=== PATIENT | female | born 1960 | race Caucasian/White ===

== ENCOUNTER → 2020-02-11 11:28 | Outpatient (BNVA) | payer OTHER, SELFPAY | PROVIDERS: PCP Nurse Practitioner Family; Visit Provider Surgery | DX: C50.912 Malignant neoplasm of unspecified site of left female breast (principal); Z98.890 Other specified postprocedural states | CPT/HCPCS: 99214 ==

== ENCOUNTER 2020-02-17 07:01 | Day surgery (SDC) | payer OTHER, SELFPAY ==
[2020-02-12 13:30] VITALS: BMI 27.6
--- NOTE | 2020-02-16 10:46 | HO.ANESPROP2 ---
Documented by User: Graciela Carballo 02/16/20 10:53 HPI - Anesthesia Eval Consult details Narrative: 59 yo F for L breast lumpectomy S/P breast bx and needle loc 12/2019 COUNTS INCLUDE 234 BEDS AT THE [facility] Past Medical History Medical History (Updated 02/16/20 @ 10:47 by Graciela Carballo) Chronic back pain Diverticulitis Fibromyalgia GERD (gastroesophageal reflux disease) Family History Family History Mother History of diabetes mellitus History of hypertension History of pancreatic cancer Father History of diabetes mellitus History of hypertension Sister History of hypertension Maternal Grandmother History of lung cancer Surgical History Surgical History History of section History of colonoscopy History of cystoscopy History of endoscopy (~01/2018) History of esophagogastroduodenoscopy (EGD) (~02/2013) History of gastric surgery History of left breast biopsy (~01/08/20) History of local excision of skin lesion (~03/2018) History of right breast biopsy (~2012) Social History Social History Are you a primary healthcare insurance sales agent to a significant other at home: No Do you presently have 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 or other home services: No Alcohol intake: never Smoking Status: Never smoker Second Hand Smoke Exposure: No Use of substances other than those prescribed or required for medical reasons: No Have you been hit, kicked, punched, or otherwise hurt by someone within the past year? If so, by whom?: No Advance Directives: No Advance Directives Information Provided: Yes Advance Directives on File: No Meds Allergies Allergy/AdvReac Type Severity Reaction Status Date / Time Penicillins [PENICILLINS] Allergy Severe SWELLING/VO Verified 02/11/20 11:45 MITING paroxetine Allergy Unknown diarrhea Verified 02/11/20 11:45 metronidazole [Flagyl] AdvReac Unknown palpatation Verified 02/11/20 11:45 s IVP dye - facial swelling Allergy Unknown Eye Uncoded 02/10/20 09:45 Swelling Home Medications Medication Instructions Recorded Confirmed Type aspirin 81 mg tablet,delayed 81 mg PO DAILY 02/10/20 02/11/20 History release docusate sodium 100 mg capsule 100 mg PO DAILY 02/10/20 02/11/20 History ergocalciferol (vitamin D2) 50 mcg 50 mcg PO DAILY 02/10/20 02/11/20 History (2,000 unit) capsule fluticasone propionate 50 1 spray INTRANASAL DAILY 02/10/20 02/11/20 History mcg/actuation nasal spray,suspension lidocaine HCl 4 % topical cream 1 applic TOPICAL TID 02/10/20 02/11/20 History multivitamin with minerals-folic tab PO 02/10/20 02/11/20 History acid 0.4 mg tablet omeprazole 40 mg capsule,delayed 40 mg PO DAILY 02/10/20 02/11/20 History release oxycodone-acetaminophen 5 mg-325 1 tab PO Q6H PRN 02/10/20 02/11/20 History mg tablet pantoprazole 40 mg tablet,delayed 40 mg PO DAILY 02/10/20 02/11/20 History release zolpidem 10 mg tablet 10 mg PO BEDTIME 02/10/20 02/11/20 History Exam Exam Date and Time: February 16, 2020 1046 Height,Weight and Vital Signs: Height 5 ft 2 in Weight 68.492 kg Assessment and Plan Assessment Anesthesia Assessment: Chart Reviewed Documented by User: Dominic Olivier 02/17/20 09:36 COUNTS INCLUDE 234 BEDS AT THE [facility] Past Medical History Medical History (Updated 02/16/20 @ 10:47 by Graciela Carballo) Chronic back pain Diverticulitis Fibromyalgia GERD (gastroesophageal reflux disease) Family History Family History Mother History of diabetes mellitus History of hypertension History of pancreatic cancer Father History of diabetes mellitus History of hypertension Sister History of hypertension Maternal Grandmother History of lung cancer Surgical History Surgical History History of section History of colonoscopy History of cystoscopy History of endoscopy (~01/2018) History of esophagogastroduodenoscopy (EGD) (~02/2013) History of gastric surgery History of left breast biopsy (~01/08/20) History of local excision of skin lesion (~03/2018) History of right breast biopsy (~2012) Social History Social History Are you a primary healthcare insurance sales agent to a significant other at home: No Do you presently have 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 or other home services: No Alcohol intake: never Smoking Status: Never smoker Second Hand Smoke Exposure: No Use of substances other than those prescribed or required for medical reasons: No Have you been hit, kicked, punched, or otherwise hurt by someone within the past year? If so, by whom?: No Advance Directives: No Advance Directives Information Provided: Yes Advance Directives on File: No Meds Allergies Allergy/AdvReac Type Severity Reaction Status Date / Time Penicillins [PENICILLINS] Allergy Severe SWELLING/VO Verified 02/11/20 11:45 MITING paroxetine Allergy Unknown diarrhea Verified 02/11/20 11:45 metronidazole [Flagyl] AdvReac Unknown palpatation Verified 02/11/20 11:45 s IVP dye - facial swelling Allergy Unknown Eye Uncoded 02/10/20 09:45 Swelling Home Medications Medication Instructions Recorded Confirmed Type aspirin 81 mg tablet,delayed 81 mg PO DAILY 02/10/20 02/11/20 History release docusate sodium 100 mg capsule 100 mg PO DAILY 02/10/20 02/11/20 History ergocalciferol (vitamin D2) 50 mcg 50 mcg PO DAILY 02/10/20 02/11/20 History (2,000 unit) capsule fluticasone propionate 50 1 spray INTRANASAL DAILY 02/10/20 02/11/20 History mcg/actuation nasal spray,suspension lidocaine HCl 4 % topical cream 1 applic TOPICAL TID 02/10/20 02/11/20 History multivitamin with minerals-folic tab PO 02/10/20 02/11/20 History acid 0.4 mg tablet omeprazole 40 mg capsule,delayed 40 mg PO DAILY 02/10/20 02/11/20 History release oxycodone-acetaminophen 5 mg-325 1 tab PO Q6H PRN 02/10/20 02/11/20 History mg tablet pantoprazole 40 mg tablet,delayed 40 mg PO DAILY 02/10/20 02/11/20 History release zolpidem 10 mg tablet 10 mg PO BEDTIME 02/10/20 02/11/20 History Exam Airway Mallampati Class: II TM Dist: >3cm Neck ROM: Full Loose/Missing/Broken Teeth: Yes and Upper Heart: RRR Other: chipped front tooth Assessment and Plan Assessment Anesthesia Assessment: Anesthesia Plan Discussed Final Anesthetic Review NPO: Yes ASA Class: II Anesthetic Plan Anesthetic Plan: GA
[2020-02-17] VITALS (7 sets, daily range): BP systolic 142–163; BP diastolic 64–83; PULSE 64–76; RESP 16–20; TEMP 36.3–37; O2SAT 97–100
--- NOTE | 2020-02-17 09:24 | MHC.SHP ---
Pre-Procedural Eval Section A The patient is an INPATIENT: No Changes since office visit: No Cold of Flu in the past 2 weeks, No New Medical Problems, No Changes in Medication and No Patient answered all questions The History & Physical has been completed within 30 days and I have reviewed it.: Yes Section B Chief Complaint: Cancer of Left Breast Allergies: Allergies Allergy/AdvReac Type Severity Reaction Status Date / Time Penicillins [PENICILLINS] Allergy Severe SWELLING/VO Verified 02/11/20 11:45 MITING paroxetine Allergy Unknown diarrhea Verified 02/11/20 11:45 metronidazole [Flagyl] AdvReac Unknown palpatation Verified 02/11/20 11:45 s IVP dye - facial swelling Allergy Unknown Eye Uncoded 02/10/20 09:45 Swelling Plan Diagnosis/Plan: Unchanged Patient has been examined and remains a candidate for the planned procedure
--- NOTE | 2020-02-17 09:35 | NM_ITS ---
EXAMINATION: NM LYMPH SCINTIGRAPHY CLINICAL INFORMATION: Left breast cancer COMPARISON: None TECHNIQUE: Procedure and risks and benefits including bleeding and infection were discussed with the patient and informed consent was obtained. The subcutaneous skin nipple interface of the left breast at the 12, 3, 6 and 9:00 axis was ejected with 0.125 mCi technetium 99m labeled lymphoseek for total dose of 0.5 mCi. Imaging of the chest in the anterior, ICELANDIC and left lateral positions at 20 and 30 minutes was performed. FINDINGS: There is adequate radiotracer uptake seen at the skin nipple interface. There is a sentinel node activity in the left axilla. A single sentinel node is identified. IMPRESSION: Positive sentinel node activity in the left axilla.
[2020-02-17] MEDS: vancomycin HCL 1,000 MG in 0.9 % Sodium Chloride 250 ML 270 MG IV (09:40)
[2020-02-17] MEDS: Lactated Ringers 1,000 ML 100 ML IVCONT (09:42)
--- NOTE | 2020-02-17 11:34 | P.OP_ITS ---
Operative Note Operative Note Narrative: Preoperative Diagnosis: Left breast carcinoma with involved superior resection margin Postoperative Diagnosis: Same Procedure: RE-excision of left breast lumpectomy margins and left axillary sentinel node biopsy Anesthesia: [employer] Truck Manager: Liz Chahal PA-C EBL: <10 cc Specimens: Left axillary sentinel nodes 1(count 5,029) and 2 (count 1,259), additional axillary tissue, Breast tissue - re-excision left breast lumpectomy margins Immediate complcations: None Indications: She is status post left breast biopsy with needle localization for further evaluation of a finding of in intraductal papillary process 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 The left breast, surrounding chest wall, shoulder, axilla and upper arm were prepped with ChloraPrep and were draped sterilely. Time-out procedure was performed. Infusion of vancomycin had been initiated in the preop area and continued initially in the operating room. She was noted to have some erythema and mild induration just proximal to the IV site and the infusion was discontinued after administration of approximately 500 mg. The surgical sites were infiltrated with local anesthetic prior to making incision. Left axillary sentinel node biopsy was carried out 1st. The probe was employed to identify the area of highest count, which was located at the base of the axi lla. Skin and subcutaneous tissues were infiltrated with local anesthetic and an approximately 2.5 cm transverse incision was made and was carried into the subcutaneous tissues. Using a technique of alternating scanning and dissection, an area of elevated count was identified. The tissues were grasped with an Allis clamp. Further dissection revealed 2 adjacent lymph nodes. These were dissected free using a combination of Metzenbaum and electrosurgical pencil dissection. after removal, scanning of left axillary sentinel node revealed a count of 5029. [place] node 2. Had a count of 1259. there is a small amount of additional axillary tissue that had been removed with the sentinel nodes and this was sent as a separate specimen. Rescanning of the axilla did not identify any additional areas of significantly elevated count. The wound was irrigated with saline solution and was inspected for bleeding. None was seen. Additional infiltration of local anesthetic was carried out. The axillary fascia was then closed with interrupted sutures of 2 0 Polysorb. Superficial subcutaneous tissues were closed with interrupted sutures of 3 0 Polysorb and skin was closed with a running subcuticular suture of 4 0 Polysorb. Tegaderm was placed over the incision. Following this, skin, subcutaneous and deeper tissues at the left breast biopsy site were infiltrated with local anesthetic. Incision was made through the old scar and was carried into the subcutaneous tissues. Skin flaps were then raised circumferentially using the electrosurgical pencil. The prior biopsy site was dissected free circumferentially using Metzenbaum scissors. Tissues were marked for margin orientation. the wound was irrigated with saline solution and was inspected for bleeding. Minimal bleeding was noted and was controlled using the electrosurgical pencil. The lumpectomy site was then infiltrated with local anesthetic. It further mobilization of the skin flaps was carried out primarily it superiorly to permit to more cosmetic closure of the lumpectomy site. The lumpectomy site was then reapproximated with interrupted sutures of 3 0 Polysorb. Subcutaneous tissues were reapproximated with interrupted sutures of 3 0 Polysorb and skin was closed with a running subcuticular suture of 4 0 Polysorb. The Tegaderm was removed from the axillary incision and Steri-Strips were placed on both incisions followed by dry sterile dressings. She tolerated the procedure well. Sponge instrument counts were correct. There were no immediate complications. She was transferred to the postanesthesia care unit in stable condition. Breast [place] Node Biopsy Substrate(s) used for sentinel node biopsy in the non-neoadjuvant setting: Radiotracer Substrate(s) used for sentinel node biopsy in the neoadjuvant setting: Radiotracer All colored nodes or non-colored nodes present at the end of a dye filled lymphatic channel were removed, if dye was used as the substrate for localization: N/A All significantly radioactive nodes were removed, if radionuclide was used as the substrate for localization: Yes All palpably suspicious nodes were removed, if present: N/A If clips were placed in pathology-involved nodes, those nodes were identified and removed: N/A General Surg. - Synoptic Notes Breast [place] Node Biopsy Substrate(s) used for sentinel node biopsy in the non-neoadjuvant setting: Radiotracer Substrate(s) used for sentinel node biopsy in the neoadjuvant setting: Radiotracer All colored nodes or non-colored nodes present at the end of a dye filled lymphatic channel were removed, if dye was used as the substrate for localization: N/A All significantly radioactive nodes were removed, if radionuclide was used as the substrate for localization: Yes All palpably suspicious nodes were removed, if present: N/A If clips were placed in pathology-involved nodes, those nodes were identified and removed: N/A
[2020-02-17] MEDS: oxyCODONE HCl Immed Release 5 MG TABLET PO (11:55)
--- NOTE | 2020-02-17 12:46 | HO.POSTANES ---
Post Anesthesia Evaluation Post Anesthesia Evaluation Vital Signs: Vital Signs Temp Pulse Resp BP Pulse Ox 02/17/20 12:12 98.6 F 65 16 157/83 H 98 02/17/20 12:02 64 20 160/80 H 97 02/17/20 11:47 66 20 145/74 H 100 02/17/20 11:43 75 20 142/69 H 100 02/17/20 11:38 74 18 144/64 H 100 02/17/20 11:33 97.3 F 76 16 163/83 H 100 02/17/20 07:19 97.8 F 74 16 153/80 H 97 Anesthesia: General Endotracheal-GETA Mental Status: Awake Pain Control: Satisfactory Nausea/Vomiting: None Hydration: Adequate Anesthesia-Related Issues: No Anes. Related Issues
== END 2020-02-17 12:59 | disposition home or self-care (01) ==
PROVIDERS: PCP Nurse Practitioner Family; Visit Provider Surgery
DX: C50.912 Malignant neoplasm of unspecified site of left female breast (principal); Z17.0 Estrogen receptor positive status [ER+]; Z88.0 Allergy status to penicillin; Z88.1 Allergy status to other antibiotic agents; Z91.041 Radiographic dye allergy status
CPT/HCPCS: 19301; 38525; 78195; 88307; 88341; 88342; A9520; J0131; J1100; J2250; J2405; J3010; J3370

== ENCOUNTER → 2020-02-25 11:38 | Outpatient (BNVA) | payer OTHER, SELFPAY | PROVIDERS: PCP Nurse Practitioner Family; Visit Provider Surgery | DX: Z48.3 Aftercare following surgery for neoplasm (principal); C50.912 Malignant neoplasm of unspecified site of left female breast | CPT/HCPCS: 99212 ==

== ENCOUNTER → 2020-03-17 10:17 | Outpatient (BNVA) | payer OTHER, SELFPAY | PROVIDERS: PCP Nurse Practitioner Family; Visit Provider Surgery | DX: Z48.3 Aftercare following surgery for neoplasm (principal); C50.912 Malignant neoplasm of unspecified site of left female breast | CPT/HCPCS: 99212 ==

== ENCOUNTER 2020-03-24 08:23 | Outpatient (REF) | payer OTHER, SELFPAY ==
--- NOTE | 2020-03-24 08:30 | MM_ITS ---
EXAMINATION: BONE DENSITOMETRY CLINICAL INDICATION: Osteopenia. COMPARISON: Previous BD dated 12/18/2011 and baseline BD dated 08/11/2009. TECHNIQUE: Using a [employer] DXA System (software version: 13.1) manufactured by [employer], dual-energy x-ray absorptiometry was performed of the lumbar spine and left hip. The images are of good technical quality. Summary results are attached. FINDINGS: AP SPINE L1-L4: Current: BMD 1.148 g/cm2, Z-score 0.9, T-score -0.3, normal, 11.2% decrease from previous, 13.8% decrease from baseline (<5% change is not significant). Prior: BMD 1.293 g/cm2. Baseline: BMD 1.332 g/cm2. LEFT FEMUR, NECK: Current: BMD 0.855 g/cm2, Z-score -0.1, T-score -1.3, osteopenia. Prior: BMD 0.991 g/cm2. Baseline: BMD 0.994 g/cm2. LEFT FEMUR, TOTAL: Current: BMD 0.945 g/cm2, Z-score 0.4, T-score -0.5, normal, 12.3% decrease from previous, 15.3% decrease from baseline (<5% change is not significant). Prior: BMD 1.077 g/cm2. Baseline: BMD 1.116 g/cm2. IDENTIFIED RISK FACTORS: Menopause, hysterectomy. HISTORY OF FRACTURE: None listed. MEDICATIONS: Multivitamin. MM/XR DEXA appendicular skeleton IMPRESSION: 1. DIAGNOSIS: Osteopenia based on the lowest T-score value of -1.3 in the femoral neck applying World Health Organization criteria. 2. 10-YEAR FRACTURE RISK PREDICTION, FRAX: Major osteoporotic fracture (clinical spine, forearm, hip or shoulder) 4.2%. Hip fracture 0.3%. 3. Treatment Recommendations: NOF guidelines recommend consideration for treatment in postmenopausal women and men age 50 and older presenting with the following: -A hip or vertebral (clinical or morphometric) fracture. -T-score less than or equal to -2.5 at the femoral neck or spine after appropriate evaluation to exclude secondary causes. -Low bone mass at the hip or spine and a 10-year fracture probability by FRAX of greater than or equal to 3% for hip fracture or greater than or equal to 20% for major osteoporotic fracture based on the [place] adapted WHO algorithm. 4. Other Recommendations: All treatment decisions require clinical judgment and consideration of individual patient factors, including patient preferences, comorbidities, previous drug use, risk factors not captured in the FRAX model (e.g. frailty, falls, vitamin D deficiency, increased bone turnover, interval significant decline in bone density) and possible under or overestimation of fracture risk by FRAX. Additional medical evaluation for secondary cause of low bone mineral density may be appropriate. FUTURE SCAN RECOMMENDATION: People with diagnosed cases of osteoporosis or at high risk for fracture should have regular bone mineral density tests. For patients eligible for Medicare, routine testing is allowed once every 2 years. The testing frequency can be increased to one year for patients who have rapidly progressing disease, those who are receiving or discontinuing medical therapy to restore bone mass, or have additional risk factors.
== END 2020-03-24 08:24 | disposition home or self-care (01) ==
LOC: HO.MAMMO 08:23
PROVIDERS: Visit Provider Internal Medicine Medical Oncology
DX: M85.89 Other specified disorders of bone density and structure, multiple sites (principal)
CPT/HCPCS: 77081

== ENCOUNTER → 2020-03-24 10:00 | Outpatient (BNV) | payer OTHER, SELFPAY | PROVIDERS: PCP Nurse Practitioner Family; Referring Provider Surgery; Visit Provider Internal Medicine Medical Oncology | DX: D05.12 Intraductal carcinoma in situ of left breast (principal) | CPT/HCPCS: 99202; 99204; 99212; 99213; 99214 ==

== ENCOUNTER → 2020-05-17 10:29 | Outpatient (BNVA) | payer OTHER, SELFPAY | PROVIDERS: PCP Nurse Practitioner Family; Visit Provider Surgery | DX: C50.912 Malignant neoplasm of unspecified site of left female breast (principal) | CPT/HCPCS: 99212 ==

== ENCOUNTER 2020-06-10 12:15 | Emergency (ER) | payer OTHER, SELFPAY ==
[2020-06-10 14:53] VITALS: BP 174/100; PULSE 81; RESP 18; TEMP 37.8; O2SAT 94; BMI 28.5
--- NOTE | 2020-06-10 15:40 | ECG_ITS ---
Test Reason : SHORTNESSOF BREATH Blood Pressure : / mmHG Vent. Rate : 071 BPM Atrial Rate : 071 BPM P-R Int : 158 ms QRS Dur : 076 ms QT Int : 388 ms P-R-T Axes : 035 010 024 degrees QTc Int : 421 ms Normal sinus rhythm with sinus arrhythmia Normal ECG When compared with ECG of 22-JUN-2019 23:45, No significant change was found Referred By: Tessa Madera Electronically Signed By:Sunny Soto
--- NOTE | 2020-06-10 15:41 | XR_ITS ---
EXAMINATION: XR CHEST CLINICAL INFORMATION: Dyspnea. COMPARISON: 01/14/2020 chest radiographs. TECHNIQUE: Frontal view of the chest was obtained. FINDINGS: No significant abnormality is noted involving the heart, lungs, mediastinum, bony thorax or soft tissues. XR/XR chest 1V IMPRESSION: No acute cardiopulmonary process.
[2020-06-10 15:44] VITALS: BP 178/96; PULSE 80; RESP 18; TEMP 36.5; O2SAT 98
--- NOTE | 2020-06-10 16:10 | NM_ITS ---
EXAMINATION: NM LUNG IMAGE PERFUSION CLINICAL INFORMATION: Breast cancer. On chemotherapy. Pleuritic right-sided chest pain COMPARISON: Lung scan 01/14/2020. Chest x-ray 06/10/2020 TECHNIQUE: Perfusion lung scan imaging performed. 2.5 mCi technetium 99m MAA given intravenously. Images obtained in multiple projections of the lungs. FINDINGS: There is homogeneous perfusion of the right and left lung. No perfusion defects. NM/NM pul perfusion IMPRESSION: Normal perfusion lung scan. No evidence of pulmonary embolism.
[2020-06-10] MEDS: oxyCODONE HCl Immed Release 5 MG TABLET PO (16:27)
[2020-06-10] MEDS: Acetaminophen 325 MG TABLET 650 MG PO (16:27)
[2020-06-10 16:29] LABS: MANUAL DIFF FLAG NO
[2020-06-10 16:34] LABS: Basophils Absolute Auto 0.1 X10*3/uL (0.0-0.2); Basophils Percent Auto 0.9 % (0-2); Eosinophils Absolute Auto 0.1 X10*3/uL (0.0-0.4); Eosinophils Percent Auto 2.1 % (0-4); Hematocrit 39.2 % (37-47); Hemoglobin 13.8 g/dl (12.0-16.0); Lymphocytes Absolute Auto 1.2 X10*3/uL (1.2-4.9); Lymphocytes Percent Auto 22.9 % (20-40); Mean Corpuscular HGB Conc 35.2 g/dl (31.0-35.0); Mean Corpuscular Hemoglobin 31.6 pg (27.0-33.0); Mean Corpuscular Volume 89.7 fL (80-98); Mean Platelet Volume 9.3 fL (9.4-12.3); Monocytes Absolute Auto 0.3 X10*3/uL (0.1-1.2); Monocytes Percent Auto 6.4 % (2-11); Neutrophils Absolute Auto 3.6 X10*3/uL (2.0-8.3); Neutrophils Percent Auto 67.7 % (45-73); Platelet Count 354 X10*3/uL (160-400); Red Blood Count 4.37 X10*6/uL (4.20-5.50); Red Cell Distribution Width 13.1 % (11.0-16.0); White Blood Count 5.3 X10*3/uL (4.8-10.8)
[2020-06-10 16:41] LABS: INTERNATIONAL NORM RATIO 1.1 (0.9-1.1); Prothrombin Time 12.5 SEC (10.8-13.0)
[2020-06-10 16:43] LABS: Partial Thromboplastin Time 40.7 SEC (24.1-38.0)
[2020-06-10 16:54] LABS: Glucose Urine UA NEG (NEG); Leukocyte Esterase Urine NEG (NEG); Nitrite Urine NEG (NEG); Urine Blood NEG (NEG); Urine Ketones NEG (NEG); Urine Protein NEG (NEG-TRACE)
[2020-06-10 16:55] LABS: D Dimer < 200 NG/ML
[2020-06-10 16:56] LABS: Lactic Acid 1.1 mmol/L (0.5-2.0)
[2020-06-10 16:56] LABS: Appearance Urine CLEAR; Color Urine YELLOW
[2020-06-10 17:00] LABS: Alanine Aminotransferase 18 U/L (0-31); Albumin Level 4.5 g/dL (3.5-5.0); Alkaline Phosphatase 126 U/L (39-117); Aspartate Amino Transferase 25 U/L (5-31); Bilirubin Direct 0.2 mg/dL (0.0-0.5); Bilirubin Total 0.7 mg/dL (0.0-1.0); Lactate Dehydrogenase 182 U/L (122-220); Magnesium 1.9 mg/dL (1.6-2.6); Total Protein 7.4 g/dL (6.5-8.0)
[2020-06-10 17:05] LABS: B Type Natriuretic Peptide 20 pg/mL (<100); Troponin-I High Sensitivity < 3.5 ng/L (<3.5-17.0)
[2020-06-10 17:08] LABS: Influenza A PCR NEGATIVE (Negative); Influenza B PCR NEGATIVE (Negative); Resp Syncy Virus RNA Qual PCR NEGATIVE (Negative); SARS COV2 PCR INHOUSE NEGATIVE (Negative)
[2020-06-10 17:20] LABS: Ferritin 66 ng/mL (10-250)
[2020-06-10 18:58] LABS: Anion Gap 11 (12-20); Blood Urea Nitrogen 16 mg/dL (9-16); Calcium 9.6 mg/dL (8.4-10.2); Carbon Dioxide 30 mmol/L (22-29); Chloride 105 mmol/L (96-108); Creatinine Clr Calc Pharmacy 77.7; Estimated Glomerular Filt Rate > 60; Glucose Random 127 mg/dL (60-115); Potassium 4.3 mmol/L (3.3-5.1); Sodium 142 mmol/L (135-145)
--- NOTE | 2020-06-10 19:02 | ED.GENADULT ---
HPI - General Adult General Chief complaint: General Medical Stated complaint: sob Time Seen by Provider: 06/10/20 15:02 Source: patient Mode of arrival: ambulatory Limitations: language barrier (Setswana-speaking) History of Present Illness HPI narrative: 59yoF c PMHx of Left Breast Cancer currently on Chemotherapy finished radiation, chronic back pain, fibromyalgia, GERD and diverticulitis presenting to the ED c c/o right anterior lateral chest wall pain worse with palpation, coughing and deep inspiration for the past week worse today. Reports associated shortness of breath. Denies any fevers, chills, headaches, dizziness, dyspnea on exertion, orthopnea, palpitations, focal weakness, extremity edema, any symptoms or any other symptoms complaints or concerns at this time. Related Data Home Medications Medication Instructions Recorded Confirmed aspirin 81 mg tablet,delayed 81 mg PO DAILY 02/10/20 03/18/20 release docusate sodium 100 mg capsule 100 mg PO DAILY 02/10/20 03/18/20 fluticasone propionate 50 1 spray INTRANASAL DAILY 02/10/20 04/01/20 mcg/actuation nasal spray,suspension multivitamin with minerals-folic 1 tab PO DAILY 02/10/20 03/18/20 acid 0.4 mg tablet omeprazole 40 mg capsule,delayed 40 mg PO DAILY 02/10/20 03/18/20 release oxycodone-acetaminophen 5 mg-325 1 tab PO Q6H PRN 02/10/20 03/18/20 mg tablet pantoprazole 40 mg tablet,delayed 40 mg PO DAILY 02/10/20 04/01/20 release zolpidem 10 mg tablet 10 mg PO BEDTIME 02/10/20 04/01/20 clonazepam 0.5 mg disintegrating 0.5 mg PO DAILY PRN 05/17/20 tablet diclofenac potassium 50 mg tablet 50 mg PO TID PRN 05/17/20 Previous Rx's Medication Instructions Recorded letrozole 2.5 mg PO DAILY #90 tab 04/01/20 clonazepam [Klonopin] 0.5 mg PO BEDTIME #30 tab 05/02/20 acetaminophen [Tylenol Extra 1,000 mg PO QID PRN #14 tab 06/10/20 Strength] cyclobenzaprine 10 mg PO TID PRN #10 tab 06/10/20 ibuprofen 600 mg PO Q8H PRN #14 tab 06/10/20 oxycodone 5 mg PO BID PRN #10 tab 06/10/20 Allergies Allergy/AdvReac Type Severity Reaction Status Date / Time Penicillins [PENICILLINS] Allergy Severe SWELLING/VO Verified 05/17/20 11:08 MITING paroxetine Allergy Unknown diarrhea Verified 05/17/20 11:08 metronidazole [Flagyl] AdvReac Unknown palpatation Verified 05/17/20 11:08 s IVP dye - facial swelling Allergy Unknown Eye Uncoded 02/10/20 09:45 Swelling Review of Systems Review of Systems: Constitutional : No Weight loss, No Fever, No Chills, No Night Sweats, No Fatigue, No Malaise ENT/Mouth : No Hearing loss, No Ear Pain, No Nasal Congestion, No Sinus Pain, No Hoarseness, No sore throat, No Rhinorrhea, No Swallowing Difficulty Eyes: No Eye Pain, No Swelling, No Redness, No Foreign Body, No Discharge, No Vision Changes Cardiovascular : + Chest wall pain, No SOB, no Dyspnea on Exertion, No Orthopnea, NoEdema, No extremity swelling, No Palpitations Respiratory : No Cough, No Sputum, No Wheezing, No Dyspnea Gastrointestinal : No Nausea, No Vomiting, No Diarrhea, No abdominal Pain, NoHematochezia, No Melena Genitourinary : No irregular bleeding, No Dysuria, No Urinary Frequency, No Hematuria,No Urinary Incontinence, No Urgency, No Flank Pain, No Urinary Flow Changes, NoHesitancy Musculoskeletal : No joint pain, No Myalgias, No Joint Swelling Skin : No Skin Lesions, No rash Neuro : No Weakness, No Numbness, No Paresthesias, No Loss of Consciousness, No Dizziness, No Headache Psych : No Anxiety/Panic, No Depression, No SI/HI/AH/VH Heme/Lymph: No Bruising, No Bleeding,No Lymphadenopathy Endocrine : No Polyuria, No Polydipsia, No Temperature Intolerance Yes all other systems are reviewed and are negative [facility] Past Medical History Attestation statement: The following information was validated with the patient. Medical History Chronic back pain Diverticulitis Fibromyalgia GERD (gastroesophageal reflux disease) Invasive carcinoma of breast Surgical History History of section History of colonoscopy History of cystoscopy History of endoscopy (~01/2018) History of esophagogastroduodenoscopy (EGD) (~02/2013) History of gastric surgery History of left breast biopsy (~01/08/20) History of local excision of skin lesion (~03/2018) History of right breast biopsy (~2012) Family History Family History Mother History of diabetes mellitus History of hypertension History of pancreatic cancer Father History of diabetes mellitus History of hypertension Sister History of hypertension Maternal Grandmother History of lung cancer Social History Social History Alcohol intake: never Smoking Status: Never smoker Second Hand Smoke Exposure: No Use of substances other than those prescribed or required for medical reasons: No Advance Directives: No Advance Directives Information Provided: No Physical Exam Vital Signs: Vital Signs: Last Vital Signs Temp 97.7 F 06/10/20 15:44 Pulse 80 06/10/20 15:44 Resp 18 06/10/20 15:44 BP 178/96 H 06/10/20 15:44 Pulse Ox 98 06/10/20 15:44 Body Mass Index 28.5 vital signs have been reviewed as normal and appeared to be correct. Blood pressure . Heart rate normal. Respiration rate normal. Temperature normal. Oxygen saturation normal. Appearance: Alert. Oriented X3. No acute distress. Head: Normal external exam. Normocephalic. Atraumatic. Eyes: PERRLA. EOMI. Conjunctiva and sclera normal. Eyelids normal. ENT: Pharynx normal. Uvula midline. Moist mucous membranes. Neck: Normal inspection. Neck supple. FROM. No adenopathy. Thyroid Normal. Trachea midline. No meningeal signs. No neck mass noted. CVS: Normal heart rate and rhythm. Heart sound normal. No murmurs noted. Pulses normal throughout. Respiratory: No respiratory distress. Painless inspiration. Breath sounds normal. No wheezes/rales/rhonchi noted. Chest tender to palpation to right lower lateral chest wall/rib cage. No flail chest noted. No crepitus noted. No rashes/lesion/induration/fluctuance or signs of infection noted. No accessory muscle usage noted or decreased air movement noted. Back: Full range of motion noted. Skin: Skin warm and dry. Normal skin color. Normal skin turgor. No rashes/lesions/lacerations noted. Extremities: No lower extremity edema. No calf tenderness noted. Extremities exhibit normal range of motion. Extremities nontender. Neuro: Oriented X 3. No motor deficit. No sensory deficit. Reflexes normal. Course Course Course Narrative: 59yoF c PMHx of Left Breast Cancer currently on Chemotherapy finished radiation, chronic back pain, fibromyalgia, GERD and diverticulitis presenting to the ED c c/o right anterior lateral chest wall pain worse with palpation, coughing and deep inspiration for the past week worse today. - labs obtained including D-dimer and negative. - alkaline phosphate 126 although this is chronic when compared to priors. - otherwise all other labs are within normal limits. - UA within normal limits no evidence of UTI. - COVID/flu/RSV negative. - EKG sinus rhythm with sinus arrhythmia no acute ischemic changes noted. - CXR within normal limits no acute processes noted. - normal V/Q scan no evidence of PE. - patient most likely muscle strain will DC home with symptomatic treatment along with instructions to return if any new or worsening symptoms to follow up with PCP/oncologist and to continue her previously prescribed medications as previously prescribed. Patient understands agrees the plan. Medical Decision Making Medical Records Medical records reviewed: Yes I reviewed the patient's medical records. Lab Data Lab results reviewed: Yes I reviewed the patient's lab results. Result diagrams: 06/10/20 16:21 06/10/20 18:24 Labs: Lab Results 06/10/20 06/10/20 06/10/20 Range/Units 16:21 16:21 16:21 WBC 5.3 (4.8-10.8) X10*3/uL RBC 4.37 (4.20-5.50) X10*6/uL Hgb 13.8 (12.0-16.0) g/dl Hct 39.2 (37-47) % MCV 89.7 (80-98) fL MCH 31.6 (27.0-33.0) pg MCHC 35.2 H (31.0-35.0) g/dl RDW 13.1 (11.0-16.0) % Plt Count 354 (160-400) X10*3/uL MPV 9.3 L (9.4-12.3) fL Immature Gran % (Auto) 0.0 (0.0-0.4) % Neut % (Auto) 67.7 (45-73) % Lymph % (Auto) 22.9 (20-40) % [place] % (Auto) 6.4 (2-11) % Eos % (Auto) 2.1 (0-4) % Baso % (Auto) 0.9 (0-2) % Lymph # (Auto) 1.2 (1.2-4.9) X10*3/uL [place] # (Auto) 0.3 (0.1-1.2) X10*3/uL Eos # (Auto) 0.1 (0.0-0.4) X10*3/uL Baso # (Auto) 0.1 (0.0-0.2) X10*3/uL Abs Immat Gran (auto) 0.00 (0.00-0.03) X10*3/uL Absolute Neuts (auto) 3.6 (2.0-8.3) X10*3/uL Absolute Nucleated RBC 0.000 (0.0-0.012) X10*3/uL Nucleated RBC % (auto) 0.0 (0.0-0.2) /100WBC PT 12.5 (10.8-13.0) SEC INR 1.1 (0.9-1.1) APTT 40.7 H (24.1-38.0) SEC D-Dimer < 200 NG/ML Sodium (135-145) mmol/L Potassium (3.3-5.1) mmol/L Chloride (96-108) mmol/L Carbon Dioxide (22-29) mmol/L Anion Gap (12-20) BUN (9-16) mg/dL Creatinine (0.5-1.4) mg/dL Estim Creat Clear Calc Estimated GFR Random Glucose (60-115) mg/dL Lactic Acid (0.5-2.0) mmol/L Calcium (8.4-10.2) mg/dL Magnesium (1.6-2.6) mg/dL Ferritin (10-250) ng/mL Total Bilirubin (0.0-1.0) mg/dL Direct Bilirubin (0.0-0.5) mg/dL AST (5-31) U/L ALT (0-31) U/L Alkaline Phosphatase (39-117) U/L Lactate Dehydrogenase (122-220) U/L Troponin I High Sens (<3.5-17.0) ng/L B-Natriuretic Peptide 20 (<100) pg/mL Total Protein (6.5-8.0) g/dL Albumin (3.5-5.0) g/dL Urine Color Urine Appearance Urine pH (5.0-8.0) Ur Specific [place] (1.005-1.025) Urine Protein (NEG-TRACE) MG/DL Urine Glucose (UA) (NEG) MG/DL Urine Ketones (NEG) MG/DL Urine Blood (NEG) Urine Nitrite (NEG) Ur Leukocyte Esterase (NEG) Coronavirus (PCR) (Negative) Influenza Type A (PCR) (Negative) Influenza Type B (PCR) (Negative) RSV RNA Qual (PCR) (Negative) 06/10/20 06/10/20 06/10/20 Range/Units 16:21 16:21 16:21 WBC (4.8-10.8) X10*3/uL RBC (4.20-5.50) X10*6/uL Hgb (12.0-16.0) g/dl Hct (37-47) % MCV (80-98) fL MCH (27.0-33.0) pg MCHC (31.0-35.0) g/dl RDW (11.0-16.0) % Plt Count (160-400) X10*3/uL MPV (9.4-12.3) fL Immature Gran % (Auto) (0.0-0.4) % Neut % (Auto) (45-73) % Lymph % (Auto) (20-40) % [place] % (Auto) (2-11) % Eos % (Auto) (0-4) % Baso % (Auto) (0-2) % Lymph # (Auto) (1.2-4.9) X10*3/uL [place] # (Auto) (0.1-1.2) X10*3/uL Eos # (Auto) (0.0-0.4) X10*3/uL Baso # (Auto) (0.0-0.2) X10*3/uL Abs Immat Gran (auto) (0.00-0.03) X10*3/uL Absolute Neuts (auto) (2.0-8.3) X10*3/uL Absolute Nucleated RBC (0.0-0.012) X10*3/uL Nucleated RBC % (auto) (0.0-0.2) /100WBC PT (10.8-13.0) SEC INR (0.9-1.1) APTT (24.1-38.0) SEC D-Dimer NG/ML Sodium (135-145) mmol/L Potassium (3.3-5.1) mmol/L Chloride (96-108) mmol/L Carbon Dioxide (22-29) mmol/L Anion Gap (12-20) BUN (9-16) mg/dL Creatinine (0.5-1.4) mg/dL Estim Creat Clear Calc Estimated GFR Random Glucose (60-115) mg/dL Lactic Acid 1.1 (0.5-2.0) mmol/L Calcium (8.4-10.2) mg/dL Magnesium 1.9 (1.6-2.6) mg/dL Ferritin 66 (10-250) ng/mL Total Bilirubin 0.7 (0.0-1.0) mg/dL Direct Bilirubin 0.2 (0.0-0.5) mg/dL AST 25 (5-31) U/L ALT 18 (0-31) U/L Alkaline Phosphatase 126 H (39-117) U/L Lactate Dehydrogenase 182 (122-220) U/L Troponin I High Sens < 3.5 (<3.5-17.0) ng/L B-Natriuretic Peptide (<100) pg/mL Total Protein 7.4 (6.5-8.0) g/dL Albumin 4.5 (3.5-5.0) g/dL Urine Color Urine Appearance Urine pH (5.0-8.0) Ur Specific [place] (1.005-1.025) Urine Protein (NEG-TRACE) MG/DL Urine Glucose (UA) (NEG) MG/DL Urine Ketones (NEG) MG/DL Urine Blood (NEG) Urine Nitrite (NEG) Ur Leukocyte Esterase (NEG) Coronavirus (PCR) (Negative) Influenza Type A (PCR) (Negative) Influenza Type B (PCR) (Negative) RSV RNA Qual (PCR) (Negative) 06/10/20 06/10/20 06/10/20 Range/Units 16:22 16:37 18:24 WBC (4.8-10.8) X10*3/uL RBC (4.20-5.50) X10*6/uL Hgb (12.0-16.0) g/dl Hct (37-47) % MCV (80-98) fL MCH (27.0-33.0) pg MCHC (31.0-35.0) g/dl RDW (11.0-16.0) % Plt Count (160-400) X10*3/uL MPV (9.4-12.3) fL Immature Gran % (Auto) (0.0-0.4) % Neut % (Auto) (45-73) % Lymph % (Auto) (20-40) % [place] % (Auto) (2-11) % Eos % (Auto) (0-4) % Baso % (Auto) (0-2) % Lymph # (Auto) (1.2-4.9) X10*3/uL [place] # (Auto) (0.1-1.2) X10*3/uL Eos # (Auto) (0.0-0.4) X10*3/uL Baso # (Auto) (0.0-0.2) X10*3/uL Abs Immat Gran (auto) (0.00-0.03) X10*3/uL Absolute Neuts (auto) (2.0-8.3) X10*3/uL Absolute Nucleated RBC (0.0-0.012) X10*3/uL Nucleated RBC % (auto) (0.0-0.2) /100WBC PT (10.8-13.0) SEC INR (0.9-1.1) APTT (24.1-38.0) SEC D-Dimer NG/ML Sodium 142 (135-145) mmol/L Potassium 4.3 (3.3-5.1) mmol/L Chloride 105 (96-108) mmol/L Carbon Dioxide 30 H (22-29) mmol/L Anion Gap 11 L (12-20) BUN 16 (9-16) mg/dL Creatinine 0.70 (0.5-1.4) mg/dL Estim Creat Clear Calc 77.7 Estimated GFR > 60 Random Glucose 127 H (60-115) mg/dL Lactic Acid (0.5-2.0) mmol/L Calcium 9.6 (8.4-10.2) mg/dL Magnesium (1.6-2.6) mg/dL Ferritin (10-250) ng/mL Total Bilirubin (0.0-1.0) mg/dL Direct Bilirubin (0.0-0.5) mg/dL AST (5-31) U/L ALT (0-31) U/L Alkaline Phosphatase (39-117) U/L Lactate Dehydrogenase (122-220) U/L Troponin I High Sens (<3.5-17.0) ng/L B-Natriuretic Peptide (<100) pg/mL Total Protein (6.5-8.0) g/dL Albumin (3.5-5.0) g/dL Urine Color YELLOW Urine Appearance CLEAR Urine pH 6.0 (5.0-8.0) Ur Specific [place] 1.020 (1.005-1.025) Urine Protein NEG (NEG-TRACE) MG/DL Urine Glucose (UA) NEG (NEG) MG/DL Urine Ketones NEG (NEG) MG/DL Urine Blood NEG (NEG) Urine Nitrite NEG (NEG) Ur Leukocyte Esterase NEG (NEG) Coronavirus (PCR) NEGATIVE (Negative) Influenza Type A (PCR) NEGATIVE (Negative) Influenza Type B (PCR) NEGATIVE (Negative) RSV RNA Qual (PCR) NEGATIVE (Negative) Imaging Data Chest x-ray: Attestation: I personally reviewed and interpreted this imaging study as follows: Radiologist's impression: FINDINGS: No significant abnormality is noted involving the heart, lungs, mediastinum, bony thorax or soft tissues. XR/XR chest 1V IMPRESSION: No acute cardiopulmonary process. V/Q scan: Attestation: I personally reviewed and interpreted this imaging study as follows: Radiologist's impression: FINDINGS: There is homogeneous perfusion of the right and left lung. No perfusion defects. NM/NM pul perfusion IMPRESSION: Normal perfusion lung scan. No evidence of pulmonary embolism. ECG Data Attestation: I personally reviewed and interpreted this ECG as follows: Interpretation: Normal sinus rhythm with sinus arrhythmia with ventricular rate of 71 with a normal [place] interval normal QRS duration normal QT/QTC interval. No acute ischemic changes noted. Similar compared to prior EKG 06/22/2019 Discharge Plan Discharge Clinical Impression: Anterior chest wall pain Patient Disposition: Home, Self-Care Instructions: Chest Wall Pain (ED) Prescriptions: New cyclobenzaprine 10 mg tablet 10 mg PO TID PRN (Reason: muscle spasm) Qty: 10 RF: 0 ibuprofen 800 mg tablet 600 mg PO Q8H PRN (Reason: pain) Qty: 14 RF: 0 acetaminophen [Tylenol Extra Strength] 500 mg tablet 1,000 mg PO QID PRN (Reason: fever or pain) Qty: 14 RF: 0 oxycodone 5 mg tablet 5 mg PO BID PRN (Reason: pain) Qty: 10 RF: 0 No Action letrozole 2.5 mg Tablet 2.5 mg PO DAILY Qty: 90 RF: 4 clonazepam [Klonopin] 0.5 mg Tablet 0.5 mg PO BEDTIME Qty: 30 RF: 0 omeprazole 40 mg capsule,delayed release(DR/EC) 40 mg PO DAILY RF: 0 pantoprazole 40 mg tablet,delayed release (DR/EC) 40 mg PO DAILY RF: 0 fluticasone propionate [Children's Flonase Allergy Rlf] 50 mcg/actuation spray,suspension 1 spray intranasal DAILY RF: 0 docusate sodium 100 mg capsule 100 mg PO DAILY RF: 0 oxycodone-acetaminophen [Percocet] 5-325 mg tablet 1 tab PO Q6H PRN (Reason: Pain) RF: 0 Adult One Daily Multivitamin 0.4 mg tablet 1 tab PO DAILY RF: 0 aspirin [Adult Low Dose Aspirin] 81 mg tablet,delayed release (DR/EC) 81 mg PO DAILY RF: 0 zolpidem 10 mg tablet 10 mg PO BEDTIME RF: 0 Referrals: Zhanna Delarosa NP [Primary Care Provider] - 2 days Print Language: Setswana
[2020-06-10 19:36] VITALS: BP 150/99; PULSE 69; RESP 20; O2SAT 100
--- NOTE | 2020-06-10 19:37 | PC.NURSE ---
This RN advised to provider that pt is requesting discharge at this time. Pt feeling unwell due to chemo and flexeril. Pt found sitting upright in bed, dressed in personal clothes, asking for discharge paperwork. IV removed prior by TOMER. VSS. DC paperwork provided to pt. Pt assisted to ambulance entrance, awaiting ride home.
== END 2020-06-10 19:38 | disposition home or self-care (01) ==
PROVIDERS: Physician Assistant Medical; Emergency Provider Emergency Medicine; PCP Nurse Practitioner Family
DX: R06.02 Shortness of breath (principal); Z79.899 Other long term (current) drug therapy; Z79.82 Long term (current) use of aspirin; Z20.822 Contact with and (suspected) exposure to COVID-19
CPT/HCPCS: 0241U; 36415; 71045; 78580; 80048; 80076; 81003; 82728; 83605; 83615; 83735; 83880; 84484; 85025; 85379; 85610; 85730; 87040; 93005; 99284; A9540

== ENCOUNTER 2020-07-15 16:29 | Outpatient (REF) | payer OTHER, SELFPAY ==
--- NOTE | ~2020-07-15 | XR_ITS ---
EXAMINATION: XR RIBS, RIGHT CLINICAL INFORMATION: Pleurodynia. COMPARISON: 06/10/2020 and 01/14/2020 chest radiographs. TECHNIQUE: 3 views of the right ribs were obtained. FINDINGS: Lungs are clear. No consolidation, pneumothorax, or pleural effusion. The cardiomediastinal silhouette and pulmonary vasculature are normal. Osseous structures are unremarkable. Ribs are intact. No fractures are identified. XR/XR ribs RT 2V IMPRESSION: Unremarkable examination.
== END 2020-07-15 16:30 | disposition home or self-care (01) ==
LOC: HO.XRAY 16:29
PROVIDERS: PCP Internal Medicine; Visit Provider Internal Medicine
DX: R07.81 Pleurodynia (principal)
CPT/HCPCS: 71100

== ENCOUNTER → 2020-08-16 12:48 | Outpatient (BNVA) | payer OTHER, SELFPAY | PROVIDERS: PCP Internal Medicine; Visit Provider Surgery | DX: C50.912 Malignant neoplasm of unspecified site of left female breast (principal); N63.10 Unspecified lump in the right breast, unspecified quadrant | CPT/HCPCS: 99212 ==

== ENCOUNTER 2020-08-19 11:43 | Outpatient (REF) | payer OTHER, SELFPAY ==
--- NOTE | ~2020-08-19 | MM_ITS ---
EXAMINATION: MM DIAGNOSTIC DIGITAL BREAST TOMOSYNTHESIS, RIGHT US DIAGNOSTIC ULTRASOUND BREAST, RIGHT CLINICAL INFORMATION: Palpable nodule at 3:00 right areola on clinical exam. Prior history contralateral left invasive ductal breast cancer status post lumpectomy 01/08/2020. COMPARISON: Mammography: 01/08/2020 and multiple prior exams dating back to 02/27/2010 TECHNIQUE: Digital breast tomosynthesis is performed in both the craniocaudal and mediolateral oblique views along with computer-aided detection (CAD). Synthesized 2D images are generated from the tomosynthesis. Ultrasound right breast is targeted to the medial retroareolar and periareolar region. Grayscale imaging and color Doppler are performed without and with harmonics FINDINGS: The breasts are heterogeneously dense, which may obscure small masses (ACR BI-RADS breast composition Category c). Parenchymal pattern is similar to prior studies. There is no developing density or interval mass or architectural abnormality. There is a subcentimeter oval subdermal nodular asymmetry at the medial right areolar margin, present on multiple prior exams dating back to 2009 without change. This could be responsible for the area of palpable concern. The symptom marker overlies this site. Again, there are some punctate and vascular calcifications right breast. Biopsy clip marker again seen posterior upper breast. Ultrasound demonstrates no cystic or solid mass or architectural abnormality. Intradermal lesion is not demonstrated. No focal duct ectasia. Results are discussed with the patient at time of visit. MM/MM tomosynthesis diagnostic RT IMPRESSION: 1. No significant mammographic changes from prior studies. 2. There is a small stable oval nodular asymmetry right medial areolar margin which could be responsible for the palpable area. This is stable for many years and without ultrasound correlate. 3. Unremarkable targeted right breast ultrasound. ASSESSMENT: BI-RADS 2: Benign RECOMMENDATION: 1. Patient should be managed based on the clinical impression. 2. Otherwise, routine annual screening mammography. This patient's information was entered into a reminder system with a target due date for their next mammogram.
== END 2020-08-19 11:44 | disposition home or self-care (01) ==
LOC: HO.MAMMO 11:43
PROVIDERS: Visit Provider Surgery
DX: C50.912 Malignant neoplasm of unspecified site of left female breast (principal); N63.10 Unspecified lump in the right breast, unspecified quadrant
CPT/HCPCS: 76642; 77061; 77065

== ENCOUNTER 2020-10-05 10:36 | Emergency (ER) | payer OTHER, SELFPAY ==
--- NOTE | ~2020-10-05 | CT_ITS ---
EXAMINATION: CT ANGIOGRAM OF THE CHEST WITH AND WITHOUT CONTRAST (CT PULMONARY ANGIOGRAM FOR PE) CLINICAL INFORMATION: Reason for Exam breast cancer with shortness of breath COMPARISON: Previous chest x-ray from earlier the same day, and VQ scan May 2020 TECHNIQUE: Prior to contrast administration, noncontrast localization images were obtained. Subsequently, multidetector volumetric imaging was performed from the thoracic inlet to below the diaphragms following the administration of 65 mL Omnipaque 350 intravenous contrast. No contrast reaction reported Sagittal, coronal, and MIP oblique sagittal reformatted images were obtained on the CT workstation, uploaded to PACS, and reviewed. This CT examination was performed using dose optimization techniques as appropriate, variously including the following: *Automated exposure control *Adjustment of mA and/or kV according to patient size (this includes techniques or standardized protocols for targeted exams where dose is matched to indication/reason for exam; i.e. extremities or head) *Use of iterative reconstruction technique Total exam dose-length product 305 mGy-cm FINDINGS: QUALITY OF STUDY/CONTRAST BOLUS: Satisfactory. PULMONARY ARTERIES: No central or segmental pulmonary emboli. THORACIC AORTA: No aneurysm or dissection. LUNG: There is mild apical pleural parenchymal scarring. There is a 7 mm calcified superior segment left lower lobe pulmonary nodule. The lungs are otherwise clear. PLEURA: No pleural effusion or pneumothorax. MEDIASTINUM: Normal heart size. No pericardial effusion. No hilar or mediastinal lymphadenopathy. No evidence of septal bowing or right heart strain. CHEST WALL/AXILLA: There is skin thickening and increased density in the left breast likely related to patient's history of breast cancer. No right breast mass is seen. There are no enlarged axillary lymph nodes. OSSEOUS STRUCTURES: No acute or suspicious osseous abnormality. There are mild degenerative changes of the spine. UPPER ABDOMEN: Unremarkable. No reflux of contrast into the hepatic veins to suggest elevated right heart pressures. CT/CT angio chest PE protocol IMPRESSION: No evidence of pulmonary embolism. Several millimeter calcified left lower lobe pulmonary nodule probably representing a calcified granuloma. Skin thickening and asymmetric density in the left breast. Correlation with patient's clinical history of cancer recommended. VTE: negative
--- NOTE | ~2020-10-05 | XR_ITS ---
EXAMINATION: XR CHEST CLINICAL INFORMATION: Chest pain COMPARISON: 10/05/2020 TECHNIQUE: Frontal view of the chest was obtained. FINDINGS: Lungs are hypoinflated. Some ill-defined patchy densities are present bilaterally, left greater than right and underlying groundglass infiltrates cannot be entirely excluded. Tiny pleural effusions could be present. Calcific tendinosis noted in the left shoulder. XR/XR chest 1V IMPRESSION: Hypoinflated lungs with ill-defined patchy densities and groundglass infiltrates cannot be excluded.
[2020-10-05 10:39] VITALS: BP 180/92; PULSE 63; RESP 18; TEMP 36.3; O2SAT 99; BMI 28.0
[2020-10-05 11:54] LABS: MANUAL DIFF FLAG NO
[2020-10-05 11:56] LABS: Basophils Percent Auto 0.6 % (0-2); Eosinophils Absolute Auto 0.1 X10*3/uL (0.0-0.4); Eosinophils Percent Auto 1.8 % (0-4); Hematocrit 37.8 % (37-47); Hemoglobin 12.5 g/dl (12.0-16.0); Imm Gran Abs Auto 0.02 X10*3/uL (0.00-0.03); Imm Gran Pct Auto 0.3 % (0.0-0.4); Lymphocytes Absolute Auto 1.2 X10*3/uL (1.2-4.9); Lymphocytes Percent Auto 19.4 % (20-40); Mean Corpuscular HGB Conc 33.1 g/dl (31.0-35.0); Mean Corpuscular Hemoglobin 29.4 pg (27.0-33.0); Mean Corpuscular Volume 88.9 fL (80-98); Monocytes Absolute Auto 0.5 X10*3/uL (0.1-1.2); Monocytes Percent Auto 7.3 % (2-11); Neutrophils Absolute Auto 4.4 X10*3/uL (2.0-8.3); Neutrophils Percent Auto 70.6 % (45-73); Platelet Count 317 X10*3/uL (160-400); Red Blood Count 4.25 X10*6/uL (4.20-5.50); Red Cell Distribution Width 13.2 % (11.0-16.0); White Blood Count 6.2 X10*3/uL (4.8-10.8)
[2020-10-05 12:05] LABS: Glucose Urine UA NEG (NEG); Leukocyte Esterase Urine NEG (NEG); Nitrite Urine NEG (NEG); Urine Blood NEG (NEG); Urine Ketones NEG (NEG); Urine Protein NEG (NEG-TRACE)
[2020-10-05 12:06] LABS: Appearance Urine HAZY; Color Urine YELLOW
--- NOTE | 2020-10-05 12:11 | ED_ITS ---
HPI - Chest Pain General Chief Complaint: Chest Pain Stated Complaint: chest pain Time Seen by Provider: 10/05/20 12:11 Source: patient Mode of arrival: ambulatory Limitations: no limitations History of Present Illness HPI narrative: patient sent in by her oncologist for PE work up. Patient with one month history of chest pain and shortness of breath getting worse MD complaint: chest pain Onset (ago): month(s) Timing of current episode: episodic Prior episodes: Yes Pain location: left chest Severity: mild Quality: sharp Relieving factors: nothing Exacerbating factors: movement Related Data Home Medications Medication Instructions Recorded Confirmed aspirin 81 mg tablet,delayed 81 mg PO DAILY 02/10/20 08/16/20 release fluticasone propionate 50 1 spray INTRANASAL DAILY 02/10/20 08/16/20 mcg/actuation nasal spray,suspension multivitamin with minerals-folic 1 tab PO DAILY 02/10/20 08/16/20 acid 0.4 mg tablet omeprazole 40 mg capsule,delayed 40 mg PO DAILY 02/10/20 08/16/20 release diclofenac potassium 50 mg tablet 50 mg PO TID PRN 05/17/20 08/16/20 Previous Rx's Medication Instructions Recorded acetaminophen [Tylenol Extra 1,000 mg PO QID PRN #14 tab 06/10/20 Strength] zolpidem 10 mg tablet 10 mg PO BEDTIME PRN 30 Days #30 07/15/20 tab butenafine [Lotrimin Ultra] 1 appl TOPICAL BID #30 g 08/02/20 lorazepam 0.5 mg PO BID PRN #40 tab 08/02/20 Allergies Allergy/AdvReac Type Severity Reaction Status Date / Time Penicillins [PENICILLINS] Allergy Severe SWELLING/VO Verified 07/16/20 18:49 MITING paroxetine Allergy Unknown diarrhea Verified 07/16/20 18:49 metronidazole [Flagyl] AdvReac Unknown palpatation Verified 07/16/20 18:49 s IVP dye - facial swelling Allergy Unknown Eye Uncoded 07/16/20 18:49 Swelling Review of Systems Constitutional: Constitutional: Reports no additional constitutional complaints Eyes: Eyes: Reports no additional eye complaints ENT: Denies dizziness Cardiovascular: Cardiovascular: Reports no additional cardiovascular complaints Respiratory: Respiratory: Reports as per HPI Gastrointestinal: Gastrointestinal: Reports no additional gastrointestinal complaints Genitourinary: Genitourinary: Reports no additional female genitourinary complaints Musculoskeletal: Musculoskeletal: Reports no additional musculoskeletal complaints Integumentary/Breasts: Skin/Breast: Denies rash Neurologic: Reports system reviewed and no additional complaints, except as documented, Denies dizziness and Denies Sensory deficit (Neuro) Psychiatric: Psychiatric: Denies anxiety [facility] Past Medical History Medical History Chronic back pain Diverticulitis Fibromyalgia GERD (gastroesophageal reflux disease) GERD without esophagitis Infiltrating ductal carcinoma of left breast Insomnia Invasive carcinoma of breast Overweight (BMI 25.0-29.9) Rib pain on right side Surgical History History of section History of colonoscopy History of cystoscopy History of endoscopy (~01/2018) History of esophagogastroduodenoscopy (EGD) (~02/2013) History of gastric surgery History of left breast biopsy (~01/08/20) History of local excision of skin lesion (~03/2018) History of right breast biopsy (~2012) Family History Family History Mother History of diabetes mellitus History of hypertension History of pancreatic cancer Father History of diabetes mellitus History of hypertension Sister History of hypertension Maternal Grandmother History of lung cancer Social History Social History Are you a primary home health care provider to a significant other at home: No Do you presently have 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 or other home services: No Alcohol intake: never Second Hand Smoke Exposure: No Advance Directives: No Advance Directives Information Provided: No Physical Exam Vital Signs: Vital Signs: Last Vital Signs Temp 97.4 F 10/05/20 10:39 Pulse 80 10/05/20 15:11 Resp 20 10/05/20 15:11 BP 154/84 H 10/05/20 15:11 Pulse Ox 97 10/05/20 15:11 Body Mass Index 28.0 Const: General: healthy appearing Nutritional Appearance: average body habitus Orientation/consciousness: oriented to person and patient oriented x3 Limitations: no limitations HENMT: Head: Yes normal to inspection Ears: external ears normal General nose exam: Normal external nose present Mouth: Normal oral and palatal mucosa present and oropharynx normal Throat: Yes posterior oropharynx normal Eyes: General: appearance normal, both eyes and all related structures Neck: Other: supple Neck: Yes normal visual inspection Chest: Chest palpation & inspection: normal inspection of the chest Resp: Auscultation: clear to auscultation bilaterally Cardio: Jugular venous distension: no JVD Rate: regular rate Rhythm: regular rhythm Heart sounds: S1 normal heart sound present and S2 normal heart sound present GI: Inspection: Yes normal to inspection Palpation (GI): Soft to palpation, nontender and No hepatosplenomegaly present Auscultation: normal bowel sounds : General: Yes no CVA tenderness Back/Spine/Pelvis: Back: no CVA tenderness Skin: General skin exam: no rashes or lesions noted Neuro: General: oriented to person and patient oriented x3 Cranial nerves: Yes CN's II-XII intact bilaterally Motor exam (neuro): 5/5 motor strength present throughout Sensory Exam: No Sensory deficit (Neuro) Extrem: General: Yes normal to inspection Psych: Appearance: grossly normal Course Course Course Narrative: EKG normal sinus rate [address] or twave changes Reevaluation(s) Reevaluation #1: patient has IVP dye allergy will premedicate with solumedrol and benadryl Reevaluation #2: no evidence of PE. Patient stable will dc home Time: 15:23 MDM - Chest Pain Lab Data Result diagrams: 10/05/20 11:50 10/05/20 11:50 Labs: Lab Results 10/05/20 10/05/20 10/05/20 Range/Units 11:50 11:50 11:50 WBC 6.2 (4.8-10.8) X10*3/uL RBC 4.25 (4.20-5.50) X10*6/uL Hgb 12.5 (12.0-16.0) g/dl Hct 37.8 (37-47) % MCV 88.9 (80-98) fL MCH 29.4 (27.0-33.0) pg MCHC 33.1 (31.0-35.0) g/dl RDW 13.2 (11.0-16.0) % Plt Count 317 (160-400) X10*3/uL MPV 9.0 L (9.4-12.3) fL Immature Gran % (Auto) 0.3 (0.0-0.4) % Neut % (Auto) 70.6 (45-73) % Lymph % (Auto) 19.4 L (20-40) % [place] % (Auto) 7.3 (2-11) % Eos % (Auto) 1.8 (0-4) % Baso % (Auto) 0.6 (0-2) % Lymph # (Auto) 1.2 (1.2-4.9) X10*3/uL [place] # (Auto) 0.5 (0.1-1.2) X10*3/uL Eos # (Auto) 0.1 (0.0-0.4) X10*3/uL Baso # (Auto) 0.0 (0.0-0.2) X10*3/uL Abs Immat Gran (auto) 0.02 (0.00-0.03) X10*3/uL Absolute Neuts (auto) 4.4 (2.0-8.3) X10*3/uL Absolute Nucleated RBC 0.000 (0.0-0.012) X10*3/uL Nucleated RBC % (auto) 0.0 (0.0-0.2) /100WBC Hold Blue Top SEE NOTE Sodium 140 (135-145) mmol/L Potassium 4.1 (3.3-5.1) mmol/L Chloride 104 (96-108) mmol/L Carbon Dioxide 29 (22-29) mmol/L Anion Gap 11 L (12-20) BUN 19 H (9-16) mg/dL Creatinine 0.66 (0.5-1.4) mg/dL Estim Creat Clear Calc 81.7 Estimated GFR > 60 Random Glucose 106 (60-115) mg/dL Calcium 9.2 (8.4-10.2) mg/dL Troponin I High Sens (<3.5-17.0) ng/L Urine Color Urine Appearance Urine pH (5.0-8.0) Ur Specific [place] (1.005-1.025) Urine Protein (NEG-TRACE) MG/DL Urine Glucose (UA) (NEG) MG/DL Urine Ketones (NEG) MG/DL Urine Blood (NEG) Urine Nitrite (NEG) Ur Leukocyte Esterase (NEG) 10/05/20 10/05/20 Range/Units 11:50 11:58 WBC (4.8-10.8) X10*3/uL RBC (4.20-5.50) X10*6/uL Hgb (12.0-16.0) g/dl Hct (37-47) % MCV (80-98) fL MCH (27.0-33.0) pg MCHC (31.0-35.0) g/dl RDW (11.0-16.0) % Plt Count (160-400) X10*3/uL MPV (9.4-12.3) fL Immature Gran % (Auto) (0.0-0.4) % Neut % (Auto) (45-73) % Lymph % (Auto) (20-40) % [place] % (Auto) (2-11) % Eos % (Auto) (0-4) % Baso % (Auto) (0-2) % Lymph # (Auto) (1.2-4.9) X10*3/uL [place] # (Auto) (0.1-1.2) X10*3/uL Eos # (Auto) (0.0-0.4) X10*3/uL Baso # (Auto) (0.0-0.2) X10*3/uL Abs Immat Gran (auto) (0.00-0.03) X10*3/uL Absolute Neuts (auto) (2.0-8.3) X10*3/uL Absolute Nucleated RBC (0.0-0.012) X10*3/uL Nucleated RBC % (auto) (0.0-0.2) /100WBC Hold Blue Top Sodium (135-145) mmol/L Potassium (3.3-5.1) mmol/L Chloride (96-108) mmol/L Carbon Dioxide (22-29) mmol/L Anion Gap (12-20) BUN (9-16) mg/dL Creatinine (0.5-1.4) mg/dL Estim Creat Clear Calc Estimated GFR Random Glucose (60-115) mg/dL Calcium (8.4-10.2) mg/dL Troponin I High Sens < 3.5 (<3.5-17.0) ng/L Urine Color YELLOW Urine Appearance HAZY Urine pH 7.0 (5.0-8.0) Ur Specific [place] 1.010 (1.005-1.025) Urine Protein NEG (NEG-TRACE) MG/DL Urine Glucose (UA) NEG (NEG) MG/DL Urine Ketones NEG (NEG) MG/DL Urine Blood NEG (NEG) Urine Nitrite NEG (NEG) Ur Leukocyte Esterase NEG (NEG) Imaging Data CT scan - chest: Radiologist's impression: IMPRESSION: No evidence of pulmonary embolism. Several millimeter calcified left lower lobe pulmonary nodule probably representing a calcified granuloma. Skin thickening and asymmetric density in the left breast. Correlation with patient's clinical history of cancer recommended. Discharge Plan Discharge Clinical Impression: Chest pain Qualifiers: Chest pain type: other chest pain Qualified Code(s): R07.89 - Other chest pain Patient Disposition: Home, Self-Care Instructions: Chest Pain (ED) Prescriptions: No Action acetaminophen [Tylenol Extra Strength] 500 mg tablet 1,000 mg PO QID PRN (Reason: fever or pain) Qty: 14 RF: 0 lorazepam 0.5 mg Tablet 0.5 mg PO BID PRN (Reason: Anxiety) Qty: 40 RF: 2 butenafine [Lotrimin Ultra] 1 % Cream 1 appl TOPICAL BID Qty: 30 RF: 3 zolpidem 10 mg tablet 10 mg PO BEDTIME PRN (Reason: insomnia) 30 Days Qty: 30 RF: 2 diclofenac potassium 50 mg tablet 50 mg PO TID PRN (Reason: pain) RF: 0 omeprazole 40 mg capsule,delayed release(DR/EC) 40 mg PO DAILY RF: 0 fluticasone propionate [Children's Flonase Allergy Rlf] 50 mcg/actuation spray ,suspension 1 spray intranasal DAILY RF: 0 Adult One Daily Multivitamin 0.4 mg tablet 1 tab PO DAILY RF: 0 aspirin [Adult Low Dose Aspirin] 81 mg tablet,delayed release (DR/EC) 81 mg PO DAILY RF: 0 Referrals: Zhanna Delarosa NP [Primary Care Provider] - 1 week
[2020-10-05 12:22] LABS: Anion Gap 11 (12-20); Blood Urea Nitrogen 19 mg/dL (9-16); Calcium 9.2 mg/dL (8.4-10.2); Carbon Dioxide 29 mmol/L (22-29); Chloride 104 mmol/L (96-108); Creatinine Clr Calc Pharmacy 81.7; Estimated Glomerular Filt Rate > 60; Glucose Random 106 mg/dL (60-115); Potassium 4.1 mmol/L (3.3-5.1); Sodium 140 mmol/L (135-145)
[2020-10-05 12:31] LABS: Troponin-I High Sensitivity < 3.5 ng/L (<3.5-17.0)
[2020-10-05 12:46] VITALS: BP 186/82; PULSE 70; RESP 16; O2SAT 98
[2020-10-05] MEDS: diphenhydrAMINE HCL 50 MG/ML VIAL IVPUSH (12:49)
[2020-10-05] MEDS: methylPREDNISolone Sod Succ 125 MG/2 ML VIAL IVPUSH (12:49)
[2020-10-05] MEDS: iohexoL 350 MG/ML 100 ML INFUS..BTL IV (14:33)
[2020-10-05 15:11] VITALS: BP 154/84; PULSE 80; RESP 20; O2SAT 97
--- NOTE | 2020-10-11 15:23 | MHC.HEMONC ---
pt stillhas chest pain on right ribs side. She was seen in our office last week and had same c/o. Dr Arreola sent to ER to r/o PE. This was r/o. I spoke with Dr Sears (covering). She was advised to call PCP for f/u.
== END 2020-10-05 15:39 | disposition home or self-care (01) ==
PROVIDERS: Emergency Provider Emergency Medicine; PCP Nurse Practitioner Family
DX: R07.89 Other chest pain (principal); R06.02 Shortness of breath; Z79.899 Other long term (current) drug therapy
CPT/HCPCS: 36415; 71045; 71275; 80048; 81003; 84484; 85025; 96365; 96375; 99283; 99284; J1200; J2930; Q9967

== ENCOUNTER → 2020-11-15 12:40 | Outpatient (BNVA) | payer OTHER, SELFPAY | PROVIDERS: Visit Provider Surgery | DX: C50.912 Malignant neoplasm of unspecified site of left female breast (principal) | CPT/HCPCS: 99212 ==

== ENCOUNTER 2020-11-24 08:18 | Outpatient (REF) | payer OTHER, SELFPAY ==
--- NOTE | ~2020-11-24 | US_ITS ---
EXAMINATION: US ABDOMEN COMPLETE CLINICAL INFORMATION: Right upper quadrant pain. COMPARISON: CT abdomen and pelvis 11/27/2017. TECHNIQUE: Real-time imaging of the abdominal viscera. FINDINGS: PANCREAS: The pancreas is partially obscured. The visualized body of the pancreas is homogeneous in echotexture. ABDOMINAL AORTA: The proximal, mid, and distal segments are normal in caliber. INFERIOR VENA CAVA: Visualized portions are normal. LIVER: The liver is normal in size. The liver contour is normal. The liver is mildly echogenic. No focal hepatic lesion. There is no intrahepatic biliary duct dilatation seen. GALLBLADDER: Normal. The gallbladder is physiologically distended without evidence of stones, sludge, polyps, wall thickening or pericholecystic fluid. COMMON BILE DUCT: Normal in caliber measuring 0.4 cm in diameter. RIGHT KIDNEY: Normal. No hydronephrosis. No renal calculi or focal parenchymal lesions. The kidney measures 9.2 cm in maximum dimension. LEFT KIDNEY: Normal. No hydronephrosis. No renal calculi or focal parenchymal lesions. The kidney measures 10.4 cm in maximum dimension. SPLEEN: Normal. The spleen measures 8.3 cm in maximum dimension. FREE FLUID: None. US/US abdomen complete IMPRESSION: Hepatic steatosis. No focal lesion seen. Rest of the abdominal ultrasound is unremarkable.
== END 2020-11-24 08:19 | disposition home or self-care (01) ==
LOC: HO.US 08:18
PROVIDERS: Visit Provider Nurse Practitioner Primary Care
DX: R10.11 Right upper quadrant pain (principal)
CPT/HCPCS: 76700

== ENCOUNTER → 2021-01-17 14:02 | Outpatient (BNVA) | payer OTHER, SELFPAY | PROVIDERS: Referring Provider Nurse Practitioner Primary Care; Visit Provider Internal Medicine Gastroenterology | DX: R10.13 Epigastric pain (principal); Z91.89 Other specified personal risk factors, not elsewhere classified | CPT/HCPCS: 99202 ==

== ENCOUNTER → 2021-02-16 12:41 | Outpatient (BNVA) | payer OTHER, SELFPAY | PROVIDERS: PCP Nurse Practitioner Family; Visit Provider Surgery | DX: C50.912 Malignant neoplasm of unspecified site of left female breast (principal) | CPT/HCPCS: 99212 ==

== ENCOUNTER 2021-02-22 08:17 | Day surgery (SDC) | payer OTHER, SELFPAY ==
[2021-02-16 09:44] VITALS: BMI 27.8
--- NOTE | 2021-02-21 10:19 | HO.ANESPROP2 ---
Documented by User: Graciela Carballo NP 02/21/21 10:20 HPI - Anesthesia Eval Consult details Narrative: 60yo F for Upper Endoscopy and Colonoscopy PMFSH Active Problems Active Problems: All Active Problems (Updated 02/15/21 @ 15:40 by Hannah Blake RN) Invasive ductal carcinoma of left breast (Acute) Invasive carcinoma of breast (Acute) Breast mass, right (Acute) Epigastric abdominal pain (Acute) Colon cancer high risk (Acute) Infiltrating ductal carcinoma of left breast (Acute) Overweight (BMI 25.0-29.9) (Acute) GERD without esophagitis (Acute) Rib pain on right side (Acute) Insomnia (Acute) History of right breast biopsy (Acute ~2012) History of local excision of skin lesion (Acute ~03/2018) History of left breast biopsy (Acute ~01/08/20) History of gastric surgery (Acute) History of esophagogastroduodenoscopy (EGD) (Acute ~02/2013) History of endoscopy (Acute ~01/2018) History of cystoscopy (Acute) History of colonoscopy (Acute) History of section (Acute) GERD (gastroesophageal reflux disease) (Acute) Fibromyalgia (Acute) Past Medical History Medical History Chronic back pain Diverticulitis Fibromyalgia GERD (gastroesophageal reflux disease) GERD without esophagitis Infiltrating ductal carcinoma of left breast Insomnia Overweight (BMI 25.0-29.9) Rib pain on right side Family History Family History Mother History of diabetes mellitus History of hypertension History of pancreatic cancer Father History of diabetes mellitus History of hypertension Sister History of hypertension Maternal Grandmother History of lung cancer Surgical History Surgical History History of section History of colonoscopy History of cystoscopy History of esophagogastroduodenoscopy (EGD) (~02/2013) History of gastric surgery History of left breast biopsy (~01/08/20) History of local excision of skin lesion (~03/2018) History of lumpectomy of left breast History of right breast biopsy (~2012) Social History Social History Are you a primary progressive care manager to a significant other at home: No Do you presently have 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 or other home services: No Alcohol intake: never Patient Tobacco Use Status: Never used Tobacco Second Hand Smoke Exposure: No Advance Directives: No (unknown-VM message left) Advance Directives Information Provided: Yes Advance Directives on File: No Meds Allergies Allergy/AdvReac Type Severity Reaction Status Date / Time Penicillins [PENICILLINS] Allergy Severe SWELLING/VO Verified 02/16/21 13:06 MITING Iodinated Contrast Media Allergy Intermediate eye/facial Verified 02/16/21 13:06 [IV Contrast Dye] swelling metronidazole [Flagyl] Allergy Intermediate Palpitation Verified 02/16/21 13:06 s paroxetine AdvReac Intermediate diarrhea Verified 02/16/21 13:06 Home Medications Medication Instructions Recorded Confirmed Last Taken Type aspirin 81 mg tablet,delayed 81 mg PO DAILY 02/10/20 02/15/21 Unknown History release (Adult Low Dose Aspirin) fluticasone propionate 50 1 spray INTRANASAL DAILY 02/10/20 02/15/21 Unknown History mcg/actuation nasal spray,suspension (Children's Flonase Allergy Relief) diclofenac potassium 50 mg tablet 50 mg PO TID PRN 05/17/20 02/15/21 Unknown History cholecalciferol (vitamin D3) 50 1 cap PO DAILY 02/15/21 02/15/21 Unknown History mcg (2,000 unit) capsule citalopram 10 mg tablet 1 tab PO DAILY 02/15/21 02/15/21 Unknown History sucralfate 100 mg/mL oral 10 ml PO BID 02/15/21 02/15/21 Unknown History suspension letrozole 2.5 mg tablet 2.5 mg PO DAILY 02/16/21 Unknown History Exam Exam Date and Time: February 21, 2021 1019 Height,Weight and Vital Signs: Height 5 ft 2 in Weight 68.946 kg Pertinent Lab Results Pertinent Lab Results: Laboratory Tests 02/02/21 02/02/21 11:35 11:35 WBC 5.1 Hgb 12.6 Hct 38.3 Plt Count 359 Sodium 141 Potassium 4.8 Chloride 107 Carbon Dioxide 29 BUN 21 H Creatinine 0.69 Assessment and Plan Assessment Anesthesia Assessment: Chart Reviewed Documented by User: Mary Francis MD 02/22/21 08:36 [facility] Past Medical History Medical History Chronic back pain Diverticulitis Fibromyalgia GERD (gastroesophageal reflux disease) GERD without esophagitis Infiltrating ductal carcinoma of left breast Insomnia Overweight (BMI 25.0-29.9) Rib pain on right side Family History Family History Mother History of diabetes mellitus History of hypertension History of pancreatic cancer Father History of diabetes mellitus History of hypertension Sister History of hypertension Maternal Grandmother History of lung cancer Family history of problems with anesthesia: No Surgical History Surgical History History of section History of colonoscopy History of cystoscopy History of esophagogastroduodenoscopy (EGD) (~02/2013) History of gastric surgery History of left breast biopsy (~01/08/20) History of local excision of skin lesion (~03/2018) History of lumpectomy of left breast History of right breast biopsy (~2012) History of Problems with Anesthesia: No Social History Social History Are you a primary progressive care manager to a significant other at home: No Do you presently have 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 or other home services: No Alcohol intake: never Patient Tobacco Use Status: Never used Tobacco Second Hand Smoke Exposure: No Advance Directives: No (unknown-VM message left) Advance Directives Information Provided: Yes Advance Directives on File: No Meds Allergies Allergy/AdvReac Type Severity Reaction Status Date / Time Penicillins [PENICILLINS] Allergy Severe SWELLING/VO Verified 02/16/21 13:06 MITING Iodinated Contrast Media Allergy Intermediate eye/facial Verified 02/16/21 13:06 [IV Contrast Dye] swelling metronidazole [Flagyl] Allergy Intermediate Palpitation Verified 02/16/21 13:06 s paroxetine AdvReac Intermediate diarrhea Verified 02/16/21 13:06 Home Medications Medication Instructions Recorded Confirmed Last Taken Type aspirin 81 mg tablet,delayed 81 mg PO DAILY 02/10/20 02/15/21 Unknown History release (Adult Low Dose Aspirin) fluticasone propionate 50 1 spray INTRANASAL DAILY 02/10/20 02/15/21 Unknown History mcg/actuation nasal spray,suspension (Children's Flonase Allergy Relief) diclofenac potassium 50 mg tablet 50 mg PO TID PRN 05/17/20 02/15/21 Unknown History cholecalciferol (vitamin D3) 50 1 cap PO DAILY 02/15/21 02/15/21 Unknown History mcg (2,000 unit) capsule citalopram 10 mg tablet 1 tab PO DAILY 02/15/21 02/15/21 Unknown History sucralfate 100 mg/mL oral 10 ml PO BID 02/15/21 02/15/21 Unknown History suspension letrozole 2.5 mg tablet 2.5 mg PO DAILY 02/16/21 Unknown History Exam Airway Mallampati Class: II TM Dist: >3cm Neck ROM: Full Heart: rrr Lungs: cta Assessment and Plan Assessment Anesthesia Assessment: Anesthesia Plan Discussed Final Anesthetic Review Family History of Problems with Anesthesia: No History of Problems with Anesthesia: No NPO: Yes ASA Class: II Final Preanesthetic Review: No Changes in Pt Med Stat, Meds/Allgs Chart Reviewed and Consent Obtained/Reviewed Patient Risk: Intermediate Procedure Risk: Intermediate Anesthetic Plan Anesthetic Plan: MAC: Disposition: Standard PACU
[2021-02-22 08:36] VITALS: BP 156/100; PULSE 94; RESP 18; TEMP 36.9; O2SAT 98
[2021-02-22] MEDS: Lactated Ringers 1,000 ML 100 ML IVCONT (08:42)
[2021-02-22] MEDS: Midazolam HCl/PF 2 MG/2 ML VIAL IVPUSH (09:07)
[2021-02-22 09:08] VITALS: BP 129/104; PULSE 88; RESP 16; O2SAT 100
[2021-02-22 09:19] VITALS: BP 140/73; PULSE 74; RESP 18; TEMP 36.1; O2SAT 97
--- NOTE | 2021-02-22 09:20 | MHC.SHP ---
Pre-Procedural Eval Section A Date of Service: 02/22/21 Section B Chief Complaint: Epigastric Pain, High Risk [place] Screening Relevant Family History (Specify if Yes): No Relevant Social History: None Present Medications: see Short Stay Collaborative assessment Medical History: Significant History (Chronic back pain Diverticulitis Fibromyalgia GERD (gastroesophageal reflux disease) GERD without esophagitis Infiltrating ductal carcinoma of left breast Insomnia Overweight (BMI 25.0-29.9) Rib pain on right side) History of Previous Operations: Relevant previous surgery/procedure and date(s) (History of section History of colonoscopy History of cystoscopy History of esophagogastroduodenoscopy (EGD) (~02/2013) History of gastric surgery History of left breast biopsy (~01/08/20) History of local excision of skin lesion (~03/2018) History of lumpectomy of left breast History of rig) Allergies: Allergies Allergy/AdvReac Type Severity Reaction Status Date / Time Penicillins [PENICILLINS] Allergy Severe SWELLING/VO Verified 02/16/21 13:06 MITING Iodinated Contrast Media Allergy Intermediate eye/facial Verified 02/16/21 13:06 [IV Contrast Dye] swelling metronidazole [Flagyl] Allergy Intermediate Palpitation Verified 02/16/21 13:06 s paroxetine AdvReac Intermediate diarrhea Verified 02/16/21 13:06 Review of Systems Sugical H&P ROS: Negative: Constitution, Cardiovascular, Respiratory, Neurological, Psychiatric, Hem-Onc, Allergic/Immunologic, Gastrointestinal, Genitourinary, Musculoskeletal, Integumentary, Endocrine and Eyes/Ears/Nose/Throat Exam Surgical H&P Exam: Normal: HEENT, Normal: Heart, Normal: Lungs, Normal: Extremities, Normal: Abdomen, Normal: Skin and Normal: Neurological Plan Diagnosis/Plan: Unchanged I have reviewed the history and physical and performed a pertinent physical examination on my patient. No changes have occurred unless specified.
--- NOTE | 2021-02-22 09:21 | P.BOP_ITS ---
Brief Operative Note Date of Service: 02/22/21 Pre-op diagnosis: epigastric pain, FH of CRC in father Post-op diagnosis: same Procedure: see op note Surgeon: Joanie Pelaez MD Anesthesia: MAC Was an Battery Installer used for this Procedure?: No Estimated blood loss (mL): 5 Condition: stable Disposition: PACU
--- NOTE | 2021-02-22 09:24 | W.PM.OPN ---
Operative Note Operative Note Date of Service: 02/22/21 Narrative: Operative Information Procedure Description: EGD, Colonoscopy FLEXIBLE TRANSORAL UPPER GASTROINTESTINAL ENDOSCOPY AND COLONOSCOPY PROCEDURE NOTE UPPER ENDOSCOPY Consent: Indications for the procedure and potential complications of bleeding, perforation, reaction to medications and missed diagnosis were discussed with the patient and informed consent was obtained. Instrument: Olympus GIF H 190 J mid size upper endoscope Monitoring: Vital signs and clinical assessment, continuous EKG monitoring, Pulse oximetry, Carbon Dioxide monitoring and blood pressure monitoring were done throughout the procedure. Procedure: The patient was placed in the left lateral decubitis position and pre-procedure medications were administered and a bite block was placed. The endoscope was inserted into the mouth and advanced under direct vision to the third part of duodenum. A careful inspection was made as the upper endoscope was withdrawn including a retroflexed examination of the proximal stomach; Findings and interventions are described below. Findings: Larynx:normal Esophagus: GE junction at 34 cm, diaphragm hiatus at 36 cm, salmon colored tongues of tissue at GEJ, bx taken to r/o short segment sotelo esophagus. 2 cm slidign hiatal hernia noted. Stomach: atrophic patches and erythema maida at antrum. Biopsies were obtained. Grade 2 flap valve on retroflexed examination of the cardia. Duodenum: Normal bulb and descending duodenum, bx taken Intervention: Biopsies as noted above COLONOSCOPY Instrument: Olympus variable stiffness pediatric scope 190L Colonoscopy Monitoring: Vital signs and clinical assessment, continuous EKG monitoring, Pulse oximetry, Carbon Dioxide monitoring and blood pressure monitoring were done throughout the procedure. Colon withdrawal time was 14 minutes. Procedure: The patient was placed in the left lateral decubitis position and pre-procedure medications were administered. After a digital rectal examination of the ano-rectum, the video colonoscope was inserted into the rectum and advanced through the colon to the cecum/TI. The colonoscope was slowly withdrawn in a retrograde panoramic fashion and the colon mucosa was carefully examined including a retroflexed view of the rectum. Findings and interventions are described below. Procedure Difficulty: Findings: Terminal Ileum-normal Cecum:normal Ascending Colon: normal Transverse Colon -normal Descending Colon: semi pedunculated polyp 12-14 mm, removed with cold snare, bleeding and hematoma noted afterwards, 3 clips applied for hemostasis with good effect. Sigmoid Colon: mild diverticulosis Rectum: Retroflexion with moderate sized internal hemorrhoids, grade I Anorectum - normal Colon preparation: [place] Bowel Preparation Scale Right colon; 2 Transverse colon: 3 Left colon; 3 (0 = Unprepared colon segment with mucosa not seen due to solid stool that cannot be cleared. 1 = Portion of mucosa of the colon segment seen, but other areas of the colon segment not well seen due to staining, residual stool and/or opaque liquid. 2 = Minor amount of residual staining, small fragments of stool and/or opaque liquid, but mucosa of colon segment seen well. 3 = Entire mucosa of colon segment seen well with no residual staining, small fragments of stool or opaque liquid) Impression and Post Procedure Diagnosis: Endoscopy Findings: atrophic gastritis hiatal hernia Colonoscopy Findings: polyp internal hemorrhoids diverticular disease Plan: Await Pathology results Repeat Colonoscopy in 5 years or earlier if clinically indicated High fiber diet leaflet avoid straining at stool, epsom salts and sitz bath, anusol supps or cream reflux precautions Above findings were reviewed with the patient and relevant handouts were provided if indicated.
[2021-02-22 10:09] VITALS: BP 110/56; PULSE 86; RESP 16; TEMP 36.9; O2SAT 97
[2021-02-22 10:25] VITALS: BP 129/80; PULSE 71; RESP 18; TEMP 36.7; O2SAT 98
== END 2021-02-22 11:10 | disposition home or self-care (01) ==
PROVIDERS: PCP Nurse Practitioner Family; Visit Provider Internal Medicine Gastroenterology
PROC: (CPT 45385; principal; 2021-02-22 11:50)
DX: Z12.11 Encounter for screening for malignant neoplasm of colon (principal); D12.4 Benign neoplasm of descending colon; K57.30 Diverticulosis of large intestine without perforation or abscess without bleeding; K64.0 First degree hemorrhoids; Z80.0 Family history of malignant neoplasm of digestive organs; R10.13 Epigastric pain; K29.70 Gastritis, unspecified, without bleeding; K21.00 Gastro-esophageal reflux disease with esophagitis, without bleeding; K44.9 Diaphragmatic hernia without obstruction or gangrene; Z79.899 Other long term (current) drug therapy; Z88.0 Allergy status to penicillin
CPT/HCPCS: 45385; 43239; 88305; 88342; J2250

== ENCOUNTER 2021-03-07 14:52 | Outpatient (REF) | payer OTHER, SELFPAY ==
--- NOTE | ~2021-03-07 | MM_ITS ---
EXAMINATION: MM DIAGNOSTIC DIGITAL BREAST TOMOSYNTHESIS, BILATERAL CLINICAL INFORMATION: Due for yearly. Left invasive ductal cancer status post lumpectomy 01/08/2020. COMPARISON: Mammography: 08/19/2020 (right with targeted ultrasound), needle localization 01/08/2020, mammography 12/17/2019, 12/14/2019, 12/09/2019, 11/19/2018, 11/01/2017. TECHNIQUE: Digital breast tomosynthesis is performed in both the craniocaudal and mediolateral oblique views along with computer-aided detection (CAD). Synthesized 2D images are generated from the tomosynthesis. Additional left magnification CC and left magnification ML views are obtained. Left CC and left MLO views are obtained with scar marker. FINDINGS: The breasts are heterogeneously dense, which may obscure small masses (ACR BI-RADS breast composition Category c). There are post therapy changes left breast with minor scarring and mild smooth skin thickening. There is a an oil cyst in the lumpectomy site measuring under 1 cm. Neither breast shows significant mass or abnormal calcifications. Scattered punctate calcifications are again noted in each breast. There is a biopsy clip marker overlying stable nodule posterior 12:00 right breast and stable subdermal nodule medial periareolar right breast. Results are provided to the patient at time of visit by the technologist. MM/MM tomosynthesis diagnostic BI IMPRESSION: No mammographic evidence of malignancy. Post therapy changes right breast. ASSESSMENT: BI-RADS 2: Benign RECOMMENDATION: Annual bilateral mammography. This patient's information was entered into a reminder system with a target due date for their next mammogram.
== END 2021-03-07 14:53 | disposition home or self-care (01) ==
LOC: HO.MAMMO 14:52
PROVIDERS: Visit Provider Surgery
DX: C50.912 Malignant neoplasm of unspecified site of left female breast (principal)
CPT/HCPCS: 77062; 77066

== ENCOUNTER → 2021-04-03 14:29 | Outpatient (BNVA) | payer OTHER, SELFPAY | PROVIDERS: PCP Nurse Practitioner Family; Visit Provider Internal Medicine Gastroenterology | DX: Z13.89 Encounter for screening for other disorder (principal) | CPT/HCPCS: Q3014 ==

== ENCOUNTER 2021-06-21 11:30 | Outpatient (REF) | payer OTHER, SELFPAY ==
--- NOTE | ~2021-06-21 | XR_ITS ---
EXAMINATION: XR RIBS, RIGHT CLINICAL INFORMATION: Pain COMPARISON: Previous chest x-ray and chest CTA September 2020 TECHNIQUE: 3 views of the right ribs and one view of the chest were obtained. FINDINGS: The cardiac and mediastinal contours are stable. There is a 6 mm left perihilar pulmonary nodule. Compare with previous CT scans this likely corresponds to the calcified pulmonary nodule in the superior segment of the left lower lobe. The lungs are otherwise clear. There is no pleural effusion or pneumothorax. There are degenerative changes of the spine. Ribs are intact. No fractures are identified. XR/XR ribs RT min 3V w CXR1V IMPRESSION: No evidence for acute disease in the chest. No rib fracture seen.
== END 2021-06-21 11:31 | disposition home or self-care (01) ==
LOC: HO.XRAY 11:30
PROVIDERS: PCP Registered Nurse Community Health; Visit Provider Registered Nurse Community Health
DX: R07.81 Pleurodynia (principal)
CPT/HCPCS: 71101

== ENCOUNTER 2021-08-10 09:26 | Outpatient (REF) | payer OTHER, SELFPAY ==
--- NOTE | ~2021-08-10 | US_ITS ---
EXAMINATION: US ABDOMEN LIMITED CLINICAL INFORMATION: Periumbilical pain. COMPARISON: Ultrasound abdomen complete 11/24/2020. CT abdomen and pelvis without contrast 11/27/2017. TECHNIQUE: Real-time imaging of the entire periumbilical area. FINDINGS: The cutaneous, subcutaneous, muscular and fascial planes are unremarkable. No focal hernia defect is seen. No mass or fluid collection is seen. No lymphadenopathy. No foreign body is seen. US/US abdomen limited IMPRESSION: Unremarkable examination.
== END 2021-08-10 09:27 | disposition home or self-care (01) ==
LOC: HO.US 09:26
PROVIDERS: Visit Provider Registered Nurse Community Health
DX: R10.33 Periumbilical pain (principal)
CPT/HCPCS: 76705

== ENCOUNTER → 2021-08-31 10:45 | Outpatient (BNVA) | payer OTHER, SELFPAY | PROVIDERS: PCP Registered Nurse Community Health; Referring Provider Registered Nurse Community Health; Visit Provider Surgery | DX: C50.912 Malignant neoplasm of unspecified site of left female breast (principal) | CPT/HCPCS: 99212 ==

== ENCOUNTER 2021-10-25 15:35 | Emergency (ER) | payer OTHER, SELFPAY ==
--- NOTE | ~2021-10-25 | XR_ITS ---
Examination: XR ankle LT min 3V, XR ankle RT min 3V Indication: s/p fall, pain Comparison: No pertinent prior studies are currently available for comparison. Technique: 3 views of each ankle obtained Findings: Left: Significant soft tissue swelling about the left ankle. There is a subtle nondisplaced obliquely oriented distal fibular fracture seen ending at the level of the ankle mortise. Ankle mortise does not appear to be abnormally widened or irregular. No other acute bony abnormality. Right ankle: Mild soft tissue swelling. About the ankle. Bones the ankle appear grossly intact. There is however a subtle oblique nondisplaced fracture through the fifth metatarsal partially visualized. On one view there is a tiny ossification along the lateral aspect of cuboid bone possibly representing a subtle avulsion injury as well. XR/XR ankle RT min 3V Impression: Soft tissue swelling with obliquely oriented nondisplaced left lateral fibular fracture. Nondisplaced right fifth metatarsal fracture with a suggestion of a possible avulsion injury with tiny ossification seen on one obliquity in the region of the cuboid bone. This could be clinically correlated for point tenderness.
--- NOTE | ~2021-10-25 | XR_ITS ---
Examination: XR ankle LT min 3V, XR ankle RT min 3V Indication: s/p fall, pain Comparison: No pertinent prior studies are currently available for comparison. Technique: 3 views of each ankle obtained Findings: Left: Significant soft tissue swelling about the left ankle. There is a subtle nondisplaced obliquely oriented distal fibular fracture seen ending at the level of the ankle mortise. Ankle mortise does not appear to be abnormally widened or irregular. No other acute bony abnormality. Right ankle: Mild soft tissue swelling. About the ankle. Bones the ankle appear grossly intact. There is however a subtle oblique nondisplaced fracture through the fifth metatarsal partially visualized. On one view there is a tiny ossification along the lateral aspect of cuboid bone possibly representing a subtle avulsion injury as well. XR/XR ankle LT min 3V Impression: Soft tissue swelling with obliquely oriented nondisplaced left lateral fibular fracture. Nondisplaced right fifth metatarsal fracture with a suggestion of a possible avulsion injury with tiny ossification seen on one obliquity in the region of the cuboid bone. This could be clinically correlated for point tenderness.
--- NOTE | 2021-10-25 15:47 | ECG_ITS ---
Test Reason : FALL Blood Pressure : / mmHG Vent. Rate : 085 BPM Atrial Rate : 085 BPM P-R Int : 154 ms QRS Dur : 076 ms QT Int : 368 ms P-R-T Axes : 046 006 024 degrees QTc Int : 437 ms Normal sinus rhythm Normal ECG When compared with ECG of 05-OCT-2020 10:25, Inverted T waves have replaced nonspecific T wave abnormality in Anterior leads Referred By: Generic ED Physician Electronically Signed By:Sunny Soto
[2021-10-25 15:48] VITALS: BP 167/89; PULSE 89; RESP 18; TEMP 36.6; O2SAT 98; BMI 30.8
[2021-10-25 16:32] LABS: MANUAL DIFF FLAG NO
[2021-10-25 16:39] LABS: Basophils Absolute Auto 0.1 X10*3/uL (0.0-0.2); Basophils Percent Auto 0.6 % (0-2); Eosinophils Percent Auto 0.5 % (0-4); Hematocrit 36.9 % (37.0-47.0); Hemoglobin 12.2 g/dl (12.0-16.0); Imm Gran Abs Auto 0.02 X10*3/uL (0.00-0.03); Imm Gran Pct Auto 0.2 % (0.0-0.4); Lymphocytes Absolute Auto 1.4 X10*3/uL (1.2-4.9); Lymphocytes Percent Auto 17.1 % (20-40); Mean Corpuscular HGB Conc 33.1 g/dl (31.0-35.0); Mean Corpuscular Hemoglobin 29.7 pg (27.0-33.0); Mean Corpuscular Volume 89.8 fL (80.0-98.0); Mean Platelet Volume 9.6 fL (9.4-12.3); Monocytes Absolute Auto 0.5 X10*3/uL (0.1-1.2); Monocytes Percent Auto 6.5 % (2-11); Neutrophils Absolute Auto 6.2 x10*3/uL (2.0-8.3); Neutrophils Percent Auto 75.1 % (45-73); Platelet Count 368 X10*3/uL (160-400); Red Blood Count 4.11 X10*6/uL (4.20-5.50); Red Cell Distribution Width 13.3 % (11.0-16.0); White Blood Count 8.3 X10*3/uL (4.8-10.8)
[2021-10-25 16:52] LABS: Alanine Aminotransferase 17 U/L (0-31); Albumin Level 4.1 g/dL (3.5-5.0); Alkaline Phosphatase 116 U/L (39-117); Anion Gap 13 (12-20); Aspartate Amino Transferase 20 U/L (5-31); Bilirubin Direct 0.2 mg/dL (0.0-0.5); Bilirubin Total 0.5 mg/dL (0.0-1.0); Blood Urea Nitrogen 25 mg/dL (9-16); Calcium 9.6 mg/dL (8.4-10.2); Carbon Dioxide 26 mmol/L (22-29); Chloride 106 mmol/L (96-108); Creatinine Clr Calc Pharmacy 68.7; Estimated Glomerular Filt Rate > 60; Glucose Random 167 mg/dL (60-115); Potassium 4.7 mmol/L (3.3-5.1); Sodium 140 mmol/L (135-145)
[2021-10-25 16:56] LABS: B Type Natriuretic Peptide 17 pg/mL (<100); Troponin-I High Sensitivity < 3.5 ng/L (<3.5-17.0)
[2021-10-25 20:16] LABS: Appearance Urine CLEAR; Color Urine YELLOW; Glucose Urine UA NEG (NEG); Leukocyte Esterase Urine NEG (NEG); Nitrite Urine NEG (NEG); PH 5.5 (5.0-8.0); Specific Gravity - Urine >= 1.030 (1.005-1.025); Urine Blood NEG (NEG); Urine Ketones NEG (NEG); Urine Protein NEG (NEG-TRACE)
[2021-10-25 20:23] VITALS: PULSE 85; RESP 16; TEMP 36.6; O2SAT 98
--- NOTE | 2021-10-25 20:31 | ED_ITS ---
HPI - Fall General Chief Complaint: Fall Stated Complaint: fell both ankles swollen Time Seen by Provider: 10/25/21 20:23 Source: patient Mode of arrival: ambulatory Limitations: no limitations History of Present Illness HPI Narrative: Apparently patient was getting off doctors table missed the step fell complainin g of pain in the left ankle and right foot no other injuries Related Data Home Medications Medication Instructions Recorded Confirmed aspirin 81 mg tablet,delayed 81 mg PO DAILY 02/10/20 08/03/21 release (Adult Low Dose Aspirin) fluticasone propionate 50 1 spray intranasal DAILY 02/10/20 08/03/21 mcg/actuation nasal spray,suspension (Children's Flonase Allergy Relief) diclofenac potassium 50 mg tablet 50 mg PO TID PRN pain 05/17/20 08/03/21 cholecalciferol (vitamin D3) 50 1 cap PO DAILY 02/15/21 08/03/21 mcg (2,000 unit) capsule Previous Rx's Medication Instructions Recorded acetaminophen 500 mg tablet 1,000 mg PO QID PRN fever or pain 06/10/20 (Tylenol Extra Strength) #14 tabs zolpidem 10 mg tablet 10 mg PO BEDTIME PRN insomnia 30 11/16/20 days #30 tabs bisacodyl 5 mg tablet,delayed 20 mg PO ONCE 1 day #4 tabs 01/17/21 release (Dulcolax (bisacodyl)) polyethylene glycol 3350 17 238 g PO ONCE #238 grams 01/17/21 gram/dose oral powder (Miralax) xiehmozi-wxhl-jhp-folic acid 18 1 tab PO DAILY #90 tabs 02/02/21 mg-0.4 mg tablet sucralfate 100 mg/mL oral 10 ml PO BID #1,000 mL 04/24/21 suspension clotrimazole-betamethasone 1 1 appl topical BID #35 grams 05/16/21 %-0.05 % topical cream letrozole 2.5 mg tablet 2.5 mg PO DAILY #90 tabs 05/16/21 lorazepam 0.5 mg tablet 0.5 mg PO BID PRN Anxiety #40 tabs 08/03/21 pantoprazole 40 mg tablet,delayed 40 mg PO DAILY #90 tabs 10/10/21 release Allergies Allergy/AdvReac Type Severity Reaction Status Date / Time Penicillins [PENICILLINS] Allergy Severe SWELLING/VO Verified 08/31/21 11:25 MITING Iodinated Contrast Media Allergy Intermediate eye/facial Verified 08/31/21 11:25 [IV Contrast Dye] swelling metronidazole [Flagyl] Allergy Intermediate Palpitation Verified 08/31/21 11:25 s paroxetine AdvReac Intermediate diarrhea Verified 08/31/21 11:25 Review of Systems Review of Systems: Yes all other systems are reviewed and are negative [facility] Past Medical History Medical History Chronic back pain Diverticulitis Surgical History History of lumpectomy of left breast Family History Family History Mother History of hypertension History of pancreatic cancer History of diabetes mellitus Father History of hypertension History of diabetes mellitus Colon cancer Sister History of hypertension Maternal Grandmother History of lung cancer Social History Social History Household Members: None Housing: House Are you a primary acute care surgeon to a significant other at home: No Do you presently have 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 or other home services: Yes (manager 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) Alcohol intake: never Patient Tobacco Use Status: Never used Tobacco Second Hand Smoke Exposure: No Advance Directives: No Advance Directives Information Provided: No service: No Current occupational status: disabled Physical Exam Vital Signs: Vital Signs: Last Vital Signs Temp 98.1 F 10/25/21 22:30 Pulse 87 10/25/21 22:30 Resp 18 10/25/21 22:30 BP 191/89 H 10/25/21 22:30 Pulse Ox 95 10/25/21 22:30 O2 Del Method 10/25/21 22:30 BMI result Body Mass Index 30.8 Const: General: comfortable and no acute distress Orientation/consciousness: oriented to person, oriented to place, oriented to time and patient oriented x3 HEENT: Head: Yes normal to inspection and Yes normocephalic Ears: hearing grossly normal bilaterally General nose exam: Normal external nose present Mouth: Normal oral and palatal mucosa present Eyes: General: appearance normal, both eyes and all related structures Chest: Chest palpation & inspection: normal inspection of the chest and normal palpation of entire chest wall Resp: Effort & Inspection: normal respiratory effort and able to speak in complete sentences Cardio: Palpation: normal PMI Rate: regular rate Rhythm: regular rhythm Heart sounds: S1 normal heart sound present and S2 normal heart sound present GI: Inspection: Yes normal to inspection Palpation (GI): Soft to palpation and nontender Neuro: General: oriented to person, oriented to place, oriented to time and patient oriented x3 Extrem: Ankle/foot/toe images: 1. Tenderness at the base of right 5th metatarsal with slight swelling of the dorsum of the foot neurovascular intact 2. Tenderness in lateral malleolus with slight swelling neurovascular intact Procedures Orthopedic Splinting/Casting Injury #1: Side: left Lower Extremity Injury Location: ankle Lower Extremity Immobilizer: boot orthosis Other Orthopedic Equipment: crutches MDM - Fall Lab Data Attestation: I reviewed the patient's lab results. Result diagrams: 10/25/21 16:20 10/25/21 16:20 Labs: Lab Results 10/25/21 10/25/21 10/25/21 Range/Units 16:20 16:20 16:20 WBC 8.3 (4.8-10.8) X10*3/uL RBC 4.11 L (4.20-5.50) X10*6/uL Hgb 12.2 (12.0-16.0) g/dl Hct 36.9 L (37.0-47.0) % MCV 89.8 (80.0-98.0) fL MCH 29.7 (27.0-33.0) pg MCHC 33.1 (31.0-35.0) g/dl RDW 13.3 (11.0-16.0) % Plt Count 368 (160-400) X10*3/uL MPV 9.6 (9.4-12.3) fL Immature Gran % (Auto) 0.2 (0.0-0.4) % Neut % (Auto) 75.1 H (45-73) % Lymph % (Auto) 17.1 L (20-40) % Crane % (Auto) 6.5 (2-11) % Eos % (Auto) 0.5 (0-4) % Baso % (Auto) 0.6 (0-2) % Lymph # (Auto) 1.4 (1.2-4.9) X10*3/uL Crane # (Auto) 0.5 (0.1-1.2) X10*3/uL Eos # (Auto) 0.0 (0.0-0.4) X10*3/uL Baso # (Auto) 0.1 (0.0-0.2) X10*3/uL Abs Immat Gran (auto) 0.02 (0.00-0.03) X10*3/uL Absolute Neuts (auto) 6.2 (2.0-8.3) x10*3/uL Absolute Nucleated RBC 0.000 (0.0-0.012) X10*3/uL Nucleated RBC % (auto) 0.0 (0.0-0.2) /100WBC Sodium 140 (135-145) mmol/L Potassium 4.7 (3.3-5.1) mmol/L Chloride 106 (96-108) mmol/L Carbon Dioxide 26 (22-29) mmol/L Anion Gap 13 (12-20) BUN 25 H (9-16) mg/dL Creatinine 0.75 (0.5-1.4) mg/dL Estim Creat Clear Calc 68.7 Estimated GFR > 60 Random Glucose 167 H (60-115) mg/dL Calcium 9.6 (8.4-10.2) mg/dL Total Bilirubin 0.5 (0.0-1.0) mg/dL Direct Bilirubin 0.2 (0.0-0.5) mg/dL AST 20 (5-31) U/L ALT 17 (0-31) U/L Alkaline Phosphatase 116 (39-117) U/L Troponin I High Sens < 3.5 (<3.5-17.0) ng/L B-Natriuretic Peptide 17 (<100) pg/mL Total Protein 7.0 (6.5-8.0) g/dL Albumin 4.1 (3.5-5.0) g/dL Urine Color Urine Appearance Urine pH (5.0-8.0) Ur Specific [place] (1.005-1.025) Urine Protein (NEG-TRACE) MG/DL Urine Glucose (UA) (NEG) MG/DL Urine Ketones (NEG) MG/DL Urine Blood (NEG) Urine Nitrite (NEG) Ur Leukocyte Esterase (NEG) 10/25/21 Range/Units 20:08 WBC (4.8-10.8) X10*3/uL RBC (4.20-5.50) X10*6/uL Hgb (12.0-16.0) g/dl Hct (37.0-47.0) % MCV (80.0-98.0) fL MCH (27.0-33.0) pg MCHC (31.0-35.0) g/dl RDW (11.0-16.0) % Plt Count (160-400) X10*3/uL MPV (9.4-12.3) fL Immature Gran % (Auto) (0.0-0.4) % Neut % (Auto) (45-73) % Lymph % (Auto) (20-40) % Crane % (Auto) (2-11) % Eos % (Auto) (0-4) % Baso % (Auto) (0-2) % Lymph # (Auto) (1.2-4.9) X10*3/uL Crane # (Auto) (0.1-1.2) X10*3/uL Eos # (Auto) (0.0-0.4) X10*3/uL Baso # (Auto) (0.0-0.2) X10*3/uL Abs Immat Gran (auto) (0.00-0.03) X10*3/uL Absolute Neuts (auto) (2.0-8.3) x10*3/uL Absolute Nucleated RBC (0.0-0.012) X10*3/uL Nucleated RBC % (auto) (0.0-0.2) /100WBC Sodium (135-145) mmol/L Potassium (3.3-5.1) mmol/L Chloride (96-108) mmol/L Carbon Dioxide (22-29) mmol/L Anion Gap (12-20) BUN (9-16) mg/dL Creatinine (0.5-1.4) mg/dL Estim Creat Clear Calc Estimated GFR Random Glucose (60-115) mg/dL Calcium (8.4-10.2) mg/dL Total Bilirubin (0.0-1.0) mg/dL Direct Bilirubin (0.0-0.5) mg/dL AST (5-31) U/L ALT (0-31) U/L Alkaline Phosphatase (39-117) U/L Troponin I High Sens (<3.5-17.0) ng/L B-Natriuretic Peptide (<100) pg/mL Total Protein (6.5-8.0) g/dL Albumin (3.5-5.0) g/dL Urine Color YELLOW Urine Appearance CLEAR Urine pH 5.5 (5.0-8.0) Ur Specific [place] >= 1.030 H (1.005-1.025) Urine Protein NEG (NEG-TRACE) MG/DL Urine Glucose (UA) NEG (NEG) MG/DL Urine Ketones NEG (NEG) MG/DL Urine Blood NEG (NEG) Urine Nitrite NEG (NEG) Ur Leukocyte Esterase NEG (NEG) Discharge Plan Discharge Clinical Impression: Left fibular fracture, Closed nondisplaced fracture of fifth right metatarsal bone Patient Disposition: Home, Self-Care Instructions: Leg Fracture (ED), Foot Fracture in Adults (ED) Additional Instructions: Wear the ortho boot and postop shoe as advised for support Use crutches for ambulation Follow with Orthopedics Continue to take your pain medication Prescriptions: No Action zolpidem 10 mg tablet 10 mg PO BEDTIME PRN (Reason: insomnia) 30 Days Qty: 30 1RF sucralfate 100 mg/mL suspension 10 ml PO BID Qty: 1000 0RF pantoprazole 40 mg tablet,delayed release (DR/EC) 40 mg PO DAILY Qty: 90 0RF acetaminophen [Tylenol Extra Strength] 500 mg tablet 1,000 mg PO QID PRN (Reason: fever or pain) Qty: 14 0RF jymmiqik-ppfj-nks-folic acid 18-0.4 mg Tablet 1 tab PO DAILY Qty: 90 4RF letrozole 2.5 mg tablet 2.5 mg PO DAILY Qty: 90 4RF clotrimazole-betamethasone 1-0.05 % Cream 1 appl TOPICAL BID Qty: 35 3RF lorazepam 0.5 mg Tablet 0.5 mg PO BID PRN (Reason: Anxiety) Qty: 40 2RF Rx Instructions: Take as needed it every 12 hours for anxiety. cholecalciferol (vitamin D3) 50 mcg (2,000 unit) capsule 1 cap PO DAILY diclofenac potassium 50 mg tablet 50 mg PO TID PRN (Reason: pain) fluticasone propionate [Children's Flonase Allergy Rlf] 50 mcg/actuation spray,suspension 1 spray intranasal DAILY Rx Instructions: administer into each nostril aspirin [Adult Low Dose Aspirin] 81 mg tablet,delayed release (DR/EC) 81 mg PO DAILY polyethylene glycol 3350 [Miralax] 17 gram/dose powder 238 g PO ONCE Qty: 238 0RF Rx Instructions: mix the full container with 64 ounces of gatorade for colonoscopy prep the evening before the test and drink bisacodyl [Dulcolax (bisacodyl)] 5 mg tablet,delayed release (DR/EC) 20 mg PO ONCE 1 Days Qty: 4 0RF Rx Instructions: take at 6 pm day before colonoscopy Referrals: Tha Wren MD [Physician] - 1 week Interventions: ED Discharge Assessment Last Done: 10/25/21 23:32 Discharge Date/Time: 10/25/21 23:33
[2021-10-25] MEDS: traMADoL HCL 50 MG TABLET PO (20:44)
[2021-10-25 22:30] VITALS: BP 191/89; PULSE 87; RESP 18; TEMP 36.7; O2SAT 95
--- NOTE | 2021-10-25 22:30 | PC.NURSE ---
MD at bedside to update pt on POC. pt provided with wheelchair, pt at bedside to help pt to bathroom
--- NOTE | 2021-10-25 22:56 | PC.NURSE ---
EDT at pt bedside to place post op boot.
== END 2021-10-25 23:33 | disposition home or self-care (01) ==
PROVIDERS: Emergency Provider Internal Medicine
DX: S82.832A Other fracture of upper and lower end of left fibula, initial encounter for closed fracture (principal); S92.354A Nondisplaced fracture of fifth metatarsal bone, right foot, initial encounter for closed fracture; W08.XXXA Fall from other furniture, initial encounter; Y93.9 Activity, unspecified; Y92.531 Health care provider office as the place of occurrence of the external cause; Y99.9 Unspecified external cause status
CPT/HCPCS: 36415; 73610; 80053; 81003; 82248; 83880; 84484; 85025; 93005; 99283; 99285

== ENCOUNTER 2021-11-03 12:57 | Outpatient (REF) | payer OTHER, SELFPAY | END 2021-11-03 12:58 | disposition home or self-care (01) | LOC: HO.HOSX 12:57 | PROVIDERS: Visit Provider Physician Assistant | DX: S92.354A Nondisplaced fracture of fifth metatarsal bone, right foot, initial encounter for closed fracture (principal); S82.832A Other fracture of upper and lower end of left fibula, initial encounter for closed fracture | CPT/HCPCS: 99202 ==

== ENCOUNTER 2021-11-29 11:59 | Outpatient (REF) | payer OTHER, SELFPAY ==
--- NOTE | ~2021-11-29 | XR_ITS ---
EXAMINATION: XR ANKLE, LEFT CLINICAL INFORMATION: Pain. COMPARISON: Radiographs dated 10/25/2021. TECHNIQUE: AP, lateral, and mortise views of the left ankle. FINDINGS: Bony alignment and mineralization are normal. There is stable alignment of a minimally displaced oblique, complex fracture of the distal left fibula. There is mild adjacent soft tissue swelling. There is no dislocation. No left ankle joint effusion is seen. Boehler's angle is normal. There is a small posterior calcaneal spur. No soft tissue gas or foreign body is seen. XR/XR ankle LT min 3V IMPRESSION: There is stable, well-maintained alignment of a complex, minimally displaced, oblique fracture of the distal left fibula. There is adjacent mild soft tissue swelling. No new callus formation is seen.
== END 2021-11-29 12:00 | disposition home or self-care (01) ==
LOC: HO.HOSX 11:59
PROVIDERS: Visit Provider Physician Assistant
DX: M25.572 Pain in left ankle and joints of left foot (principal)
CPT/HCPCS: 73610

== ENCOUNTER 2022-01-05 07:49 | Outpatient (REF) | payer OTHER, SELFPAY ==
--- NOTE | ~2022-01-05 | XR_ITS ---
EXAMINATION: XR ANKLE, LEFT CLINICAL INFORMATION: Pain in left ankle. COMPARISON: Multiple prior radiographs most recent November 2021 and dating back to October 2021. TECHNIQUE: AP, lateral, and mortise views of the left ankle. FINDINGS: The previously noted nondisplaced distal fibular fracture remains visible, essentially unchanged. Surrounding soft tissues are normal. No additional bone abnormality. XR/XR ankle LT min 3V IMPRESSION: Stable probable healing distal fibular fracture.
== END 2022-01-05 07:50 | disposition home or self-care (01) ==
LOC: HO.HOSX 07:49
PROVIDERS: Visit Provider Physician Assistant
DX: M25.572 Pain in left ankle and joints of left foot (principal)
CPT/HCPCS: 73610

== ENCOUNTER 2022-02-01 12:12 | Outpatient (REF) | payer OTHER, SELFPAY ==
--- NOTE | ~2022-02-01 | XR_ITS ---
EXAMINATION: XR CHEST CLINICAL INFORMATION: Cough COMPARISON: Previous chest x-ray June 2021 TECHNIQUE: 2 views of the chest were obtained. FINDINGS: The cardiac and mediastinal contours are stable. The lungs are clear. There is no pleural effusion or pneumothorax. There are degenerative changes of the spine. XR/XR chest 2V IMPRESSION: No evidence for acute disease in the chest.
[2022-02-01 12:52] LABS: MANUAL DIFF FLAG NO
[2022-02-01 13:14] LABS: Basophils Absolute Auto 0.1 X10*3/uL (0.0-0.2); Basophils Percent Auto 1.1 % (0-2); Eosinophils Absolute Auto 0.1 X10*3/uL (0.0-0.4); Eosinophils Percent Auto 1.8 % (0-4); Hematocrit 39.5 % (37.0-47.0); Hemoglobin 13.1 g/dl (12.0-16.0); Imm Gran Abs Auto 0.01 X10*3/uL (0.00-0.03); Imm Gran Pct Auto 0.2 % (0.0-0.4); Lymphocytes Absolute Auto 1.5 X10*3/uL (1.2-4.9); Lymphocytes Percent Auto 27.7 % (20-40); Mean Corpuscular HGB Conc 33.2 g/dl (31.0-35.0); Mean Corpuscular Hemoglobin 29.6 pg (27.0-33.0); Mean Corpuscular Volume 89.4 fL (80.0-98.0); Mean Platelet Volume 9.5 fL (9.4-12.3); Monocytes Absolute Auto 0.4 X10*3/uL (0.1-1.2); Neutrophils Absolute Auto 3.4 x10*3/uL (2.0-8.3); Neutrophils Percent Auto 62.2 % (45-73); Platelet Count 366 X10*3/uL (160-400); Red Blood Count 4.42 X10*6/uL (4.20-5.50); Red Cell Distribution Width 13.2 % (11.0-16.0); White Blood Count 5.4 X10*3/uL (4.8-10.8)
[2022-02-01 13:25] LABS: Estimated Average Glucose 120 mg/dL; Hemoglobin A1c % 5.8 %
[2022-02-01 13:51] LABS: Alanine Aminotransferase 15 U/L (0-31); Albumin Level 4.4 g/dL (3.5-5.0); Alkaline Phosphatase 116 U/L (39-117); Anion Gap 15 (12-20); Aspartate Amino Transferase 19 U/L (5-31); Bilirubin Direct 0.3 mg/dL (0.0-0.5); Bilirubin Total 0.7 mg/dL (0.0-1.0); Blood Urea Nitrogen 21 mg/dL (9-16); Calcium 10.1 mg/dL (8.4-10.2); Carbon Dioxide 28 mmol/L (22-29); Chloride 103 mmol/L (96-108); Cholesterol 239 mg/dL; Estimated Glomerular Filt Rate > 60; Glucose Random 105 mg/dL (60-115); HDL Cholesterol 72 mg/dL; Iron 142 mcg/dL (30-160); LDL Cholesterol Calculated 153 mg/dl; Percent Iron Saturation 41 % (15-50); Potassium 4.7 mmol/L (3.3-5.1); Sodium 141 mmol/L (135-145); Total Iron Binding Capacity 346 mcg/dL (228-428); Total Protein 7.3 g/dL (6.5-8.0); Triglycerides 72 mg/dL; Unsaturated Iron Binding 204 ug/dL
[2022-02-01 14:14] LABS: Ferritin 70 ng/mL (10-250); TSH reflex Free T4 0.98 uIU/mL (0.32-4.0); Vitamin D 25-OH Total 28.5 ng/mL (>30)
[2022-02-01 14:38] LABS: Folate > 20.0 ng/mL (> or = 4.0); Vitamin B12 343 pg/mL (200-900)
== END 2022-02-01 12:13 | disposition home or self-care (01) ==
LOC: HO.LAB 12:12
PROVIDERS: PCP Internal Medicine Medical Oncology; Visit Provider Internal Medicine
DX: R05.8 Other specified cough (principal); R53.83 Other fatigue; N89.8 Other specified noninflammatory disorders of vagina
CPT/HCPCS: 36415; 71046; 80048; 80061; 80076; 82306; 82607; 82728; 82746; 83036; 83540; 84443; 85025

== ENCOUNTER 2022-02-15 11:00 | Outpatient (RCR) | payer OTHER, SELFPAY ==
--- NOTE | 2022-01-19 12:45 | MHC.PT.EP ---
[place] Office [place] Office [place] Office [address] Jewel Avelar [address] [phone] F: [phone] F: [phone] F: [phone] F: [phone] Physical Therapy Plan of Care Date of Evaluation: Date of Surgery: NA Diagnosis: NONDISPLACED FX OF 5TH METATARSAL R, CLOSED FX OF L DISTAL FIBULA Assessment: Pt IS 61 YO F REFERRED TO PT FROM [facility]TH[facility] ([facility]) S/P FALL ON 10/26/21 WITH RESULTANT FIFTH METATARSAL FX ON R AND DISTAL FIBULA FX ON L. OF NOTE, LAST XRAY DONE IN ORTHO OFFICE (~10 WKS POST FX) DOES NOT SHOW MUCH HEALING. THIS COULD BE RELATED TO THE FACT THAT Pt IS CURRENTLY UNDERGOING CHEMOTHERAPY (PILL EVERY DAY) FOR BREAST CA. PRESENTS TO PT WITH ANTALGIC GT (LIMITED HEEL STRIKE/DECREASED WB ON L) WITH ST CANE AND LACE UP ANKLE SUPPORT, DECREASED L ANKLE ROM AND DECREASED L ANKLE STRENGTH. Pt WITH SOME SWELLING NOTED L ANKLE/FOOT WITH TTP IN SAME. SEEMS RELUCTANT IN ANKLE MOVEMENT INITIALLY, BUT THEN WHEN RE-ASSURED OF PAINFREE RANGE AND GENTLE STRENGTHENING, SEEMED TO DO BETTER. GOOD PT CANDIDATE TO ADDRESS THESE ISSUES Frequency and Duration: The patient will be seen 2X/WK X 8 WKS Short Term Goals: 1. IMPROVED GT (HEEL STRIKE, TOE PUSH, NEG LIMP) WITHOUT ST CANE 2. I HEP WITH DC EX PLAN 3. INCREASED AWARENESS ANKLE CARE (ICE , ELEV, KT IF INDICATED) Shelter Goals: 1. I HEP WITH DC EX PLAN 2. INCREASED L ANKLE ROM 5-10 DEGREES T/O 3. Pt TO REPORT LESS ANKLE SWELLING 4. DECREASED L ANKLE PAIN AT LEAST 50% WITH ADLS Treatment Plan: Modalities to reduce pain, spasms and effusion. Manual therapy to restore motion and function. Therapeutic exercise to improve strength and flexibility. Neuromuscular re-education for posture and balance. Therapeutic activities to return to functional activities of daily living. Electronically signed by: RODNEY RUDD PT Please sign and return to therapist. Thank you for your referral.
--- NOTE | 2022-06-01 16:31 | MHC.PT.DC ---
[facility] [place] Office [place] Office [place] Office [address] Jewel Avelar [address] [phone] F: [phone] F: [phone] F: [phone] F: [phone] Physical Therapy Discharge Report Diagnosis: NONDISPLACED FX OF 5TH METATARSAL R, CLOSED FX OF L DISTAL FIBULA Date of Surgery: NA Date of Evaluation: 01/19/22 Date of Discharge: 06/01/22 Treatments to Date: 9 Cancellations to Date: No Shows to Date: Discharge Status: Independent with HEP Patient Elected to Stop Recommend MD Follow-up Discharge Summary: Pt LAST SEEN ON 02/15/22. 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 Gentle ROM only today and TET. . NO FURTHER APPTS SCHEDULED Electronically signed by: RODNEY RUDD PT Please sign and return to therapist. Thank you for your referral.
== END 2022-06-01 16:31 | disposition home or self-care (01) ==
LOC: HO.PT 11:00
PROVIDERS: Visit Provider Physician Assistant
DX: S92.354A Nondisplaced fracture of fifth metatarsal bone, right foot, initial encounter for closed fracture (principal); S82.832A Other fracture of upper and lower end of left fibula, initial encounter for closed fracture
CPT/HCPCS: 97110; 97116; 97140; 97162; 97530; 97535

== ENCOUNTER 2022-02-26 10:57 | Outpatient (REF) | payer OTHER, SELFPAY ==
--- NOTE | ~2022-02-26 | XR_ITS ---
EXAMINATION: XR ANKLE, LEFT CLINICAL INFORMATION: Fracture COMPARISON: Previous x-rays most recent December 2021 TECHNIQUE: AP, lateral, and mortise views of the left ankle. FINDINGS: There is a healing oblique fracture at the distal fibular shaft. Fracture line is still seen. No other fracture. Normal ankle mortise. Osteopenia. Normal soft tissues. XR/XR ankle LT min 3V IMPRESSION: Healing distal fibular shaft fracture.
== END 2022-02-26 10:58 | disposition home or self-care (01) ==
LOC: HO.HOSX 10:57
PROVIDERS: Visit Provider Physician Assistant
DX: M25.572 Pain in left ankle and joints of left foot (principal)
CPT/HCPCS: 73610

== ENCOUNTER 2022-03-02 12:50 | Outpatient (REF) | payer OTHER, SELFPAY ==
--- NOTE | ~2022-03-02 | MM_ITS ---
EXAMINATION: MM DIAGNOSTIC DIGITAL BREAST TOMOSYNTHESIS, BILATERAL CLINICAL INFORMATION: Left IDC status post lumpectomy 01/08/2024. Due for yearly. COMPARISON: Mammography: 03/07/2021, 08/19/2020, 12/17/2019, 12/09/2019, 11/19/2018 TECHNIQUE: Digital breast tomosynthesis is performed in both the craniocaudal and mediolateral oblique views along with computer-aided detection (CAD). Synthesized 2D images are generated from the tomosynthesis. Additional magnification left CC and magnification left ML views are obtained. FINDINGS: The breasts are heterogeneously dense, which may obscure small masses (ACR BI-RADS breast composition Category c). Parenchymal pattern is similar to prior exam. There are post therapy changes on the left with mild reduced breast size and minor scarring with benign oil cyst at the lumpectomy site. Right breast has biopsy clip marker posterior upper breast adjacent to nodular opacity slightly decreased in size since 2019. Neither breast shows interval mass or architectural abnormality or abnormal calcifications. No significant changes. Results are provided to the patient at time of visit by the technologist. MM/MM tomosynthesis diagnostic BI IMPRESSION: -No mammographic evidence of malignancy. -Post therapy changes left breast. ASSESSMENT: BI-RADS 2: Benign RECOMMENDATION: Annual bilateral mammography. This patient's information was entered into a reminder system with a target due date for their next mammogram.
== END 2022-03-02 12:51 | disposition home or self-care (01) ==
LOC: HO.MAMMO 12:50
PROVIDERS: PCP Nurse Practitioner Family; Visit Provider Surgery
DX: C50.912 Malignant neoplasm of unspecified site of left female breast (principal); N64.4 Mastodynia; Z17.0 Estrogen receptor positive status [ER+]; Z79.899 Other long term (current) drug therapy
CPT/HCPCS: 77062; 77066; 99212

== ENCOUNTER → 2022-08-31 10:45 | Outpatient (BNVA) | payer OTHER, SELFPAY | PROVIDERS: PCP Internal Medicine Geriatric Medicine; Visit Provider Surgery | DX: C50.912 Malignant neoplasm of unspecified site of left female breast (principal) | CPT/HCPCS: 99212 ==

== ENCOUNTER 2022-10-13 09:00 | Emergency (ER) | payer OTHER, SELFPAY ==
--- NOTE | ~2022-10-13 | CT_ITS ---
EXAMINATION: CT ABDOMEN AND PELVIS WITHOUT CONTRAST CLINICAL INFORMATION: Lower abdominal tenderness. COMPARISON: 11/27/2017. TECHNIQUE: Multidetector volumetric imaging was performed from the superior aspect of the liver through the pubic symphysis. Sagittal and coronal reformatted images were obtained on the technologist's workstation. This CT examination was performed using dose optimization techniques as appropriate, variously including the following: *Automated exposure control *Adjustment of mA and/or kV according to patient size (this includes techniques or standardized protocols for targeted exams where dose is matched to indication/reason for exam; i.e. extremities or head) *Use of iterative reconstruction technique DLP: 577 mGy-cm FINDINGS: LUNG BASES: Normal. No pulmonary consolidation or pleural effusion. LIVER: The liver has normal size, shape, and attenuation. No evidence of liver mass. GALLBLADDER AND BILIARY TREE: Gallbladder is without radiopaque stones, wall thickening or pericholecystic fluid. No dilated bile ducts. PANCREAS: Chronic, moderate atrophy of pancreatic parenchyma. No edema, pancreatic ductal dilatation or mass. SPLEEN: Normal. ADRENAL GLANDS: Normal. KIDNEYS AND URETERS: The kidneys have normal size and cortical thickness. No perinephric edema or fluid collection. No urolithiasis or hydroureteronephrosis. BLADDER: Normal. No calculi or wall thickening. BOWEL AND PERITONEUM: There appears to be a very small sliding-type hiatal hernia. No dilated bowel loops. The appendix is normal. Multiple diverticula of the descending and sigmoid colon. There is chronic mild wall hypertrophy/diverticular disease of the sigmoid colon. There is acute fat stranding around an inflamed diverticulum of the sigmoid colon. No bowel perforation. No abscess. ABDOMINAL WALL: Unremarkable. VASCULATURE: Atherosclerotic calcification of the abdominal aorta without aneurysm. LYMPH NODES: No pathologic sized lymph nodes in the abdomen or pelvis. No inguinal lymphadenopathy. PELVIC VISCERA: Small calcified leiomyoma of the uterine body. No adnexal mass. Trace free fluid is present in the pelvis. MUSCULOSKELETAL: Chondrocalcinosis of pubic symphysis and degenerated spine. Multilevel degenerative disc disease. No acute or suspicious osseous abnormality. CT/CT abdomen pelvis wo IV con IMPRESSION: There is acute diverticulitis of the sigmoid colon. No evidence of bowel perforation or abscess formation.
[2022-10-13 09:08] VITALS: BP 158/84; PULSE 108; RESP 18; TEMP 37.2; O2SAT 96; BMI 28.5
[2022-10-13 09:32] VITALS: BP 141/62; PULSE 98; RESP 20; TEMP 37.1; O2SAT 95
--- NOTE | 2022-10-13 09:40 | ED.GENADULT ---
HPI - General Adult General Chief complaint: Abdominal Pain Stated complaint: x2 days abd pain Time Seen by Provider: 10/13/22 09:18 Source: patient Mode of arrival: ambulatory Limitations: no limitations History of Present Illness HPI narrative: Patient is a 61-year-old female with history of diverticulitis, colitis, invasive carcinoma of breast, GERD, and fibromyalgia presenting with lower abdominal pain for three days. Reports pain began as mild but early this morning became severe. She describes it at a squeezing/cramping sensation, describes as periumbilical. Feels as though she needs to have a bowel movement but when she gets to the bathroom she in unable to go. She does report an episode of diarrhea and vomiting after taking her oral chemo this morning. She also reports she was able to have a very small bowel movement which she describes as soft. She denies any hematemesis, hematochezia, or melena. Reports fever to 102 overnight, has not taken on Tylenol of ibuprofen this morning related to her nausea. MD complaint: lower abdominal pain Onset (ago): day(s) Location: abdomen Radiation: non-radiation Severity: severe Severity scale (1-10): 10 Quality: other (cramping) Relieving factors: none Exacerbating factors: eating Associated symptoms: fever/chills and nausea/vomiting Treatments prior to arrival: none Related Data Home Medications Medication Instructions Recorded Confirmed aspirin 81 mg tablet,delayed 81 mg PO DAILY 02/10/20 08/31/22 release (Adult Low Dose Aspirin) fluticasone propionate 50 1 spray intranasal DAILY 02/10/20 08/31/22 mcg/actuation nasal spray,suspension (Children's Flonase Allergy Relief) diclofenac potassium 50 mg tablet 50 mg PO TID PRN pain 05/17/20 08/31/22 cholecalciferol (vitamin D3) 50 1 cap PO DAILY 02/15/21 08/31/22 mcg (2,000 unit) capsule Previous Rx's Medication Instructions Recorded acetaminophen 500 mg tablet 1,000 mg PO QID PRN fever or pain 06/10/20 (Tylenol Extra Strength) #14 tabs bisacodyl 5 mg tablet,delayed 20 mg PO ONCE 1 day #4 tabs 01/17/21 release (Dulcolax (bisacodyl)) polyethylene glycol 3350 17 238 g PO ONCE #238 grams 01/17/21 gram/dose oral powder (Miralax) pabqeqwq-iqqf-ypq-folic acid 18 1 tab PO DAILY #90 tabs 02/02/21 mg-0.4 mg tablet walker #1 ea 11/03/21 multivit with min-folic 1 tab PO DAILY #90 tabs 02/12/22 acid-lutein 0.4 mg-250 mcg tablet (Essential Woman 50 Plus) lorazepam 0.5 mg tablet 0.5 mg PO BID PRN Anxiety #40 tabs 05/15/22 pantoprazole 40 mg tablet,delayed 40 mg PO DAILY #90 tabs 05/30/22 release exemestane 25 mg tablet (Aromasin) 25 mg PO DAILY #30 tabs 08/02/22 amoxicillin 875 mg-potassium 1 tab PO TID #20 tabs 10/13/22 clavulanate 125 mg tablet Allergies Allergy/AdvReac Type Severity Reaction Status Date / Time Penicillins [PENICILLINS] Allergy Severe SWELLING/VO Verified 10/13/22 09:08 MITING Iodinated Contrast Media Allergy Intermediate eye/facial Verified 10/13/22 09:08 [IV Contrast Dye] swelling metronidazole [Flagyl] Allergy Intermediate Palpitation Verified 10/13/22 09:08 s paroxetine AdvReac Intermediate diarrhea Verified 08/31/22 10:54 Review of Systems Review of Systems: As per HPI. Yes all other systems are reviewed and are negative Constitutional: Constitutional: Reports fever(s) and Reports poor appetite Eyes: Eyes: Reports no additional eye complaints ENT: Reports system reviewed and no additional complaints, except as documented Cardiovascular: Cardiovascular: Reports no additional cardiovascular complaints Gastrointestinal: Gastrointestinal: Reports abdominal pain, Denies melena, Reports bloating, Denies hematochezia, Reports change in bowel habits, Reports tenesmus, Denies coffee ground emesis, Reports GI cramping, Denies fecal incontinence, Reports diarrhea, Reports nausea, Reports vomiting and Denies hematemesis Genitourinary: Genitourinary: Reports no additional female genitourinary complaints Musculoskeletal: Musculoskeletal: Reports no additional musculoskeletal complaints Integumentary/Breasts: Skin/Breast: Reports system reviewed and no additional complaints, except as docu Neurologic: Reports system reviewed and no additional complaints, except as documented [facility] Past Medical History Medical History Chronic back pain Closed left ankle fracture Diverticulitis Fibromyalgia Foot fracture, right GERD (gastroesophageal reflux disease) GERD without esophagitis Infiltrating ductal carcinoma of left breast Insomnia Overweight (BMI 25.0-29.9) Rib pain on right side Surgical History History of section History of colonoscopy History of cystoscopy History of esophagogastroduodenoscopy (EGD) (~02/2013) History of gastric surgery History of left breast biopsy (~01/08/20) History of local excision of skin lesion (~03/2018) History of lumpectomy of left breast History of right breast biopsy (~2012) Family History Family History Mother History of hypertension History of pancreatic cancer History of diabetes mellitus Father History of hypertension History of diabetes mellitus Colon cancer Sister History of hypertension Maternal Grandmother History of lung cancer Social History Social History Household Members: None Housing: House Are you a primary home care companion to a significant other at home: No Do you presently have 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 or other home services: Yes (instructional facilitator) Alcohol intake: never Patient Tobacco Use Status: Never used Tobacco Second Hand Smoke Exposure: No Advance Directives: No service: No Current occupational status: disabled 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 Blood pressure mildly elevated. Heart rate normal. Respiratory rate normal. Temperature normal. Oxygen saturation normal. Const General: cooperative, healthy appearing and no acute distress Orientation/consciousness: oriented to person, oriented to place, oriented to time and patient oriented x3 Limitations: no limitations HENMT Head: Yes normocephalic and Yes atraumatic Ears: external ears normal General nose exam: Normal external nose present Face and sinus: Yes face symmetric Mouth: oropharynx normal and moist mucous membranes Throat: Yes uvula midline Eyes Pupils: Equal, round and reactive pupils present Neck Neck: Yes normal visual inspection and Yes supple Resp Effort & Inspection: normal respiratory effort and able to speak in complete sentences Auscultation: clear to auscultation bilaterally Cardio Rate: regular rate Rhythm: regular rhythm Heart sounds: S1 normal heart sound present and S2 normal heart sound present GI Inspection: Yes normal to inspection Palpation (GI): Soft to palpation and Tenderness to palpation present (GI) in the LLQ, in the RLQ and periumbilically; not at McBurney's point and with no rebound tenderness Auscultation: normoactive bowel sounds General: Yes no CVA tenderness Back/Spine/Pelvis Back: no CVA tenderness Skin General skin exam: elasticity normal and turgor normal Neuro General: oriented to person, oriented to place, oriented to time, patient oriented x3, moves all extremities, no focal motor deficits and CN's II-XI intact bilaterally Cranial nerves: Yes Equal, round and reactive pupils present Cognition (Neuro): normal cognition Extrem General: Yes full ROM, Yes no pedal edema and Yes no calf tenderness Psych Mental Status: mental status grossly normal Affect: normal affect Thought process: Normal thought process present Course Course Course Narrative: 12:15 CT reveals acute diverticulitis of sigmoid colon without evidence of perforation or abscess. Will PO challenge and likely discharge home on PO abx. 13:02 Patient able to tolerate PO, feels comfortable being discharged home on oral abx. All results discussed and all questions answered. Return precautions discussed at bedside and patient instructed to follow up with PCP. Patient has a documented penicillin allergy, reports that she has tolerated amoxicillin in the past, last took in October of 2021 for a dental infection. Will give first dose in ED and observe, d/c home if no reaction. 14:13 Patient denies any reaction after taking Augmentin. No angioedema, no rash, LS CTA throughout. Feel patient is stable to d/c home. Instructed patient to discontinue medication immediately if she develops allergic reaction. Medications Administered Discontinued Medications Generic Name Dose Route Start Last Admin Trade Name Freq PRN Reason Stop Dose Admin Acetaminophen 650 mg 10/13/22 13:00 10/13/22 13:07 Acetaminophen 325 Mg Tablet PO 10/13/22 13:01 650 mg ONCE ONE Administration Amoxicillin/Clavulanate Potassium 875 mg 10/13/22 13:16 10/13/22 13:29 Amoxicillin/Potassium Clav 875 Mg Tablet PO 10/13/22 13:17 875 mg ONCE ONE Administration Medical Decision Making Medical Decision Making [facility] Narrative: Patient is a 61-year-old female with history of diverticulitis, colitis, invasive carcinoma of breast, GERD, and fibromyalgia presenting with lower abdominal pain for three days. On exam she is awake, A+Ox3, nontoxic appearing, VS WNL, currently afebrile, abdomen soft, TTP LLQ and RLQ, no CVA tenderness. Concern for diverticulitis, abscess, bowel obstruction. Less likely appendicitis, constipation, UTI/pyelonephritis, renal colic. Unlikely AAA rupture, mesenteric ischemia, perforated viscous, hernia, ovarian torsion, ovarian cyst. Differential Diagnosis Differential Diagnoses: The differential diagnosis associated with the presentation includes As above. Admission/Observation Consideration of admission/observation: Escalation of care including admission/observation considered Lab Data [facility] Lab Attestation statement: I reviewed the patient's lab results. 10/13/22 09:47 10/13/22 09:47 Labs: Lab Results 10/13/22 10/13/22 10/13/22 Range/Units 09:47 09:47 09:47 WBC 8.5 (4.8-10.8) X10*3/uL RBC 4.36 (4.20-5.50) X10*6/uL Hgb 12.7 (12.0-16.0) g/dl Hct 38.8 (37.0-47.0) % MCV 89.0 (80.0-98.0) fL MCH 29.1 (27.0-33.0) pg MCHC 32.7 (31.0-35.0) g/dl RDW 13.2 (11.0-16.0) % Plt Count 336 (160-400) X10*3/uL MPV 10.0 (9.4-12.3) fL Immature Gran % (Auto) 0.2 (0.0-0.4) % Neut % (Auto) 77.4 H (45-73) % Lymph % (Auto) 13.2 L (20-40) % [facility] % (Auto) 7.7 (2-11) % Eos % (Auto) 0.7 (0-4) % Baso % (Auto) 0.8 (0-2) % Lymph # (Auto) 1.1 L (1.2-4.9) X10*3/uL [facility] # (Auto) 0.7 (0.1-1.2) X10*3/uL Eos # (Auto) 0.1 (0.0-0.4) X10*3/uL Baso # (Auto) 0.1 (0.0-0.2) X10*3/uL Abs Immat Gran (auto) 0.02 (0.00-0.03) X10*3/uL Absolute Neuts (auto) 6.6 (2.0-8.3) x10*3/uL Absolute Nucleated RBC 0.000 (0.0-0.012) X10*3/uL Nucleated RBC % (auto) 0.0 (0.0-0.2) /100WBC Sodium 140 (135-145) mmol/L Potassium 3.8 (3.3-5.1) mmol/L Chloride 104 (96-108) mmol/L Carbon Dioxide 26 (22-29) mmol/L Anion Gap 14 (12-20) BUN 14 (9-16) mg/dL Creatinine 0.78 (0.5-1.4) mg/dL Estim Creat Clear Calc 67.9 Estimated GFR > 60 Random Glucose 149 H (60-115) mg/dL Lactic Acid 1.2 (0.5-2.0) mmol/L Calcium 9.8 (8.4-10.2) mg/dL Urine Color Urine Appearance Urine pH (5.0-9.0) Ur Specific [place] (1.005-1.025) Urine Protein (Neg-Trace) mg/dL Urine Glucose (UA) (Negative) mg/dL Urine Ketones (Negative) mg/dL Urine Blood (Negative) Urine Nitrite (Negative) Ur Leukocyte Esterase (Negative) Urine RBC (0-2) /HPF Urine WBC (0-5) /HPF Ur Squamous Epith Cells (0-2) /HPF Urine Bacteria (None Seen) Hyaline Casts (0-2) /LPF 10/13/22 Range/Units 09:47 WBC (4.8-10.8) X10*3/uL RBC (4.20-5.50) X10*6/uL Hgb (12.0-16.0) g/dl Hct (37.0-47.0) % MCV (80.0-98.0) fL MCH (27.0-33.0) pg MCHC (31.0-35.0) g/dl RDW (11.0-16.0) % Plt Count (160-400) X10*3/uL MPV (9.4-12.3) fL Immature Gran % (Auto) (0.0-0.4) % Neut % (Auto) (45-73) % Lymph % (Auto) (20-40) % [facility] % (Auto) (2-11) % Eos % (Auto) (0-4) % Baso % (Auto) (0-2) % Lymph # (Auto) (1.2-4.9) X10*3/uL [facility] # (Auto) (0.1-1.2) X10*3/uL Eos # (Auto) (0.0-0.4) X10*3/uL Baso # (Auto) (0.0-0.2) X10*3/uL Abs Immat Gran (auto) (0.00-0.03) X10*3/uL Absolute Neuts (auto) (2.0-8.3) x10*3/uL Absolute Nucleated RBC (0.0-0.012) X10*3/uL Nucleated RBC % (auto) (0.0-0.2) /100WBC Sodium (135-145) mmol/L Potassium (3.3-5.1) mmol/L Chloride (96-108) mmol/L Carbon Dioxide (22-29) mmol/L Anion Gap (12-20) BUN (9-16) mg/dL Creatinine (0.5-1.4) mg/dL Estim Creat Clear Calc Estimated GFR Random Glucose (60-115) mg/dL Lactic Acid (0.5-2.0) mmol/L Calcium (8.4-10.2) mg/dL Urine Color Yellow Urine Appearance Clear Urine pH 5.0 (5.0-9.0) Ur Specific [place] 1.020 (1.005-1.025) Urine Protein Negative (Neg-Trace) mg/dL Urine Glucose (UA) Negative (Negative) mg/dL Urine Ketones Negative (Negative) mg/dL Urine Blood Small (1+) H (Negative) Urine Nitrite Negative (Negative) Ur Leukocyte Esterase Small (1+) H (Negative) Urine RBC 3-5 H (0-2) /HPF Urine WBC 0-5 (0-5) /HPF Ur Squamous Epith Cells 0-2 (0-2) /HPF Urine Bacteria None Seen (None Seen) Hyaline Casts 0-2 (0-2) /LPF Independent Interpretation I performed an independent interpretation of an: CT Scan Interpretation: I independently reviewed the CT scan and agree with the radiologist's interpretation. Radiology Impression Discussion of test interpretation with radiology: I have reviewed the radiologist's reading. Radiologist Impression: FINDINGS: LUNG BASES: Normal. No pulmonary consolidation or pleural effusion.? LIVER: The liver has normal size, shape, and attenuation.? No evidence of liver mass. GALLBLADDER AND BILIARY TREE: Gallbladder is without radiopaque stones, wall thickening or pericholecystic fluid.? No dilated bile ducts. PANCREAS: Chronic, moderate atrophy of pancreatic parenchyma. No edema, pancreatic ductal dilatation or mass.? SPLEEN: Normal.? ADRENAL GLANDS: Normal.? KIDNEYS AND URETERS: The kidneys have normal size and cortical thickness. No perinephric edema or fluid collection. No urolithiasis or hydroureteronephrosis. BLADDER:? Normal. No calculi or wall thickening. BOWEL AND PERITONEUM: There appears to be a very small sliding-type hiatal hernia. No dilated bowel loops. The appendix is normal. Multiple diverticula of the descending and sigmoid colon. There is chronic mild wall hypertrophy/diverticular disease of the sigmoid colon. There is acute fat stranding around an inflamed diverticulum of the sigmoid colon. No bowel perforation. No abscess. ABDOMINAL WALL: Unremarkable.? VASCULATURE: Atherosclerotic calcification of the abdominal aorta without aneurysm. LYMPH NODES: No pathologic sized lymph nodes in the abdomen or pelvis. No inguinal lymphadenopathy. PELVIC VISCERA: Small calcified leiomyoma of the uterine body. No adnexal mass. Trace free fluid is present in the pelvis. MUSCULOSKELETAL: Chondrocalcinosis of pubic symphysis and degenerated spine. Multilevel degenerative disc disease. No acute or suspicious osseous abnormality.? CT/CT abdomen pelvis wo IV con IMPRESSION: There is acute diverticulitis of the sigmoid colon. No evidence of bowel perforation or abscess formation. External Record Review External record reviewed: Inpatient record, Office record and Outpatient record Discharge Plan Discharge Clinical Impression: Diverticulitis of sigmoid colon Patient Disposition: Home, Self-Care Instructions: Diverticulitis (ED), Diverticulitis Diet (ED) Additional Instructions: You are being prescribed an antibiotic called Augmentin for your diverticulitis. Please take the full course of medication as prescribed. Follow up with your primary care provider or Dr. Pelaez within two days. Return to the emergency department if you develop increased abdominal pain, persistent vomiting, inability to tolerate fluids/antibiotics, fever 100.4F or greater, or other concerning symptoms. Prescriptions: New amoxicillin-pot clavulanate 875-125 mg tablet 1 tab PO TID Qty: 20 0RF Rx Instructions: First dose given in the ED. Take next dose at bedtime today. No Action Essential Woman 50 Plus 0.4-250 mg-mcg Tablet 1 tab PO DAILY Qty: 90 6RF pantoprazole 40 mg tablet,delayed release (DR/EC) 40 mg PO DAILY Qty: 90 0RF acetaminophen [Tylenol Extra Strength] 500 mg tablet 1,000 mg PO QID PRN (Reason: fever or pain) Qty: 14 0RF thrrxhah-wrig-ror-folic acid 18-0.4 mg Tablet 1 tab PO DAILY Qty: 90 4RF lorazepam 0.5 mg Tablet 0.5 mg PO BID PRN (Reason: Anxiety) Qty: 40 2RF Rx Instructions: Take as needed it every 12 hours for anxiety. exemestane [Aromasin] 25 mg Tablet 25 mg PO DAILY Qty: 30 4RF Rx Instructions: must administer after a meal cholecalciferol (vitamin D3) 50 mcg (2,000 unit) capsule 1 cap PO DAILY diclofenac potassium 50 mg tablet 50 mg PO TID PRN (Reason: pain) fluticasone propionate [Children's Flonase Allergy Rlf] 50 mcg/actuation spray,suspension 1 spray intranasal DAILY Rx Instructions: administer into each nostril aspirin [Adult Low Dose Aspirin] 81 mg tablet,delayed release (DR/EC) 81 mg PO DAILY polyethylene glycol 3350 [Miralax] 17 gram/dose powder 238 g PO ONCE Qty: 238 0RF Rx Instructions: mix the full container with 64 ounces of gatorade for colonoscopy prep the evening before the test and drink bisacodyl [Dulcolax (bisacodyl)] 5 mg tablet,delayed release (DR/EC) 20 mg PO ONCE 1 Days Qty: 4 0RF Rx Instructions: take at 6 pm day before colonoscopy (DME) [facility] See [facility] Instructions .MEDSUPPLY Qty: 1 0RF Rx Instructions: Rollator walker with seat and breaks
[2022-10-13 09:56] LABS: MANUAL DIFF FLAG NO
[2022-10-13 10:10] LABS: Lactic Acid 1.2 mmol/L (0.5-2.0)
[2022-10-13 10:13] LABS: Anion Gap 14 (12-20); Blood Urea Nitrogen 14 mg/dL (9-16); Calcium 9.8 mg/dL (8.4-10.2); Carbon Dioxide 26 mmol/L (22-29); Chloride 104 mmol/L (96-108); Creatinine Clr Calc Pharmacy 67.9; Estimated Glomerular Filt Rate > 60; Glucose Random 149 mg/dL (60-115); Potassium 3.8 mmol/L (3.3-5.1); Sodium 140 mmol/L (135-145)
[2022-10-13 10:14] LABS: Basophils Absolute Auto 0.1 X10*3/uL (0.0-0.2); Basophils Percent Auto 0.8 % (0-2); Eosinophils Absolute Auto 0.1 X10*3/uL (0.0-0.4); Eosinophils Percent Auto 0.7 % (0-4); Hematocrit 38.8 % (37.0-47.0); Hemoglobin 12.7 g/dl (12.0-16.0); Imm Gran Abs Auto 0.02 X10*3/uL (0.00-0.03); Imm Gran Pct Auto 0.2 % (0.0-0.4); Lymphocytes Absolute Auto 1.1 X10*3/uL (1.2-4.9); Lymphocytes Percent Auto 13.2 % (20-40); Mean Corpuscular HGB Conc 32.7 g/dl (31.0-35.0); Mean Corpuscular Hemoglobin 29.1 pg (27.0-33.0); Monocytes Absolute Auto 0.7 X10*3/uL (0.1-1.2); Monocytes Percent Auto 7.7 % (2-11); Neutrophils Absolute Auto 6.6 x10*3/uL (2.0-8.3); Neutrophils Percent Auto 77.4 % (45-73); Platelet Count 336 X10*3/uL (160-400); Red Blood Count 4.36 X10*6/uL (4.20-5.50); Red Cell Distribution Width 13.2 % (11.0-16.0); White Blood Count 8.5 X10*3/uL (4.8-10.8)
[2022-10-13 10:15] LABS: Appearance Urine Clear; Color Urine Yellow; Glucose Urine UA Negative (Negative); Leukocyte Esterase Urine Small (1+) (Negative); Nitrite Urine Negative (Negative); UMIC TRIGGER UACC YES; Urine Blood Small (1+) (Negative); Urine Ketones Negative (Negative); Urine Protein Negative (Neg-Trace)
[2022-10-13 10:27] LABS: Bacteria Urine None Seen (None Seen); Hyaline Casts Urine 0-2 /LPF (0-2); Squamous Epithelial Cell Urine 0-2 /HPF (0-2); UACC Culture Trigger YES; WBC Urine 0-5 /HPF (0-5)
--- NOTE | 2022-10-13 10:53 | PC.NURSE ---
Po challenge per Sonal KEENE
[2022-10-13 12:38] VITALS: BP 177/82; PULSE 78; RESP 14; O2SAT 96
--- NOTE | 2022-10-13 12:43 | PC.NURSE ---
PO challenging per provider
[2022-10-13] MEDS: Acetaminophen 325 MG TABLET 650 MG PO (13:07)
[2022-10-13] MEDS: Amoxicillin/Potassium Clav 875 MG TABLET PO (13:29)
--- NOTE | 2022-10-13 13:31 | PC.NURSE ---
Pt received first dose of antx while still being in ED to rule out any allergic reactions d/t allergies
== END 2022-10-13 14:24 | disposition home or self-care (01) ==
PROVIDERS: Registered Nurse Emergency; Emergency Provider Emergency Medicine; PCP Internal Medicine Geriatric Medicine
DX: K57.32 Diverticulitis of large intestine without perforation or abscess without bleeding (principal); Z79.899 Other long term (current) drug therapy
CPT/HCPCS: 36415; 74176; 80048; 81001; 81003; 83605; 85025; 87040; 87086; 99284

== ENCOUNTER 2022-10-29 11:16 | Outpatient (REF) | payer OTHER, SELFPAY ==
[2022-10-29 12:18] LABS: MANUAL DIFF FLAG NO
[2022-10-29 13:20] LABS: Appearance Urine Clear; Color Urine Dark Yellow; Glucose Urine UA Negative (Negative); Leukocyte Esterase Urine Small (1+) (Negative); Nitrite Urine Negative (Negative); Specific Gravity - Urine 1.025 (1.005-1.025); UMIC TRIGGER UACC YES; Urine Blood Trace (Negative); Urine Ketones Trace mg/dL (Negative); Urine Protein Trace mg/dL (Neg-Trace)
[2022-10-29 13:25] LABS: Basophils Absolute Auto 0.1 X10*3/uL (0.0-0.2); Basophils Percent Auto 1.1 % (0-2); Eosinophils Absolute Auto 0.1 X10*3/uL (0.0-0.4); Eosinophils Percent Auto 2.1 % (0-4); Hematocrit 39.6 % (37.0-47.0); Hemoglobin 12.9 g/dl (12.0-16.0); Imm Gran Abs Auto 0.02 X10*3/uL (0.00-0.03); Imm Gran Pct Auto 0.4 % (0.0-0.4); Lymphocytes Absolute Auto 1.5 X10*3/uL (1.2-4.9); Mean Corpuscular HGB Conc 32.6 g/dl (31.0-35.0); Mean Corpuscular Hemoglobin 29.3 pg (27.0-33.0); Mean Platelet Volume 9.7 fL (9.4-12.3); Monocytes Absolute Auto 0.4 X10*3/uL (0.1-1.2); Monocytes Percent Auto 7.4 % (2-11); Neutrophils Absolute Auto 3.6 x10*3/uL (2.0-8.3); Platelet Count 406 X10*3/uL (160-400); Red Cell Distribution Width 13.2 % (11.0-16.0); White Blood Count 5.7 X10*3/uL (4.8-10.8)
[2022-10-29 13:32] LABS: Bacteria Urine None Seen (None Seen); Squamous Epithelial Cell Urine 0-2 /HPF (0-2); UACC Culture Trigger YES; WBC Urine 0-5 /HPF (0-5)
[2022-10-29 14:24] LABS: Alanine Aminotransferase 9 U/L (0-31); Albumin Level 4.2 g/dL (3.5-5.0); Alkaline Phosphatase 116 U/L (39-117); Anion Gap 15 (12-20); Aspartate Amino Transferase 14 U/L (5-31); Bilirubin Total 0.7 mg/dL (0.0-1.0); Blood Urea Nitrogen 14 mg/dL (9-16); C Reactive Protein 7.73 mg/dL (< or = 0.50); Calcium 10.3 mg/dL (8.4-10.2); Carbon Dioxide 26 mmol/L (22-29); Chloride 104 mmol/L (96-108); Estimated Glomerular Filt Rate > 60; Glucose Random 115 mg/dL (60-115); Potassium 4.1 mmol/L (3.3-5.1); Sodium 141 mmol/L (135-145); Total Protein 7.9 g/dL (6.5-8.0)
== END 2022-10-29 11:17 | disposition home or self-care (01) ==
LOC: HO.LAB 11:16
PROVIDERS: PCP Internal Medicine Geriatric Medicine; Visit Provider Internal Medicine Gastroenterology
DX: K75.81 Nonalcoholic steatohepatitis (NASH) (principal); K57.92 Diverticulitis of intestine, part unspecified, without perforation or abscess without bleeding; R35.0 Frequency of micturition
CPT/HCPCS: 36415; 80053; 81001; 85025; 86140; 87086; 99212

== ENCOUNTER 2022-11-05 12:12 | Outpatient (REF) | payer OTHER, SELFPAY ==
[2022-11-05 13:07] LABS: MANUAL DIFF FLAG NO
[2022-11-05 13:28] LABS: Basophils Absolute Auto 0.1 X10*3/uL (0.0-0.2); Basophils Percent Auto 1.1 % (0-2); Eosinophils Absolute Auto 0.1 X10*3/uL (0.0-0.4); Eosinophils Percent Auto 1.7 % (0-4); Hematocrit 39.2 % (37.0-47.0); Imm Gran Abs Auto 0.03 X10*3/uL (0.00-0.03); Imm Gran Pct Auto 0.5 % (0.0-0.4); Lymphocytes Absolute Auto 1.8 X10*3/uL (1.2-4.9); Lymphocytes Percent Auto 27.6 % (20-40); Mean Corpuscular HGB Conc 33.2 g/dl (31.0-35.0); Mean Corpuscular Hemoglobin 29.5 pg (27.0-33.0); Mean Corpuscular Volume 88.9 fL (80.0-98.0); Mean Platelet Volume 9.5 fL (9.4-12.3); Monocytes Absolute Auto 0.5 X10*3/uL (0.1-1.2); Monocytes Percent Auto 7.4 % (2-11); Neutrophils Absolute Auto 3.9 x10*3/uL (2.0-8.3); Neutrophils Percent Auto 61.7 % (45-73); Platelet Count 415 X10*3/uL (160-400); Red Blood Count 4.41 X10*6/uL (4.20-5.50); Red Cell Distribution Width 13.3 % (11.0-16.0); White Blood Count 6.4 X10*3/uL (4.8-10.8)
[2022-11-05 14:20] LABS: Appearance Urine Clear; Color Urine Dark Yellow; Glucose Urine UA Negative (Negative); Leukocyte Esterase Urine Small (1+) (Negative); Nitrite Urine Negative (Negative); Specific Gravity - Urine 1.025 (1.005-1.025); UMIC TRIGGER UACC YES; Urine Blood Negative (Negative); Urine Ketones Trace mg/dL (Negative); Urine Protein Negative (Neg-Trace)
[2022-11-05 14:38] LABS: Alanine Aminotransferase 9 U/L (0-31); Albumin Level 4.2 g/dL (3.5-5.0); Alkaline Phosphatase 101 U/L (39-117); Anion Gap 13 (12-20); Aspartate Amino Transferase 16 U/L (5-31); Bilirubin Total 0.6 mg/dL (0.0-1.0); Blood Urea Nitrogen 15 mg/dL (9-16); C Reactive Protein 0.68 mg/dL (< or = 0.50); Calcium 9.9 mg/dL (8.4-10.2); Carbon Dioxide 25 mmol/L (22-29); Chloride 106 mmol/L (96-108); Estimated Glomerular Filt Rate > 60; Glucose Random 105 mg/dL (60-115); Potassium 4.6 mmol/L (3.3-5.1); Sodium 139 mmol/L (135-145); Total Protein 7.4 g/dL (6.5-8.0)
[2022-11-05 14:41] LABS: Bacteria Urine None Seen (None Seen); Squamous Epithelial Cell Urine 0-2 /HPF (0-2); UACC Culture Trigger YES; WBC Urine 0-5 /HPF (0-5)
== END 2022-11-05 12:13 | disposition home or self-care (01) ==
LOC: HO.LAB 12:12
PROVIDERS: PCP Internal Medicine Geriatric Medicine; Visit Provider Internal Medicine Gastroenterology
DX: K57.92 Diverticulitis of intestine, part unspecified, without perforation or abscess without bleeding (principal); K75.81 Nonalcoholic steatohepatitis (NASH); R10.30 Lower abdominal pain, unspecified
CPT/HCPCS: 36415; 80053; 81001; 85025; 86140; 87086; 99212

== ENCOUNTER 2023-01-16 11:05 | Emergency (ER) | payer OTHER, SELFPAY ==
--- NOTE | ~2023-01-16 | XR_ITS ---
EXAMINATION: XR CHEST CLINICAL INFORMATION: Chest pain COMPARISON: Chest radiograph from 02/02/2020 TECHNIQUE: 2 views of the chest were obtained. FINDINGS: No focal consolidation. No pneumothorax. Trachea is midline. Cardiomediastinal silhouette is not enlarged. No large pleural effusion. Slight atherosclerotic calcifications of the aortic arch. Osseous structures are intact. Soft tissues are unremarkable. XR/XR chest 2V IMPRESSION: No acute cardiopulmonary process.
--- NOTE | 2023-01-16 11:07 | ECG_ITS ---
Test Reason : chest pain Blood Pressure : / mmHG Vent. Rate : 073 BPM Atrial Rate : 073 BPM P-R Int : 150 ms QRS Dur : 074 ms QT Int : 374 ms P-R-T Axes : 027 001 005 degrees QTc Int : 412 ms Normal sinus rhythm Cannot rule out Anterior infarct , age undetermined Abnormal ECG When compared with ECG of 25-OCT-2021 16:02, No significant change was found Referred By: Generic ED Physician Electronically Signed By:BIBIANA DENNIS
[2023-01-16 11:21] LABS: MANUAL DIFF FLAG NO
[2023-01-16 11:22] LABS: Basophils Absolute Auto 0.1 X10*3/uL (0.0-0.2); Basophils Percent Auto 0.7 % (0-2); Eosinophils Absolute Auto 0.1 X10*3/uL (0.0-0.4); Eosinophils Percent Auto 1.2 % (0-4); Hematocrit 39.7 % (37.0-47.0); Hemoglobin 13.4 g/dl (12.0-16.0); Imm Gran Abs Auto 0.02 X10*3/uL (0.00-0.03); Imm Gran Pct Auto 0.3 % (0.0-0.4); Lymphocytes Absolute Auto 1.5 X10*3/uL (1.2-4.9); Lymphocytes Percent Auto 19.4 % (20-40); Mean Corpuscular HGB Conc 33.8 g/dl (31.0-35.0); Mean Corpuscular Hemoglobin 29.7 pg (27.0-33.0); Mean Platelet Volume 9.6 fL (9.4-12.3); Monocytes Absolute Auto 0.5 X10*3/uL (0.1-1.2); Monocytes Percent Auto 6.2 % (2-11); Neutrophils Absolute Auto 5.5 x10*3/uL (2.0-8.3); Neutrophils Percent Auto 72.2 % (45-73); Platelet Count 350 X10*3/uL (160-400); Red Blood Count 4.51 X10*6/uL (4.20-5.50); Red Cell Distribution Width 13.5 % (11.0-16.0); White Blood Count 7.6 X10*3/uL (4.8-10.8)
[2023-01-16 11:36] LABS: Anion Gap 11 (12-20); Blood Urea Nitrogen 15 mg/dL (9-16); Calcium 9.8 mg/dL (8.4-10.2); Carbon Dioxide 27 mmol/L (22-29); Chloride 107 mmol/L (96-108); Estimated Glomerular Filt Rate > 60; Glucose Random 101 mg/dL (60-115); Magnesium 1.9 mg/dL (1.6-2.6); Potassium 4.1 mmol/L (3.3-5.1); Sodium 141 mmol/L (135-145)
[2023-01-16 11:45] LABS: Troponin-I High Sensitivity < 2.7 ng/L (<3.5-17.0)
--- NOTE | 2023-01-16 12:21 | ED_ITS ---
HPI - Chest Pain General Chief Complaint: Chest Pain Stated Complaint: chest tightness / facial pain into back of neck Time Seen by Provider: 01/16/23 18:20 Source: patient Mode of arrival: ambulatory Limitations: no limitations History of Present Illness HPI narrative: Patient with invasive ductal carcinoma left breast on hormonal treatment Brett, fibromyalgia comes here for chest pain shortness of breath headache for last 3 days no cough no fever no chills patient was triaged at 11:00 cardiac enzymes was negative EKG without ischemic changes patient with increased anxiety and stress grieving as her stepson committed suicide yesterday and mother of pancreatic cancer 2 years ago Related Data Home Medications Medication Instructions Recorded Confirmed aspirin 81 mg tablet,delayed 81 mg PO DAILY 02/10/20 08/31/22 release (Adult Low Dose Aspirin) fluticasone propionate 50 1 spray intranasal DAILY 02/10/20 08/31/22 mcg/actuation nasal spray,suspension (Children's Flonase Allergy Relief) diclofenac potassium 50 mg tablet 50 mg PO TID PRN pain 05/17/20 08/31/22 cholecalciferol (vitamin D3) 50 1 cap PO DAILY 02/15/21 08/31/22 mcg (2,000 unit) capsule amlodipine 2.5 mg tablet 2.5 mg PO DAILY 10/29/22 docusate sodium 100 mg capsule 100 mg PO BID 10/29/22 zolpidem 10 mg tablet 10 mg PO BEDTIME PRN 10/29/22 Previous Rx's Medication Instructions Recorded mfgkkoef-zkmv-uub-folic acid 18 1 tab PO DAILY #90 tabs 02/02/21 mg-0.4 mg tablet walker #1 ea 11/03/21 multivit with min-folic 1 tab PO DAILY #90 tabs 02/12/22 acid-lutein 0.4 mg-250 mcg tablet (Essential Woman 50 Plus) pantoprazole 40 mg tablet,delayed 40 mg PO DAILY #90 tabs 05/30/22 release ciprofloxacin HCl 500 mg tablet 500 mg PO BID #14 tabs 10/29/22 (Cipro) metronidazole 500 mg tablet 500 mg PO Q8H 1 week #21 tabs 10/29/22 diphenhydramine HCl 25 mg tablet 50 mg PO ONCE #2 tabs 12/10/22 (Benadryl Allergy) prednisone 50 mg tablet 50 mg PO .COMPLEX #3 tabs 12/10/22 exemestane 25 mg tablet (Aromasin) 25 mg PO DAILY #30 tabs 12/31/22 lorazepam 0.5 mg tablet (Ativan) 0.5 mg PO BID PRN anxiety #14 tabs 01/16/23 Allergies Allergy/AdvReac Type Severity Reaction Status Date / Time Penicillins [PENICILLINS] Allergy Severe SWELLING/VO Verified 01/16/23 12:22 MITING Iodinated Contrast Media Allergy Intermediate eye/facial Verified 01/16/23 12:22 [IV Contrast Dye] swelling metronidazole [Flagyl] Allergy Intermediate Palpitation Verified 01/16/23 12:22 s paroxetine AdvReac Intermediate diarrhea Verified 01/16/23 12:22 Review of Systems Review of Systems: Yes all other systems are reviewed and are negative [facility] Past Medical History Medical History Chronic back pain Closed left ankle fracture Diverticulitis Fibromyalgia Foot fracture, right GERD (gastroesophageal reflux disease) GERD without esophagitis Infiltrating ductal carcinoma of left breast Insomnia Overweight (BMI 25.0-29.9) Rib pain on right side Surgical History History of section History of colonoscopy History of cystoscopy History of esophagogastroduodenoscopy (EGD) (~02/2013) History of gastric surgery History of left breast biopsy (~01/08/20) History of local excision of skin lesion (~03/2018) History of lumpectomy of left breast History of right breast biopsy (~2012) Family History Family History Mother History of hypertension History of pancreatic cancer History of diabetes mellitus Father History of hypertension History of diabetes mellitus Colon cancer Sister History of hypertension Maternal Grandmother History of lung cancer Social History Social History Household Members: None Housing: House Are you a primary critical care nurse to a significant other at home: No 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 Oriented X3. No acute distress. Anxious Eyes: PERRLA, No Nystagmus ENT: Pharynx normal. Oral Mucosa moist Neck: Normal inspection. Neck supple. CVS: Normal heart rate and rhythm. Pulses normal. Left chest wall tenderness Respiratory: No respiratory distress. Equal air entry bilateral, no wheezing/rales/rhonchi Abdomen: Soft and nontender. Bowel sounds are present, no mass palpable, no CVA tenderness Skin: Skin warm and dry. Normal skin color. Normal skin turgor. Extremities: No lower extremity edema. No calf tenderness Neuro: Oriented X 3. No motor deficit. No sensory deficit.No cerebellar signs , cranial nerves II-XII intact Course Course Course Narrative: This is a rapid medical exam. Deferred additional HPI, ROS, PE to primary provider. 61-year-old female with history of diverticulitis, colitis, invasive carcinoma of breast on oral chemo, GERD, and fibromyalgia?here with complaints of chest tightness, both eyes are red, headache, neck pain since last night. No fevers, chills, URI symptoms. BP elevated in triage-did take her morning medications. Will obtain labs, EKG, CXR, viral testing. Medical Decision Making Medical Decision Making [facility] Narrative: Patient with increased anxiety atypical chest pain normal high sensitive troponin no ischemic changes discharge patient home advised to take Ativan for anxiety and depression Differential Diagnosis Differential Diagnoses: The differential diagnosis associated with the presentation includes ACS/anxiety/chest wall pain Lab Data [facility] Lab Attestation statement: I reviewed the patient's lab results. 01/16/23 11:16 01/16/23 11:16 Labs: Lab Results 01/16/23 01/16/23 01/16/23 Range/Units 11:16 11:16 11:16 WBC 7.6 (4.8-10.8) X10*3/uL RBC 4.51 (4.20-5.50) X10*6/uL Hgb 13.4 (12.0-16.0) g/dl Hct 39.7 (37.0-47.0) % MCV 88.0 (80.0-98.0) fL MCH 29.7 (27.0-33.0) pg MCHC 33.8 (31.0-35.0) g/dl RDW 13.5 (11.0-16.0) % Plt Count 350 (160-400) X10*3/uL MPV 9.6 (9.4-12.3) fL Immature Gran % (Auto) 0.3 (0.0-0.4) % Neut % (Auto) 72.2 (45-73) % Lymph % (Auto) 19.4 L (20-40) % [place] % (Auto) 6.2 (2-11) % Eos % (Auto) 1.2 (0-4) % Baso % (Auto) 0.7 (0-2) % Lymph # (Auto) 1.5 (1.2-4.9) X10*3/uL [place] # (Auto) 0.5 (0.1-1.2) X10*3/uL Eos # (Auto) 0.1 (0.0-0.4) X10*3/uL Baso # (Auto) 0.1 (0.0-0.2) X10*3/uL Abs Immat Gran (auto) 0.02 (0.00-0.03) X10*3/uL Absolute Neuts (auto) 5.5 (2.0-8.3) x10*3/uL Absolute Nucleated RBC 0.000 (0.0-0.012) X10*3/uL Nucleated RBC % (auto) 0.0 (0.0-0.2) /100WBC PT (11.1-13.3) SEC INR (0.9-1.1) Sodium 141 (135-145) mmol/L Potassium 4.1 (3.3-5.1) mmol/L Chloride 107 (96-108) mmol/L Carbon Dioxide 27 (22-29) mmol/L Anion Gap 11 L (12-20) BUN 15 (9-16) mg/dL Creatinine 0.72 (0.5-1.4) mg/dL Estim Creat Clear Calc TNP Estimated GFR > 60 Random Glucose 101 (60-115) mg/dL Calcium 9.8 (8.4-10.2) mg/dL Magnesium 1.9 (1.6-2.6) mg/dL Total Bilirubin 0.7 (0.0-1.0) mg/dL Direct Bilirubin 0.2 (0.0-0.5) mg/dL AST 16 (5-31) U/L ALT 7 (0-31) U/L Alkaline Phosphatase 110 (39-117) U/L Troponin I High Sens < 2.7 (<3.5-17.0) ng/L Total Protein 7.4 (6.5-8.0) g/dL Albumin 4.1 (3.5-5.0) g/dL Influenza Type A (PCR) (Negative) Influenza Type B (PCR) (Negative) RSV RNA Qual (PCR) (Negative) SARS-CoV-2 RNA (RT-PCR) (Negative) 01/16/23 01/16/23 Range/Units 12:29 12:29 WBC (4.8-10.8) X10*3/uL RBC (4.20-5.50) X10*6/uL Hgb (12.0-16.0) g/dl Hct (37.0-47.0) % MCV (80.0-98.0) fL MCH (27.0-33.0) pg MCHC (31.0-35.0) g/dl RDW (11.0-16.0) % Plt Count (160-400) X10*3/uL MPV (9.4-12.3) fL Immature Gran % (Auto) (0.0-0.4) % Neut % (Auto) (45-73) % Lymph % (Auto) (20-40) % [place] % (Auto) (2-11) % Eos % (Auto) (0-4) % Baso % (Auto) (0-2) % Lymph # (Auto) (1.2-4.9) X10*3/uL [place] # (Auto) (0.1-1.2) X10*3/uL Eos # (Auto) (0.0-0.4) X10*3/uL Baso # (Auto) (0.0-0.2) X10*3/uL Abs Immat Gran (auto) (0.00-0.03) X10*3/uL Absolute Neuts (auto) (2.0-8.3) x10*3/uL Absolute Nucleated RBC (0.0-0.012) X10*3/uL Nucleated RBC % (auto) (0.0-0.2) /100WBC PT 12.4 (11.1-13.3) SEC INR 1.0 (0.9-1.1) Sodium (135-145) mmol/L Potassium (3.3-5.1) mmol/L Chloride (96-108) mmol/L Carbon Dioxide (22-29) mmol/L Anion Gap (12-20) BUN (9-16) mg/dL Creatinine (0.5-1.4) mg/dL Estim Creat Clear Calc Estimated GFR Random Glucose (60-115) mg/dL Calcium (8.4-10.2) mg/dL Magnesium (1.6-2.6) mg/dL Total Bilirubin (0.0-1.0) mg/dL Direct Bilirubin (0.0-0.5) mg/dL AST (5-31) U/L ALT (0-31) U/L Alkaline Phosphatase (39-117) U/L Troponin I High Sens (<3.5-17.0) ng/L Total Protein (6.5-8.0) g/dL Albumin (3.5-5.0) g/dL Influenza Type A (PCR) NEGATIVE (Negative) Influenza Type B (PCR) NEGATIVE (Negative) RSV RNA Qual (PCR) NEGATIVE (Negative) SARS-CoV-2 RNA (RT-PCR) NEGATIVE (Negative) Independent Interpretation I performed an independent interpretation of an: EKG Interpretation: Normal sinus rhythm heart rate 73 beats per minute normal interval normal axis no acute ST-T changes Discharge Plan Discharge Clinical Impression: Anxiety and depression, Chest pain Patient Disposition: Home, Self-Care Instructions: Chest Pain (DC), Generalized Anxiety Disorder (ED) Additional Instructions: Take medication to relax and sleep and follow with PCP The chest pain is likely from muscular pain take Tylenol/Motrin for pain Prescriptions: New lorazepam [Ativan] 0.5 mg tablet 0.5 mg PO BID PRN (Reason: anxiety) Qty: 14 0RF No Action Essential Woman 50 Plus 0.4-250 mg-mcg Tablet 1 tab PO DAILY Qty: 90 6RF pantoprazole 40 mg tablet,delayed release (DR/EC) 40 mg PO DAILY Qty: 90 0RF prednisone 50 mg tablet 50 mg PO .COMPLEX Qty: 3 0RF Rx Instructions: 50 mg orally at 13 hours, 7 hours, and 1 hour before contrast medium injection diphenhydramine HCl [Benadryl Allergy] 25 mg tablet 50 mg PO ONCE Qty: 2 0RF Rx Instructions: take 1 hour before contrast dye injection gdibxwgd-tlug-bhb-folic acid 18-0.4 mg Tablet 1 tab PO DAILY Qty: 90 4RF exemestane [Aromasin] 25 mg Tablet 25 mg PO DAILY Qty: 30 4RF Rx Instructions: must administer after a meal cholecalciferol (vitamin D3) 50 mcg (2,000 unit) capsule 1 cap PO DAILY diclofenac potassium 50 mg tablet 50 mg PO TID PRN (Reason: pain) fluticasone propionate [Children's Flonase Allergy Rlf] 50 mcg/actuation spray,suspension 1 spray intranasal DAILY Rx Instructions: administer into each nostril aspirin [Adult Low Dose Aspirin] 81 mg tablet,delayed release (DR/EC) 81 mg PO DAILY (DME) walker [facility] [place] See Rx Instructions .MEDSUPPLY Qty: 1 0RF Rx Instructions: Rollator walker with seat and breaks amlodipine 2.5 mg tablet 2.5 mg PO DAILY docusate sodium 100 mg capsule 100 mg PO BID zolpidem 10 mg tablet 10 mg PO BEDTIME PRN ciprofloxacin HCl [Cipro] 500 mg tablet 500 mg PO BID Qty: 14 0RF metronidazole 500 mg tablet 500 mg PO Q8H 7 Days Qty: 21 0RF
[2023-01-16 12:22] VITALS: BP 187/91; PULSE 82; RESP 18; TEMP 37.1; O2SAT 96; BMI 27.7
[2023-01-16 12:39] LABS: Prothrombin Time 12.4 SEC (11.1-13.3)
[2023-01-16 12:57] LABS: Alanine Aminotransferase 7 U/L (0-31); Albumin Level 4.1 g/dL (3.5-5.0); Alkaline Phosphatase 110 U/L (39-117); Aspartate Amino Transferase 16 U/L (5-31); Bilirubin Direct 0.2 mg/dL (0.0-0.5); Bilirubin Total 0.7 mg/dL (0.0-1.0); Total Protein 7.4 g/dL (6.5-8.0)
[2023-01-16 13:17] LABS: Influenza A PCR NEGATIVE (Negative); Influenza B PCR NEGATIVE (Negative); Resp Syncy Virus RNA Qual PCR NEGATIVE (Negative); SARS COV2 PCR INHOUSE NEGATIVE (Negative)
[2023-01-16] MEDS: LORazepam 0.5 MG TABLET PO (19:07)
== END 2023-01-16 19:08 | disposition home or self-care (01) ==
PROVIDERS: Nurse Practitioner Family; Emergency Provider Internal Medicine; PCP Internal Medicine Geriatric Medicine
DX: F41.8 Other specified anxiety disorders (principal); R07.9 Chest pain, unspecified; R06.02 Shortness of breath; Z79.82 Long term (current) use of aspirin; Z79.899 Other long term (current) drug therapy; Z20.822 Contact with and (suspected) exposure to COVID-19; Z20.828 Contact with and (suspected) exposure to other viral communicable diseases
CPT/HCPCS: 0241U; 36415; 71046; 80048; 80076; 83735; 84484; 85025; 85610; 93005; 99283

== ENCOUNTER 2023-01-31 19:56 | Emergency (ER) | payer OTHER, SELFPAY ==
--- NOTE | 2023-01-31 20:02 | ECG_ITS ---
Test Reason : NAUSEA Blood Pressure : / mmHG Vent. Rate : 075 BPM Atrial Rate : 075 BPM P-R Int : 162 ms QRS Dur : 078 ms QT Int : 386 ms P-R-T Axes : 043 008 023 degrees QTc Int : 431 ms Normal sinus rhythm T wave abnormality, consider anterior ischemia Abnormal ECG When compared with ECG of 16-JAN-2023 11:11, Inverted T waves have replaced nonspecific T wave abnormality in Anterior leads Referred By: Nathalia Hooks Electronically Signed By:BIBIANA DENNIS
[2023-01-31 20:24] VITALS: BP 173/94; PULSE 91; RESP 20; TEMP 36.9; O2SAT 96; BMI 28.0
--- NOTE | 2023-01-31 21:11 | ED.GENADULT ---
HPI - General Adult General Chief complaint: General Medical Stated complaint: + covid passing out,fever Time Seen by Provider: 01/31/23 21:02 Source: patient Limitations: no limitations History of Present Illness HPI narrative: 62-year-old female presents with nausea, vomiting, syncope. Patient was diagnosed with COVID on January 22. She was actually doing well up until approximately 2-3 days ago when she has been having intractable nausea vomiting. She denies any bilious or bloody vomitus. She has had no fevers or chills. She has felt quite tremulous. She has felt very lightheaded and dizzy. The symptoms are quite severe to the point that she has passed out 3 times yesterday and 1 time today. She denies hitting her head or additional trauma. She has have persisting cough but no mucus production. She denies any diarrhea or constipation. She does have some upper abdominal pain that appears to be crampy in mild to moderate nature. The pain does not radiate. Patient reports having had EMS that evaluate her and given her IV fluids but did not get transported to the hospital. Related Data Home Medications Medication Instructions Recorded Confirmed aspirin 81 mg tablet,delayed 81 mg PO DAILY 02/10/20 08/31/22 release (Adult Low Dose Aspirin) fluticasone propionate 50 1 spray intranasal DAILY 02/10/20 08/31/22 mcg/actuation nasal spray,suspension (Children's Flonase Allergy Relief) diclofenac potassium 50 mg tablet 50 mg PO TID PRN pain 05/17/20 08/31/22 cholecalciferol (vitamin D3) 50 1 cap PO DAILY 02/15/21 08/31/22 mcg (2,000 unit) capsule amlodipine 2.5 mg tablet 2.5 mg PO DAILY 10/29/22 docusate sodium 100 mg capsule 100 mg PO BID 10/29/22 zolpidem 10 mg tablet 10 mg PO BEDTIME PRN 10/29/22 Previous Rx's Medication Instructions Recorded eexrkruz-bgqz-rqa-folic acid 18 1 tab PO DAILY #90 tabs 02/02/21 mg-0.4 mg tablet walker #1 ea 11/03/21 multivit with min-folic 1 tab PO DAILY #90 tabs 02/12/22 acid-lutein 0.4 mg-250 mcg tablet (Essential Woman 50 Plus) pantoprazole 40 mg tablet,delayed 40 mg PO DAILY #90 tabs 05/30/22 release ciprofloxacin HCl 500 mg tablet 500 mg PO BID #14 tabs 10/29/22 (Cipro) metronidazole 500 mg tablet 500 mg PO Q8H 1 week #21 tabs 10/29/22 diphenhydramine HCl 25 mg tablet 50 mg (2 x 25 mg) PO ONCE #2 tabs 12/10/22 (Benadryl Allergy) prednisone 50 mg tablet 50 mg PO .COMPLEX #3 tabs 12/10/22 exemestane 25 mg tablet (Aromasin) 25 mg PO DAILY #30 tabs 12/31/22 lorazepam 0.5 mg tablet (Ativan) 0.5 mg PO BID PRN anxiety #14 tabs 01/16/23 ondansetron 4 mg disintegrating 4 mg PO Q8H PRN nausea and 01/31/23 tablet vomiting #10 tabs Allergies Allergy/AdvReac Type Severity Reaction Status Date / Time Penicillins [PENICILLINS] Allergy Severe SWELLING/VO Verified 01/16/23 12:22 MITING Iodinated Contrast Media Allergy Intermediate eye/facial Verified 01/16/23 12:22 [IV Contrast Dye] swelling metronidazole [Flagyl] Allergy Intermediate Palpitation Verified 01/16/23 12:22 s paroxetine AdvReac Intermediate diarrhea Verified 01/16/23 12:22 Review of Systems Review of Systems: CONSTITUTIONAL: Denies weight loss, fever and chills. HEENT: Denies changes in vision and hearing. RESPIRATORY: Denies SOB and cough. CV: Denies palpitations no CP. GI: + abdominal pain, nausea, vomiting - diarrhea. : Denies dysuria and urinary frequency. MSK: Denies myalgia and joint pain. SKIN: Denies rash and pruritus. NEUROLOGICAL: Denies headache and syncope. PSYCHIATRIC: Denies recent changes in mood. Denies anxiety and depression. All other ROS are negative unless in HPI PMFSH Past Medical History Medical History Chronic back pain Closed left ankle fracture Diverticulitis Fibromyalgia Foot fracture, right GERD (gastroesophageal reflux disease) GERD without esophagitis Infiltrating ductal carcinoma of left breast Insomnia Overweight (BMI 25.0-29.9) Rib pain on right side Surgical History History of section History of colonoscopy History of cystoscopy History of esophagogastroduodenoscopy (EGD) (~02/2013) History of gastric surgery History of left breast biopsy (~01/08/20) History of local excision of skin lesion (~03/2018) History of lumpectomy of left breast History of right breast biopsy (~2012) Family History Family History Mother History of hypertension History of pancreatic cancer History of diabetes mellitus Father History of hypertension History of diabetes mellitus Colon cancer Sister History of hypertension Maternal Grandmother History of lung cancer Social History Social History Household Members: None Housing: House Are you a primary healthcare network consultant to a significant other at home: No 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) Alcohol intake: never Patient Tobacco Use Status: Never used Tobacco Second Hand Smoke Exposure: No Advance Directives: No Advance Directives Information Provided: Yes service: No Current occupational status: disabled 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 Physical Exam ED Vital Signs: Vital Signs - 24 hr 01/31/23 20:24 Temperature 98.4 F Pulse Rate 91 Respiratory Rate 20 Blood Pressure 173/94 H Pulse Oximetry 96 Oxygen Delivery Method Room Air BMI result Body Mass Index 28.0 GEN: Well developed, no acute distress, alert, oriented, anxious appearing HEENT: Normocephalic, atraumatic, normal external ears, nose appears normal, no oropharyngeal edema or exudates Eyes: Normal to appearance Neck: Supple, no lymphadenopathy Respiratory: Talks in complete sentences, no respiratory distress, clear to auscultation bilaterally Cardiovascular: Regular rate and rhythm, no murmurs rubs or gallops Abdomen: Soft, nontender, nondistended, no guarding, no rebound Back: No CVA tenderness Extremities: No clubbing cyanosis or edema Neurologic: No focal neurologic deficits, cranial nerves 2-12 intact, strength is 5/5 bilaterally, tremulous Skin: No rash Course Course Course Narrative: The workup is complete. Patient's laboratory analysis was not significantly abnormal. EKG did not show any cardiac dysrhythmia. Patient received 1 L of fluid and antiemetics. Although she does feel somewhat better, at this time, she would like to be discharged prior to completing her 2 L of fluids. She reports feeling very uncomfortable and having to urinate frequently. I believe this is a sign that her hydration status is significantly improved. She was instructed to return for any worsening or concerning symptoms. In the meantime, I will send the patient prescription to her pharmacy for ondansetron. Medications Administered Generic Name Dose Route Start Last Admin Trade Name Freq PRN Reason Stop Dose Admin Sodium Chloride 1,000 mls @ 999 mls/hr 01/31/23 23:15 01/31/23 23:25 Ns IV 02/01/23 00:15 999 mls/hr .Q1H1M AIDAN Administration Discontinued Medications Generic Name Dose Route Start Last Admin Trade Name Freq PRN Reason Stop Dose Admin Famotidine 20 mg 01/31/23 21:08 01/31/23 21:24 Famotidine/Pf 20 Mg/2 Ml Vial IVPUSH 01/31/23 21:09 20 mg ONCE ONE Administration Sodium Chloride 1,000 mls @ 999 mls/hr 01/31/23 21:15 01/31/23 23:25 Ns IV 01/31/23 22:15 Infused .Q1H1M AIDAN Infusion Metoclopramide HCl 10 mg 01/31/23 23:09 01/31/23 23:25 Metoclopramide Hcl 10 Mg/2 Ml Vial IVPUSH 01/31/23 23:10 10 mg ONCE ONE Administration Ondansetron HCl 4 mg 01/31/23 21:08 01/31/23 21:24 Ondansetron Hcl 4 Mg/2 Ml Vial IVPUSH 01/31/23 21:09 4 mg ONCE ONE Administration Medical Decision Making Medical Decision Making MDM Narrative: Patient presents with nausea, vomiting, syncope, near syncope in the process of recovering from COVID and since developing nausea vomiting. Examination reveals an anxious and tremulous female but otherwise no acute distress. Abdomen is benign. She is afebrile in hypertensive. Patient is likely very dehydrated causing her to be near syncopal. Differential diagnosis includes anemia, electrolyte deficiency, intractable nausea vomiting, gastritis. Plan will be to provide patient with IV fluids, check laboratory analysis, provided antiemetics and antacid medication. Patient will be re-evaluated. Certainly given the degree of symptoms, there would be concern for renal dysfunction. Differential Diagnosis Differential Diagnoses: The differential diagnosis associated with the presentation includes (See above) Admission/Observation Consideration of admission/observation: Escalation of care including admission/observation considered Lab Data MDM Lab Attestation statement: I reviewed the patient's lab results. 01/31/23 21:23 01/31/23 21:23 Labs: Lab Results 01/31/23 Range/Units 21:23 WBC 8.9 (4.8-10.8) X10*3/uL RBC 4.54 (4.20-5.50) X10*6/uL Hgb 13.2 (12.0-16.0) g/dl Hct 39.9 (37.0-47.0) % MCV 87.9 (80.0-98.0) fL MCH 29.1 (27.0-33.0) pg MCHC 33.1 (31.0-35.0) g/dl RDW 13.5 (11.0-16.0) % Plt Count 353 (160-400) X10*3/uL MPV 9.6 (9.4-12.3) fL Immature Gran % (Auto) 0.2 (0.0-0.4) % Neut % (Auto) 82.2 H (45-73) % Lymph % (Auto) 11.4 L (20-40) % Nicol[place] % (Auto) 5.5 (2-11) % Eos % (Auto) 0.4 (0-4) % Baso % (Auto) 0.3 (0-2) % Lymph # (Auto) 1.0 L (1.2-4.9) X10*3/uL [place] # (Auto) 0.5 (0.1-1.2) X10*3/uL Eos # (Auto) 0.0 (0.0-0.4) X10*3/uL Baso # (Auto) 0.0 (0.0-0.2) X10*3/uL Abs Immat Gran (auto) 0.02 (0.00-0.03) X10*3/uL Absolute Neuts (auto) 7.3 (2.0-8.3) x10*3/uL Absolute Nucleated RBC 0.000 (0.0-0.012) X10*3/uL Nucleated RBC % (auto) 0.0 (0.0-0.2) /100WBC Sodium 144 (135-145) mmol/L Potassium 4.1 (3.3-5.1) mmol/L Chloride 105 (96-108) mmol/L Carbon Dioxide 29 (22-29) mmol/L Anion Gap 14 (12-20) BUN 10 (9-16) mg/dL Creatinine 0.77 (0.5-1.4) mg/dL Estim Creat Clear Calc 67.3 Estimated GFR > 60 Random Glucose 167 H (60-115) mg/dL Calcium 9.5 (8.4-10.2) mg/dL Total Bilirubin 0.6 (0.0-1.0) mg/dL AST 17 (5-31) U/L ALT 13 (0-31) U/L Alkaline Phosphatase 96 (39-117) U/L Total Protein 8.0 (6.5-8.0) g/dL Albumin 4.2 (3.5-5.0) g/dL Independent Interpretation I performed an independent interpretation of an: EKG (Normal sinus rhythm heart rate 75, normal intervals, no acute ST elevations depressions) Prescription Management I considered prescription management with: Pain Medication and Antibiotic Discharge Plan Discharge Clinical Impression: Nausea & vomiting, Tremulousness, Syncope, Acute dehydration Patient Disposition: Home, Self-Care Instructions: Dehydration (ED), Syncope (ED), Acute Nausea and Vomiting (ED), Tremors (ED) Prescriptions: New ondansetron 4 mg tablet,disintegrating 4 mg PO Q8H PRN (Reason: nausea and vomiting) Qty: 10 0RF No Action Essential Woman 50 Plus 0.4-250 mg-mcg Tablet 1 tab PO DAILY Qty: 90 6RF pantoprazole 40 mg tablet,delayed release (DR/EC) 40 mg PO DAILY Qty: 90 0RF prednisone 50 mg tablet 50 mg PO .COMPLEX Qty: 3 0RF Rx Instructions: 50 mg orally at 13 hours, 7 hours, and 1 hour before contrast medium injection diphenhydramine HCl [Benadryl Allergy] 25 mg tablet 50 mg PO ONCE Qty: 2 0RF Rx Instructions: take 1 hour before contrast dye injection rfjgmyvk-cyte-qwo-folic acid 18-0.4 mg Tablet 1 tab PO DAILY Qty: 90 4RF exemestane [Aromasin] 25 mg Tablet 25 mg PO DAILY Qty: 30 4RF Rx Instructions: must administer after a meal cholecalciferol (vitamin D3) 50 mcg (2,000 unit) capsule 1 cap PO DAILY lorazepam [Ativan] 0.5 mg tablet 0.5 mg PO BID PRN (Reason: anxiety) Qty: 14 0RF diclofenac potassium 50 mg tablet 50 mg PO TID PRN (Reason: pain) fluticasone propionate [Children's Flonase Allergy Rlf] 50 mcg/actuation spray,suspension 1 spray intranasal DAILY Rx Instructions: administer into each nostril aspirin [Adult Low Dose Aspirin] 81 mg tablet,delayed release (DR/EC) 81 mg PO DAILY (DME) walker [facility] [place] See Rx Instructions .MEDSUPPLY Qty: 1 0RF Rx Instructions: Rollator walker with seat and breaks amlodipine 2.5 mg tablet 2.5 mg PO DAILY docusate sodium 100 mg capsule 100 mg PO BID zolpidem 10 mg tablet 10 mg PO BEDTIME PRN ciprofloxacin HCl [Cipro] 500 mg tablet 500 mg PO BID Qty: 14 0RF metronidazole 500 mg tablet 500 mg PO Q8H 7 Days Qty: 21 0RF Referrals: Physician,Unknown J [Primary Care Provider] - 3 days
[2023-01-31] MEDS: Famotidine/PF 20 MG/2 ML VIAL IVPUSH (21:24)
[2023-01-31] MEDS: 0.9 % Sodium Chloride 1,000 ML 999 ML IV ×2 (21:24→23:25)
[2023-01-31] MEDS: ondansetron HCL 4 MG/2 ML VIAL IVPUSH (21:24)
[2023-01-31 21:30] LABS: MANUAL DIFF FLAG NO
[2023-01-31 21:37] LABS: Basophils Percent Auto 0.3 % (0-2); Eosinophils Percent Auto 0.4 % (0-4); Hematocrit 39.9 % (37.0-47.0); Hemoglobin 13.2 g/dl (12.0-16.0); Imm Gran Abs Auto 0.02 X10*3/uL (0.00-0.03); Imm Gran Pct Auto 0.2 % (0.0-0.4); Lymphocytes Percent Auto 11.4 % (20-40); Mean Corpuscular HGB Conc 33.1 g/dl (31.0-35.0); Mean Corpuscular Hemoglobin 29.1 pg (27.0-33.0); Mean Corpuscular Volume 87.9 fL (80.0-98.0); Mean Platelet Volume 9.6 fL (9.4-12.3); Monocytes Absolute Auto 0.5 X10*3/uL (0.1-1.2); Monocytes Percent Auto 5.5 % (2-11); Neutrophils Absolute Auto 7.3 x10*3/uL (2.0-8.3); Neutrophils Percent Auto 82.2 % (45-73); Platelet Count 353 X10*3/uL (160-400); Red Blood Count 4.54 X10*6/uL (4.20-5.50); Red Cell Distribution Width 13.5 % (11.0-16.0); White Blood Count 8.9 X10*3/uL (4.8-10.8)
[2023-01-31 21:47] LABS: Alanine Aminotransferase 13 U/L (0-31); Albumin Level 4.2 g/dL (3.5-5.0); Alkaline Phosphatase 96 U/L (39-117); Anion Gap 14 (12-20); Aspartate Amino Transferase 17 U/L (5-31); Bilirubin Total 0.6 mg/dL (0.0-1.0); Blood Urea Nitrogen 10 mg/dL (9-16); Calcium 9.5 mg/dL (8.4-10.2); Carbon Dioxide 29 mmol/L (22-29); Chloride 105 mmol/L (96-108); Creatinine Clr Calc Pharmacy 67.3; Estimated Glomerular Filt Rate > 60; Glucose Random 167 mg/dL (60-115); Potassium 4.1 mmol/L (3.3-5.1); Sodium 144 mmol/L (135-145)
[2023-01-31] MEDS: Metoclopramide HCl 10 MG/2 ML VIAL IVPUSH (23:25)
--- NOTE | 2023-02-01 00:10 | MHC.EDTECH ---
I went into patients room to complete orthostatic vitals and pt kindly refused, asking to speak with the Dr because she wanted to go home. RN and ED Dr johnson
== END 2023-02-01 00:30 | disposition home or self-care (01) ==
PROVIDERS: Emergency Provider Emergency Medicine
DX: R11.2 Nausea with vomiting, unspecified (principal); R25.1 Tremor, unspecified; R55 Syncope and collapse; E86.0 Dehydration; Z79.82 Long term (current) use of aspirin
CPT/HCPCS: 36415; 80053; 85025; 93005; 96361; 96374; 96375; 99283; 99284; J2405; J2765

== ENCOUNTER 2023-02-22 11:20 | Outpatient (AMB) | payer OTHER, SELFPAY ==
--- NOTE | 2023-02-22 11:28 | MHC.OFFVIS ---
Intake Vital Signs 02/22/23 11:29 Height 5 ft 2 in Weight 143 lb 4.807 oz BMI 26.2 BP 161/84 H Blood Pressure Location Lt brachial Position Sitting Pulse 84 Intake Visit Reasons: 4 mnth follow up Intake Note: Corrie presents in the office as a 4 month follow up. CC: She states that she is not having any concerns today. System Support Administrator Required: No Allergies Penicillins [PENICILLINS] Allergy (Severe, Verified 02/22/23 11:32) SWELLING/VOMITING Iodinated Contrast Media [IV Contrast Dye] Allergy (Intermediate, Verified 02/22/23 11:32) eye/facial swelling metronidazole [Flagyl] Allergy (Intermediate, Verified 02/22/23 11:32) Palpitations paroxetine Adverse Reaction (Intermediate, Verified 02/22/23 11:32) diarrhea HPI 4 mnth follow up HPI Details 58 yr old f here for f/u RECAP she had epigastric pain, she was taking omeprazole every other day 40 mg water was making pain worse she had EGD at [facility] with gastritis and duodenitis, intestinal metaplasia she had been on ambien for sleep she was not taking any other meds she finds prayer more helpful she went to the ED 10/13/22 with severe lower abdominal pain she was dx with acute diverticulitis on imaging she was given augmentin and it seemed to help but then 3 d ago the pain came back she has noted urine frequency I reordered labs and her CRP was 7, CBC and BMP were nml limits UA was pos for leuk esterase, but culture was neg I gave her cipor and flagyl for 1 week Other data: Mother from pancreas ca, father with CRC aged 75 US 11/2020--nml--hepatic steatosis colonoscopy 2012--diverticulosis, no polyps prior hx of h pylori gastritis treated 2014 EGD/colonoscopy 2020--sotelo's hemorrhoids, diverticulosis, tubulovillous polyp removed INTERIM: she is recovering from covid 03 February feels tired all the time feels light like a feather, malaise struggles with breathing no abdominal pain no nausea, or vomiting no blood in stool no fever EXAM: GENERAL: The patient is well developed and nontoxic. VITAL SIGNS:see workflow HEENT: Nonicteric sclerae, PERRLA, EOMI. Oropharynx clear. Moist mucous membranes. Conjunctivae appear well perfused. No thyroid mass. CHEST: Chest wall is nontender. HEART: Regular rate and rhythm without murmurs. LUNGS: Clear to auscultation bilaterally. ABDOMEN: Soft, positive bowel sounds, non tender no organomegaly.no flank tenderness SKIN: No rash, no excessive bruising, petechiae, or purpura. NEUROLOGIC: Cranial nerves II-XII intact without motor/sensory deficit. psych: nml A/P: 1/ diverticulitis, resolved 2/ probable long covid PLAN: 1/refer pulm for further assessment for PFT 2/ trial of mirtazepine 15 mg, only uses ambien v occasionally, advised to minimize PFSH Medical History Foot fracture, right Closed left ankle fracture Infiltrating ductal carcinoma of left breast Overweight (BMI 25.0-29.9) GERD without esophagitis Rib pain on right side Insomnia Fibromyalgia Diverticulitis Chronic back pain GERD (gastroesophageal reflux disease) Surgical History History of lumpectomy of left breast History of left breast biopsy (~01/08/20) History of local excision of skin lesion (~03/2018) History of right breast biopsy (~2012) History of cystoscopy History of gastric surgery History of section History of esophagogastroduodenoscopy (EGD) (~02/2013) History of colonoscopy Family History Mother History of hypertension History of pancreatic cancer History of diabetes mellitus Father History of hypertension History of diabetes mellitus Colon cancer Sister History of hypertension Maternal Grandmother History of lung cancer Social History Household Members: None Housing: House Are you a primary primary care provider to a significant other at home: No Do you presently have 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 or other home services: Yes (public health informatician) Alcohol intake: never Patient Tobacco Use Status: Never used Tobacco Second Hand Smoke Exposure: No service: No Current occupational status: disabled 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 Physical Exam Vital Signs: Last Vital Signs Pulse 84 02/22/23 11:29 BP 161/84 H 02/22/23 11:29 BMI result Body Mass Index 26.2 Assessment & Plan Assessment & Plan (1) COVID-19: Code(s): U07.1 - COVID-19 (2) Diverticulitis: Code(s): K57.92 - Diverticulitis of intestine, part unspecified, without perforation or abscess without bleeding Orders: Referrals Pulmonary Medicine Referral K57.92 - Diverticulitis of intestine, part unspecified, without perforation or abscess without bleeding, U07.1 - COVID-19 Medications: New mirtazapine take half tab for 1 week then full tablet thereafter 15 mg PO BEDTIME 30 tabs 0RF 7 days Coding Level of Care Code Est Pt Level 3 (95801) Diagnoses COVID-19 U07.1 Diverticulitis K57.92
[2023-02-22 11:29] VITALS: BP 161/84; PULSE 84; BMI 26.2
== END 2023-02-22 12:14 | disposition home or self-care (01) ==
PROVIDERS: PCP Internal Medicine Geriatric Medicine; Visit Provider Internal Medicine Gastroenterology
DX: U07.1 COVID-19 (principal); K57.92 Diverticulitis of intestine, part unspecified, without perforation or abscess without bleeding
CPT/HCPCS: 99213

== ENCOUNTER → 2023-02-22 11:20 | Outpatient (BNVA) | payer OTHER, SELFPAY | PROVIDERS: PCP Internal Medicine Geriatric Medicine; Visit Provider Internal Medicine Gastroenterology | DX: K57.92 Diverticulitis of intestine, part unspecified, without perforation or abscess without bleeding (principal); U09.9 Post COVID-19 condition, unspecified | CPT/HCPCS: 99212 ==

== ENCOUNTER 2023-03-26 09:44 | Outpatient (REF) | payer OTHER, SELFPAY ==
--- NOTE | ~2023-03-26 | MM_ITS ---
EXAMINATION: MM DIAGNOSTIC DIGITAL BREAST TOMOSYNTHESIS, LEFT CLINICAL INFORMATION: The patient has a history of left breast cancer treated in December 2023. COMPARISON: Mammography: This study is compared to prior mammograms dating back to 2019. TECHNIQUE: Digital breast tomosynthesis is performed in both the craniocaudal and mediolateral oblique views along with computer-aided detection (CAD). Synthesized 2D images are generated from the tomosynthesis. CC and lateral magnification imaging of the left upper outer quadrant surgical bed. FINDINGS: There are scattered areas of fibroglandular density (ACR BI-RADS breast composition Category b). There are no significant masses, abnormal calcifications, or other abnormalities. There is a biopsy tissue marker in the superior aspect of the right breast. It is associated with a normal benign, benign asymmetry. There is minor architectural change in the superior aspect of the left breast from prior surgery. Magnification imaging of the surgical bed bed in the upper outer quadrant of the left breast reveals no suspicious findings. There are few, scattered, bilateral benign calcifications. MM/MM tomosynthesis diagnostic BI IMPRESSION: No mammographic evidence of malignancy. ASSESSMENT: BI-RADS BI-RADS 2 - Benign Findings RECOMMENDATION: 1 year F/U Results were provided to the patient at time of visit by the technologist. This patient's information was entered into a reminder system with a target due date for their next mammogram.
--- NOTE | ~2023-03-26 | MM_ITS ---
EXAMINATION: BONE DENSITOMETRY CLINICAL INDICATION: Osteopenia. COMPARISON: Previous BD dated 03/24/2020 and baseline BD dated 08/11/2009. TECHNIQUE: Using a [employer] DXA System (software version: 13.1) manufactured by [employer], dual-energy x-ray absorptiometry was performed of the lumbar spine and left hip. The images are of good technical quality. Summary results are attached. FINDINGS: LEFT FEMUR, NECK: Current: BMD 0.828 g/cm2, Z-score -0.4, T-score -1.5, osteopenia. Prior: BMD 0.855 g/cm2. Baseline: BMD 0.994 g/cm2. LEFT FEMUR, TOTAL: Current: BMD 0.905 g/cm2, Z-score 0.0, T-score -0.8, normal, 4.2% decrease from previous, 18.9% decrease from baseline (<5% change is not significant). Prior: BMD 0.945 g/cm2. Baseline: BMD 1.116 g/cm2. AP SPINE L1-L4: Current: BMD 1.117 g/cm2, Z-score 0.5, T-score -0.5, normal, 2.7% decrease from previous, 16.1% decrease from baseline (<5% change is not significant). Prior: BMD 1.148 g/cm2. Baseline: BMD 1.332 g/cm2. IDENTIFIED RISK FACTORS: Menopause. HISTORY OF FRACTURE: None listed. MEDICATIONS: Vitamin D. MM/XR DEXA axial skeleton IMPRESSION: 1. DIAGNOSIS: Osteopenia based on the lowest T-score value of -1.5 in the femoral neck applying World Health Organization criteria. 2. 10-YEAR FRACTURE RISK PREDICTION, FRAX: Major osteoporotic fracture (clinical spine, forearm, hip or shoulder) 4.3%. Hip fracture 0.4%. 3. Treatment Recommendations: NOF guidelines recommend consideration for treatment in postmenopausal women and men age 50 and older presenting with the following: -A hip or vertebral (clinical or morphometric) fracture. -T-score less than or equal to -2.5 at the femoral neck or spine after appropriate evaluation to exclude secondary causes. -Low bone mass at the hip or spine and a 10-year fracture probability by FRAX of greater than or equal to 3% for hip fracture or greater than or equal to 20% for major osteoporotic fracture based on the [place] adapted WHO algorithm. 4. Other Recommendations: All treatment decisions require clinical judgment and consideration of individual patient factors, including patient preferences, comorbidities, previous drug use, risk factors not captured in the FRAX model (e.g. frailty, falls, vitamin D deficiency, increased bone turnover, interval significant decline in bone density) and possible under or overestimation of fracture risk by FRAX. Additional medical evaluation for secondary cause of low bone mineral density may be appropriate. FUTURE SCAN RECOMMENDATION: People with diagnosed cases of osteoporosis or at high risk for fracture should have regular bone mineral density tests. For patients eligible for Medicare, routine testing is allowed once every 2 years. The testing frequency can be increased to one year for patients who have rapidly progressing disease, those who are receiving or discontinuing medical therapy to restore bone mass, or have additional risk factors.
== END 2023-03-26 09:45 | disposition home or self-care (01) ==
LOC: HO.MAMMO 09:44
PROVIDERS: PCP Internal Medicine Geriatric Medicine; Visit Provider Internal Medicine Medical Oncology
DX: Z13.820 Encounter for screening for osteoporosis (principal); M85.80 Other specified disorders of bone density and structure, unspecified site; Z78.0 Asymptomatic menopausal state; Z85.3 Personal history of malignant neoplasm of breast
CPT/HCPCS: 77062; 77066; 77080

== ENCOUNTER → 2023-03-26 10:00 | Outpatient (BNV) | payer OTHER, SELFPAY | PROVIDERS: PCP Internal Medicine Geriatric Medicine; Visit Provider Radiology Diagnostic Radiology | DX: R92.1 Mammographic calcification found on diagnostic imaging of breast (principal); R92.323 Mammographic fibroglandular density, bilateral breasts | CPT/HCPCS: 77062; 77066 ==

== ENCOUNTER 2023-04-09 14:04 | Outpatient (AMB) | payer OTHER, SELFPAY ==
--- NOTE | 2023-04-09 14:13 | A.OFFVIS_ITS ---
Intake Vital Signs 04/09/23 14:25 Height 5 ft 2 in Weight 149 lb 14.629 oz BMI 27.4 BP 130/82 Blood Pressure Location Lt brachial Position Sitting Intake Visit Reasons: 6 month follow up breast exam Intake Note: Patient is seen in office for 6 month follow up visit, breast exam. Pt c/o: continued left breast pain, had a recent mammogram and would like the results, taking meds for chemo that was recently changed mm:03/26/23 Tier In Required: Yes Tier In Language: Senior Stack Engineer Name: Constanza WILKINS Information Interpreted: non-clinical & clinical Regional Retail Sales Manager: Regional Retail Sales Manager Present Accompanied by: Self / Same As Patient Allergies Penicillins [PENICILLINS] Allergy (Severe, Verified 04/09/23 14:24) SWELLING/VOMITING Iodinated Contrast Media [IV Contrast Dye] Allergy (Intermediate, Verified 04/09/23 14:24) eye/facial swelling metronidazole [Flagyl] Allergy (Intermediate, Verified 04/09/23 14:24) Palpitations paroxetine Adverse Reaction (Intermediate, Verified 04/09/23 14:24) diarrhea Medication List - Last Reconciled 04/09/23 by David Hawkins MD amlodipine 2.5 mg PO DAILY aspirin (Adult Low Dose Aspirin) 81 mg PO DAILY cholecalciferol (vitamin D3) 1 cap PO DAILY diclofenac potassium 50 mg PO TID PRN docusate sodium 100 mg PO BID exemestane (Aromasin) 25 mg PO DAILY lorazepam (Ativan) 0.5 mg PO BID PRN mirtazapine 15 mg PO BEDTIME 30 days [id number] acid-lutein 0.4-250 mg-mcg (Essential Woman 50 Plus) 1 tab PO DAILY ondansetron 4 mg PO Q8H PRN pantoprazole 40 mg PO DAILY walker Rollator walker with seat and breaks zolpidem 10 mg PO BEDTIME PRN HPI HPI Comments History of Present Illness Details Corrie Turner is a 58-year-old female patient, former patient of Dr. Galvan With a previous history of invasive ductal carcinoma of the left breast, ER/ IN positive, HER2 Elbert negative with DCIS present. She underwent lumpectomy on 01/08/2020 which revealed DCIS with microns of the margins. She subsequent underwent a wider excision with sentinel node biopsy on 02/17/2020. This time margins were clear by 2 mm. She underwent whole breast radiation therapy and is being followed by Dr. Arreola. She is currently on Aromasin She reports pain in upper outer quadrant and axilla on the left side near the incision but overall feels improved. She denies any new palpable mass, nipple discharge or enlarged lymph nodes. her most recent mammogram obtained 03/26/2023 revealed no mammographic evidence of malignancy ( BI-RADS 2). Follow-up mammogram in 1 year is recommended. [facility] Medical History Foot fracture, right Closed left ankle fracture Infiltrating ductal carcinoma of left breast Overweight (BMI 25.0-29.9) GERD without esophagitis Rib pain on right side Insomnia Fibromyalgia Diverticulitis Chronic back pain GERD (gastroesophageal reflux disease) Surgical History History of lumpectomy of left breast History of left breast biopsy (~01/08/20) History of local excision of skin lesion (~03/2018) History of right breast biopsy (~2012) History of cystoscopy History of gastric surgery History of section History of esophagogastroduodenoscopy (EGD) (~02/2013) History of colonoscopy Family History Mother History of hypertension History of pancreatic cancer History of diabetes mellitus Father History of hypertension History of diabetes mellitus Colon cancer Sister History of hypertension Maternal Grandmother History of lung cancer Social History Household Members: None Housing: House Are you a primary memory care director to a significant other at home: No Do you presently have 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 or other home services: Yes (ancillary services manager therapy) Alcohol intake: never Patient Tobacco Use Status: Never used Tobacco Second Hand Smoke Exposure: No service: No Current occupational status: disabled 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 Review of Systems Const Denies chills, Denies fever(s), Denies headache(s) and Denies poor appetite ENT Denies dizziness and Denies headache(s) Card Denies chest pain, Denies rapid heart rate, Denies palpitations and Denies slow heart rate Resp Denies chest congestion, Denies cough, Denies pain on inspiration and Denies wheezing GI Denies abdominal pain, Denies bloating, Denies change in stool character, Denies constipation, Denies diarrhea, Denies nausea, Denies vomiting and Denies hematemesis Denies nipple discharge Musc Reports back pain, Reports arthralgias, Denies joint swelling and Denies numbness Skin/Breast Denies breast skin changes, Reports breast pain, Denies breast mass, Denies change in breast shape, Denies change in pigmentation, Denies nipple discharge, Denies erythema and Denies rash Neuro Denies dizziness, Denies headache(s) and Denies numbness Psych Denies anxiety and Denies depression Endo Denies palpitations Francisco Javier/Lymph Denies easy bleeding, Denies easy bruising and Denies lymphadenopathy Aller/Immun Denies wheezing Physical Exam Vital Signs: Last Vital Signs BP 130/82 04/09/23 14:25 BMI result Body Mass Index 27.4 Const General: cooperative, comfortable and well developed Nutritional Appearance: well nourished Orientation/consciousness: patient oriented x3 Eyes Sclerae: sclerae normal EOM: EOMs intact bilaterally Neck Neck: Yes normal visual inspection Chest Other: Left breast: Minimal radiation change especially in the lower portion of the breast, tender to palpation, no nipple retraction, no nipple discharge, no palpable mass, no enlarged lymph nodes. Right breast: No skin change, no nipple retraction, no nipple discharge, no enlarged lymph nodes, minimal tenderness in the lower outer quadrant Resp Effort & Inspection: normal respiratory effort, no cough, no respiratory distress and no stridor Skin General skin exam: dry skin Rashes: no rashes Neuro General: patient oriented x3 and no focal motor deficits Extrem General: Yes full ROM and Yes no clubbing, cyanosis or edema Psych Appearance: grossly normal Assessment & Plan Assessment & Plan (1) Invasive ductal carcinoma of left breast: Code(s): C50.912 - Malignant neoplasm of unspecified site of left female breast Plan 58-year-old female patient presenting with a previous history of left breast invasive ductal carcinoma with DCIS, status post lumpectomy with sentinel node biopsy followed by radiation therapy. She continues on Aromasin and is being followed by Dr. Arreola. Her most recent mammogram of 03/26/2023 revealed no mammographic evidence of malignancy (BI-RADS 2) and follow-up mammogram in 1 year is recommended. Examination today revealed mild tenderness specially in the upper outer quadrants bilaterally but no new palpable mass or other suspicious changes. I recommended follow-up examination in 6 months, sooner p.r.n.. Coding Level of Care Code Est Pt Level 3 (99393) Diagnoses Invasive ductal carcinoma of left breast C50.912
[2023-04-09 14:25] VITALS: BP 130/82; BMI 27.4
== END 2023-04-09 14:36 | disposition home or self-care (01) ==
PROVIDERS: PCP Internal Medicine Geriatric Medicine; Visit Provider Surgery
DX: C50.912 Malignant neoplasm of unspecified site of left female breast (principal)
CPT/HCPCS: 99213

== ENCOUNTER → 2023-04-09 14:04 | Outpatient (BNVA) | payer OTHER, SELFPAY | PROVIDERS: PCP Internal Medicine Geriatric Medicine; Visit Provider Surgery | DX: C50.912 Malignant neoplasm of unspecified site of left female breast (principal) | CPT/HCPCS: 99212 ==

== ENCOUNTER 2023-05-24 11:39 | Outpatient (REF) | payer OTHER, SELFPAY ==
[2023-05-24 13:07] LABS: MANUAL DIFF FLAG NO
[2023-05-24 13:22] LABS: Basophils Absolute Auto 0.1 X10*3/uL (0.0-0.2); Basophils Percent Auto 1.1 % (0-2); Eosinophils Absolute Auto 0.1 X10*3/uL (0.0-0.4); Eosinophils Percent Auto 1.7 % (0-4); Hematocrit 40.5 % (37.0-47.0); Hemoglobin 13.4 g/dl (12.0-16.0); Imm Gran Abs Auto 0.03 X10*3/uL (0.00-0.03); Imm Gran Pct Auto 0.5 % (0.0-0.4); Lymphocytes Absolute Auto 1.4 X10*3/uL (1.2-4.9); Lymphocytes Percent Auto 22.2 % (20-40); Mean Corpuscular HGB Conc 33.1 g/dl (31.0-35.0); Mean Corpuscular Hemoglobin 29.5 pg (27.0-33.0); Mean Corpuscular Volume 89.2 fL (80.0-98.0); Mean Platelet Volume 10.2 fL (9.4-12.3); Monocytes Absolute Auto 0.5 X10*3/uL (0.1-1.2); Monocytes Percent Auto 7.9 % (2-11); Neutrophils Absolute Auto 4.2 x10*3/uL (2.0-8.3); Neutrophils Percent Auto 66.6 % (45-73); Platelet Count 361 X10*3/uL (160-400); Red Blood Count 4.54 X10*6/uL (4.20-5.50); Red Cell Distribution Width 13.3 % (11.0-16.0); White Blood Count 6.3 X10*3/uL (4.8-10.8)
[2023-05-24 13:53] LABS: Alanine Aminotransferase 11 U/L (0-31); Albumin Level 4.4 g/dL (3.5-5.0); Alkaline Phosphatase 127 U/L (39-117); Anion Gap 10 (12-20); Aspartate Amino Transferase 17 U/L (5-31); Bilirubin Total 0.5 mg/dL (0.0-1.0); Blood Urea Nitrogen 19 mg/dL (9-16); Calcium 9.9 mg/dL (8.4-10.2); Carbon Dioxide 29 mmol/L (22-29); Chloride 105 mmol/L (96-108); Estimated Glomerular Filt Rate > 60; Glucose Random 100 mg/dL (60-115); Potassium 4.4 mmol/L (3.3-5.1); Sodium 140 mmol/L (135-145); Total Protein 7.8 g/dL (6.5-8.0)
== END 2023-05-24 11:40 | disposition home or self-care (01) ==
LOC: HO.HHCL 11:39
PROVIDERS: Visit Provider Internal Medicine Geriatric Medicine
DX: R00.2 Palpitations (principal); R42 Dizziness and giddiness
CPT/HCPCS: 36415; 80053; 85025

== ENCOUNTER 2023-06-26 08:37 | Outpatient (AMB) | payer OTHER, SELFPAY ==
--- NOTE | 2023-06-26 09:01 | A.OFFVIS_ITS ---
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 The patient is a 62 year woman with a known history of left-sided invasive ductal carcinoma status post surgery in addition to radiation in chemotherapy. Being followed closely by Oncology. The patient has been describing also worsening respiratory symptoms and chest discomfort. She states that back in January she had significant COVID and she was evaluated and treated at that point. Now she has been describing these episodic right-sided discomfort primarily in the right upper quadrant in lower right chest area. It does radiate to the back. Does symptoms tend to come and go. They are not pleuritic in nature. Back in 2020 after having radiation she did have a CT scan of the chest that we personally reviewed and there was not any real evidence of radiation induced pneumonitis or interstitial lung disease. Subsequently after that in October 20[address] the patient had a CT scan of the abdomen demonstrating pretty clear lung bases without any abnormalities some nodular densities. Her respiratory exam is clear. The patient does have significant right upper quadrant tenderness specially on palpation with some voluntary guarding. Will go ahead and request laboratory data right now. Unfortunately she does have a history of Graves's and she does follow closely with GI. Will go ahead and request blood work and she will see GI this week. In the meantime will increase her PPI in order to provide additional relief of potential gastritis and esophagitis that may be the culprit of her discomfort. [facility] Medical History (Updated 06/26/23 @ 18:15 by Bashir Pascal MD) Graves esophagus Allergies Foot fracture, right Closed left ankle fracture Infiltrating ductal carcinoma of left breast Overweight (BMI 25.0-29.9) GERD without esophagitis Rib pain on right side Insomnia Fibromyalgia Diverticulitis Chronic back pain GERD (gastroesophageal reflux disease) Surgical History History of lumpectomy of left breast History of left breast biopsy (~01/08/20) History of local excision of skin lesion (~03/2018) History of right breast biopsy (~2012) History of cystoscopy History of gastric surgery History of section History of esophagogastroduodenoscopy (EGD) (~02/2013) History of colonoscopy Family History Mother History of hypertension History of pancreatic cancer History of diabetes mellitus Father History of hypertension History of diabetes mellitus Colon cancer Sister History of hypertension Maternal Grandmother History of lung cancer Social History Household Members: None Housing: House Are you a primary animal care supervisor to a significant other at home: No Do you presently have 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 or other home services: Yes (stopper maker helper) Alcohol intake: never Patient Tobacco Use Status: Never used Tobacco Second Hand Smoke Exposure: No service: No Current occupational status: disabled 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 Review of Systems Const Denies chills, Denies fever(s), Denies headache(s) and Denies poor appetite ENT Denies dizziness and Denies headache(s) Card Reports chest pain, Denies rapid heart rate, Denies palpitations and Denies slow heart rate Resp Denies chest congestion, Denies cough, Denies pain on inspiration and Denies wheezing GI Reports abdominal pain, Denies bloating, Denies change in stool character, Denies constipation, Reports dyspepsia, Reports heartburn, Denies diarrhea, Denies nausea, Denies vomiting and Denies hematemesis Musc Reports back pain, Reports arthralgias, Denies joint swelling and Denies numbness Skin/Breast Denies change in pigmentation, Reports pruritus and Reports rash Neuro Denies dizziness, Denies headache(s) and Denies numbness Psych Denies anxiety and Denies depression Endo Denies palpitations Francisco Javier/Lymph Denies easy bleeding, Denies easy bruising and Denies lymphadenopathy Aller/Immun Denies wheezing Physical Exam Vital Signs: Last Vital Signs Pulse 69 06/26/23 09:02 BP 124/70 06/26/23 09:02 Pulse Ox 96 06/26/23 09:02 Oxygen Delivery Method Room Air 06/26/23 09:02 BMI result Body Mass Index 26.7 Const General: comfortable and no acute distress Orientation/consciousness: patient oriented x3 HEENT Head: Yes normal to inspection and Yes normocephalic Chest Chest palpation & inspection: normal inspection of the chest and normal palpation of entire chest wall Resp Effort & Inspection: normal respiratory effort and able to speak in complete sentences Cardio Rate: regular rate Rhythm: regular rhythm Heart sounds: S1 normal heart sound present and S2 normal heart sound present GI Palpation (GI): Soft to palpation and Tenderness to palpation present (GI) in the epigastrum, in the RUQ and Mccracken's sign positive Skin General skin exam: other (papular rash on her arms) Neuro General: patient oriented x3 Extrem General: Yes no clubbing, cyanosis or edema Assessment & Plan Assessment & Plan (1) Epigastric abdominal pain: Code(s): R10.13 - Epigastric pain (2) Chest pain: Code(s): R07.9 - Chest pain, unspecified Qualifiers: Chest pain type: other chest pain Qualified Code(s): R07.89 - Other chest pain (3) Allergies: Comment: rash Code(s): T78.40XA - Allergy, unspecified, initial encounter Qualifiers: Encounter type: initial encounter Qualified Code(s): T78.40XA - Allergy, unspecified, initial encounter (4) COVID-19: Code(s): U07.1 - COVID-19 (5) Graves esophagus: Code(s): K22.70 - Graves's esophagus without dysplasia Qualifiers: Graves's esophagus type: with dysplasia of unspecified degree Qualified Code(s): K22.719 - Graves's esophagus with dysplasia, unspecified Plan Bloodwork Increase PPI continue H2B CXR Needs to f/u with GI. Doubt that the discomfort is pulmonary in origen F/U 6-8 weeks Orders: Orders Complete Blood Count Auto Diff Today R07.9 - Chest pain, unspecified, R10.13 - Epigastric pain, T78.40XA - Allergy, unspecified, initial encounter Lipase Today R07.9 - Chest pain, unspecified, R10.13 - Epigastric pain, T78.40XA - Allergy, unspecified, initial encounter Rast Allergen Today R07.9 - Chest pain, unspecified, R10.13 - Epigastric pain, T78.40XA - Allergy, unspecified, initial encounter XR chest 2V Today U07.1 - COVID-19 Basic Metabolic Panel Today R07.9 - Chest pain, unspecified, R10.13 - Epigastric pain, T78.40XA - Allergy, unspecified, initial encounter Liver Panel Today R07.9 - Chest pain, unspecified, R10.13 - Epigastric pain, T78.40XA - Allergy, unspecified, initial encounter Immunoglobulin E Today R07.9 - Chest pain, unspecified, R10.13 - Epigastric pain, T78.40XA - Allergy, unspecified, initial encounter Medications: Changed From pantoprazole 40 mg PO DAILY 90 tabs 0RF To pantoprazole 40 mg PO BID 30 days 60 tabs 0RF Coding Level of Care Code New Pt Level 4 (74546) Diagnoses Epigastric abdominal pain R10.13 Chest pain R07.89 Chest pain type: other chest pain Allergy, initial encounter T78.40XA Encounter type: initial encounter COVID-19 U07.1 Gravse's esophagus with dysplasia K22.719 Graves's esophagus type: with dysplasia of unspecified degree Time Spent (min) 40
[2023-06-26 09:02] VITALS: BP 124/70; PULSE 69; O2SAT 96; BMI 26.7
== END 2023-06-26 09:42 | disposition home or self-care (01) ==
PROVIDERS: PCP Internal Medicine Geriatric Medicine; Visit Provider Hospitalist
DX: R10.13 Epigastric pain (principal); R07.89 Other chest pain; T78.40XA Allergy, unspecified, initial encounter; U07.1 COVID-19; K22.719 Barrett's esophagus with dysplasia, unspecified
CPT/HCPCS: 99204

== ENCOUNTER → 2023-06-26 08:37 | Outpatient (BNVA) | payer OTHER, SELFPAY | PROVIDERS: PCP Internal Medicine Geriatric Medicine; Visit Provider Hospitalist | DX: R10.13 Epigastric pain (principal); R07.89 Other chest pain; K22.719 Barrett's esophagus with dysplasia, unspecified; T78.40XD Allergy, unspecified, subsequent encounter; U09.9 Post COVID-19 condition, unspecified | CPT/HCPCS: 99202 ==

== ENCOUNTER 2023-06-28 11:18 | Outpatient (AMB) | payer OTHER, SELFPAY ==
--- NOTE | 2023-06-28 11:28 | A.OFFVIS_ITS ---
Intake Vital Signs 06/28/23 11:29 Height 5 ft 2 in Weight 146 lb BMI 26.7 BP 158/70 H Blood Pressure Location Lt brachial Position Sitting Pulse 82 Intake Visit Reasons: 4 month follow up Diverticulitis Intake Note: Patient 4 month follow up dago Diverticulitis. Patient cc: abdominal pain with bloating, heartburn with burning sensation, fatigue and poor appetite. Upper And Bottom Lacer Hand Required: No Accompanied by: Family/Other Allergies Penicillins [PENICILLINS] Allergy (Severe, Verified 06/28/23 11:28) SWELLING/VOMITING Iodinated Contrast Media [IV Contrast Dye] Allergy (Intermediate, Verified 06/28/23 11:28) eye/facial swelling metronidazole [Flagyl] Allergy (Intermediate, Verified 06/28/23 11:28) Palpitations paroxetine Adverse Reaction (Intermediate, Verified 06/28/23 11:28) diarrhea HPI 4 month follow up Diverticulitis HPI Details 58 yr old f here for f/u RECAP she had epigastric pain, she was taking omeprazole every other day 40 mg water was making pain worse she had EGD at [facility] with gastritis and duodenitis, intestinal metaplasia she had been on ambien for sleep she was not taking any other meds she finds prayer more helpful she went to the ED 10/13/22 with severe lower abdominal pain she was dx with acute diverticulitis on imaging she was given augmentin and it seemed to help but then 3 d ago the pain came back she has noted urine frequency I reordered labs and her CRP was 7, CBC and BMP were nml limits UA was pos for leuk esterase, but culture was neg I gave her cipor and flagyl for 1 week Other data: Mother from pancreas ca, father with CRC aged 75 US 11/2020--nml--hepatic steatosis colonoscopy 2012--diverticulosis, no polyps prior hx of h pylori gastritis treated 2014 EGD/colonoscopy 2020--sotelo's hemorrhoids, diverticulosis, tubulovillous polyp removed INTERIM: she is concerned about her esophagus she has been having ruq pain and bloating in the same region no nausea, or vomiting no blood in stool no fever she feels sx worse with food she has mild heartburn, she feels pantoprazole does not help her EXAM: GENERAL: The patient is well developed and nontoxic. VITAL SIGNS:see workflow HEENT: Nonicteric sclerae, PERRLA, EOMI. Oropharynx clear. Moist mucous membranes. Conjunctivae appear well perfused. No thyroid mass. CHEST: Chest wall is nontender. HEART: Regular rate and rhythm without murmurs. LUNGS: Clear to auscultation bilaterally. ABDOMEN: Soft, positive bowel sounds, tender RUQ no organomegaly.no flank tenderness SKIN: No rash, no excessive bruising, petechiae, or purpura. NEUROLOGIC: Cranial nerves II-XII intact without motor/sensory deficit. psych: nml A/P: 1/ RUQ r/o gallstones 2/ concern for gerd, not responding to p pi PLAN: 1/ change PPI to lansoprazole 2/ chekc lft, UA 3/ EGD with [facility] Medical History (Updated 06/28/23 @ 12:16 by Joanie Pelaez MD) Sotelo esophagus Allergies Foot fracture, right Closed left ankle fracture Infiltrating ductal carcinoma of left breast Overweight (BMI 25.0-29.9) GERD without esophagitis Rib pain on right side Insomnia Fibromyalgia Diverticulitis Chronic back pain GERD (gastroesophageal reflux disease) Surgical History History of lumpectomy of left breast History of left breast biopsy (~01/08/20) History of local excision of skin lesion (~03/2018) History of right breast biopsy (~2012) History of cystoscopy History of gastric surgery History of section History of esophagogastroduodenoscopy (EGD) (~02/2013) History of colonoscopy Family History Mother History of hypertension History of pancreatic cancer History of diabetes mellitus Father History of hypertension History of diabetes mellitus Colon cancer Sister History of hypertension Maternal Grandmother History of lung cancer Social History Household Members: None Housing: House Are you a primary manager home healthcare to a significant other at home: No Do you presently have 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 or other home services: Yes (spinning frame 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) Alcohol intake: never Patient Tobacco Use Status: Never used Tobacco Second Hand Smoke Exposure: No service: No Current occupational status: disabled 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 Physical Exam Vital Signs: Last Vital Signs Pulse 82 06/28/23 11:29 BP 158/70 H 06/28/23 11:29 BMI result Body Mass Index 26.7 Assessment & Plan Assessment & Plan (1) RUQ abdominal pain: Code(s): R10.11 - Right upper quadrant pain Plan: PLAN: 1/ change PPI to lansoprazole 2/ chekc lft, UA 3/ EGD with [facility] (2) Sotelo esophagus: Code(s): K22.70 - Sotelo's esophagus without dysplasia Qualifiers: Sotelo's esophagus type: with dysplasia of unspecified degree Qualified Code(s): K22.719 - Sotelo's esophagus with dysplasia, unspecified Plan: PLAN: 1/ change PPI to lansoprazole 2/ chekc lft, UA 3/ EGD with [facility] Orders: Orders US abdomen comp w elastography Today K22.70 - Sotelo's esophagus without dysplasia, R10.11 - Right upper quadrant pain Complete Blood Count Auto Diff Today K22.70 - Sotelo's esophagus without dysplasia, R10.11 - Right upper quadrant pain Comprehensive Met. Panel Today K22.70 - Sotelo's esophagus without dysplasia, K75.81 - Nonalcoholic steatohepatitis (MITCHELL), R10.11 - Right upper quadrant pain Lipase Today K22.70 - Sotelo's esophagus without dysplasia, R10.11 - Right upper quadrant pain Erythrocyte Sedimentation Rate Today K22.70 - Sotelo's esophagus without dysplasia, R10.11 - Right upper quadrant pain Ferritin Today K22.70 - Sotelo's esophagus without dysplasia, R10.11 - Right upper quadrant pain UA CC w/rflx Micro + Cult Today K22.70 - Sotelo's esophagus without dysplasia, R10.11 - Right upper quadrant pain, R30.0 - Dysuria Medications: New lansoprazole 30 mg PO BID 90 caps 1RF Discontinued pantoprazole Discontinued Reason: Doctor's Order 40 mg PO BID 30 days 60 tabs 0RF Coding Level of Care Code Est Pt Level 4 (65106) Diagnoses RUQ abdominal pain R10.11 Sotelo's esophagus with dysplasia K22.719 Sotelo's esophagus type: with dysplasia of unspecified degree
[2023-06-28 11:29] VITALS: BP 158/70; PULSE 82; BMI 26.7
== END 2023-06-28 12:16 | disposition home or self-care (01) ==
PROVIDERS: PCP Internal Medicine Geriatric Medicine; Visit Provider Internal Medicine Gastroenterology
DX: R10.11 Right upper quadrant pain (principal); K22.719 Barrett's esophagus with dysplasia, unspecified
CPT/HCPCS: 99214

== ENCOUNTER → 2023-06-28 11:18 | Outpatient (BNVA) | payer OTHER, SELFPAY | PROVIDERS: PCP Internal Medicine Geriatric Medicine; Visit Provider Internal Medicine Gastroenterology | DX: K22.719 Barrett's esophagus with dysplasia, unspecified (principal); R10.11 Right upper quadrant pain | CPT/HCPCS: 99212 ==

== ENCOUNTER 2023-07-02 09:02 | Outpatient (REF) | payer OTHER, SELFPAY ==
--- NOTE | ~2023-07-02 | XR_ITS ---
EXAMINATION: XR CHEST CLINICAL INFORMATION: Cough. COMPARISON: 01/16/2023, 02/01/2022 TECHNIQUE: Two views of the chest were obtained. FINDINGS: There is no gross pneumothorax. Lung volumes are low. Degenerative changes in the thoracic spine. Stable cardiomediastinal silhouette. Atherosclerotic aortic calcifications. No pleural effusion. No new focal consolidation to suggest pneumonia. Cardiac silhouette remains borderline enlarged. XR/XR chest 2V IMPRESSION: No evidence of pneumonia.
[2023-07-02 09:18] LABS: MANUAL DIFF FLAG NO
[2023-07-02 09:33] LABS: Appearance Urine Clear; Basophils Absolute Auto 0.1 X10*3/uL (0.0-0.2); Color Urine Yellow; Eosinophils Absolute Auto 0.2 X10*3/uL (0.0-0.4); Eosinophils Percent Auto 3.9 % (0-4); Glucose Urine UA Negative (Negative); Hematocrit 40.6 % (37.0-47.0); Hemoglobin 13.4 g/dl (12.0-16.0); Imm Gran Abs Auto 0.02 X10*3/uL (0.00-0.03); Imm Gran Pct Auto 0.4 % (0.0-0.4); Leukocyte Esterase Urine Small (1+) (Negative); Lymphocytes Absolute Auto 1.4 X10*3/uL (1.2-4.9); Lymphocytes Percent Auto 27.3 % (20-40); Mean Corpuscular Hemoglobin 29.1 pg (27.0-33.0); Mean Corpuscular Volume 88.3 fL (80.0-98.0); Mean Platelet Volume 9.3 fL (9.4-12.3); Monocytes Absolute Auto 0.4 X10*3/uL (0.1-1.2); Monocytes Percent Auto 7.6 % (2-11); Neutrophils Absolute Auto 3.1 x10*3/uL (2.0-8.3); Neutrophils Percent Auto 59.8 % (45-73); Nitrite Urine Negative (Negative); PH 5.5 (5.0-9.0); Platelet Count 354 X10*3/uL (160-400); UMIC TRIGGER UACC YES; Urine Blood Trace (Negative); Urine Ketones Negative (Negative); Urine Protein Negative (Neg-Trace); White Blood Count 5.1 X10*3/uL (4.8-10.8)
[2023-07-02 09:54] LABS: Bacteria Urine None Seen (None Seen); Hyaline Casts Urine 0-2 /LPF (0-2); RBC Urine 0-2 /HPF (0-2); Squamous Epithelial Cell Urine 0-2 /HPF (0-2); UACC Culture Trigger YES; WBC Urine 0-5 /HPF (0-5)
[2023-07-02 09:58] LABS: Alanine Aminotransferase 19 U/L (0-31); Albumin Level 4.1 g/dL (3.5-5.0); Alkaline Phosphatase 118 U/L (39-117); Anion Gap 11 (12-20); Aspartate Amino Transferase 24 U/L (5-31); Bilirubin Total 0.7 mg/dL (0.0-1.0); Blood Urea Nitrogen 16 mg/dL (9-16); Calcium 9.7 mg/dL (8.4-10.2); Carbon Dioxide 27 mmol/L (22-29); Chloride 107 mmol/L (96-108); Estimated Glomerular Filt Rate > 60; Glucose Random 134 mg/dL (60-115); Lipase 15 U/L (8-78); Potassium 4.1 mmol/L (3.3-5.1); Sodium 141 mmol/L (135-145); Total Protein 7.2 g/dL (6.5-8.0)
[2023-07-02 10:13] LABS: Ferritin 63 ng/mL (10-250)
[2023-07-02 10:46] LABS: Erythrocyte Sedimentation Rate 23 MM/HR (0-20)
== END 2023-07-02 09:03 | disposition home or self-care (01) ==
LOC: HO.XRAY 09:02
PROVIDERS: Absent Provider Hospitalist; PCP Internal Medicine Geriatric Medicine; Visit Provider Internal Medicine Gastroenterology
DX: K75.81 Nonalcoholic steatohepatitis (NASH) (principal); R10.11 Right upper quadrant pain; K22.70 Barrett's esophagus without dysplasia; U07.1 COVID-19; R30.0 Dysuria; K57.92 Diverticulitis of intestine, part unspecified, without perforation or abscess without bleeding; R35.0 Frequency of micturition
CPT/HCPCS: 36415; 71046; 80053; 81001; 82728; 83690; 85025; 85652; 87086

== ENCOUNTER 2023-07-23 09:07 | Outpatient (REF) | payer OTHER, SELFPAY ==
--- NOTE | ~2023-07-23 | US_ITS ---
EXAMINATION: US COMPLETE ABDOMEN WITH LIVER ELASTOGRAPHY CLINICAL INFORMATION: Pain of right upper quadrant. COMPARISON: Abdomen CT from 10/13/2022 TECHNIQUE: Real-time imaging of the abdominal viscera. Noninvasive ultrasound liver fibrosis assessment is performed using Shavon ElastPQ point quantification shear wave elastography (2D-SWE) with a C5-2 MHz transducer. Multiple elastography samples are obtained. FINDINGS: PANCREAS: The chronically atrophied pancreas is hyperechoic. No evidence of focal pancreatic lesion or pancreatic ductal dilatation. ABDOMINAL AORTA: The proximal, middle, and distal aortic segments are normal in caliber. INFERIOR VENA CAVA: Visualized portions are normal. LIVER: Liver has normal size, contour and parenchymal echotexture. No evidence of focal lesion or intrahepatic ductal dilatation. The right lobe measures 13.6 cm in length. The left lobe measures 8.9 cm in length. Portal flow is normal Shear wave liver elastography median stiffness is 1.55 m/s (reference: normal median stiffness is 1.3 m/s or less). IQR/median stiffness to assess sampling precision is 0.28 (reference: good quality data set is IQR/median stiffness of 0.15 or less). GALLBLADDER: Normal. The gallbladder is physiologically distended without evidence of stones, sludge, polyps, wall thickening or pericholecystic fluid. COMMON BILE DUCT: Normal in caliber measuring 0.5 cm in diameter. RIGHT KIDNEY: Normal. No hydronephrosis. No renal calculi or focal parenchymal lesions. The kidney measures 10.3 cm in maximum dimension. LEFT KIDNEY: Normal. No hydronephrosis. No renal calculi or focal parenchymal lesions. The kidney measures 10.4 cm in maximum dimension. Incidentally noted is a column of Javad of the mid third of the kidney. SPLEEN: Normal. The spleen measures 9.2 cm in maximum dimension. FREE FLUID: None. US/US abdomen comp w elastography IMPRESSION: * No specific source of right upper quadrant pain is identified. * No evidence of cholelithiasis, cholecystitis or biliary tract obstruction. * The shear wave liver elastography reveals a median stiffness of 1.55 m/s (reference: normal median stiffness is 1.3 m/s or less). In the absence of other known clinical signs, this rules out compensated advanced chronic liver disease. However, the accuracy of the measurement is questionable due to the elevated IQR/median stiffness value. REFERENCE: Society of Radiologists in Ultrasound Liver Stiffness Thresholds (2020): LIVER STIFFNESS THRESHOLDS: *Liver Stiffness equal or less than 1.3 m/s: High probability of being normal. *Liver Stiffness less than 1.7 m/s: In the absence of other known clinical signs, rules out compensated advanced chronic liver disease. *Liver Stiffness 1.7-2.1 m/s: Suggestive of compensated advanced chronic liver disease but need further test for confirmation. *Liver Stiffness over 2.1 m/s: Rules in compensated advanced chronic liver disease. *Liver Stiffness over 2.4 m/s: Suggestive of clinically significant portal hypertension. QUALITY OF DATA SET: *IQR/Median value equal or less than 0.15 implies a quality data set. *IQR/Median value over 0.15 implies a poor quality data set. OTHER CONSIDERATIONS: The stage of liver fibrosis may be overestimated in the setting of acute hepatitis, liver inflammation, elevated liver function tests, hepatic vascular congestion, obstructive cholestasis, non-fasting state, and infiltrative diseases such as amyloidosis and lymphoma. In some patients with NAFLD, the liver stiffness thresholds for compensated advanced chronic liver disease may be lower. In causes other than viral hepatitis and NAFLD, liver stiffness thresholds are not well established.
== END 2023-07-23 09:08 | disposition home or self-care (01) ==
LOC: HO.US 09:07
PROVIDERS: PCP Internal Medicine Geriatric Medicine; Visit Provider Internal Medicine Gastroenterology
DX: R10.11 Right upper quadrant pain (principal); K22.70 Barrett's esophagus without dysplasia
CPT/HCPCS: 76700; 76981

== ENCOUNTER 2023-08-05 11:05 | Outpatient (AMB) | payer OTHER, SELFPAY ==
--- NOTE | 2023-08-05 11:08 | A.OFFVIS_ITS ---
Intake Vital Signs 08/05/23 11:09 Height 5 ft 2 in Weight 2.469 oz BMI 0.0 BP 140/82 H Blood Pressure Location Rt brachial Position Sitting Pulse 86 Intake Visit Reasons: REGISTERED SAFETY ENGINEER/Dr. Name/Palpitations, dizziness Intake Note: NPV Sports Director Required: Yes Sports Director Language: Pharmacy Grad Intern Name: Silvestre [id number] Accompanied by: Son Allergies Penicillins [PENICILLINS] Allergy (Severe, Verified 06/28/23 11:28) SWELLING/VOMITING Iodinated Contrast Media [IV Contrast Dye] Allergy (Intermediate, Verified 06/28/23 11:28) eye/facial swelling metronidazole [Flagyl] Allergy (Intermediate, Verified 06/28/23 11:28) Palpitations paroxetine Adverse Reaction (Intermediate, Verified 06/28/23 11:28) diarrhea Medication List - Last Reconciled 08/05/[address] MD amlodipine 2.5 mg PO DAILY aspirin (Adult Low Dose Aspirin) 81 mg PO DAILY cholecalciferol (vitamin D3) 1 cap PO DAILY diclofenac potassium 50 mg PO TID PRN docusate sodium 100 mg PO BID exemestane 25 mg PO DAILY famotidine 40 mg PO DAILY lorazepam 0.5 mg PO BEDTIME PRN mirtazapine 15 mg PO BEDTIME 30 days [id number] acid-lutein 0.4-250 mg-mcg (Essential Woman 50 Plus) 1 tab PO DAILY ondansetron 4 mg PO Q8H PRN oxycodone-acetaminophen 5-325 mg tabs PO walker Rollator walker with seat and breaks zolpidem 10 mg PO BEDTIME PRN HPI HPI Comments History of Present Illness Details Corrie he is here for consultation regarding palpitations. She also complains of chest pain/rib pain. She states that she gets a discomfort in the left breast area. Unclear if it is related to prior surgery as there is a history of breast cancer. There is some tenderness as well. She also describes rib pain on the right side. No previous documented coronary disease, myocardial infarction. Otherwise, she also feels palpitations almost daily. Unclear etiology. No known arrhythmias. [facility] Medical History (Updated 08/05/23 @ 11:[address] MD) Graves esophagus Allergies Foot fracture, right Closed left ankle fracture Infiltrating ductal carcinoma of left breast Overweight (BMI 25.0-29.9) GERD without esophagitis Rib pain on right side Insomnia Fibromyalgia Diverticulitis Chronic back pain GERD (gastroesophageal reflux disease) Surgical History History of lumpectomy of left breast History of left breast biopsy (~01/08/20) History of local excision of skin lesion (~03/2018) History of right breast biopsy (~2012) History of cystoscopy History of gastric surgery History of section History of esophagogastroduodenoscopy (EGD) (~02/2013) History of colonoscopy Family History Mother History of hypertension History of pancreatic cancer History of diabetes mellitus Father History of hypertension History of diabetes mellitus Colon cancer Sister History of hypertension Maternal Grandmother History of lung cancer Social History Household Members: None Housing: House Are you a primary manager critical care to a significant other at home: No Do you presently have 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 or 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) Alcohol intake: never Patient Tobacco Use Status: Never used Tobacco Second Hand Smoke Exposure: No service: No Current occupational status: disabled 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 Review of Systems Const Denies chills, Denies daytime sleepiness, Denies fatigue, Denies fever(s), Denies frequent falls, Denies night sweats, Denies snoring, Denies weakness, Denies weight gain and Denies weight loss Eyes Denies loss of vision ENT Denies dizziness and Denies hearing loss Card Denies chest pain with activity, Denies syncope, Denies rapid heart rate, Denies edema, Denies claudication, Denies leg edema, Denies lightheadedness, Denies dyspnea on exertion and Denies orthopnea Resp Denies cough, Denies excessive phlegm production, Denies dyspnea on exertion, Denies snoring and Denies wheezing GI Denies abdominal pain, Denies hematochezia, Denies change in bowel habits, Denies change in stool character, Denies heartburn, Denies nausea and Denies vomiting Denies hematuria, Denies urinary frequency and Denies dysuria Musc Denies arthralgias, Denies muscle weakness, Denies numbness and Denies tingling Skin/Breast Denies nail changes and Denies rash Neuro Denies Abnormal speech present, Denies dizziness, Denies syncope, Denies frequent falls, Denies loss of vision, Denies memory loss, Denies numbness, Denies tingling and Denies weakness Psych Denies depression and Denies memory loss Endo Denies fatigue Aller/Immun Denies wheezing Physical Exam Vital Signs: Last Vital Signs Pulse 86 08/05/23 11:09 BP 140/82 H 08/05/23 11:09 BMI result Body Mass Index 0.0 Const General: comfortable and no acute distress Orientation/consciousness: patient oriented x3 HEENT Other: Unremarkable Head: Yes normal to inspection Neck Neck: Yes normal visual inspection Chest Chest palpation & inspection: normal inspection of the chest Resp Auscultation: clear to auscultation bilaterally Cardio Palpation: normal PMI Heart sounds: S1 normal heart sound present, S2 normal heart sound present, no gallops, no murmurs and no rubs GI Palpation (GI): Soft to palpation Back/Spine/Pelvis Other: unremarkable Skin General skin exam: no rashes or lesions noted Neuro General: patient oriented x3 Speech: No Abnormal speech present Extrem General: Yes normal to inspection Psych Mental Status: mental status grossly normal Assessment & Plan Assessment & Plan (1) Precordial chest pain: Code(s): R07.2 - Precordial pain Plan: Some tenderness to palpation in the breast and could be related to that. H owever, the last EKG that is T inversions in anterior leads from V1 to V3. Overall atypical symptoms but abnormal looking EKG. Gets stress testing for further evaluation. Echocardiogram. (2) Heart palpitations: Code(s): R00.2 - Palpitations Plan: Unclear if it is just anxiety or true arrhythmias. Get Holter. Plan Discussed using per diem interpreter. Discussed with significant other. Orders: Orders ECG 3 day holter monitor Today R00.2 - Palpitations NM cardiolite stress test Today R07.2 - Precordial pain CA stress test Today R07.2 - Precordial pain CA echo transthoracic complete Today R07.2 - Precordial pain Coding Level of Care Code New Pt Level 4 (65721) Diagnoses Precordial chest pain R07.2 Heart palpitations R00.2
[2023-08-05 11:09] VITALS: BP 140/82; PULSE 86
== END 2023-08-05 11:33 | disposition home or self-care (01) ==
PROVIDERS: PCP Internal Medicine Geriatric Medicine; Visit Provider Internal Medicine
DX: R07.2 Precordial pain (principal); R00.2 Palpitations
CPT/HCPCS: 99204

== ENCOUNTER → 2023-08-05 11:05 | Outpatient (BNVA) | payer OTHER, SELFPAY | PROVIDERS: PCP Internal Medicine Geriatric Medicine; Visit Provider Internal Medicine | DX: R07.2 Precordial pain (principal); R00.2 Palpitations | CPT/HCPCS: 99202 ==

== ENCOUNTER 2023-10-10 10:59 | Outpatient (AMB) | payer OTHER, SELFPAY ==
--- NOTE | 2023-10-10 11:13 | A.OFFVIS_ITS ---
Vital Signs 3 10/10/23 11:27 Height 5 ft 2 in Weight 154 lb BMI 28.2 BP 158/76 H Blood Pressure Location Lt brachial Position Sitting Pulse 72 Intake Visit Reasons: 6 month follow up breast exam Intake Note: Patient is seen in office for 6 month follow up visit, breast exam. Pt c/o: continued pain in the left breast, denies any other concerns mm:04/09/24 Waste Management Recycling Technician Required: Yes Waste Management Recycling Technician Language: Soldering Machine Feeder Name: Constanza WILKINS Information Interpreted: non-clinical & clinical Accompanied by: Self / Same As Patient Allergies Penicillins [PENICILLINS] Allergy (Severe, Verified 10/10/23 11:26) SWELLING/VOMITING Iodinated Contrast Media [IV Contrast Dye] Allergy (Intermediate, Verified 10/10/23 11:26) eye/facial swelling metronidazole [Flagyl] Allergy (Intermediate, Verified 10/10/23 11:26) Palpitations paroxetine Adverse Reaction (Intermediate, Verified 10/10/23 11:26) diarrhea HPI Comments Details: 62-year-old female patient, former patient of Dr. Galvan With a previous history of invasive ductal carcinoma of the left breast, ER/ ND positive, HER2 Elbert negative with DCIS present, TNM: pT1a, No (sn), (i-). She underwent lumpectomy on 01/08/2020 which revealed DCIS with microns of the margins. She subsequent underwent a wider excision with sentinel node biopsy on 02/17/2020. This time margins were clear by 2 mm. She underwent whole breast radiation therapy and is being followed by Dr. Arreola. She is currently on Aromasin. She reports pain in upper outer quadrant and axilla on the left side near the incision but overall feels improved. She denies any new palpable mass, nipple discharge or enlarged lymph nodes. Her most recent mammogram obtained 03/26/2023 revealed no mammographic evidence of malignancy ( BI-RADS 2). Follow-up mammogram in 1 year is recommended and is scheduled for 03/31/2024. [facility] Medical History Graves esophagus Allergies Foot fracture, right Closed left ankle fracture Infiltrating ductal carcinoma of left breast Overweight (BMI 25.0-29.9) GERD without esophagitis Rib pain on right side Insomnia Fibromyalgia Diverticulitis Chronic back pain GERD (gastroesophageal reflux disease) Surgical History History of lumpectomy of left breast History of left breast biopsy (~01/08/20) History of local excision of skin lesion (~03/2018) History of right breast biopsy (~2012) History of cystoscopy History of gastric surgery History of section History of esophagogastroduodenoscopy (EGD) (~02/2013) History of colonoscopy Family History Mother History of hypertension History of pancreatic cancer History of diabetes mellitus Father History of hypertension History of diabetes mellitus Colon cancer Sister History of hypertension Maternal Grandmother History of lung cancer Social History Household Members: None Housing: House Are you a primary career advisor to a significant other at home: No Do you presently have 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) Alcohol intake: never Patient Tobacco Use Status: Never used Tobacco Second Hand Smoke Exposure: No service: No Current occupational status: disabled 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 Review of Systems Const Denies chills, Denies fever(s), Denies headache(s) and Denies poor appetite ENT Denies dizziness and Denies headache(s) Card Denies chest pain, Denies rapid heart rate, Denies palpitations and Denies slow heart rate Resp Denies chest congestion, Denies cough, Denies pain on inspiration and Denies wheezing GI Denies abdominal pain, Denies bloating, Denies change in stool character, Denies constipation, Denies diarrhea, Denies nausea, Denies vomiting and Denies hematemesis Denies nipple discharge Musc Reports back pain, Reports arthralgias, Denies joint swelling and Denies numbness Skin/Breast Denies breast skin changes, Reports breast pain, Denies breast mass, Denies change in breast shape, Denies change in pigmentation, Denies nipple discharge, Denies erythema and Denies rash Neuro Denies dizziness, Denies headache(s) and Denies numbness Psych Denies anxiety and Denies depression Endo Denies palpitations Francisco Javier/Lymph Denies easy bleeding, Denies easy bruising and Denies lymphadenopathy Aller/Immun Denies wheezing Physical Exam Vital Signs: Last Vital Signs Pulse 72 10/10/23 11:27 BP 158/76 H 10/10/23 11:27 BMI result Body Mass Index 28.2 Const General: cooperative, comfortable and well developed Nutritional Appearance: well nourished Orientation/consciousness: patient oriented x3 Eyes Sclerae: sclerae normal EOM: EOMs intact bilaterally Neck Neck: Yes normal visual inspection Chest Other: Left breast: No residual radiation change noted, mild tenderness to palpation in the upper outer quadrant, well-healed incision the upper outer quadrant and axilla, no nipple retraction, no nipple discharge, no palpable mass, no enlarged lymph nodes. Right breast: No skin change, no nipple retraction, no nipple discharge, no enlarged lymph nodes, minimal tenderness in the lower outer quadrant Chest/axillae images: 2 1. 2. Resp Effort & Inspection: normal respiratory effort, no cough, no respiratory distress and no stridor Skin General skin exam: dry skin Rashes: no rashes Neuro Other: Mobility Assessment: 1. 3 meter assessment time (seconds) 5 seconds 2. Gait observations: Normal balance and gait General: patient oriented x3 and no focal motor deficits Extrem General: Yes full ROM and Yes no clubbing, cyanosis or edema Psych Appearance: grossly normal Assessment & Plan Assessment & Plan (1) Invasive ductal carcinoma of left breast: Code(s): C50.912 - Malignant neoplasm of unspecified site of left female breast Category: Medical Plan 62-year-old female patient with a previous history of left breast invasive ductal carcinoma with DCIS, status post lumpectomy with sentinel node biopsy on 01/08/2020 followed by radiation therapy. She was started on Aromasin by Dr. Arreola. Most recent mammogram of 03/26/2023 revealed no mammographic evidence of malignancy (BI-RADS 2). She is scheduled for a follow-up mammogram on 03/26/2024. Examination today revealed no suspicious findings in either breast. I recommended follow-up examination in 6 months after her next mammogram. She should call sooner for any new concerns. Coding Level of Care Code Est Pt Level 3 (45792) Diagnoses Invasive ductal carcinoma of left breast C50.912
[2023-10-10 11:27] VITALS: BP 158/76; PULSE 72; BMI 28.2
== END 2023-10-10 11:35 | disposition home or self-care (01) ==
PROVIDERS: PCP Internal Medicine Geriatric Medicine; Visit Provider Surgery
DX: C50.912 Malignant neoplasm of unspecified site of left female breast (principal)
CPT/HCPCS: 99213

== ENCOUNTER → 2023-10-10 10:59 | Outpatient (BNVA) | payer OTHER, SELFPAY | PROVIDERS: PCP Internal Medicine Geriatric Medicine; Visit Provider Surgery | DX: C50.912 Malignant neoplasm of unspecified site of left female breast (principal); Z79.899 Other long term (current) drug therapy | CPT/HCPCS: 99212 ==

== ENCOUNTER → 2023-10-14 09:47 | Outpatient (REF) | payer OTHER, SELFPAY ==
--- NOTE | 2023-10-14 09:53 | HM_ITS ---
Conclusion: 1. Patient was monitored for total period of 3 days 2. Baseline was normal sinus rhythm with average heart of 79 beats per minute 3. No significant pauses noted 4. No significant arrhythmias noted 5. Patient marked 1 counter which correlated with sinus rhythm MTDD
--- NOTE | 2023-10-14 09:53 | CA_ITS ---
Transthoracic Echocardiogram Patient (Last, First, Middle): Corrie Turner M Gender: Female Date of : 1960 Age: 62 Procedure Date: 10/14/2023 Procedure Type: Transthoracic Echocardiogram Location: OP Height: 157.48 cm Weight: 69.85 kg BSA: 1.71 m2 Heart Rate: bpm BP: 130 / 78 mmHg Mirror Painter: LIBIA Referring MD: Russel Way MD [employer] Cook Head: Ramos Gordillo MD Symptoms: R07.2 - Precordial pain Study Quality: Fair ECG Rhythm: Sinus Conclusions: - 1. Normal LV ejection fraction 60 65% with impaired relaxation filling pattern 2. Normal cardiac valvular Dopplers 3. Normal RV systolic pressure 4. No gross pericardial effusion Findings Left Ventricle Normal left ventricular size, thickness, and systolic function. The visually estimated ejection fraction is between 60-65%. Spectral Doppler is indicative of an impaired relaxation filling pattern. E/E prime ratio is between 8 and 15 consistent with indeterminate filling pressures. Peak GLS is -15.4%, mildly reduced. Right Ventricle Normal right ventricular cavity size and systolic function. Atria Both atria are normal in size. There is no evidence of interatrial shunt. Aortic Valve Normal aortic valve structure and function. There is no aortic valve stenosis. There is no aortic valve regurgitation. Mitral Valve There is mild anterior mitral leaflet thickening. There is trace mitral valve regurgitation. There is no mitral valve stenosis. Pulmonic Valve The pulmonic valve is likely normal. Tricuspid Valve Normal tricuspid valve structure. There is trace tricuspid valve regurgitation. The right ventricular systolic pressure is normal. The right ventricular systolic pressure is 19 mmHg. Normal right atrial pressure. There is no evidence of pulmonary hypertension. Great Vessels The pulmonary artery was not well visualized. There is no dilatation of the ascending aorta measuring 3.20 cm. Venous The inferior vena cava is normal in size and collapses greater than 50% with inspiration. Pericardium/Pleural There is no evidence of pericardial effusion. Prior Study Comparison No prior study available for comparison. Measurements 2D Linear Measurements IVSd: 0.88 0.6-0.9/0.6-1.0 cm LVIDd: 4.33 3.9-5.3/4.2-5.9 cm LVIDd Index: 2.53 2.4-3.2/2.2-3.1 cm/m2 LVIDs: 2.58 2.0-3.6 cm LVPWd: 0.77 0.7-1.1 cm LA Diam: 3.20 2.7-3.8/3.0-4.0 cm LAIDs Index: 1.87 1.5-2.3 cm/m2 LV Mass: 138.19 67-162/88-224 g LV Mass Index: 80.82 43-95/49-115 g/m2 LVOT Diam: 2.00 3.0+(-)1.3 cm 2D Systolic Function EF 4C: 63.00 >55% EF 2C: 57.90 >55% EF BiP: 60.10 >55% Mitral Valve MV Pk E: 0.92 MV PK A: 0.85 MV Decel Time: 187.00 E/A: 1.10 E'Lateral: 7.83 E'Medial: 5.33 E/E' Med: 17.20 E/E' Lat: 11.70 PHT: 55.00 MVA PHT: 4.00 Decel [place]: 4.89 Aortic Valve AoV Pk Jewel: 1.51 AoV Mn Jewel: 1.11 AoV VTI: 0.36 AoV Pk Grad: 9.00 Aov Mn Grad: 5.00 MISTI Cont.VTI: 2.03 LVOT LVOT Pk Jewel: 0.89 LVOT Mn Jewel: 0.62 LVOT VTI: 0.23 LVOT Pk Grad: 3.00 LVOT Mn Grad: 2.00 LVOT Diam: 2.00 LVOT Area: 3.14 Diastolic Function MV Pk E: 0.92 MV Pk A: 0.85 E/A: 1.10 E'Medial: 5.33 E/E' Med: 17.20 E' Laterial: 7.83 E/E' Lat: 11.70 Right Ventricle TAPSE (mm): 26.70 TVS' Jewel: 12.10 Tricuspid Valve TR Pk Jewel: 2.00 TR Pk Grad: 16.00 RA Press: 3.00 RVSP: 19.00 Great Vessels Aorta Sinus of Valsalva: 2.92 2.0-3.[address] [place]: 2.20 1.7-3.4 cm Ao Asc: 3.20 2.1-3.4 cm Updated in Other Vendor System with Status of Final Ramos Gordillo MD electronically signed on 10/14/2023 11:32:11 AM with status of Final
== END ==
LOC: HO.CARD 09:47
PROVIDERS: PCP Internal Medicine Geriatric Medicine; Visit Provider Internal Medicine
DX: R00.2 Palpitations (principal); R07.2 Precordial pain
CPT/HCPCS: 93242; 93306; 93356

== ENCOUNTER → 2023-10-14 09:53 | Outpatient (BNV) | payer OTHER, SELFPAY | PROVIDERS: PCP Internal Medicine Geriatric Medicine; Visit Provider Internal Medicine Cardiovascular Disease | DX: I47.10 Supraventricular tachycardia, unspecified (principal) | CPT/HCPCS: 93244; 93306; 93356 ==

== ENCOUNTER → 2023-12-06 08:33 | Outpatient (REF) | payer OTHER, SELFPAY ==
--- NOTE | ~2023-12-06 | NM_ITS ---
Lexiscan Myocardial perfusion study Indication: Chest pain, palpitations Technique: The patient was brought in for a Lexiscan perfusion study on 12/06/2023 and was injected 0.4 mg of Lexiscan intravenously. Within a minute of this injection 25 mCi of sestamibi was given intravenously. Images were obtained using the SPECT gamma camera interlaced with the gating device. Images were obtained in supine position. Resting perfusion study was performed on 12/11/2023. Patient was administered 25 mCi of sestamibi intravenously at rest. Images were then obtained in supine position. Images were processed with the software and compared side to side in short axis, horizontal long axis and vertical long axis views. Total DLP 162mGy-cm. Findings: Raw acquisition reviewed. Arms by the patient's side. The stress perfusion study showed diminished tracer uptake along the inferolateral wall. There is improvement with CT attenuation correction and hence could indicate diaphragmatic attenuation artifact. The gated study shows normal LV systolic function with calculated LVEF of 69%. LV cavity is normal in size. The gated study shows normal wall thickening and contraction of segments. Resting study shows diminished tracer uptake along the distal part of inferolateral wall. There is improvement with CT attenuation correction suggestive of diaphragmatic attenuation artifact. Gating at rest reveals normal wall motion with ejection fraction at 62%. The findings are consistent with fixed appearing inferolateral defect, probably from diaphragmatic attenuation artifact. NM/NM cardiolite stress test Impression: 1. Myocardial perfusion imaging study shows probably normal myocardial perfusion. No definitive evidence of any ischemia or infarction. 2. Gated LVEF is 69% during stress and 62% during rest. 3. Transient ischemic dilatation not present. EKG component of the test reported separately.
--- NOTE | 2023-12-06 08:35 | CA_ITS ---
Acquisition Time: 2023-12-06 09:15:27 Total Exercise Time: 00:00:08 Test Indications: precordial pain Medications: see med sheet Protocol: ANDREA Max HR: 123 BPM 78% of Pred: 156 BPM Max BP: 144/072 mmHG Max Work Load: 1.0 METS Exercise stress test exercise 8 sec but treadmill was too fast. Test changed to pharmacological stress test. Pharmacological stress test with Lexiscan injection while sitting and kicking her legs, without anginal symptoms, without arrhythmias, with normtoenisve response to injection, with nondiagnoisitic EKGs. Aminophylline 75mg IVP given to reverse Lexiscan. Nuclear images pending. Test reviewed with Dr. Way. Referred By: Russel Way Overread By: Sanam Stevenson
== END ==
LOC: HO.CARD 08:33
PROVIDERS: PCP Internal Medicine Geriatric Medicine; Visit Provider Internal Medicine
DX: R07.2 Precordial pain (principal)
CPT/HCPCS: 78452; 93017; A9500; J0280; J2785

== ENCOUNTER → 2023-12-06 08:35 | Outpatient (BNV) | payer OTHER, SELFPAY | PROVIDERS: PCP Internal Medicine Geriatric Medicine; Visit Provider Nurse Practitioner | DX: R07.2 Precordial pain (principal); R00.2 Palpitations | CPT/HCPCS: 78452; 93016; 93018 ==

== ENCOUNTER 2023-12-26 15:19 | Outpatient (REF) | payer OTHER, SELFPAY ==
[2023-12-26 15:38] LABS: MANUAL DIFF FLAG NO
[2023-12-26 16:28] LABS: Basophils Absolute Auto 0.1 X10*3/uL (0.0-0.2); Basophils Percent Auto 1.1 % (0-2); Eosinophils Absolute Auto 0.1 X10*3/uL (0.0-0.4); Eosinophils Percent Auto 1.9 % (0-4); Hematocrit 38.5 % (37.0-47.0); Hemoglobin 13.2 g/dl (12.0-16.0); Imm Gran Abs Auto 0.02 X10*3/uL (0.00-0.03); Imm Gran Pct Auto 0.3 % (0.0-0.4); Lymphocytes Absolute Auto 1.4 X10*3/uL (1.2-4.9); Lymphocytes Percent Auto 22.6 % (20-40); Mean Corpuscular HGB Conc 34.3 g/dl (31.0-35.0); Mean Corpuscular Hemoglobin 29.7 pg (27.0-33.0); Mean Corpuscular Volume 86.5 fL (80.0-98.0); Mean Platelet Volume 9.9 fL (9.4-12.3); Monocytes Absolute Auto 0.4 X10*3/uL (0.1-1.2); Monocytes Percent Auto 6.1 % (2-11); Neutrophils Absolute Auto 4.2 x10*3/uL (2.0-8.3); Platelet Count 388 X10*3/uL (160-400); Red Blood Count 4.45 X10*6/uL (4.20-5.50); Red Cell Distribution Width 13.2 % (11.0-16.0); White Blood Count 6.2 X10*3/uL (4.8-10.8)
[2023-12-26 16:30] LABS: Appearance Urine Clear; Color Urine Yellow; Glucose Urine UA Negative (Negative); Leukocyte Esterase Urine Negative (Negative); Nitrite Urine Negative (Negative); PH 5.5 (5.0-9.0); UMIC TRIGGER UACC YES; Urine Blood Trace (Negative); Urine Ketones Negative (Negative); Urine Protein Negative (Neg-Trace)
[2023-12-26 16:33] LABS: Bacteria Urine None Seen (None Seen); Hyaline Casts Urine 0-2 /LPF (0-2); RBC Urine 0-2 /HPF (0-2); Squamous Epithelial Cell Urine 0-2 /HPF (0-2); WBC Urine 0-5 /HPF (0-5)
[2023-12-26 16:49] LABS: Alanine Aminotransferase 12 U/L (0-31); Albumin Level 4.1 g/dL (3.5-5.0); Alkaline Phosphatase 112 U/L (39-117); Anion Gap 14 (12-20); Aspartate Amino Transferase 16 U/L (5-31); Bilirubin Direct 0.2 mg/dL (0.0-0.5); Bilirubin Total 0.5 mg/dL (0.0-1.0); Blood Urea Nitrogen 17 mg/dL (9-16); C Reactive Protein 0.69 mg/dL (< or = 0.50); Calcium 9.6 mg/dL (8.4-10.2); Carbon Dioxide 24 mmol/L (22-29); Chloride 105 mmol/L (96-108); Estimated Glomerular Filt Rate > 60; Glucose Random 134 mg/dL (60-115); Lipase 12 U/L (8-78); Potassium 3.7 mmol/L (3.3-5.1); Sodium 139 mmol/L (135-145); Total Protein 7.3 g/dL (6.5-8.0)
[2023-12-26 17:41] LABS: Erythrocyte Sedimentation Rate 18 MM/HR (0-20)
[2023-12-28 06:24] LABS: Immunoglobulin E 542 kU/L (<OR=114)
== END 2023-12-26 15:20 | disposition home or self-care (01) ==
LOC: HO.LAB 15:19
PROVIDERS: Hospitalist; PCP Internal Medicine Geriatric Medicine; Visit Provider Internal Medicine Gastroenterology
DX: R10.11 Right upper quadrant pain (principal); K75.81 Nonalcoholic steatohepatitis (NASH); R10.13 Epigastric pain; R07.9 Chest pain, unspecified; T78.40XA Allergy, unspecified, initial encounter
CPT/HCPCS: 36415; 80053; 81001; 82248; 82785; 83690; 85025; 85652; 86003; 86140

== ENCOUNTER 2023-12-27 11:51 | Outpatient (REF) | payer OTHER, SELFPAY ==
[2024-01-04 23:17] LABS: Lactoferrin, Fecal, Quant. <6.25 mcg/mL (<7.25)
== END 2023-12-27 11:52 | disposition home or self-care (01) ==
LOC: HO.LNP 11:51
PROVIDERS: Visit Provider Internal Medicine Gastroenterology
DX: K51.50 Left sided colitis without complications (principal)
CPT/HCPCS: 83631

== ENCOUNTER 2024-01-16 09:25 | Emergency (ER) | payer OTHER, SELFPAY ==
--- NOTE | ~2024-01-16 | CT_ITS ---
EXAMINATION: CT ABDOMEN AND PELVIS WITHOUT CONTRAST CLINICAL INFORMATION: Lower abdominal pain COMPARISON: CT abdomen and pelvis 10/13/2022, ultrasound abdomen 07/23/2023 TECHNIQUE: Multidetector volumetric imaging was performed from the superior aspect of the liver through the pubic symphysis. Sagittal and coronal reformatted images were obtained on the technologist's workstation. This CT examination was performed using dose optimization techniques as appropriate, variously including the following: *Automated exposure control *Adjustment of mA and/or kV according to patient size (this includes techniques or standardized protocols for targeted exams where dose is matched to indication/reason for exam; i.e. extremities or head) *Use of iterative reconstruction technique DLP: 558 mGy-cm FINDINGS: LUNG BASES: The visualized lung bases are unremarkable. LIVER, GALLBLADDER, AND BILIARY TREE: The liver is normal in size, shape, and attenuation. No focal hepatic lesion or biliary ductal dilatation is present. The gallbladder is unremarkable with no evidence of radiopaque gallstones, gallbladder wall thickening, or obvious pericholecystic inflammatory changes. PANCREAS: Unremarkable. SPLEEN: Unremarkable. ADRENAL GLANDS: Unremarkable. KIDNEYS AND URETERS: The kidneys are normal in size, shape, and attenuation. No hydronephrosis, hydroureter, or calculi seen. No perinephric stranding. BLADDER: Empty and poorly evaluated GASTROINTESTINAL TRACT: There is colonic diverticulosis most prominent in the sigmoid. There is an area of mid sigmoid with marked thickening and pericolonic inflammatory change consistent with diverticulitis. Similar findings were present on the 10/13/2022 study. There are no pericolonic fluid collections or extraluminal air is seen. There is a contained area of high density measuring 2.8 x 1.7 x 2.5 cm seen in the sigmoid colon which is unchanged from exams dating back to at least 2016. The small and large bowel are otherwise unremarkable. The appendix is unremarkable. ABDOMINAL WALL: No significant hernia is appreciated. LYMPH NODES: No retroperitoneal lymphadenopathy. VASCULAR: Calcific atherosclerotic changes are present in the aorta. There is no evidence of an abdominal aortic aneurysm. PELVIC VISCERA: There is a calcification in the anteverted uterus which likely represents fibroids. An abnormal adnexal mass or free intraperitoneal fluid is not seen. OSSEOUS STRUCTURES: Degenerative changes are present in the spine most marked at L4-L5. No bony destructive lesions. CT/CT abdomen pelvis wo IV con IMPRESSION: Acute uncomplicated sigmoid diverticulitis. Other incidental findings as described above. Peculiar high density collection in the sigmoid dating back to at least 2015 could represent an encapsulated bezoar. Given the multiple bouts of recurrent diverticulitis, sigmoidoscopy may be useful for further evaluation. Fleischner guidelines were followed. Electronically signed by: Manuel Wade MD 01/16/2024 11:44 AM EDT
[2024-01-16 09:28] VITALS: BP 178/90; PULSE 88; RESP 16; TEMP 36.6; O2SAT 97; BMI 31.2
--- OUTSIDE RECORDS SUMMARY | 2024-01-16 09:49 | XMS_ITS | Continuity of Care Document ---
Author Organization [facility] Address [address] [place] [address]- Care Team Providers Care Raw Scales Operator Name Role Phone [place] KEENE, Zhanna Husain Primary Care Physician [phone] Encounter [facility] [place] Date(s): 02/21/23 - 03/23/[address] [address] Attending Physician: AdmStanford zheng Admitting Physician: AdmtrStanford Referring Physician: Admtr, ArAnia Allergies, Adverse Reactions, Alerts Substance Reaction Severity Status codeine [D]Vomiting Active penicillin O/E - soft tissue swelling-gen Active aspirin [D]Vomiting Active Medications Ambien 10 mg oral tablet 1 tablet = 10 mg, By Mouth, Daily at bedtime, 0 Refills, Maintenance, 02/28/15 15:52:00 Start Date: 02/28/15 Status: Ordered aspirin 81 mg oral tablet 1 tablet = 81 mg, By Mouth, Daily, 0 Refills, Maintenance, 02/28/15 15:52:28 Start Date: 02/28/15 Status: Ordered nortriptyline 10 mg oral capsule 10 mg, 1, capsule, By Mouth, Daily at bedtime, # 90 capsule, Refills 0, Tot. Refills 0, Maintenance, 01/28/18 14:30:00 EDT, Route to Pharmacy Electronically, [id number], [facility] [id number] Start Date: 01/28/18 Stop Date: 04/28/18 Status: Ordered Percocet 7.5/325 1 tablet, By Mouth, Every 6 hours, 0 Refills, Maintenance, 01/28/18 10:26:22 EDT Start Date: 01/28/18 Status: Ordered Protonix 40 mg oral delayed release tablet 1 tablet = 40 mg, By Mouth, Daily, # 90 tablet, 2 Refills, Maintenance, 01/28/18 10:56:29 EDT, EC Tablet Start Date: 01/28/18 Status: Ordered Vitamin D3 By Mouth, 0 Refills, Maintenance, 01/28/18 10:26:11 EDT Start Date: 01/28/18 Status: Ordered Patient Care team information Care Team Personnel Name: [place] KEENE , Zhanna Husain Position: S Outreach Member Role: PCP Address: Address: [address] [place] [address], [place] [address]- Care Team Related Persons Name: NELLIE HERR Address: home [address] [place] [address] [place] [address] Name: PT, STATES NONE Name: MICHEL LUNSFORD Address: home [address] [place] [address]
--- OUTSIDE RECORDS SUMMARY | 2024-01-16 09:49 | XMS_ITS | Continuity of Care Document ---
Author Organization [facility] Address [address] [place] [address]- Care Team Providers Care Gear Hobber Set Up Operator Name Role Phone [place] KEENE, Zhanna Husain Primary Care Physician [phone] Encounter [facility] [place] Date(s): 06/13/23 - 07/13/[address] [address] Attending Physician: Admtr, Jose8 Admitting Physician: Admtr, Ar8 Referring Physician: Admtr, Ar8 Allergies, Adverse Reactions, Alerts Substance Reaction Severity [...] 01/28/18 14:30:00 EDT, Route to Pharmacy Electronically, [id number], [facility] [id number] Start Date: 01/28/18 Stop Date: 04/28/18 Status: [...] S Outreach Member Role: PCP Address: Address: [address] [place] [address], [place] [address]- Care Team Related Persons Name: NELLIE HERR Address: home [address] [place] [address] [place] [address] Name: PT, STATES NONE Name: MICHEL LUNSFORD Address: home [address] [place] [address]"
--- OUTSIDE RECORDS SUMMARY | 2024-01-16 09:49 | XMS_ITS | Continuity of Care Document ---
Author Organization [facility] Address [address] [place] [address]- Care Team Providers Care Gun Sealing Machine Operator Name Role Phone [place] KEENE, Zhanna Husain Primary Care Physician [place] [facility] [place](s[place] 02/12/23 - 03/23/[address] [address] Attending Physician: Zhanna Delarosa NP, V Admitting Physician: Zhanna Delarosa NP, V Referring Physician: Zhanna Delarosa NP, V Allergies, Adverse Reactions, Alerts Substance Reaction Severity [...] 01/28/18 14:30:00 EDT, Route to Pharmacy Electronically, [id number], [facility] [id number] Start Date: 01/28/18 Stop Date: 04/28/18 Status: [...] S Outreach Member Role: PCP Address: Address: [address] [place] [address], [place] [address]- Care Team Related Persons Name: NELLIE HERR Address: home [address] [place] [address] [place] [address] Name: PT, STATES NONE Name: MICHEL LUNSFORD Address: home [address] [place] [address]
--- OUTSIDE RECORDS SUMMARY | 2024-01-16 09:49 | XMS_ITS | Continuity of Care Document ---
Author Organization [facility] Address [address] [place] [address]- Care Team Providers Care Hand Lacer Name Role Phone Zhanna Delarosa NP, V Primary Care Physician [place] [facility] [place]13[place] - 08/13/[address] [address]- Encounter Diagnosis Soft tissue disorder, unspecified(Final) - Discharge Disposition: A-D/C Home Attending Physician: Zhanna Delarosa NP, V Admitting [...] 01/28/18 14:30:00 EDT, Route to Pharmacy Electronically, [id number], [facility] [id number] Start Date: 01/28/18 Stop Date: 04/28/18 Status: [...] Outreach Member Role: PCP Address: Address: [address] [place] [address] [facility] [address] [place] [address], [place] [address]- Care Team Related Persons Name: NELLIE HERR Address: home [address] [place] [address] [place] [address] Name: PT, STATES NONE Name: MICHEL LUNSFORD Address: home [address] [place] [address]
[2024-01-16 09:51] LABS: Basophils Absolute Auto 0.1 X10*3/uL (0.0-0.2); Basophils Percent Auto 1.5 % (0-2); Eosinophils Absolute Auto 0.1 X10*3/uL (0.0-0.4); Eosinophils Percent Auto 2.2 % (0-4); Hemoglobin 13.6 g/dl (12.0-16.0); Imm Gran Abs Auto 0.04 X10*3/uL (0.00-0.03); Imm Gran Pct Auto 0.7 % (0.0-0.4); Lymphocytes Absolute Auto 1.2 X10*3/uL (1.2-4.9); Lymphocytes Percent Auto 20.6 % (20-40); MANUAL DIFF FLAG NO; Mean Corpuscular Hemoglobin 29.8 pg (27.0-33.0); Mean Corpuscular Volume 87.5 fL (80.0-98.0); Mean Platelet Volume 9.6 fL (9.4-12.3); Monocytes Absolute Auto 0.4 X10*3/uL (0.1-1.2); Monocytes Percent Auto 6.6 % (2-11); Neutrophils Percent Auto 68.4 % (45-73); Platelet Count 333 X10*3/uL (160-400); Red Blood Count 4.57 X10*6/uL (4.20-5.50); Red Cell Distribution Width 13.3 % (11.0-16.0); White Blood Count 5.9 X10*3/uL (4.8-10.8)
[2024-01-16 09:52] LABS: Appearance Urine Cloudy; Color Urine Dark Yellow; Glucose Urine UA Negative (Negative); Leukocyte Esterase Urine Moderate (2+) (Negative); Nitrite Urine Negative (Negative); PH 5.5 (5.0-9.0); Specific Gravity - Urine 1.025 (1.005-1.025); UMIC TRIGGER UACC YES; Urine Blood Trace (Negative); Urine Ketones Trace mg/dL (Negative); Urine Protein Trace mg/dL (Neg-Trace)
[2024-01-16 10:02] LABS: Bacteria Urine None Seen (None Seen); Hyaline Casts Urine 0-2 /LPF (0-2); RBC Urine 0-2 /HPF (0-2); WBC Urine 0-5 /HPF (0-5)
--- NOTE | 2024-01-16 10:11 | ED.ABDPAIN ---
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 No vomiting, no diarrhea, saw scant blood in stool. Sent in by her GI doctor. She denies fevers, she has mild nausea. She has not traveled or been on oral antbiotics MD elicited complaint: abdominal pain Pertinent past history: diverticulitis Onset (ago): week(s) (2) Pain Consistency: intermittent Location: RLQ and LLQ Severity: moderate Quality: cramping Radiation: none Migration to: no migration Exacerbating factors: nothing Relieving factors: nothing Context: history of similar episodes Associated symptoms: nausea and chills Related Data Home Medications ?Medication ?Instructions ?Recorded ?Confirmed aspirin 81 mg tablet,delayed 81 mg PO DAILY 02/10/20 08/09/23 release (Adult Low Dose Aspirin) diclofenac potassium 50 mg tablet 50 mg PO TID PRN pain 05/17/20 08/09/23 cholecalciferol (vitamin D3) 50 1 cap PO DAILY 02/15/21 08/09/23 mcg (2,000 unit) capsule amlodipine 2.5 mg tablet 2.5 mg PO DAILY 10/29/22 08/09/23 docusate sodium 100 mg capsule 100 mg PO BID 10/29/22 08/09/23 zolpidem 10 mg tablet 10 mg PO BEDTIME PRN Sleep 10/29/22 08/09/23 oxycodone-acetaminophen 5 mg-325 325 tab PO DAILY 06/26/23 08/09/23 mg tablet Previous Rx's ?Medication ?Instructions ?Recorded walker #1 ea 11/03/21 multivit with min-folic 1 tab PO DAILY #90 tabs 02/12/22 acid-lutein 0.4 mg-250 mcg tablet (Essential Woman 50 Plus) ondansetron 4 mg disintegrating 4 mg PO Q8H PRN nausea and 01/31/23 tablet vomiting #10 tabs mirtazapine 15 mg tablet 15 mg PO BEDTIME 30 days #30 tabs 03/15/23 exemestane 25 mg tablet 25 mg PO DAILY #90 tabs 05/31/23 famotidine 40 mg tablet 40 mg PO DAILY #90 tabs 05/31/23 lorazepam 0.5 mg tablet 0.5 mg PO BEDTIME PRN Breakthrough 12/19/23 Pain, Moderate #14 tabs levofloxacin 750 mg tablet 750 mg PO DAILY #7 tabs 01/16/24 Allergies Allergy/AdvReac Type Severity Reaction Status Date / Time Penicillins [PENICILLINS] Allergy Severe SWELLING/VO Verified 01/16/24 09:32 MITING Iodinated Contrast Media Allergy Intermediate eye/facial Verified 01/16/24 09:32 [IV Contrast Dye] swelling metronidazole [Flagyl] Allergy Intermediate Palpitation Verified 01/16/24 09:32 s paroxetine AdvReac Intermediate diarrhea Verified 01/16/24 09:32 Review of Systems Review of Systems Constitutional : No Weight loss, No Fever, posChills ENT/Mouth : No sore throat, No Rhinorrhea Eyes: No Swelling, No Redness Cardiovascular : No Chest Pain, No SOB, NoEdema Respiratory : No Cough, No Sputum, No Wheezing Gastrointestinal : Positive Nausea, no Vomiting no Diarrhea, positive abdominal Pain, No Hematochezia, No Melena Genitourinary : No Dysuria, No Urinary Frequency, No Hematuria, No Urgency Musculoskeletal : No joint pain, No Myalgias, No Joint Swelling Skin : No Skin Lesions, No rash Neuro : No Weakness, No Numbness, No Dizziness, No Headache Psych : No Anxiety/Panic, No Depression All other systems reviewed and are negative. [facility] Past Medical History Attestation statement: The following information was validated with the patient. Source: old records reviewed Medical History Graves esophagus Allergies Foot fracture, right Closed left ankle fracture Infiltrating ductal carcinoma of left breast Overweight (BMI 25.0-29.9) GERD without esophagitis Rib pain on right side Insomnia Fibromyalgia Diverticulitis Chronic back pain GERD (gastroesophageal reflux disease) Surgical History History of lumpectomy of left breast History of left breast biopsy (~01/08/20) History of local excision of skin lesion (~03/2018) History of right breast biopsy (~2012) History of cystoscopy History of gastric surgery History of section History of esophagogastroduodenoscopy (EGD) (~02/2013) History of colonoscopy Family History Family History Mother History of hypertension History of pancreatic cancer History of diabetes mellitus Father History of hypertension History of diabetes mellitus Colon cancer Sister History of hypertension Maternal Grandmother History of lung cancer Social History Social History Household Members: None Housing: House Are you a primary laboratory animal care veterinarian to a significant other at home: No Do you 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 have 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 Oriented X3. No acute distress. Eyes: Pupils equal, round and reactive to light. ENT: Pharynx normal. Neck: Normal inspection. Neck supple. CVS: Normal heart rate and rhythm. Pulses normal. Respiratory: No respiratory distress. Breath sounds normal. Abdomen: Soft and mild lower abdominal ttp no rebound or guarding Rectal: brown stool Skin: Skin warm and dry. Normal skin color. Normal skin turgor. Extremities: No lower extremity edema. No calf ttp Neuro: Oriented X 3. No motor deficit. No sensory deficit. Medical Decision Making Medical Decision Making [facility] Narrative: 63 yo female with PMH of breast cancer, GERD, colitis, fibromyalgia, diverticulitis here with c/o lower abdominal pain nausea chills at this time will need labs, CT scan refuses contrast - rule out diverticulitis, colitis. She has no signs of acute abdomen. Differential Diagnosis Differential Diagnoses: The differential diagnosis associated with the presentation includes diverticulitis, IBS, colitis Admission/Observation Consideration of admission/observation: Escalation of care including admission/observation considered not toxic can be managed as outpatient Lab Data [facility] Lab Attestation statement: I reviewed the patient's lab results. 01/16/24 09:41 01/16/24 09:41 Labs: Lab Results 01/16/24 01/16/24 Range/Units 09:41 10:20 WBC 5.9 (4.8-10.8) X10*3/uL RBC 4.57 (4.20-5.50) X10*6/uL Hgb 13.6 (12.0-16.0) g/dl Hct 40.0 (37.0-47.0) % MCV 87.5 (80.0-98.0) fL MCH 29.8 (27.0-33.0) pg MCHC 34.0 (31.0-35.0) g/dl RDW 13.3 (11.0-16.0) % Plt Count 333 (160-400) X10*3/uL MPV 9.6 (9.4-12.3) fL Immature Gran % (Auto) 0.7 H (0.0-0.4) % Neut % (Auto) 68.4 (45-73) % Lymph % (Auto) 20.6 (20-40) % [place] % (Auto) 6.6 (2-11) % Eos % (Auto) 2.2 (0-4) % Baso % (Auto) 1.5 (0-2) % Lymph # (Auto) 1.2 (1.2-4.9) X10*3/uL [place] # (Auto) 0.4 (0.1-1.2) X10*3/uL Eos # (Auto) 0.1 (0.0-0.4) X10*3/uL Baso # (Auto) 0.1 (0.0-0.2) X10*3/uL Abs Immat Gran (auto) 0.04 H (0.00-0.03) X10*3/uL Absolute Neuts (auto) 4.0 (2.0-8.3) x10*3/uL Absolute Nucleated RBC 0.000 (0.0-0.012) X10*3/uL Nucleated RBC % (auto) 0.0 (0.0-0.2) /100WBC Sodium 140 (135-145) mmol/L Potassium 5.0 D (3.3-5.1) mmol/L Chloride 108 (96-108) mmol/L Carbon Dioxide 24 (22-29) mmol/L Anion Gap 13 (12-20) BUN 16 (9-16) mg/dL Creatinine 0.75 (0.5-1.4) mg/dL Estim Creat Clear Calc 66.5 Estimated GFR > 60 Random Glucose 152 H (60-115) mg/dL Calcium 9.7 (8.4-10.2) mg/dL Total Bilirubin 0.6 (0.0-1.0) mg/dL AST 20 (5-31) U/L ALT 15 (0-31) U/L Alkaline Phosphatase 132 H (39-117) U/L Total Protein 7.6 (6.5-8.0) g/dL Albumin 4.1 (3.5-5.0) g/dL Lipase 13 (8-78) U/L Urine Color Dark Yellow Urine Appearance Cloudy Urine pH 5.5 (5.0-9.0) Ur Specific [place] 1.025 (1.005-1.025) Urine Protein Trace (Neg-Trace) mg/dL Urine Glucose (UA) Negative (Negative) mg/dL Urine Ketones Trace (Negative) mg/dL Urine Blood Trace H (Negative) Urine Nitrite Negative (Negative) Ur Leukocyte Esterase Moderate (2+) H (Negative) Urine RBC 0-2 (0-2) /HPF Urine WBC 0-5 (0-5) /HPF Ur Squamous Epith Cells 3-5 (0-2) /HPF Urine Bacteria None Seen (None Seen) Hyaline Casts 0-2 (0-2) /LPF Stool Occult Blood NEGATIVE (NEGATIVE) Independent Interpretation I performed an independent interpretation of an: CT Scan Radiology Impression Discussion of test interpretation with radiology: I have reviewed the radiologist's reading. External Record Review External record reviewed: Inpatient record, Office record and Prior outpatient labs Prescription Management I considered prescription management with: Antibiotic Discharge Plan Discharge Clinical Impression: Diverticulitis Patient Disposition: Home, Self-Care Instructions: Diverticulitis (ED) Additional Instructions: return for any worsening pain, bleeding, fevers or any other concerns follow up with GI doctor given CT scan results a scope should be done CT/CT abdomen pelvis wo IV con IMPRESSION: Acute uncomplicated sigmoid diverticulitis. Other incidental findings as described above. Peculiar high density collection in the sigmoid dating back to at least 2015 could represent an encapsulated bezoar. Given the multiple bouts of recurrent diverticulitis, sigmoidoscopy may be useful for further evaluation. Prescriptions: New levofloxacin 750 mg tablet 750 mg PO DAILY Qty: 7 0RF No Action Essential Woman 50 Plus 0.4-250 mg-mcg Tablet 1 tab PO DAILY Qty: 90 6RF mirtazapine 15 mg tablet 15 mg PO BEDTIME 30 Days Qty: 30 0RF Rx Instructions: take half tab for 1 week then full tablet thereafter famotidine 40 mg tablet 40 mg PO DAILY Qty: 90 2RF exemestane 25 mg Tablet 25 mg PO DAILY Qty: 90 3RF Rx Instructions: must administer after a meal lorazepam 0.5 mg Tablet 0.5 mg PO BEDTIME PRN (Reason: Breakthrough Pain, Moderate) Qty: 14 0RF cholecalciferol (vitamin D3) 50 mcg (2,000 unit) capsule 1 cap PO DAILY ondansetron 4 mg tablet,disintegrating 4 mg PO Q8H PRN (Reason: nausea and vomiting) Qty: 10 0RF diclofenac potassium 50 mg tablet 50 mg PO TID PRN (Reason: pain) aspirin [Adult Low Dose Aspirin] 81 mg tablet,delayed release (DR/EC) 81 mg PO DAILY (DME) walker [facility] [place] See Rx Instructions .MEDSUPPLY Qty: 1 0RF Rx Instructions: Rollator walker with seat and breaks amlodipine 2.5 mg tablet 2.5 mg PO DAILY docusate sodium 100 mg capsule 100 mg PO BID zolpidem 10 mg tablet 10 mg PO BEDTIME PRN (Reason: Sleep) oxycodone-acetaminophen 5-325 mg tablet 325 tab PO DAILY Print Language: Turkmen
[2024-01-16 10:14] LABS: Alanine Aminotransferase 15 U/L (0-31); Albumin Level 4.1 g/dL (3.5-5.0); Alkaline Phosphatase 132 U/L (39-117); Anion Gap 13 (12-20); Aspartate Amino Transferase 20 U/L (5-31); Bilirubin Total 0.6 mg/dL (0.0-1.0); Blood Urea Nitrogen 16 mg/dL (9-16); Calcium 9.7 mg/dL (8.4-10.2); Carbon Dioxide 24 mmol/L (22-29); Chloride 108 mmol/L (96-108); Creatinine Clr Calc Pharmacy 66.5; Estimated Glomerular Filt Rate > 60; Glucose Random 152 mg/dL (60-115); Lipase 13 U/L (8-78); Sodium 140 mmol/L (135-145); Total Protein 7.6 g/dL (6.5-8.0)
[2024-01-16 10:29] LABS: OBS Int Ctl Valid YES; OBS1 NEGATIVE (NEGATIVE)
[2024-01-16 12:05] VITALS: BP 137/63; PULSE 58; RESP 14; TEMP 37; O2SAT 98
[2024-01-16 12:19] VITALS: BP 137/63; PULSE 58; RESP 14; TEMP 37; O2SAT 98
== END 2024-01-16 12:19 | disposition home or self-care (01) ==
PROVIDERS: Emergency Provider Emergency Medicine; PCP Internal Medicine Geriatric Medicine
DX: K57.32 Diverticulitis of large intestine without perforation or abscess without bleeding (principal); Z79.82 Long term (current) use of aspirin; Z79.899 Other long term (current) drug therapy
CPT/HCPCS: 36415; 74176; 80053; 81001; 82272; 83690; 85025; 99283; 99284

== ENCOUNTER 2024-01-23 09:41 | Outpatient (AMB) | payer OTHER, SELFPAY ==
[2024-01-23 09:53] VITALS: BP 132/70; PULSE 71; BMI 29.5
--- NOTE | 2024-01-23 09:53 | A.OFFVIS_ITS ---
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 Required: No Allergies Penicillins [PENICILLINS] Allergy (Severe, Verified 01/23/24 09:56) SWELLING/VOMITING Iodinated Contrast Media [IV Contrast Dye] Allergy (Intermediate, Verified 01/23/24 09:56) eye/facial swelling metronidazole [Flagyl] Allergy (Intermediate, Verified 01/23/24 09:56) Palpitations paroxetine Adverse Reaction (Intermediate, Verified 01/23/24 09:56) diarrhea Medication List - Last Reconciled 01/23/24 by TRUDY YingC amlodipine 2.5 mg PO DAILY aspirin (Adult Low Dose Aspirin) 81 mg PO DAILY cholecalciferol (vitamin D3) 1 cap PO DAILY diclofenac potassium 50 mg PO TID PRN docusate sodium 100 mg PO BID famotidine 40 mg PO DAILY levofloxacin 750 mg PO DAILY lorazepam 0.5 mg PO BEDTIME PRN mirtazapine 15 mg PO BEDTIME 30 days [id number] acid-lutein 0.4-250 mg-mcg (Essential Woman 50 Plus) 1 tab PO DAILY nitrofurantoin monohyd/m-cryst 100 mg 1 cap PO BID ondansetron 4 mg PO Q8H PRN oxycodone-acetaminophen 5-325 mg 325 tabs PO DAILY walker Rollator walker with seat and breaks zolpidem 10 mg PO BEDTIME PRN HPI HPI preop-f/u: Details: Corrie is a 63-year-old female with past medical history of left breast CA, GERD who was recently evaluated for chest discomfort and heart palpitations. She underwent a nuclear stress test, echocardiogram and Holter monitor and now presents for follow-up. Today she reports that she does have issues with feeling anxious. She has a history of having the left breast CA and is nervous that it may reoccur. She describes feeling anxious on a daily basis. She says her PCP has given her medication for this but she does not feel it has helped. When she is anxious she noticed her heart palpitations. She has no dizziness, presyncope, syncope, falls. She previously had some discomfort in the left chest region which she tells me has since resolved. She has no chest discomfort at rest or with activity. No shortness of breath, PND, orthopnea or edema. She will be undergoing an endoscopy in the near future and is requesting cardiac clearance. [facility] Medical History Graves esophagus Allergies Foot fracture, right Closed left ankle fracture Infiltrating ductal carcinoma of left breast Overweight (BMI 25.0-29.9) GERD without esophagitis Rib pain on right side Insomnia Fibromyalgia Diverticulitis Chronic back pain GERD (gastroesophageal reflux disease) Surgical History History of lumpectomy of left breast History of left breast biopsy (~01/08/20) History of local excision of skin lesion (~03/2018) History of right breast biopsy (~2012) History of cystoscopy History of gastric surgery History of section History of esophagogastroduodenoscopy (EGD) (~02/2013) History of colonoscopy Family History Mother History of hypertension History of pancreatic cancer History of diabetes mellitus Father History of hypertension History of diabetes mellitus Colon cancer Sister History of hypertension Maternal Grandmother History of lung cancer Social History Household Members: None Housing: House Are you a primary career services manager to a significant other at home: No Do you 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) Alcohol intake: never Patient Tobacco Use Status: Never used Tobacco Second Hand Smoke Exposure: No service: No Current occupational status: disabled 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 Review of Systems Const Details: anxious at times, can feel heart pounding when this occurs All systems reviewed & are unremarkable except as noted in HPI and below ENT Denies dizziness Card Denies chest pain, Denies chest pain at rest, Denies chest pain with activity, Denies rapid heart rate, Denies pedal edema, Denies edema, Denies leg edema, Denies lightheadedness, Denies palpitations, Denies dyspnea, Denies dyspnea on exertion and Denies orthopnea Resp Denies cough, Denies dyspnea and Denies dyspnea on exertion GI Denies hematochezia and Denies change in stool character Musc Denies abnormal gait, Denies limited range of motion, Denies muscle cramps, Denies muscle weakness, Denies numbness, Denies radiating pain into limb, Denies stiffness and Denies tingling Neuro Denies abnormal gait, Denies dizziness, Denies numbness and Denies tingling Endo Denies palpitations Physical Exam Vital Signs: Last Vital Signs Pulse 71 01/23/24 09:53 BP 132/70 01/23/24 09:53 BMI result Body Mass Index 29.5 Const General: cooperative, healthy appearing, comfortable and no acute distress Orientation/consciousness: patient oriented x3 Resp Effort & Inspection: normal respiratory effort Auscultation: clear to auscultation bilaterally, no rales, no rhonchi and no wheezes Cardio Jugular venous distension: no JVD Rate: regular rate Rhythm: regular rhythm Heart sounds: S1 normal heart sound present, S2 normal heart sound present, no murmurs and no rubs Neuro General: patient oriented x3 Extrem General: Yes normal to inspection and No no pedal edema Psych Appearance: grossly normal Mental Status: mental status grossly normal Speech and movement: Normal speech and movement present Office Procedures EKG Details: Today, read by me, normal sinus rhythm, low-voltage QRS, QTC 399 milliseconds, rate 71 [id number], Complete Assessment & Plan Assessment & Plan (1) Heart palpitations: Code(s): R00.2 - Palpitations Category: Medical Plan: Report of heart palpitations when she is feeling anxious. No dizziness, presyncope, syncope. Holter monitor was done on 10/14/2023 for 3 days showing sinus rhythm with average heart rate 79. An echocardiogram was done 10/14/2023 showing EF 60-65%, impaired relaxation, no valve abnormalities. Test results reviewed with her. Her heart palpitation is likely sinus rhythm or sinus tachycardia in the setting of feeling anxious. If she needs further medication for this anxiety she will discuss with her PCP. Offered reassurance that we did not identify any significant abnormalities. Cardiology follow-up as needed (2) Precordial chest pain: Code(s): R07.2 - Precordial pain Category: Medical Plan: On last visit reported some left-sided chest discomfort, tender to palpation. Prior EKGs do show T-wave inversion V1 through V3. For this reason she underwent a nuclear stress test on 12/11/2023 which did show normal myocardial perfusion imaging. Her echo from above did not show any regional wall motion abnormalities. Today she reports that her chest discomfort has resolved. Based on her description it sounds more like musculoskeletal discomfort. Signs and symptoms of angina reviewed with her. (3) Preop cardiovascular exam: Code(s): Z01.810 - Encounter for preprocedural cardiovascular examination Category: Medical Plan: Preop for upper endoscopy with Dr. Pelaez in the near future. She may proceed with low cardiac risk. Aspirin can be held as needed. Call/consult Cardiology if needed Plan Time spent on chart review, documentation, intravenous assessment Coding Level of Care Code Est Pt Level 4 (77393) Diagnoses Heart palpitations R00.2 Precordial chest pain R07.2 Preop cardiovascular exam Z01.810 CPT Codes EKG - CPT: 25708-[id number], Complete ([id number]) Time Spent (min) 28
== END 2024-01-23 10:16 | disposition home or self-care (01) ==
PROVIDERS: PCP Internal Medicine Geriatric Medicine; Visit Provider Nurse Practitioner Family
DX: R00.2 Palpitations (principal); R07.2 Precordial pain; Z01.810 Encounter for preprocedural cardiovascular examination
CPT/HCPCS: 93010; 99214

== ENCOUNTER → 2024-01-23 09:41 | Outpatient (BNVA) | payer OTHER, SELFPAY | PROVIDERS: PCP Internal Medicine Geriatric Medicine; Visit Provider Nurse Practitioner Family | DX: Z01.810 Encounter for preprocedural cardiovascular examination (principal); R00.2 Palpitations; R07.2 Precordial pain | CPT/HCPCS: 93005; 99212 ==

== ENCOUNTER 2024-02-18 11:59 | Outpatient (REF) | payer OTHER, SELFPAY | END 2024-02-18 12:00 | disposition home or self-care (01) | LOC: HO.HOSX 11:59 | PROVIDERS: Visit Provider Physician Assistant | DX: M17.11 Unilateral primary osteoarthritis, right knee (principal); M25.562 Pain in left knee | CPT/HCPCS: 73560; 73562; 99212 ==

== ENCOUNTER 2024-02-18 12:52 | Outpatient (AMB) | payer OTHER, SELFPAY ==
--- NOTE | 2024-02-18 13:14 | MHC.OFFVIS ---
Intake Visit Reasons: New problem rt knee pain Intake Note: Corrie a 63 year old female who presents today for an evaluation of right knee pain. Patient reports having bilateral ankle fractures that may contributed to her right knee pain. States the past 4 months she has difficulty with walking. She has constant pain located around her knee cap as well as numbness and tingling that travels to her mejias area. Her pain is worse with undergoing her chemo treatment. Finds no relief with Tylenol or [place] topical cream. No recent injury. Interested in a knee brace. Allergies Penicillins [PENICILLINS] Allergy (Severe, Verified 02/18/24 13:28) SWELLING/VOMITING Iodinated Contrast Media [IV Contrast Dye] Allergy (Intermediate, Verified 02/18/24 13:28) eye/facial swelling metronidazole [Flagyl] Allergy (Intermediate, Verified 02/18/24 13:28) Palpitations paroxetine Adverse Reaction (Intermediate, Verified 02/18/24 13:28) diarrhea Medication List - Last Reconciled 02/18/24 by Latricia Fitzpatrick PA-C amlodipine 2.5 mg PO DAILY aspirin (Adult Low Dose Aspirin) 81 mg PO DAILY cholecalciferol (vitamin D3) 1 cap PO DAILY diclofenac potassium 50 mg PO TID PRN docusate sodium 100 mg PO BID exemestane (Aromasin) 25 mg PO DAILY famotidine 40 mg PO DAILY levofloxacin 750 mg PO DAILY lorazepam 0.5 mg PO BEDTIME PRN mirtazapine 15 mg PO BEDTIME 30 days [id number] acid-lutein 0.4-250 mg-mcg (Essential Woman 50 Plus) 1 tab PO DAILY nitrofurantoin monohyd/m-cryst 100 mg 1 cap PO BID ondansetron 4 mg PO Q8H PRN oxycodone-acetaminophen 5-325 mg 325 tabs PO DAILY sodium,potassium,mag sulfates 17.5-3.13-1.6 gram (Suprep Bowel Prep Kit) DILUTE; drink 1/2 at 6-8 pm and half at 11 PM- 1AM walker Rollator walker with seat and breaks zolpidem 10 mg PO BEDTIME PRN HPI HPI New problem rt knee pain: Details: 63-year-old female presents to the office today for right knee pain. She states that she has been having some pain for approximately 4 months. She pain with prolonged walking and going up and down stairs. She feels pain is along the medial aspect of the knee. She is currently receiving chemo treatments for breast cancer. [facility] Medical History Graves esophagus Allergies Foot fracture, right Closed left ankle fracture Infiltrating ductal carcinoma of left breast Overweight (BMI 25.0-29.9) GERD without esophagitis Rib pain on right side Insomnia Fibromyalgia Diverticulitis Chronic back pain GERD (gastroesophageal reflux disease) Surgical History History of lumpectomy of left breast History of left breast biopsy (~01/08/20) History of local excision of skin lesion (~03/2018) History of right breast biopsy (~2012) History of cystoscopy History of gastric surgery History of section History of esophagogastroduodenoscopy (EGD) (~02/2013) History of colonoscopy Family History Mother History of hypertension History of pancreatic cancer History of diabetes mellitus Father History of hypertension History of diabetes mellitus Colon cancer Sister History of hypertension Maternal Grandmother History of lung cancer Social History Household Members: None Housing: House Are you a primary child caregiver private home to a significant other at home: No 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 Tenderness along the medial joint line. ROM full with crepitus. Negative steinmans. No ligamentous laxity. NVI. Results Reviewed Results Reviewed: X-rays of the right knee obtained in the office today are significant for mild medial compartmental osteoarthritis. Assessment & Plan Assessment & Plan (1) Arthritis of knee, right: Code(s): M17.11 - Unilateral primary osteoarthritis, right knee Category: Medical Plan: We discussed options which include physical therapy which she declined. I did offer a cortisone injection which she would like to hold off on at this time therefore I did send her a prescription for Celebrex and also gave her a knee brace in the office today if symptoms persist or worsen she will contact me for an injection otherwise follow-up as needed. Orders: Orders XR knee RT 3V Today M17.11 - Unilateral primary osteoarthritis, right knee XR knee LT 1V Today M25.562 - Pain in left knee Coding Level of Care Code New Pt Level 3 (94646) Complex EM visit Add On G2211 Diagnoses Arthritis of knee, right M17.11
== END 2024-02-18 14:37 | disposition home or self-care (01) ==
PROVIDERS: PCP Internal Medicine Geriatric Medicine; Visit Provider Physician Assistant
DX: M17.11 Unilateral primary osteoarthritis, right knee (principal)
CPT/HCPCS: 99213; G2211

== ENCOUNTER 2024-02-23 10:29 | Emergency (ER) | payer OTHER, SELFPAY ==
--- NOTE | ~2024-02-23 | CT_ITS ---
EXAMINATION: CT ABDOMEN AND PELVIS WITHOUT CONTRAST CLINICAL INFORMATION: Left lower quadrant pain. Diarrhea. Vomiting. COMPARISON: CT scan of the abdomen and pelvis dated 01/16/2024. TECHNIQUE: Multidetector volumetric imaging was performed from the superior aspect of the liver through the pubic symphysis. Sagittal and coronal reformatted images were obtained on the technologist workstation. This CT examination was performed using dose optimization techniques as appropriate, variously including the following: *Automated exposure control *Adjustment of mA and/or kV according to patient size (this includes techniques or standardized protocols for targeted exams where dose is matched to indication/reason for exam; i.e. extremities or head) *Use of iterative reconstruction technique DLP: 772 mGy-cm. FINDINGS: LUNG BASES: Small retrocardiac hiatal hernia noted. The visualized lung bases are otherwise unremarkable. LIVER, GALLBLADDER, AND BILIARY TREE: The liver is normal in size, shape, and attenuation. No focal hepatic lesion on noncontrast imaging. No biliary ductal dilatation is present. The gallbladder is unremarkable with no evidence of radiopaque gallstones, gallbladder wall thickening, or obvious pericholecystic inflammatory changes. PANCREAS: Diffusely atrophic and otherwise unremarkable on noncontrast imaging. SPLEEN: Unremarkable. 0.6 cm accessory splenule seen along the anterior-inferior margin of the spleen. ADRENAL GLANDS: Unremarkable on noncontrast imaging. KIDNEYS AND URETERS: The kidneys are normal in size, shape, and attenuation. No hydronephrosis, hydroureter, or calculi seen. No perinephric stranding. BLADDER: Completely decompressed and not adequately assessed. No definite bladder calculi seen.. PELVIC VISCERA: Coarse dystrophic calcification seen within the uterus, possibly due to small calcified uterine fibroid. There are also bilateral tubal ligation clips seen in place.. No adnexal mass. GASTROINTESTINAL TRACT: Again seen is a approximately 10 cm long segment of abnormal mid sigmoid colon, which demonstrates diffuse diverticulosis and prominent diffuse wall thickening with surrounding fat stranding and edema, consistent with ongoing/recurrent acute diverticulitis. Several of the small diverticula demonstrate hyperdensities, similar to the previous exam, likely representing chronic inspissated contrast or other ingested debris. Largest of these appears to be a calcified density along the left lateral margin of the sigmoid colon near the junctions of the proximal and mid sigmoid colon (series 3, image 69), measuring approximately 3.1 x 2.3 cm as compared to 2.8 x 1.8 cm (01/16/2024). This may represent a calcified bezoar as previously suggested or dense chronic inspissation of barium/ingested debris. No evidence of bowel obstruction or perforation. No focal abscess collection. Other scattered descending colonic diverticula noted with no evidence of acute diverticulitis. Colon otherwise unremarkable. Terminal ileum and appendix normal. Small bowel loops decompressed and unremarkable. ABDOMINAL WALL: There is a tiny fat-containing umbilical hernia. LYMPH NODES, VASCULAR: Dense atherosclerotic calcifications of the normal sized abdominal aorta is seen. No periaortic collections. No significant abdominal or pelvic adenopathy.. OSSEOUS STRUCTURES: Multilevel mild degenerative disc disease and vertebral spondylosis throughout the visualized thoracolumbar spine. No suspicious bone findings. CT/CT abdomen pelvis wo IV con IMPRESSION: 1. Findings are consistent with ongoing/recurrent acute diverticulitis involving the mid sigmoid colon. No evidence of bowel obstruction, perforation or abscess formation. 2. Other incidental findings include small retrocardiac hiatal hernia, atrophic pancreas, calcified uterine fibroid, tiny fat-containing umbilical hernia, and dense atherosclerotic vascular calcifications. Electronically signed by: Medina Eng MD 02/23/2024 12:21 PM EDT
[2024-02-23 10:31] VITALS: BP 186/101; PULSE 115; RESP 18; TEMP 37.1; O2SAT 97; BMI 27.5
--- NOTE | 2024-02-23 10:49 | ED_ITS ---
HPI - Abdominal Pain General Chief Complaint: Abdominal Pain Stated Complaint: abd pain-vomiting Time Seen by Provider: 02/23/24 10:37 Source: patient Mode of arrival: ambulatory Limitations: no limitations History of Present Illness HPI narrative: Patient is a 63-year-old female who presents emergency department for evaluation. She reports last night she was diagnosed with diverticulitis for which she completed her entire course of antibiotics. She was feeling well for approximately 1 week, and then she developed at sensation of rectal pressure that has been intermittently bothersome with intermittent abdominal pain nausea and diarrhea. Now early this morning she developed severe lower abdominal pain and pressure, has multiple episodes of vomiting since then. Denies any hematochezia melena, no bloody emesis. No fevers or chills. Related Data Home Medications ?Medication ?Instructions ?Recorded ?Confirmed aspirin 81 mg tablet,delayed 81 mg PO DAILY 02/10/20 02/18/24 release (Adult Low Dose Aspirin) diclofenac potassium 50 mg tablet 50 mg PO TID PRN pain 05/17/20 02/18/24 cholecalciferol (vitamin D3) 50 1 cap PO DAILY 02/15/21 02/18/24 mcg (2,000 unit) capsule amlodipine 2.5 mg tablet 2.5 mg PO DAILY 10/29/22 02/18/24 docusate sodium 100 mg capsule 100 mg PO BID 10/29/22 02/18/24 zolpidem 10 mg tablet 10 mg PO BEDTIME PRN Sleep 10/29/22 02/18/24 oxycodone-acetaminophen 5 mg-325 325 tab PO DAILY 06/26/23 02/18/24 mg tablet nitrofurantoin 1 cap PO BID 01/23/24 02/18/24 monohydrate/macrocrystals 100 mg capsule Previous Rx's ?Medication ?Instructions ?Recorded walker #1 ea 11/03/21 multivit with min-folic 1 tab PO DAILY #90 tabs 02/12/22 acid-lutein 0.4 mg-250 mcg tablet (Essential Woman 50 Plus) ondansetron 4 mg disintegrating 4 mg PO Q8H PRN nausea and 01/31/23 tablet vomiting #10 tabs mirtazapine 15 mg tablet 15 mg PO BEDTIME 30 days #30 tabs 03/15/23 famotidine 40 mg tablet 40 mg PO DAILY #90 tabs 05/31/23 levofloxacin 750 mg tablet 750 mg PO DAILY #7 tabs 01/16/24 sodium,potassium,mag sulfates 17.5 See Rx Instructions PO .COMPLEX 01/23/24 gram-3.13 gram-1.6 gram oral soln #354 mL (Suprep Bowel Prep Kit) exemestane 25 mg tablet (Aromasin) 25 mg PO DAILY #90 tabs 02/07/24 lorazepam 0.5 mg tablet 0.5 mg PO BEDTIME PRN Breakthrough 02/07/24 Pain, Moderate #14 tabs celecoxib 200 mg capsule (Celebrex) 200 mg PO BID 30 days #60 caps 02/18/24 levofloxacin 750 mg tablet 750 mg PO DAILY #7 tabs 02/23/24 ondansetron 4 mg disintegrating 4 mg PO Q8H PRN nausea and 02/23/24 tablet vomiting #7 tabs Allergies Allergy/AdvReac Type Severity Reaction Status Date / Time Penicillins [PENICILLINS] Allergy Severe SWELLING/VO Verified 02/23/24 10:33 MITING Iodinated Contrast Media Allergy Intermediate eye/facial Verified 02/23/24 10:33 [IV Contrast Dye] swelling metronidazole [Flagyl] Allergy Intermediate Palpitation Verified 02/23/24 10:33 s paroxetine AdvReac Intermediate diarrhea Verified 02/23/24 10:33 Review of Systems Review of Systems Yes all other systems are reviewed and are negative [facility] Past Medical History Attestation statement: The following information was validated with the patient. Source: old records reviewed Medical History Graves esophagus Allergies Foot fracture, right Closed left ankle fracture Infiltrating ductal carcinoma of left breast Overweight (BMI 25.0-29.9) GERD without esophagitis Rib pain on right side Insomnia Fibromyalgia Diverticulitis Chronic back pain GERD (gastroesophageal reflux disease) Surgical History History of lumpectomy of left breast History of left breast biopsy (~01/08/20) History of local excision of skin lesion (~03/2018) History of right breast biopsy (~2012) History of cystoscopy History of gastric surgery History of section History of esophagogastroduodenoscopy (EGD) (~02/2013) History of colonoscopy Family History Family History Mother History of hypertension History of pancreatic cancer History of diabetes mellitus Father History of hypertension History of diabetes mellitus Colon cancer Sister History of hypertension Maternal Grandmother History of lung cancer Social History Social History (System 02/20/24 @ 13:58 by Stacia Bond) Household Members: None Housing: House Are you a primary home health caregiver to a significant other at home: No 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[employer]) Alcohol intake: never Patient Tobacco Use Status: Never used Tobacco Second Hand Smoke Exposure: No Advance Directives: Yes Advance Directives Information Provided: Yes Advance Directives on File: No service: No Current occupational status: disabled 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 No acute distress.?Normal affect. Eyes: Pupils equal, round and reactive to light.? ENT: Pharynx normal.?? Neck: Normal inspection.? Neck supple.?? CVS: Heart sounds normal. Normal heart rate and rhythm.? Pulses normal.?? Respiratory: No respiratory distress.? Lung sounds clear to auscultation bilaterally?? Abdomen: Soft with diffuse abdominal tenderness upon palpation most notably to the left lower quadrant. No rigidity. Actively guarding. Normoactive bowel sounds. No CVAT. Skin: Skin warm and dry.? Normal skin color.? Extremities: No lower extremity edema.? Neuro: Moves all extremities spontaneously. Sensation intact bilaterally.Ambulates with normal steady gait. Course Reevaluation(s) Reevaluation #1: CT revealing ongoing/recurrent acute diverticulitis of the mid sigmoid colon no evidence of obstruction perforation or abscess. Patient received a dose of Levaquin IV in the emergency department.. Has leukocytosis of 14,200 with left shift, no anemia or thrombocytopenia. No electrolyte derangement no DEBI. No lactic acidosis. Given had only resolution of symptoms for a short while concern that this may be an ongoing diverticulitis versus recurrent. Will attempt p.o. trial to see how she tolerates. She reports that she still continues to feel unwell nauseous with intermittent pain though this was alleviated with morphine Time: 13:33 Reevaluation #2: PO Trial unsuccessful, she began vomiting, having worsening pain, reports that she does not feel well enough to go home. I will speak with hospitalist for admission Time: 15:38 Reevaluation #3: Hospice met with patient, she is now requesting to be discharged home. Encouraged inpatient admission but she continues to decline. She is alert and oriented, able to make her own decisions. Her spouse is at bedside. Will send an additional prescription for Levaquin given her allergies in addition to ondansetron and recommend close outpatient follow-up with strict return precautions. Time: 16:24 Medical Decision Making Medical Decision Making [facility] Narrative: Patient is a 63-year-old female with past medical history of invasive ductal carcinoma of the left breast on Aromasin (follows [facility]), GERD, colitis, fibromyalgia, diverticulitis presenting to emergency department for evaluation of abdominal pain with vomiting as per HPI. Of note she was seen in the emergency department 01/16/2024 and diagnosed with acute uncomplicated diverticulitis for which she was given a prescription for levofloxacin 750 mg for 7 days. Has diffuse abdominal tenderness but notably most tender in the left lower quadrant concerning for again acute diverticulitis, CT imaging to exclude complication or additional etiology does obstruction. She is mildly tachycardic but this maybe due to pain, she is afebrile. Will obtain lactic acid and blood cultures as well pending CBC and CMP. Patient received morphine IV for pain, Zofran IV for nausea. Denies associated symptoms however will obtain urinalysis to exclude infection. Differential Diagnosis Differential Diagnoses: The differential diagnosis associated with the presentation includes (See narrative above) Admission/Observation Consideration of admission/observation: Escalation of care including admission/observation considered Lab Data [facility] Lab Attestation statement: I reviewed the patient's lab results. 02/23/24 11:52 02/23/24 11:52 Labs: Lab Results 02/23/24 02/23/24 Range/Units 11:52 14:35 WBC 14.2 H (4.8-10.8) X10*3/uL RBC 4.80 (4.20-5.50) X10*6/uL Hgb 13.9 (12.0-16.0) g/dl Hct 41.8 (37.0-47.0) % MCV 87.1 (80.0-98.0) fL MCH 29.0 (27.0-33.0) pg MCHC 33.3 (31.0-35.0) g/dl RDW 13.2 (11.0-16.0) % Plt Count 375 (160-400) X10*3/uL MPV 9.7 (9.4-12.3) fL Immature Gran % (Auto) 0.5 H (0.0-0.4) % Neut % (Auto) 87.1 H (45-73) % Lymph % (Auto) 6.6 L (20-40) % [place] % (Auto) 4.8 (2-11) % Eos % (Auto) 0.5 (0-4) % Baso % (Auto) 0.5 (0-2) % Lymph # (Auto) 0.9 L (1.2-4.9) X10*3/uL [place] # (Auto) 0.7 (0.1-1.2) X10*3/uL Eos # (Auto) 0.1 (0.0-0.4) X10*3/uL Baso # (Auto) 0.1 (0.0-0.2) X10*3/uL Abs Immat Gran (auto) 0.07 H (0.00-0.03) X10*3/uL Absolute Neuts (auto) 12.4 H (2.0-8.3) x10*3/uL Absolute Nucleated RBC 0.000 (0.0-0.012) X10*3/uL Nucleated RBC % (auto) 0.0 (0.0-0.2) /100WBC Sodium 141 (135-145) mmol/L Potassium 4.0 (3.3-5.1) mmol/L Chloride 104 (96-108) mmol/L Carbon Dioxide 25 (22-29) mmol/L Anion Gap 16 (12-20) BUN 17 H (9-16) mg/dL Creatinine 0.70 (0.5-1.4) mg/dL Estim Creat Clear Calc 72.5 Estimated GFR > 60 Random Glucose 141 H (60-115) mg/dL Lactic Acid 0.8 (0.5-2.0) mmol/L Calcium 9.9 (8.4-10.2) mg/dL Magnesium 1.7 (1.6-2.6) mg/dL Total Bilirubin 0.7 (0.0-1.0) mg/dL AST 20 (5-31) U/L ALT 13 (0-31) U/L Alkaline Phosphatase 128 H (39-117) U/L Total Protein 8.0 (6.5-8.0) g/dL Albumin 4.4 (3.5-5.0) g/dL Lipase 9 (8-78) U/L Urine Color Yellow Urine Appearance Clear Urine pH 6.5 (5.0-9.0) Ur Specific [place] <= 1.005 (1.005-1.025) Urine Protein Negative (Neg-Trace) mg/dL Urine Glucose (UA) Negative (Negative) mg/dL Urine Ketones Negative (Negative) mg/dL Urine Blood Negative (Negative) Urine Nitrite Negative (Negative) Ur Leukocyte Esterase Negative (Negative) Radiology Impression Discussion of test interpretation with radiology: I have reviewed the radiologist's reading. Radiologist Impression: CT/CT abdomen pelvis wo IV con IMPRESSION: 1. Findings are consistent with ongoing/recurrent acute diverticulitis involving the mid sigmoid colon. No evidence of bowel obstruction, perforation or abscess formation. 2. Other incidental findings include small retrocardiac hiatal hernia, atrophic pancreas, calcified uterine fibroid, tiny fat-containing umbilical hernia, and dense atherosclerotic vascular calcifications. External Record Review External record reviewed: Outpatient record Prescription Management I considered prescription management with: Pain Medication and Antibiotic Medications Administered Discontinued Medications Generic Name Dose Route Start Last Admin Trade Name Freq PRN Reason Stop Dose Admin Levofloxacin 750 mg in 150 mls @ 100 mls/hr 02/23/24 12:31 02/23/24 14:41 Levaquin IV 02/23/24 14:00 Infused ONCE ONE Infusion Morphine Sulfate 4 mg 02/23/24 11:18 02/23/24 11:57 Morphine Sulfate 4 Mg/Ml Cartridge IVPUSH 02/23/24 11:19 4 mg ONCE ONE Administration Protocol Ondansetron HCl 4 mg 02/23/24 11:18 02/23/24 11:57 Ondansetron Hcl 4 Mg/2 Ml Vial IVPUSH 02/23/24 11:19 4 mg ONCE ONE Administration Discharge Plan Discharge Clinical Impression: Diverticulitis Patient Disposition: Home, Self-Care Instructions: Diverticulitis (ED), Diverticulitis Diet (ED) Additional Instructions: Given your continued diverticulitis, associated pain nausea and vomiting you were offered to have hospital admission for treatment, however you has declined and elected to be discharged home. I have sent a prescription for antibiotics to your pharmacy in addition to antinausea medication. Please be sure that you are staying well hydrated and drink plenty of fluids. Follow a clear liquid diet over the next couple of days, followed by a bland diet. You may return to emergency department any new or worsening symptoms or concerns. Prescriptions: New levofloxacin 750 mg tablet 750 mg PO DAILY Qty: 7 0RF ondansetron 4 mg tablet,disintegrating 4 mg PO Q8H PRN (Reason: nausea and vomiting) Qty: 7 0RF No Action Essential Woman 50 Plus 0.4-250 mg-mcg Tablet 1 tab PO DAILY Qty: 90 6RF mirtazapine 15 mg tablet 15 mg PO BEDTIME 30 Days Qty: 30 0RF Rx Instructions: take half tab for 1 week then full tablet thereafter famotidine 40 mg tablet 40 mg PO DAILY Qty: 90 2RF sodium,potassium,mag sulfates [Suprep Bowel Prep Kit] 17.5-3.13-1.6 gram recon soln See Rx Instructions PO .COMPLEX Qty: 354 0RF Rx Instructions: DILUTE; drink 1/2 at 6-8 pm and half at 11 PM- 1AM lorazepam 0.5 mg Tablet 0.5 mg PO BEDTIME PRN (Reason: Breakthrough Pain, Moderate) Qty: 14 0RF exemestane [Aromasin] 25 mg Tablet 25 mg PO DAILY Qty: 90 3RF Rx Instructions: must administer after a meal cholecalciferol (vitamin D3) 50 mcg (2,000 unit) capsule 1 cap PO DAILY ondansetron 4 mg tablet,disintegrating 4 mg PO Q8H PRN (Reason: nausea and vomiting) Qty: 10 0RF levofloxacin 750 mg tablet 750 mg PO DAILY Qty: 7 0RF diclofenac potassium 50 mg tablet 50 mg PO TID PRN (Reason: pain) aspirin [Adult Low Dose Aspirin] 81 mg tablet,delayed release (DR/EC) 81 mg PO DAILY (DME) walker [facility] See Rx Instructions .MEDSUPPLY Qty: 1 0RF Rx Instructions: Rollator walker with seat and breaks nitrofurantoin monohyd/m-cryst 100 mg capsule 1 cap PO BID amlodipine 2.5 mg tablet 2.5 mg PO DAILY docusate sodium 100 mg capsule 100 mg PO BID zolpidem 10 mg tablet 10 mg PO BEDTIME PRN (Reason: Sleep) oxycodone-acetaminophen 5-325 mg tablet 325 tab PO DAILY celecoxib [Celebrex] 200 mg capsule 200 mg PO BID 30 Days Qty: 60 3RF Referrals: Name,MD Bradly [Primary Care Provider] - Print Language: Thai
[2024-02-23] MEDS: Morphine Sulfate 4 MG/ML CARTRIDGE IVPUSH (11:57)
[2024-02-23] MEDS: ondansetron HCL 4 MG/2 ML VIAL IVPUSH (11:57)
[2024-02-23 11:58] LABS: MANUAL DIFF FLAG NO
[2024-02-23 12:07] LABS: Lactic Acid 0.8 mmol/L (0.5-2.0)
[2024-02-23 12:08] LABS: Basophils Absolute Auto 0.1 X10*3/uL (0.0-0.2); Basophils Percent Auto 0.5 % (0-2); Eosinophils Absolute Auto 0.1 X10*3/uL (0.0-0.4); Eosinophils Percent Auto 0.5 % (0-4); Hematocrit 41.8 % (37.0-47.0); Hemoglobin 13.9 g/dl (12.0-16.0); Imm Gran Abs Auto 0.07 X10*3/uL (0.00-0.03); Imm Gran Pct Auto 0.5 % (0.0-0.4); Lymphocytes Absolute Auto 0.9 X10*3/uL (1.2-4.9); Lymphocytes Percent Auto 6.6 % (20-40); Mean Corpuscular HGB Conc 33.3 g/dl (31.0-35.0); Mean Corpuscular Volume 87.1 fL (80.0-98.0); Mean Platelet Volume 9.7 fL (9.4-12.3); Monocytes Absolute Auto 0.7 X10*3/uL (0.1-1.2); Monocytes Percent Auto 4.8 % (2-11); Neutrophils Absolute Auto 12.4 x10*3/uL (2.0-8.3); Neutrophils Percent Auto 87.1 % (45-73); Platelet Count 375 X10*3/uL (160-400); Red Cell Distribution Width 13.2 % (11.0-16.0); White Blood Count 14.2 X10*3/uL (4.8-10.8)
[2024-02-23 12:17] LABS: Alanine Aminotransferase 13 U/L (0-31); Albumin Level 4.4 g/dL (3.5-5.0); Alkaline Phosphatase 128 U/L (39-117); Anion Gap 16 (12-20); Aspartate Amino Transferase 20 U/L (5-31); Bilirubin Total 0.7 mg/dL (0.0-1.0); Blood Urea Nitrogen 17 mg/dL (9-16); Calcium 9.9 mg/dL (8.4-10.2); Carbon Dioxide 25 mmol/L (22-29); Chloride 104 mmol/L (96-108); Creatinine Clr Calc Pharmacy 72.5; Estimated Glomerular Filt Rate > 60; Glucose Random 141 mg/dL (60-115); Lipase 9 U/L (8-78); Magnesium 1.7 mg/dL (1.6-2.6); Sodium 141 mmol/L (135-145)
[2024-02-23] MEDS: levoFLOXacin/D5W 750 MG/150 ML PIGGYBACK 100 MG IV (13:24)
[2024-02-23 14:33] VITALS: BP 149/88; PULSE 129; RESP 17; TEMP 37.3; O2SAT 98
--- NOTE | 2024-02-23 14:41 | PC.NURSE ---
patient requested IV abx t be stopped, stated that it made her feel worse, ed povider aware
[2024-02-23 14:48] LABS: Appearance Urine Clear; Color Urine Yellow; Glucose Urine UA Negative (Negative); Leukocyte Esterase Urine Negative (Negative); Nitrite Urine Negative (Negative); PH 6.5 (5.0-9.0); Specific Gravity - Urine <= 1.005 (1.005-1.025); Urine Blood Negative (Negative); Urine Ketones Negative (Negative); Urine Protein Negative (Neg-Trace)
[2024-02-23 16:59] VITALS: BP 143/84; PULSE 106; RESP 16; TEMP 37; O2SAT 96
== END 2024-02-23 17:00 | disposition home or self-care (01) ==
PROVIDERS: Nurse Practitioner Family; Emergency Provider Emergency Medicine; PCP Internal Medicine Geriatric Medicine
DX: K57.32 Diverticulitis of large intestine without perforation or abscess without bleeding (principal); R10.2 Pelvic and perineal pain; R10.30 Lower abdominal pain, unspecified; R11.2 Nausea with vomiting, unspecified; Z79.899 Other long term (current) drug therapy
CPT/HCPCS: 36415; 74176; 80053; 81003; 83605; 83690; 83735; 85025; 87040; 87077; 87186; 87205; 96365; 96375; 99284; J1956; J2270; J2405

== ENCOUNTER 2024-02-25 11:24 | Inpatient (IN) | payer OTHER, SELFPAY ==
--- NOTE | ~2024-02-25 | CT_ITS ---
EXAMINATION: CT ABDOMEN AND PELVIS WITHOUT CONTRAST CLINICAL INFORMATION: Abdominal pain, history of diverticulitis. COMPARISON: CT abdomen/pelvis 02/23/2024. TECHNIQUE: Multidetector volumetric imaging was performed from the superior aspect of the liver through the pubic symphysis. Sagittal and coronal reformatted images were obtained on the technologist's workstation. This CT examination was performed using dose optimization techniques as appropriate, variously including the following: *Automated exposure control *Adjustment of mA and/or kV according to patient size (this includes techniques or standardized protocols for targeted exams where dose is matched to indication/reason for exam; i.e. extremities or head) *Use of iterative reconstruction technique DLP: 618 mGy-cm FINDINGS: The lack of intravenous contrast limits evaluation of the solid visceral organs including the liver, spleen, pancreas, and kidneys. LUNG BASES: No focal consolidation or pleural effusion. LIVER, GALLBLADDER, AND BILIARY TREE: The liver is normal in size, shape, and attenuation. No focal hepatic lesion or biliary ductal dilatation is present. The gallbladder is unremarkable with no evidence of radiopaque gallstones, gallbladder wall thickening, or obvious pericholecystic inflammatory changes. PANCREAS: Unchanged diffuse parenchymal atrophy. SPLEEN: Unremarkable. ADRENAL GLANDS: Unremarkable. KIDNEYS AND URETERS: The kidneys are normal in size, shape, and attenuation. No hydronephrosis, hydroureter, or calculi seen. No perinephric stranding. BLADDER: Decompressed limiting evaluation. GASTROINTESTINAL TRACT: Decreased but persistent wall thickening and inflammatory changes centered around multiple diverticuli of the sigmoid colon. Redemonstration of densities filling several of the diverticuli, largest measuring up to 3.2 cm (3:66) that are suggestive of inspissated contrast or other ingested debris. The stomach and the small bowel are nondilated. Normal appendix. ABDOMINAL WALL: No significant hernia is appreciated. LYMPH NODES: No lymphadenopathy. VASCULAR: Severe atherosclerotic disease. PELVIC VISCERA: Unchanged calcific density in the lower uterus, suggestive of calcified uterine fibroid. Tubal ligation clips and several pelvic phleboliths are redemonstrated. OSSEOUS STRUCTURES: No acute or aggressive appearing osseous findings. CT/CT abdomen pelvis wo IV con IMPRESSION: Findings consistent with decreased but persistent acute diverticulitis involving the sigmoid colon. Out of precaution, if the patient is due, correlation with outpatient colonoscopy is recommended when clinically appropriate. Electronically signed by: Mallory Ibrahim MD 02/25/2024 07:19 PM EDT RP
--- NOTE | 2024-02-25 11:27 | ED.RECABL ---
HPI - Recheck/Abnormal Lab/Rx General Chief Complaint: Recheck/Abnormal Lab/Rx Stated Complaint: Abnormal labs, sent by Time Seen by Provider: 02/25/24 17:20 Source: patient Mode of arrival: ambulatory Limitations: no limitations History of Present Illness ED Provider: Mile CARDENAS HPI narrative: This is a 63-year-old female history of diverticulitis recently treated with p.o. Levaquin on 02/23/2024, Graves's esophagus, heart palpitations, based of ductal carcinoma of the left breast, GERD, fibromyalgia presenting to the emergency department with continued nausea, vomiting and lower abdominal pain worse to the left lower quadrant. Patient reports yesterday he received a call that her blood cultures were positive initially was she was not going to come in however decided to come in due to worsening pain. Patient is having decreased p.o. intake secondary to pain. Denies fevers, chills, diarrhea, headache, vision changes, dizziness and weakness. Related Data Home Medications ?Medication ?Instructions ?Recorded ?Confirmed aspirin 81 mg tablet,delayed 81 mg PO DAILY 02/10/20 02/18/24 release (Adult Low Dose Aspirin) diclofenac potassium 50 mg tablet 50 mg PO TID PRN pain 05/17/20 02/18/24 cholecalciferol (vitamin D3) 50 1 cap PO DAILY 02/15/21 02/18/24 mcg (2,000 unit) capsule amlodipine 2.5 mg tablet 2.5 mg PO DAILY 10/29/22 02/18/24 docusate sodium 100 mg capsule 100 mg PO BID 10/29/22 02/18/24 zolpidem 10 mg tablet 10 mg PO BEDTIME PRN Sleep 10/29/22 02/18/24 oxycodone-acetaminophen 5 mg-325 325 tab PO DAILY 06/26/23 02/18/24 mg tablet nitrofurantoin 1 cap PO BID 01/23/24 02/18/24 monohydrate/macrocrystals 100 mg capsule Previous Rx's ?Medication ?Instructions ?Recorded walker #1 ea 11/03/21 multivit with min-folic 1 tab PO DAILY #90 tabs 02/12/22 acid-lutein 0.4 mg-250 mcg tablet (Essential Woman 50 Plus) ondansetron 4 mg disintegrating 4 mg PO Q8H PRN nausea and 01/31/23 tablet vomiting #10 tabs mirtazapine 15 mg tablet 15 mg PO BEDTIME 30 days #30 tabs 03/15/23 famotidine 40 mg tablet 40 mg PO DAILY #90 tabs 05/31/23 levofloxacin 750 mg tablet 750 mg PO DAILY #7 tabs 01/16/24 sodium,potassium,mag sulfates 17.5 See Rx Instructions PO .COMPLEX 01/23/24 gram-3.13 gram-1.6 gram oral soln #354 mL (Suprep Bowel Prep Kit) exemestane 25 mg tablet (Aromasin) 25 mg PO DAILY #90 tabs 02/07/24 lorazepam 0.5 mg tablet 0.5 mg PO BEDTIME PRN Breakthrough 02/07/24 Pain, Moderate #14 tabs celecoxib 200 mg capsule (Celebrex) 200 mg PO BID 30 days #60 caps 02/18/24 levofloxacin 750 mg tablet 750 mg PO DAILY #7 tabs 02/23/24 ondansetron 4 mg disintegrating 4 mg PO Q8H PRN nausea and 02/23/24 tablet vomiting #7 tabs Allergies Allergy/AdvReac Type Severity Reaction Status Date / Time Penicillins [PENICILLINS] Allergy Severe SWELLING/VO Verified 02/25/24 11:33 MITING Iodinated Contrast Media Allergy Intermediate eye/facial Verified 02/25/24 11:33 [IV Contrast Dye] swelling metronidazole [Flagyl] Allergy Intermediate Palpitation Verified 02/25/24 11:33 s paroxetine AdvReac Intermediate diarrhea Verified 02/25/24 11:33 Review of Systems Review of Systems: Yes all other systems are reviewed and are negative PMFSH Past Medical History Attestation statement: The following information was validated with the patient. Source: old records reviewed and nursing notes reviewed Medical History Graves esophagus Allergies Foot fracture, right Closed left ankle fracture Infiltrating ductal carcinoma of left breast Overweight (BMI 25.0-29.9) GERD without esophagitis Rib pain on right side Insomnia Fibromyalgia Diverticulitis Chronic back pain GERD (gastroesophageal reflux disease) Surgical History History of lumpectomy of left breast History of left breast biopsy (~01/08/20) History of local excision of skin lesion (~03/2018) History of right breast biopsy (~2012) History of cystoscopy History of gastric surgery History of section History of esophagogastroduodenoscopy (EGD) (~02/2013) History of colonoscopy Family History Family History Mother History of hypertension History of pancreatic cancer History of diabetes mellitus Father History of hypertension History of diabetes mellitus Colon cancer Sister History of hypertension Maternal Grandmother History of lung cancer Social History Social History Household Members: None Housing: House Are you a primary critical care nurse to a significant other at home: No Do you presently have 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 or other home services: Yes (psychiatric social worker supervisor) Alcohol intake: never Patient Tobacco Use Status: Never used Tobacco Second Hand Smoke Exposure: No Advance Directives: No service: No Current occupational status: disabled 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 Oriented X3.? No acute distress.? Head: Normocephalic, atraumatic, no step-offs or deformities Eyes: Pupils equal, round and reactive to light.? Neck: Normal inspection.? Neck supple.? CVS: Normal heart rate and rhythm.? Pulses normal.? Respiratory: No respiratory distress.? Breath sounds normal.? Abdomen: Soft and + LLQ ttp on exam. Normoactive BS .? Skin: Skin warm and dry.? Normal skin color.? Normal skin turgor.? Extremities: No lower extremity edema.? No calf ttp. 5/5 strength to bilateral upper and lower extremities Back: No midline tenderness, no C-spine tenderness, full range of motion, no CVA tenderness bilaterally Neuro: Oriented X 3.? No motor deficit.? No sensory deficit. CN 2-12 intact Course Course Course Narrative: This is an RME: Additional HPI, ROS, PE not included below will be deferred to primary provider. RME assessment and note performed by: Cally Cervantes PA-C This is a 63-year-old female, with a recent ER visit for diverticulitis, who presents emergency department after being called for positive blood cultures. Per notes, patient was called yesterday morning due to two positive gram negative blood cultures. She still continues to have abdominal pain. Endorsing nausea and vomiting as well as subjective fevers Plan: Repeat labs Reevaluation(s) Reevaluation #1: CBC no acute pending is needing intervention. Chemistry with a potassium of 3.1 likely low sign here to nausea and vomiting, will replete with oral potassium of able to tolerate. Remainder of chemistry unremarkable. Lactic acid normal. Blood cultures pending. At this time will give patient levofloxacin. Time: 17:29 Reevaluation #2: Patient agreeable to plan. Plan- admission. Time: 17:36 Medical Decision Making Medical Decision Making [facility] Narrative: 63-year-old female presents with lower abdominal discomfort to the left lower quadrant that has been worsening despite p.o. antibiotics with Levaquin associated with nausea and vomiting. Physical exam left lower quadrant tenderness on exam History and physical exam concerning for acute diverticulitis possibly worsening will rule out abscess formation. Less likely acute abdomen. Will rule out metabolic derangements possible due to nausea vomiting. No signs of systemic toxicity. Upon chart review it does appear as though patient had 2 sets of positive blood cultures with Gram-negative rods on 02/23/2024. Plan labs, imaging as patient's symptoms have been worsening, urine. Differential Diagnosis Differential Diagnoses: The differential diagnosis associated with the presentation includes Upon chart review it does appear as though patient had 2 sets of positive blood cultures with Gram-negative rods on 02/23/2024. Admission/Observation Consideration of admission/observation: Escalation of care including admission/observation considered Possible Lab Data [facility] Lab Attestation statement: I reviewed the patient's lab results. 02/25/24 12:55 02/25/24 12:55 Labs: Lab Results 02/25/24 Range/Units 12:55 WBC 6.5 (4.8-10.8) X10*3/uL RBC 4.69 (4.20-5.50) X10*6/uL Hgb 13.8 (12.0-16.0) g/dl Hct 39.8 (37.0-47.0) % MCV 84.9 (80.0-98.0) fL MCH 29.4 (27.0-33.0) pg MCHC 34.7 (31.0-35.0) g/dl RDW 13.2 (11.0-16.0) % Plt Count 261 D (160-400) X10*3/uL MPV 9.3 L (9.4-12.3) fL Immature Gran % (Auto) 0.6 H (0.0-0.4) % Neut % (Auto) 82.4 H (45-73) % Lymph % (Auto) 10.2 L (20-40) % [place] % (Auto) 6.3 (2-11) % Eos % (Auto) 0.0 (0-4) % Baso % (Auto) 0.5 (0-2) % Lymph # (Auto) 0.7 L (1.2-4.9) X10*3/uL [place] # (Auto) 0.4 (0.1-1.2) X10*3/uL Eos # (Auto) 0.0 (0.0-0.4) X10*3/uL Baso # (Auto) 0.0 (0.0-0.2) X10*3/uL Abs Immat Gran (auto) 0.04 H (0.00-0.03) X10*3/uL Absolute Neuts (auto) 5.4 (2.0-8.3) x10*3/uL Absolute Nucleated RBC 0.000 (0.0-0.012) X10*3/uL Nucleated RBC % (auto) 0.0 (0.0-0.2) /100WBC Sodium 138 (135-145) mmol/L Potassium 3.1 L D (3.3-5.1) mmol/L Chloride 104 (96-108) mmol/L Carbon Dioxide 25 (22-29) mmol/L Anion Gap 12 (12-20) BUN 16 (9-16) mg/dL Creatinine 0.87 (0.5-1.4) mg/dL Estim Creat Clear Calc 58.0 Estimated GFR > 60 Random Glucose 142 H (60-115) mg/dL Lactic Acid 1.0 (0.5-2.0) mmol/L Calcium 10.0 (8.4-10.2) mg/dL Total Bilirubin 0.6 (0.0-1.0) mg/dL Direct Bilirubin 0.3 (0.0-0.5) mg/dL AST 37 H (5-31) U/L ALT 29 (0-31) U/L Alkaline Phosphatase 99 (39-117) U/L Total Protein 7.5 (6.5-8.0) g/dL Albumin 4.1 (3.5-5.0) g/dL Lipase 15 (8-78) U/L Urine Color Dark Yellow Urine Appearance Clear Urine pH 5.5 (5.0-9.0) Ur Specific [place] >= 1.030 H (1.005-1.025) Urine Protein 30 (1+) H (Neg-Trace) mg/dL Urine Glucose (UA) Negative (Negative) mg/dL Urine Ketones 15 (Negative) mg/dL Urine Blood Moderate (2+) H (Negative) Urine Nitrite Negative (Negative) Ur Leukocyte Esterase Trace H (Negative) Urine RBC 11-20 H (0-2) /HPF Urine WBC 0-5 (0-5) /HPF Ur Squamous Epith Cells 3-5 (0-2) /HPF Urine Bacteria None Seen (None Seen) Hyaline Casts 0-2 (0-2) /LPF Independent Interpretation I performed an independent interpretation of an: CT Scan Radiology Impression Discussion of test interpretation with radiology: I have reviewed the radiologist's reading. External Record Review External record reviewed: Inpatient record, Office record, Outpatient record, Prior outpatient labs, Prior outpatient radiology, Primary care record and Outside ED record Chronic Conditions Patient?s care impacted by: Other (see hpi ) Critical Care Time Critical Care Time Critical Care Time: Yes Total Critical Care Time: 35 Attestation: I attest to this time spent taking care of the patient, obtaining history, physical, reviewing labs, imaging, treatment of patients condition +/- specialist/hospitalist consult Discharge Plan Discharge Clinical Impression: Diverticulitis, Nausea & vomiting, Blood bacterial culture positive Patient Disposition: Admitted As Inpatient Prescriptions: No Action Essential Woman 50 Plus 0.4-250 mg-mcg Tablet 1 tab PO DAILY Qty: 90 6RF mirtazapine 15 mg tablet 15 mg PO BEDTIME 30 Days Qty: 30 0RF Rx Instructions: take half tab for 1 week then full tablet thereafter famotidine 40 mg tablet 40 mg PO DAILY Qty: 90 2RF sodium,potassium,mag sulfates [Suprep Bowel Prep Kit] 17.5-3.13-1.6 gram recon soln See Rx Instructions PO .COMPLEX Qty: 354 0RF Rx Instructions: DILUTE; drink 1/2 at 6-8 pm and half at 11 PM- 1AM lorazepam 0.5 mg Tablet 0.5 mg PO BEDTIME PRN (Reason: Breakthrough Pain, Moderate) Qty: 14 0RF exemestane [Aromasin] 25 mg Tablet 25 mg PO DAILY Qty: 90 3RF Rx Instructions: must administer after a meal cholecalciferol (vitamin D3) 50 mcg (2,000 unit) capsule 1 cap PO DAILY ondansetron 4 mg tablet,disintegrating 4 mg PO Q8H PRN (Reason: nausea and vomiting) Qty: 10 0RF levofloxacin 750 mg tablet 750 mg PO DAILY Qty: 7 0RF levofloxacin 750 mg tablet 750 mg PO DAILY Qty: 7 0RF ondansetron 4 mg tablet,disintegrating 4 mg PO Q8H PRN (Reason: nausea and vomiting) Qty: 7 0RF diclofenac potassium 50 mg tablet 50 mg PO TID PRN (Reason: pain) aspirin [Adult Low Dose Aspirin] 81 mg tablet,delayed release (DR/EC) 81 mg PO DAILY (DME) [place] [facility] [place] See Rx Instructions .MEDSUPPLY Qty: 1 0RF Rx Instructions: Rollator walker with seat and breaks nitrofurantoin monohyd/m-cryst 100 mg capsule 1 cap PO BID amlodipine 2.5 mg tablet 2.5 mg PO DAILY docusate sodium 100 mg capsule 100 mg PO BID zolpidem 10 mg tablet 10 mg PO BEDTIME PRN (Reason: Sleep) oxycodone-acetaminophen 5-325 mg tablet 325 tab PO DAILY celecoxib [Celebrex] 200 mg capsule 200 mg PO BID 30 Days Qty: 60 3RF Print Language: Congolese
[2024-02-25 11:30] VITALS: BP 131/74; PULSE 104; RESP 16; TEMP 37; O2SAT 96; BMI 27.1
[2024-02-25 13:01] LABS: MANUAL DIFF FLAG NO
[2024-02-25 13:03] LABS: Basophils Percent Auto 0.5 % (0-2); Hematocrit 39.8 % (37.0-47.0); Hemoglobin 13.8 g/dl (12.0-16.0); Imm Gran Abs Auto 0.04 X10*3/uL (0.00-0.03); Imm Gran Pct Auto 0.6 % (0.0-0.4); Lymphocytes Absolute Auto 0.7 X10*3/uL (1.2-4.9); Lymphocytes Percent Auto 10.2 % (20-40); Mean Corpuscular HGB Conc 34.7 g/dl (31.0-35.0); Mean Corpuscular Hemoglobin 29.4 pg (27.0-33.0); Mean Corpuscular Volume 84.9 fL (80.0-98.0); Mean Platelet Volume 9.3 fL (9.4-12.3); Monocytes Absolute Auto 0.4 X10*3/uL (0.1-1.2); Monocytes Percent Auto 6.3 % (2-11); Neutrophils Absolute Auto 5.4 x10*3/uL (2.0-8.3); Neutrophils Percent Auto 82.4 % (45-73); Platelet Count 261 X10*3/uL (160-400); Red Blood Count 4.69 X10*6/uL (4.20-5.50); Red Cell Distribution Width 13.2 % (11.0-16.0); White Blood Count 6.5 X10*3/uL (4.8-10.8)
[2024-02-25 13:07] LABS: Appearance Urine Clear; Color Urine Dark Yellow; Glucose Urine UA Negative (Negative); Leukocyte Esterase Urine Trace (Negative); Nitrite Urine Negative (Negative); PH 5.5 (5.0-9.0); Specific Gravity - Urine >= 1.030 (1.005-1.025); UMIC TRIGGER UACC YES; Urine Blood Moderate (2+) (Negative); Urine Ketones 15 mg/dL (Negative); Urine Protein 30 (1+) mg/dL (Neg-Trace)
[2024-02-25 13:19] LABS: Bacteria Urine None Seen (None Seen); Hyaline Casts Urine 0-2 /LPF (0-2); WBC Urine 0-5 /HPF (0-5)
[2024-02-25 13:22] LABS: Alanine Aminotransferase 29 U/L (0-31); Albumin Level 4.1 g/dL (3.5-5.0); Alkaline Phosphatase 99 U/L (39-117); Anion Gap 12 (12-20); Aspartate Amino Transferase 37 U/L (5-31); Bilirubin Direct 0.3 mg/dL (0.0-0.5); Bilirubin Total 0.6 mg/dL (0.0-1.0); Blood Urea Nitrogen 16 mg/dL (9-16); Carbon Dioxide 25 mmol/L (22-29); Chloride 104 mmol/L (96-108); Estimated Glomerular Filt Rate > 60; Glucose Random 142 mg/dL (60-115); Lipase 15 U/L (8-78); Potassium 3.1 mmol/L (3.3-5.1); Sodium 138 mmol/L (135-145); Total Protein 7.5 g/dL (6.5-8.0)
[2024-02-25 16:18] VITALS: BP 147/85; PULSE 98; RESP 18; TEMP 36.7; O2SAT 98
--- NOTE | 2024-02-25 16:19 | PC.NURSE ---
back in to triage. reports feeling worse. VSS.
[2024-02-25] MEDS: levoFLOXacin/D5W 500 MG/100 ML PIGGYBACK 100 MG IV (18:01)
--- NOTE | 2024-02-25 18:18 | P.HPHOSP_ITS ---
History of Present Illness Date of Service: 02/25/24 Attending physician on admission: Ralph Bravo Chief Complaint: abd pain 63-year-old female history of diverticulitis recently started with p.o. Levaquin on 02/23/2024, Graves's esophagus, heart palpitations, based of ductal carcinoma of the left breast(s/p lumpectomy and radiation, she is on chemo), GERD, fibromyalgia came to ED for nausea, vomiting and lower abdominal pain worse to the left lower quadrant, also her her blood cultures were positive initially was she was not going to come in however decided to come in due to decreased p.o. intake secondary to pain, nausea /vomiting and abd pain similar. Denies fevers, chills, diarrhea, headache, vision changes, dizziness and weakness. Lab imaging reviewed: CBC seems fine BMP: Mild hypokalemia, mild elevated AST CT abdomen 02/22:ongoing/recurrent acute diverticulitis involving the mid sigmoid colon ct abd from today -pending Review of Systems 2 Review of Systems: Yes all other systems are reviewed and are negative [facility] Medical History Graves esophagus Allergies Foot fracture, right Closed left ankle fracture Infiltrating ductal carcinoma of left breast Overweight (BMI 25.0-29.9) GERD without esophagitis Rib pain on right side Insomnia Fibromyalgia Diverticulitis Chronic back pain GERD (gastroesophageal reflux disease) Family History Mother History of hypertension History of pancreatic cancer History of diabetes mellitus Father History of hypertension History of diabetes mellitus Colon cancer Sister History of hypertension Maternal Grandmother History of lung cancer Surgical History History of lumpectomy of left breast History of left breast biopsy (~01/08/20) History of local excision of skin lesion (~03/2018) History of right breast biopsy (~2012) History of cystoscopy History of gastric surgery History of section History of esophagogastroduodenoscopy (EGD) (~02/2013) History of colonoscopy Social History Household Members: None Housing: House Are you a primary customer care associate to a significant other at home: No Do you presently have 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 or other home services: Yes (circuit walker) Alcohol intake: never Patient Tobacco Use Status: Never used Tobacco Second Hand Smoke Exposure: No Advance Directives: No service: No Current occupational status: disabled 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 Meds Allergies Allergy/AdvReac Type Severity Reaction Status Date / Time Penicillins [PENICILLINS] Allergy Severe SWELLING/VO Verified 02/25/24 11:33 MITING Iodinated Contrast Media Allergy Intermediate eye/facial Verified 02/25/24 11:33 [IV Contrast Dye] swelling metronidazole [Flagyl] Allergy Intermediate Palpitation Verified 02/25/24 11:33 s paroxetine AdvReac Intermediate diarrhea Verified 02/25/24 11:33 Active Medications: Current Medications Acetaminophen (Acetaminophen 325 Mg Tablet) 650 mg PO Q6H PRN PRN Reason: Pain, Mild (Pain Scale 1-3), fever or headache Calcium Carbonate (Calcium Carbonate 750 Mg Tab.Chew) 750 mg PO Q4H PRN PRN Reason: Heartburn Levofloxacin (Levaquin) 500 mg in 100 mls @ 100 mls/hr IV ONCE ONE Stop: 02/25/24 18:27 Last Admin: 02/25/24 18:01 Dose: 100 mls/hr Lactated Ringer's (Lr) 1,000 mls @ 100 mls/hr IVCONT .Q10H AIDAN Levofloxacin (Levaquin) 750 mg in 150 mls @ 100 mls/hr IV Q24H AIDAN Magnesium Hydroxide (Milk Of Magnesia 30 Ml Oral.Susp) 30 ml PO DAILY PRN PRN Reason: Constipation Melatonin (Melatonin 3 Mg Tablet) 6 mg PO BEDTIME PRN PRN Reason: Insomnia Sodium Chloride (0.9 % Sodium Chloride Flush 3 Ml Syringe) 3 ml IVFLUSH QSHIFT AIDAN Home Medications ?Medication ?Instructions ?Recorded ?Confirmed ?Last Taken ?Type aspirin 81 mg tablet,delayed 81 mg PO DAILY 02/10/20 02/18/24 Unknown History release (Adult Low Dose Aspirin) diclofenac potassium 50 mg tablet 50 mg PO TID PRN pain 05/17/20 02/18/24 Unknown History cholecalciferol (vitamin D3) 50 1 cap PO DAILY 02/15/21 02/18/24 Unknown History mcg (2,000 unit) capsule amlodipine 2.5 mg tablet 2.5 mg PO DAILY 10/29/22 02/18/24 Unknown History docusate sodium 100 mg capsule 100 mg PO BID 10/29/22 02/18/24 Unknown History zolpidem 10 mg tablet 10 mg PO BEDTIME PRN Sleep 10/29/22 02/18/24 Unknown History oxycodone-acetaminophen 5 mg-325 325 tab PO DAILY 06/26/23 02/18/24 Unknown History mg tablet nitrofurantoin 1 cap PO BID 01/23/24 02/18/24 Unknown History monohydrate/macrocrystals 100 mg capsule Physical Exam 2 Vital Signs and Narrative: Vital Signs: Last Vital Signs Temp 98.1 F 02/25/24 16:18 Pulse 98 02/25/24 16:18 Resp 18 02/25/24 16:18 BP 147/85 H 02/25/24 16:18 Pulse Ox 98 02/25/24 16:18 O2 Del Method Room Air 02/25/24 16:18 BMI result Body Mass Index 27.1 Appearance: Alert.? Oriented X3.? cvs: rrr, [id number] , no murmur res: clear to auscultation ,no rhonchii or wheezing abd: no rebound or guarding ,abd tender llq , bs present. ext pulses present , no cyanosis . neuro: axo3 , nonfocal. Results Labs 02/25/24 12:55 02/25/24 12:55 Labs: Laboratory Results - last 24 hr 02/25/24 12:55 MCV 84.9 MCH 29.4 MCHC 34.7 RDW 13.2 Plt Count 261 D MPV 9.3 L Immature Gran % (Auto) 0.6 H Neut % (Auto) 82.4 H Lymph % (Auto) 10.2 L [place] % (Auto) 6.3 Eos % (Auto) 0.0 Baso % (Auto) 0.5 Lymph # (Auto) 0.7 L [place] # (Auto) 0.4 Eos # (Auto) 0.0 Baso # (Auto) 0.0 Abs Immat Gran (auto) 0.04 H Absolute Neuts (auto) 5.4 Absolute Nucleated RBC 0.000 Nucleated RBC % (auto) 0.0 Anion Gap 12 Estim Creat Clear Calc 58.0 Estimated GFR > 60 Random Glucose 142 H Lactic Acid 1.0 Calcium 10.0 Total Bilirubin 0.6 Direct Bilirubin 0.3 AST 37 H ALT 29 Alkaline Phosphatase 99 Total Protein 7.5 Albumin 4.1 Lipase 15 Urine Color Dark Yellow Urine Appearance Clear Urine pH 5.5 Ur Specific [place] >= 1.030 H Urine Protein 30 (1+) H Urine Glucose (UA) Negative Urine Ketones 15 Urine Blood Moderate (2+) H Urine Nitrite Negative Ur Leukocyte Esterase Trace H Urine RBC 11-20 H Urine WBC 0-5 Ur Squamous Epith Cells 3-5 Urine Bacteria None Seen Hyaline Casts 0-2 Assessment and Plan (1) Blood bacterial culture positive: Status: Acute (2) Nausea & vomiting: Status: Acute Plan 63-year-old female history of diverticulitis recently started with p.o. Levaquin on 02/23/2024, Graves's esophagus, heart palpitations, based of ductal carcinoma of the left breast(s/p lumpectomy and radiation, she is on chemo), GERD, fibromyalgia -came to the hospital because of recurrent diverticulitis episode, bacteremia. Recurrent acute diverticulitis episode, bacteremia. has gram neg bacteremia, repeat blood culture pending repeat ct abd pending Normal WBC count, mild tachycardia, lactic acid normal, no sepsis at present. Continue IV antibiotics(due to persistent nausea vomiting unable to take p.o., Zofran, IV pain medication. Hypokalemia: Repleted Monitor electrolytes closely ductal carcinoma of the left breast(s/p lumpectomy and radiation, she is on chemo) home med reconcillation pending dvt prophylax:s/c lovenox. Patient will benefit from 2 midnight stays since patient has Gram-negative bacteremia and recurrent diverticulitis-need IV antibiotics, blood cultures and recurrent diverticulitis might need GI expert evaluation. Above management discussed with the patient detail length she understand and in agreement with the above plan, time spent 70 minute. Patient full code. Quality Stroke Does the patient have a stroke diagnosis?: No VTE Prior VTE?: No VTE Risk Level:: Medical - moderate - high VTE Device Contraindication: N/A - Device Ordered VTE Drug Contraindication: N/A - Med Ordered
--- NOTE | 2024-02-25 18:49 | PHA.MEDREC ---
Addendum entered by Cathy Gong RPh 02/25/24 19:18: Reviewed by [facility] Original Note: Pharmacy Consult ? Medication Reconciliation Pharmacy has completed the medication reconciliation. Confirmed medications with patient. She confirmed she is taking Amlodipine 2.5mg tabs and states her Dr tried upping the dose to 5mg recently but states she did not do good on the 5mg and went back down to 2.5mg tabs. She confirmed she has Celecoxib 200mg tabs at home but states she hasn't started them yet. She confirmed she is taking Exemestane 25mg tabs daily and she states she took it this morning. She confirmed she is done with her antibiotic regimens (Levofloxacin, Nitrofurantoin). She also confirmed she is taking an Omeprazole 40mg tab once daily in the morning and states she is filling it at [facility] on [address] in [place]. I called to confirm that and they state they do not have a script on file for that from the last year and a half. She also confirmed she is taking a Magnesium Oxide 300mg tab once daily and she gets it OTC along with a Women Multivitamin gummy she takes once daily. She states she took her medications around 3-4 pm today.
[2024-02-25] MEDS: Lactated Ringers 1,000 ML 100 ML IVCONT (19:05)
[2024-02-25 20:07] VITALS: BP 160/87; PULSE 93; RESP 18; TEMP 36.9; O2SAT 98
[2024-02-25 20:25] VITALS: BMI 27.1
[2024-02-25] MEDS: 0.9 % Sodium Chloride Flush 3 ML SYRINGE IVFLUSH (20:42)
[2024-02-25] MEDS: Morphine Sulfate 2 MG/ML CARTRIDGE 1 MG IVPUSH (23:40)
[2024-02-26 03:56] VITALS: BP 142/67; PULSE 70; RESP 18; TEMP 37.2; O2SAT 96
[2024-02-26] MEDS: Lactated Ringers 1,000 ML 100 ML IVCONT ×2 (04:41→13:40)
[2024-02-26 07:26] VITALS: BP 141/73; PULSE 79; RESP 16; TEMP 36.9; O2SAT 98
[2024-02-26] MEDS: oxyCODONE HCl Immed Release 5 MG TABLET PO (09:23)
[2024-02-26] MEDS: LORazepam 0.5 MG TABLET PO (09:23)
[2024-02-26] MEDS: Aspirin Enteric Coated 81 MG TABLET.DR PO (09:23)
[2024-02-26] MEDS: Omeprazole 40 MG CAPSULE.DR PO (09:23)
[2024-02-26] MEDS: Multivitamin TABLET 1 TAB PO (09:23)
[2024-02-26] MEDS: Magnesium Oxide 400 MG TABLET PO (09:23)
[2024-02-26] MEDS: Cholecalciferol (Vitamin D3) 25 MCG TABLET 50 MCG PO (09:24)
[2024-02-26] MEDS: amLODIPine Besylate 2.5 MG TABLET PO (09:24)
--- NOTE | 2024-02-26 14:23 | MHC.CM.PN ---
IMM DELIVERED. PATIENT LIVES IN APARTMENT ALONE. 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 AMBULATES W/ WALKER, SOMETIMES USES CANE OR SCOOTER. PCP SARAH BACH MD COMPLETED HCP NAMING [facility]: 1) DAUGHTER TRISHA AND 2) NELLIE. DP: GOAL IS HOME, RESUME [employer] SERVICES, DAUGHTER TO TRANSPORT. PER MD WILL NOT NEED IV ABX ON DC.
--- NOTE | 2024-02-26 15:14 | P.PNIM_ITS ---
Subjective Subjective Date of Service: 02/26/24 Interval History: LLq pain Review of Systems pain somewhat improving no fevers wants to try liquid diet Physical Exam 2 Vital Signs: Vital Signs: Last Vital Signs Temp 98.4 F 02/26/24 07:26 Pulse 79 02/26/24 07:26 Resp 16 02/26/24 07:26 BP 141/73 H 02/26/24 07:26 Pulse Ox 98 02/26/24 07:26 O2 Del Method Room Air 02/26/24 07:26 BMI result Body Mass Index 27.1 Appearance: Alert.? Oriented X3.? cvs: rrr, [id number] , no murmur res: clear to auscultation ,no rhonchii or wheezing abd: no rebound or guarding ,abd tender llq , bs present. ext pulses present , no cyanosis . neuro: axo3 , nonfocal. Objective Data Active Medications Acetaminophen (Acetaminophen 325 Mg Tablet) 650 mg PO Q6H PRN PRN Reason: Pain, Mild (Pain Scale 1-3), fever or headache Amlodipine Besylate (Amlodipine Besylate 2.5 Mg Tablet) 2.5 mg PO DAILY [facility]; Protocol Last Admin: 02/26/24 09:24 Dose: 2.5 mg Documented By: LEXIE Aspirin (Aspirin Enteric Coated 81 Mg Tablet.) 81 mg PO DAILY [facility] Last Admin: 02/26/24 09:23 Dose: 81 mg Documented By: LEXIE Calcium Carbonate (Calcium Carbonate 750 Mg Tab.Chew) 750 mg PO Q4H PRN PRN Reason: Heartburn Enoxaparin Sodium (Enoxaparin Sodium 40 Mg/0.4 Ml Syringe) 40 mg SUBCUT DAILY [facility] Last Admin: 02/26/24 09:25 Dose: Not Given Documented By: LEXIE Non-Admin Reason: Patient Refused Lactated Ringer's (Lr) 1,000 mls @ 100 mls/hr IVCONT .Q10H [facility] Last Admin: 02/26/24 13:40 Dose: 100 mls/hr Documented By: LEXIE Levofloxacin (Levaquin) 750 mg in 150 mls @ 100 mls/hr IV Q24H [facility] Lorazepam (Lorazepam 0.5 Mg Tablet) 0.5 mg PO BEDTIME PRN PRN Reason: Breakthrough Pain, Moderate Last Admin: 02/26/24 09:23 Dose: 0.5 mg Documented By: LEXIE Magnesium Hydroxide (Milk Of Magnesia 30 Ml Oral.Susp) 30 ml PO DAILY PRN PRN Reason: Constipation Magnesium Oxide (Magnesium Oxide 400 Mg Tablet) 400 mg PO DAILY [facility] Last Admin: 02/26/24 09:23 Dose: 400 mg Documented By: LEXIE Melatonin (Melatonin 3 Mg Tablet) 6 mg PO BEDTIME PRN PRN Reason: Insomnia Morphine Sulfate (Morphine Sulfate 2 Mg/Ml Cartridge) 1 mg IVPUSH Q4H PRN; Protocol PRN Reason: Pain, Moderate(Pain Scale 4-6) Last Admin: 02/25/24 23:40 Dose: 1 mg Documented By: KODY Multivitamins/Vitamin C (Multivitamin Tablet) 1 tab PO DAILY [facility] Last Admin: 02/26/24 09:23 Dose: 1 tab Documented By: LEXIE Non-Formulary Medication (Exemestane [Aromasin]) 25 mg PO DAILY [facility] Omeprazole (Omeprazole 40 Mg Capsule.Dr) 40 mg PO DAILY [facility] Last Admin: 02/26/24 09:23 Dose: 40 mg Documented By: LEXIE Ondansetron HCl (Ondansetron Hcl 4 Mg/2 Ml Vial) 4 mg IVPUSH Q6H PRN PRN Reason: Nausea and Vomiting Oxycodone HCl (Oxycodone Hcl Immed Release 5 Mg Tablet) 5 mg PO DAILY PRN PRN Reason: Pain, Moderate Last Admin: 02/26/24 09:23 Dose: 5 mg Documented By: LEXIE Sodium Chloride (0.9 % Sodium Chloride Flush 3 Ml Syringe) 3 ml IVFLUSH QSHIFT [facility] Last Admin: 02/26/24 09:24 Dose: Not Given Documented By: LEXIE Non-Admin Reason: IV Running Vitamin D (Cholecalciferol (Vitamin D3) 25 Mcg Tablet) 50 mcg PO DAILY [facility] Last Admin: 02/26/24 09:24 Dose: 50 mcg Documented By: LEXIE Zolpidem Tartrate (Zolpidem Tartrate 5 Mg Tablet) 10 mg PO BEDTIME PRN PRN Reason: Sleep Labs 02/25/24 12:55 02/25/24 12:55 Microbiology Microbiology Results: Microbiology 02/25/24 12:55 Blood Culture - Preliminary Blood - Venous No growth after 24 hours. 02/25/24 12:55 Blood Culture - Preliminary Blood - Venous No growth after 24 hours. Assessment and Plan (1) Blood bacterial culture positive: Status: Acute (2) Nausea & vomiting: Status: Acute Assessment and Plan: 63-year-old female history of diverticulitis recently started with p.o. Levaquin on 02/23/2024, Graves's esophagus, heart palpitations, based of ductal carcinoma of the left breast(s/p lumpectomy and radiation, she is on chemo), GERD, fibromyalgia -came to the hospital because of recurrent diverticulitis episode, bacteremia. Recurrent acute diverticulitis episode, bacteremia. has gram neg bacteremia, repeat blood culture pending repeat ct abd -persistent acute diverticulitis involving the sigmoid colon Normal WBC count, tachycardia resolved, lactic acid normal, no sepsis at present. blood culture ecoli-senstive to cefzolin/ceftriaxone /genta /bactrim -not senstive to levaquin Continue IV antibiotics(switch from levaquin to ), Zofran, IV pain medication. Hypokalemia: Repleted, will check potassium levels Monitor electrolytes closely ductal carcinoma of the left breast(s/p lumpectomy and radiation, she is on chemo) htn -bp flactuating continue amlodipine. dvt prophylax:s/c lovenox. ongoing hospitlisation need:Gram-negative bacteremia and recurrent diverticulitis-need IV antibiotics, blood cultures pending ,id eval Quality Stroke Does the patient have a stroke diagnosis?: No VTE Prior VTE?: No VTE Risk Level:: Medical - moderate - high VTE Device Contraindication: N/A - Device Ordered VTE Drug Contraindication: N/A - Med Ordered
[2024-02-26 15:15] VITALS: BP 157/76; PULSE 69; RESP 16; TEMP 36.3; O2SAT 95
[2024-02-26 16:30] LABS: Potassium 3.8 mmol/L (3.3-5.1)
[2024-02-26] MEDS: diphenhydrAMINE HCL 25 MG CAPSULE PO (16:44)
[2024-02-26] MEDS: 0.9 % Sodium Chloride Flush 3 ML SYRINGE IVFLUSH ×2 (16:45→20:14)
[2024-02-26] MEDS: cefTRIAXone sodium 1 GM VIAL IVPUSH (16:45)
[2024-02-26 19:23] VITALS: BP 113/68; PULSE 66; RESP 18; TEMP 36.7; O2SAT 97
[2024-02-27 04:00] VITALS: BP 139/73; PULSE 82; RESP 14; TEMP 36.4; O2SAT 95
[2024-02-27 08:00] VITALS: BP 176/79; PULSE 70; RESP 16; TEMP 36.2; O2SAT 99
[2024-02-27] MEDS: Magnesium Oxide 400 MG TABLET PO (09:02)
[2024-02-27] MEDS: Aspirin Enteric Coated 81 MG TABLET.DR PO (09:02)
[2024-02-27] MEDS: Multivitamin TABLET 1 TAB PO (09:02)
[2024-02-27] MEDS: amLODIPine Besylate 2.5 MG TABLET PO (09:02)
[2024-02-27] MEDS: Omeprazole 40 MG CAPSULE.DR PO (09:02)
[2024-02-27] MEDS: Cholecalciferol (Vitamin D3) 25 MCG TABLET 50 MCG PO (09:02)
[2024-02-27] MEDS: 0.9 % Sodium Chloride Flush 3 ML SYRINGE IVFLUSH ×3 (09:03→20:01)
[2024-02-27] MEDS: LORazepam 0.5 MG TABLET PO (09:47)
[2024-02-27] MEDS: cefuroxime axetiL 500 MG TABLET PO (09:47)
[2024-02-27] MEDS: ondansetron HCL 4 MG/2 ML VIAL IVPUSH (10:39)
--- NOTE | 2024-02-27 10:52 | MHC.CM.PN ---
Addendum entered by Nathalia Lux RN 02/27/24 10:58: Patient vomiting w/ PO. Per MD dc on hold. Will reassess later today. Original Note: Per MD rounds patient medically cleared for dc home. Will resume APARTMENT COORDINATOR services. is at bedside to transport home. RN aware.
--- NOTE | 2024-02-27 13:57 | HO.PM.IMPN ---
Subjective Subjective Date of Service: 02/27/24 Interval History: abd pain improivng tried po antibiotics could not tolerate ,vomited . Review of Systems as above. Review of Systems: Yes all other systems are reviewed and are negative Physical Exam Vital Signs: Vital Signs: Last Vital Signs Temp 97.1 F 02/27/24 08:00 Pulse 70 02/27/24 08:00 Resp 16 02/27/24 08:00 BP 176/79 H 02/27/24 08:00 Pulse Ox 99 02/27/24 08:00 O2 Del Method Room Air 02/27/24 08:00 BMI result Body Mass Index 27.1 Appearance: Alert.? Oriented X3.? cvs: rrr, [id number]. res: clear to auscultation ,no rhonchii or wheezing abd: no rebound or guarding ,abd tender llq , bs present. ext pulses present , no cyanosis . neuro: axo3 , nonfocal. Objective Data Active Medications Acetaminophen (Acetaminophen 325 Mg Tablet) 650 mg PO Q6H PRN PRN Reason: Pain, Mild (Pain Scale 1-3), fever or headache Amlodipine Besylate (Amlodipine Besylate 2.5 Mg Tablet) 2.5 mg PO DAILY [facility]; Protocol Last Admin: 02/27/24 09:02 Dose: 2.5 mg Documented By: JACLYN Aspirin (Aspirin Enteric Coated 81 Mg Tablet.Dr) 81 mg PO DAILY [facility] Last Admin: 02/27/24 09:02 Dose: 81 mg Documented By: JACLYN Calcium Carbonate (Calcium Carbonate 750 Mg Tab.Chew) 750 mg PO Q4H PRN PRN Reason: Heartburn Ceftriaxone Sodium (Ceftriaxone Sodium 1 Gm Vial) 1 gm IVPUSH Q24H [facility] Diphenhydramine HCl (Diphenhydramine Hcl 25 Mg Capsule) 25 mg PO DAILY PRN PRN Reason: Allergic Symptoms Enoxaparin Sodium (Enoxaparin Sodium 40 Mg/0.4 Ml Syringe) 40 mg SUBCUT DAILY [facility] Last Admin: 02/27/24 09:03 Dose: Not Given Documented By: JACLYN Non-Admin Reason: Patient Refused Lorazepam (Lorazepam 0.5 Mg Tablet) 0.5 mg PO BEDTIME PRN PRN Reason: Breakthrough Pain, Moderate Last Admin: 02/26/24 09:23 Dose: 0.5 mg Documented By: LEXIE Magnesium Hydroxide (Milk Of Magnesia 30 Ml Oral.Susp) 30 ml PO DAILY PRN PRN Reason: Constipation Magnesium Oxide (Magnesium Oxide 400 Mg Tablet) 400 mg PO DAILY [facility] Last Admin: 02/27/24 09:02 Dose: 400 mg Documented By: JACLYN Melatonin (Melatonin 3 Mg Tablet) 6 mg PO BEDTIME PRN PRN Reason: Insomnia Morphine Sulfate (Morphine Sulfate 2 Mg/Ml Cartridge) 1 mg IVPUSH Q4H PRN; Protocol PRN Reason: Pain, Moderate(Pain Scale 4-6) Last Admin: 02/25/24 23:40 Dose: 1 mg Documented By: KODY Multivitamins/Vitamin C (Multivitamin Tablet) 1 tab PO DAILY [facility] Last Admin: 02/27/24 09:02 Dose: 1 tab Documented By: JACLYN Non-Formulary Medication (Exemestane [Aromasin]) 25 mg PO DAILY [facility] Omeprazole (Omeprazole 40 Mg Capsule.Dr) 40 mg PO DAILY [facility] Last Admin: 02/27/24 09:02 Dose: 40 mg Documented By: JACLYN Ondansetron HCl (Ondansetron Hcl 4 Mg/2 Ml Vial) 4 mg IVPUSH Q6H PRN PRN Reason: Nausea and Vomiting Last Admin: 02/27/24 10:39 Dose: 4 mg Documented By: JACLYN Oxycodone HCl (Oxycodone Hcl Immed Release 5 Mg Tablet) 5 mg PO DAILY PRN PRN Reason: Pain, Moderate Last Admin: 02/26/24 09:23 Dose: 5 mg Documented By: LEXIE Sodium Chloride (0.9 % Sodium Chloride Flush 3 Ml Syringe) 3 ml IVFLUSH QSHIFT [facility] Last Admin: 02/27/24 09:03 Dose: 3 ml Documented By: JACLYN Vitamin D (Cholecalciferol (Vitamin D3) 25 Mcg Tablet) 50 mcg PO DAILY [facility] Last Admin: 02/27/24 09:02 Dose: 50 mcg Documented By: JACLYN Zolpidem Tartrate (Zolpidem Tartrate 5 Mg Tablet) 10 mg PO BEDTIME PRN PRN Reason: Sleep Labs 02/25/24 12:55 02/26/24 15:38 Labs: Laboratory Results - last 24 hr 02/26/24 15:38 Hold Purple Top SEE NOTE Microbiology Microbiology Results: Microbiology 02/25/24 12:55 Blood Culture - Preliminary Blood - Venous No growth after 24 hours. 02/25/24 12:55 Blood Culture - Preliminary Blood - Venous No growth after 24 hours. Assessment and Plan (1) Blood bacterial culture positive: Status: Acute (2) Nausea & vomiting: Status: Acute Assessment and Plan: 63-year-old female history of diverticulitis recently started with p.o. Levaquin on 02/23/2024, Graves's esophagus, heart palpitations, based of ductal carcinoma of the left breast(s/p lumpectomy and radiation, she is on chemo), GERD, fibromyalgia -came to the hospital because of recurrent diverticulitis episode, bacteremia. Recurrent acute diverticulitis episode, bacteremia. has gram neg bacteremia, repeat blood culture pending repeat ct abd -persistent acute diverticulitis involving the sigmoid colon Normal WBC count, tachycardia resolved, lactic acid normal, no sepsis at present. blood culture ecoli-senstive to cefzolin/ceftriaxone /genta /bactrim -not senstive to levaquin Continue IV antibiotics(switch from levaquin to ceftriaxone ), Zofran, IV pain medication. try to give po antibiotics -patient vomited ,unable to tolerate, hesitant to try again Hypokalemia: Repleted, will check potassium levels Monitor electrolytes closely ductal carcinoma of the left breast(s/p lumpectomy and radiation, she is on chemo) htn -bp flactuating continue amlodipine. dvt prophylax:s/c lovenox. ongoing hospitlisation need:Gram-negative bacteremia and recurrent diverticulitis-need IV antibiotics, unable to tolerate po antibiotics yest. Quality Stroke Does the patient have a stroke diagnosis?: No VTE Prior VTE?: No VTE Risk Level:: Medical - moderate - high VTE Device Contraindication: N/A - Device Ordered VTE Drug Contraindication: N/A - Med Ordered
[2024-02-27 15:10] VITALS: BP 140/72; PULSE 81; RESP 17; TEMP 36; O2SAT 97
[2024-02-27] MEDS: cefTRIAXone sodium 1 GM VIAL IVPUSH (17:25)
[2024-02-27 19:22] VITALS: BP 131/73; PULSE 82; RESP 17; TEMP 36.3; O2SAT 96
[2024-02-27] MEDS: Zolpidem Tartrate 5 MG TABLET 10 MG PO (20:01)
[2024-02-28] MEDS: Acetaminophen 325 MG TABLET 650 MG PO (05:03)
[2024-02-28 05:11] VITALS: BP 152/70; PULSE 75
[2024-02-28 07:46] VITALS: BP 152/73; PULSE 69; RESP 17; TEMP 36.6; O2SAT 98
[2024-02-28] MEDS: Aspirin Enteric Coated 81 MG TABLET.DR PO (09:10)
[2024-02-28] MEDS: Cholecalciferol (Vitamin D3) 25 MCG TABLET 50 MCG PO (09:11)
[2024-02-28] MEDS: Omeprazole 40 MG CAPSULE.DR PO (09:12)
[2024-02-28] MEDS: Magnesium Oxide 400 MG TABLET PO (09:12)
[2024-02-28] MEDS: Multivitamin TABLET 1 TAB PO (09:13)
[2024-02-28] MEDS: amLODIPine Besylate 2.5 MG TABLET PO (09:14)
[2024-02-28] MEDS: 0.9 % Sodium Chloride Flush 3 ML SYRINGE IVFLUSH (09:19)
[2024-02-28] MEDS: LORazepam 0.5 MG TABLET PO (10:01)
--- NOTE | 2024-02-28 11:32 | PM.DS ---
DS: Providers Provider Date of Service: 02/28/24 Date of admission: 02/25/24 18:12 Date of discharge: 02/28/24 Primary care physician: Bradly Sanders MD Consults: 02/26/24 15:17 Consult to Infectious Diseases Routine Consulting Provider: [facility] Reason for consultation: ecoli bactermia/acute diverticulitis Has provider been notified: No Attending physician on discharge: Ralph Bravo Discharging clinician: Ralph Bravo DS: Diagnosis Discharge Diagnosis (1) Blood bacterial culture positive: Status: Acute (2) Nausea & vomiting: Status: Acute DS: Summary Hospital Course Hospital Course: 63-year-old female history of diverticulitis recently started with p.o. Levaquin on 02/23/2024, Graves's esophagus, heart palpitations, based of ductal carcinoma of the left breast(s/p lumpectomy and radiation, she is on chemo), GERD, fibromyalgia came to ED for nausea, vomiting and lower abdominal pain worse to the left lower quadrant, also her her blood cultures were positive initially was she was not going to come in however decided to come in due to decreased p.o. intake secondary to pain, nausea /vomiting and abd pain similar. Denies fevers, chills, diarrhea, headache, vision changes, dizziness and weakness. Lab imaging reviewed: CBC seems fine BMP: Mild hypokalemia, mild elevated AST CT abdomen 02/22:ongoing/recurrent acute diverticulitis involving the mid sigmoid colon ct abd from today -pending Hospital course: 63-year-old female history of diverticulitis recently started with p.o. Levaquin on 02/23/2024, Graves's esophagus, heart palpitations, based of ductal carcinoma of the left breast(s/p lumpectomy and radiation, she is on chemo), GERD, fibromyalgia -came to the hospital because of recurrent diverticulitis episode, bacteremia, ct abd-Findings consistent with decreased but persistent acute diverticulitis involving the sigmoid colon: started on iv levaquin-patient syptoms seems improved , blood culture ecoli-senstive to ceftriaxone, repeat blood culture neg@48hrs . discussed with ID -advised to change antibiotics to ceftin 500 mg bid for 2 weeks and flagyl 500 mg bid x1 week. follow up with Gi Dr smith -outpatient . plan: complete ceftin 500 mg bid for 2 weeks and flagyl 500 mg bid x1 week ,also advisded to use benadryl/zofran before taking antibiotics. follow up with Gi Dr smith -outpatient colonscopy . Above management discussed with the patient in detail length she understand and in agreement with the above plan, time spent 40 minutes and 50% time spent on counseling. Time Attestation Total time managing care of this patient today: 40 mintues. Discharge Coordination Time (in mins): 40min. Quality: Safe Use of Opioids Does Pt have an Active Cancer Diagnosis on the Problem List?: No Quality: Stroke Does the patient have a stroke diagnosis?: No Physical Exam Vital Signs: Vital Signs: Last Vital Signs Temp 97.8 F 02/28/24 07:46 Pulse 69 02/28/24 07:46 Resp 17 02/28/24 07:46 BP 152/73 H 02/28/24 07:46 Pulse Ox 98 02/28/24 07:46 O2 Del Method Room Air 02/28/24 07:46 BMI result Body Mass Index 27.1 Appearance: Alert.? Oriented X3.? cvs: rrr, [id number]. res: clear to auscultation ,no rhonchii or wheezing abd: no rebound or guarding ,nt , bs present. ext pulses present , no cyanosis . neuro: axo3 , nonfocal. DS: Data Data Completed and Pending Labs on day of discharge: Preliminary micro results at discharge 02/25/24 12:55 Blood Culture - Preliminary Blood - Venous No growth after 48 hours. 02/25/24 12:55 Blood Culture - Preliminary Blood - Venous No growth after 48 hours. Imaging Chest x-ray: Radiologist's impression: ITS Impressions Abdomen/Pelvis CT 02/25/24 17:38 IMPRESSION: Findings consistent with decreased but persistent acute diverticulitis involving the sigmoid colon. Out of precaution, if the patient is due, correlation with outpatient colonoscopy is recommended when clinically appropriate. Electronically signed by: Mallory Ibrahim MD 02/25/2024 07:19 PM EDT Discharge Plan Discharge Anticipated Discharge Date/Time: 02/28/24 10:46 Patient Disposition: Home, Self-Care Discharge Diagnosis: Recurrent acute diverticulitis episode, bacteremia. Referrals: Name,MD Bradly [Primary Care Provider] - 1 Week Discharge Medications: New cefuroxime axetil 500 mg tablet 500 mg PO BID Qty: 27 0RF metronidazole 500 mg tablet 500 mg PO BID 7 Days Qty: 13 0RF diphenhydramine HCl [Benadryl] 25 mg capsule 25 mg PO BID PRN (Reason: nausea and vomiting) Qty: 30 0RF Rx Instructions: take before antibiotics Continued lorazepam 0.5 mg Tablet 0.5 mg PO BEDTIME PRN (Reason: Breakthrough Pain, Moderate) Qty: 14 0RF exemestane [Aromasin] 25 mg Tablet 25 mg PO DAILY Qty: 90 3RF Rx Instructions: must administer after a meal cholecalciferol (vitamin D3) 50 mcg (2,000 unit) capsule 1 cap PO DAILY omeprazole 40 mg Capsule,Delayed Release(Dr/Ec) 40 mg PO DAILY@0630 multivit with min-folic acid [Women's Multivitamin Gummies] 200 mcg Tablet,Chewable 1 tab PO DAILY magnesium oxide 300 mg magnesium Tablet 300 mg PO DAILY aspirin [Adult Low Dose Aspirin] 81 mg tablet,delayed release (DR/EC) 81 mg PO DAILY (DME) walker [facility] [place] See Rx Instructions .MEDSUPPLY Qty: 1 0RF Rx Instructions: Rollator walker with seat and breaks amlodipine 2.5 mg tablet 2.5 mg PO DAILY docusate sodium 100 mg capsule 100 mg PO BID zolpidem 10 mg tablet 10 mg PO BEDTIME PRN (Reason: Sleep) oxycodone-acetaminophen 5-325 mg tablet 325 tab PO DAILY PRN (Reason: Pain, Moderate) Discharge Orders: Discharge Order (Routine); Ordered 02/28/24 Ordered By: Ralph Bravo Diet: Advance to usual diet Activity on Discharge: As tolerated Stand Alone Forms: Patient Portal Discharge page Print Language: Sinhala Care Plan Goals: 63-year-old female history of diverticulitis recently started with p.o. Levaquin on 02/23/2024, Graves's esophagus, heart palpitations, based of ductal carcinoma of the left breast(s/p lumpectomy and radiation, she is on chemo), GERD, fibromyalgia -came to the hospital because of recurrent diverticulitis episode, bacteremia: started on iv levaquin-patient syptoms seems improved , blood culture ecoli-senstive to ceftriaxone, repeat blood culture neg@48hrs . discussed with ID -advised to change antibiotics to ceftin 500 mg bid for 2 weeks and flagyl 500 mg bid x1 week. follow up with Gi Dr smith -outpatient . Health Concerns: complete ceftin 500 mg bid for 2 weeks and flagyl 500 mg bid x1 week ,also advisded to use benadryl/zofran before taking antibiotics. follow up with Gi Dr smith -outpatient . Plan of Treatment: as above . Assessment: as above. Patient Instructions: Diverticulitis (DC), Bacteremia (DC)
--- NOTE | 2024-02-28 11:37 | MHC.CM.PN ---
DP: PT HAS BEEN MEDICALLY CLEARED FOR DC HOME, NO SERVICES. DAUGHTER WILL TRANSPORT
[2024-02-28] MEDS: ondansetron HCL 4 MG/2 ML VIAL IVPUSH (13:26)
[2024-02-28] MEDS: cefuroxime axetiL 500 MG TABLET PO (13:30)
[2024-02-28] MEDS: metroNIDAZOLE 500 MG TABLET PO (13:30)
== END 2024-02-28 15:51 | disposition home or self-care (01) | DRG 392 ==
LOC: HO.ED 17:36 → HO.EDOVER 18:33 → HO.S3 19:13
PROVIDERS: Emergency Medicine; Physician Assistant Medical; Admitting Provider Internal Medicine; Emergency Provider Emergency Medicine; PCP Internal Medicine Geriatric Medicine; Visit Provider Internal Medicine
DX: K57.32 Diverticulitis of large intestine without perforation or abscess without bleeding (principal); R78.81 Bacteremia; Z16.23 Resistance to quinolones and fluoroquinolones; C50.912 Malignant neoplasm of unspecified site of left female breast; Z88.0 Allergy status to penicillin; B96.20 Unspecified Escherichia coli [E. coli] as the cause of diseases classified elsewhere; Z91.041 Radiographic dye allergy status; M79.7 Fibromyalgia; E87.6 Hypokalemia; Z79.82 Long term (current) use of aspirin; Z79.899 Other long term (current) drug therapy
CPT/HCPCS: 36415; 74176; 80048; 80076; 81001; 83605; 83690; 84132; 85025; 87040; 99285; J0696; J1956; J2270; J2405; J7120

== ENCOUNTER → 2024-02-25 18:12 | Outpatient (BNV) | payer OTHER, SELFPAY | PROVIDERS: Admitting Provider Internal Medicine; Emergency Provider Emergency Medicine; PCP Internal Medicine Geriatric Medicine; Visit Provider Internal Medicine | DX: R78.81 Bacteremia (principal); R11.2 Nausea with vomiting, unspecified | CPT/HCPCS: 99222; 99231; 99232; 99239 ==

== ENCOUNTER 2024-03-31 11:03 | Outpatient (REF) | payer OTHER, SELFPAY ==
--- NOTE | ~2024-03-31 | MM_ITS ---
EXAMINATION: MM SCREENING DIGITAL BREAST TOMOSYNTHESIS, BILATERAL CLINICAL INFORMATION: Screening. Asymptomatic. History of left breast cancer in 2020 status post lumpectomy. COMPARISON: Mammography: Comparison is made with available priors TECHNIQUE: Digital breast mammography with tomosynthesis is performed in both the craniocaudal and mediolateral oblique views along with computer-aided detection (CAD). FINDINGS: There are scattered areas of fibroglandular density (ACR BI-RADS breast composition Category b). Post lumpectomy changes to the left breast are stable. Marker clip in the upper central right breast from previous needle core biopsy. There are no significant masses, abnormal calcifications, or other abnormalities. MM/MM tomosynthesis screening BI IMPRESSION: No mammographic evidence of malignancy. ASSESSMENT: BI-RADS BI-RADS 2 - Benign Findings RECOMMENDATION: Routine annual mammography screening. 1 year F/U This examination should not preclude the clinical evaluation of a suspicious palpable abnormality. This patient's information was entered into a reminder system with a target due date for their next mammogram. Electronically signed by: Tiffany Livingston DO 03/31/2024 12:50 PM [facility]
== END 2024-03-31 11:04 | disposition home or self-care (01) ==
LOC: HO.MAMMO 11:03
PROVIDERS: PCP Internal Medicine Geriatric Medicine; Visit Provider Internal Medicine Geriatric Medicine
DX: Z12.31 Encounter for screening mammogram for malignant neoplasm of breast (principal)
CPT/HCPCS: 77063; 77067

== ENCOUNTER → 2024-03-31 11:15 | Outpatient (BNV) | payer OTHER, SELFPAY | PROVIDERS: PCP Internal Medicine Geriatric Medicine; Visit Provider Internal Medicine | DX: Z12.31 Encounter for screening mammogram for malignant neoplasm of breast (principal) | CPT/HCPCS: 77063; 77067 ==

== ENCOUNTER 2024-04-13 11:05 | Outpatient (AMB) | payer OTHER, SELFPAY ==
--- NOTE | 2024-04-13 11:11 | MHC.OFFVIS ---
Vital Signs 04/13/24 11:13 Height 5 ft 2 in Weight 145 lb 8.081 oz BMI 26.6 BP not taken reason Patient Refused Intake Visit Reasons: ED f/U Intake Note: Corrie presents in the office as a ED follow up CC: She states that she is not feeling too good. She was diagnosed with colitis and states she is losing weight. She is having pressure in her bowels. 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 Required: No Allergies Penicillins [PENICILLINS] Allergy (Severe, Verified 04/13/24 11:15) SWELLING/VOMITING Iodinated Contrast Media [IV Contrast Dye] Allergy (Intermediate, Verified 04/13/24 11:15) eye/facial swelling metronidazole [Flagyl] Allergy (Intermediate, Verified 04/13/24 11:15) Palpitations paroxetine Adverse Reaction (Intermediate, Verified 04/13/24 11:15) diarrhea HPI HPI ED f/U: Details: 63 yr old f here for f/u RECAP she had epigastric pain, she was taking omeprazole every other day 40 mg water was making pain worse she had EGD at [facility] with gastritis and duodenitis, intestinal metaplasia she had been on ambien for sleep she was not taking any other meds she finds prayer more helpful she went to the ED 10/13/22 with severe lower abdominal pain she was dx with acute diverticulitis on imaging she was given augmentin and it seemed to help but then 3 d ago the pain came back she has noted urine frequency I reordered labs and her CRP was 7, CBC and BMP were nml limits UA was pos for leuk esterase, but culture was neg I gave her cipor and flagyl for 1 week Other data: Mother from pancreas ca, father with CRC aged 75 US 11/2020--nml--hepatic steatosis colonoscopy 2012--diverticulosis, no polyps prior hx of h pylori gastritis treated 2014 EGD/colonoscopy 2020--sotelo's hemorrhoids, diverticulosis, tubulovillous polyp removed INTERIM: She had recurrent diverticulitis and had GNR bacteremia as well she feels she has poor appetite since then no abdominal pain mild nausea she has reflux and feels current PPI not working EXAM: GENERAL: The patient is well developed and nontoxic. VITAL SIGNS:see workflow HEENT: Nonicteric sclerae, PERRLA, EOMI. Oropharynx clear. Moist mucous membranes. Conjunctivae appear well perfused. No thyroid mass. CHEST: Chest wall is nontender. HEART: Regular rate and rhythm without murmurs. LUNGS: Clear to auscultation bilaterally. ABDOMEN: Soft, positive bowel sounds, tender RUQ no organomegaly.no flank tenderness SKIN: No rash, no excessive bruising, petechiae, or purpura. NEUROLOGIC: Cranial nerves II-XII intact without motor/sensory deficit. psych: nml A/P: 1/ Recurrent diverticulitis now with GNR as well 2/ Barretts esophagus with GERD PLAN: 1/ EGD and [place]-- earliest is with Dr Ibanez, r/o any underlying neoplasia,and recheck barretts with bx and wats 3D 2/ refer surgery to discuss partial colectomy --already sees Dr Shipman for her breast ca 3/ recheck labs 4/ change PPI to nexium [facility] Medical History Sotelo esophagus Allergies Foot fracture, right Closed left ankle fracture Infiltrating ductal carcinoma of left breast Overweight (BMI 25.0-29.9) GERD without esophagitis Rib pain on right side Insomnia Fibromyalgia Diverticulitis Chronic back pain GERD (gastroesophageal reflux disease) Surgical History History of lumpectomy of left breast History of left breast biopsy (~01/08/20) History of local excision of skin lesion (~03/2018) History of right breast biopsy (~2012) History of cystoscopy History of gastric surgery History of section History of esophagogastroduodenoscopy (EGD) (~02/2013) History of colonoscopy Family History Mother History of hypertension History of pancreatic cancer History of diabetes mellitus Father History of hypertension History of diabetes mellitus Colon cancer Sister History of hypertension Maternal Grandmother History of lung cancer Social History Household Members: None Housing: Apartment Are you a primary rn intensive care unit to a significant other at home: No Do you presently have 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 or other home services: Yes (DAUGHTER IS HER STUDENT RECORDS COORDINATOR FOR HOUSEWORK, COOKING. 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 Physical Exam Vital Signs: BMI result Body Mass Index 26.6 Assessment & Plan Assessment & Plan (1) Sotelo esophagus: Code(s): K22.70 - Sotelo's esophagus without dysplasia Category: Medical Qualifiers: Sotelo's esophagus type: with dysplasia of unspecified degree Qualified Code(s): K22.719 - Sotelo's esophagus with dysplasia, unspecified Plan: see above (2) Diverticulitis: Code(s): K57.92 - Diverticulitis of intestine, part unspecified, without perforation or abscess without bleeding Category: Medical Plan: see above Orders: Referrals General Surgery Referral K57.92 - Diverticulitis of intestine, part unspecified, without perforation or abscess without bleeding Medications: New esomeprazole magnesium 40 mg PO DAILY 90 caps 2RF sodium,potassium,mag sulfates 17.5-3.13-1.6 gram (Suprep Bowel Prep Kit) DILUTE; drink 1/2 at 6-8 pm and half at 11 PM- 1AM 354 mL 0RF Discontinued cefuroxime axetil Discontinued Reason: Doctor's Order 500 mg PO BID 27 tabs 0RF metronidazole Discontinued Reason: Patient Completed Course 500 mg PO BID 7 days 13 tabs 0RF Coding Level of Care Code Est Pt Level 4 (22202) Diagnoses Sotelo's esophagus with dysplasia K22.719 Sotelo's esophagus type: with dysplasia of unspecified degree Diverticulitis K57.92
[2024-04-13 11:13] VITALS: BMI 26.6
== END 2024-04-13 11:48 | disposition home or self-care (01) ==
LOC: HO.HGI 11:05
PROVIDERS: PCP Internal Medicine Geriatric Medicine; Visit Provider Internal Medicine Gastroenterology
DX: K22.719 Barrett's esophagus with dysplasia, unspecified (principal); K57.92 Diverticulitis of intestine, part unspecified, without perforation or abscess without bleeding
CPT/HCPCS: 99214

== ENCOUNTER 2024-04-13 11:05 | Outpatient (REF) | payer OTHER, SELFPAY ==
[2024-04-13 12:30] LABS: MANUAL DIFF FLAG NO
[2024-04-13 14:00] LABS: Basophils Absolute Auto 0.1 X10*3/uL (0.0-0.2); Basophils Percent Auto 0.8 % (0-2); Eosinophils Absolute Auto 0.1 X10*3/uL (0.0-0.4); Eosinophils Percent Auto 1.6 % (0-4); Hematocrit 39.7 % (37.0-47.0); Hemoglobin 13.5 g/dl (12.0-16.0); Imm Gran Abs Auto 0.02 X10*3/uL (0.00-0.03); Imm Gran Pct Auto 0.3 % (0.0-0.4); Lymphocytes Absolute Auto 1.6 X10*3/uL (1.2-4.9); Lymphocytes Percent Auto 21.3 % (20-40); Mean Corpuscular Hemoglobin 29.4 pg (27.0-33.0); Mean Corpuscular Volume 86.5 fL (80.0-98.0); Mean Platelet Volume 9.5 fL (9.4-12.3); Monocytes Absolute Auto 0.5 X10*3/uL (0.1-1.2); Monocytes Percent Auto 6.3 % (2-11); Neutrophils Absolute Auto 5.3 x10*3/uL (2.0-8.3); Neutrophils Percent Auto 69.7 % (45-73); Platelet Count 383 X10*3/uL (160-400); Red Blood Count 4.59 X10*6/uL (4.20-5.50); Red Cell Distribution Width 13.9 % (11.0-16.0); White Blood Count 7.7 X10*3/uL (4.8-10.8)
[2024-04-13 14:42] LABS: Alanine Aminotransferase 17 U/L (0-31); Albumin Level 4.2 g/dL (3.5-5.0); Alkaline Phosphatase 112 U/L (39-117); Anion Gap 10 (12-20); Aspartate Amino Transferase 23 U/L (5-31); Bilirubin Total 0.6 mg/dL (0.0-1.0); Blood Urea Nitrogen 18 mg/dL (9-16); C Reactive Protein 1.06 mg/dL (< or = 0.50); Carbon Dioxide 30 mmol/L (22-29); Chloride 104 mmol/L (96-108); Estimated Glomerular Filt Rate > 60; Glucose Random 95 mg/dL (60-115); Potassium 4.6 mmol/L (3.3-5.1); Sodium 139 mmol/L (135-145); Total Protein 7.6 g/dL (6.5-8.0)
[2024-04-13 15:02] LABS: Ferritin 47 ng/mL (10-250)
== END 2024-04-13 11:06 | disposition home or self-care (01) ==
LOC: HO.LAB 11:05
PROVIDERS: PCP Internal Medicine Geriatric Medicine; Visit Provider Internal Medicine Gastroenterology
DX: K22.719 Barrett's esophagus with dysplasia, unspecified (principal); K57.92 Diverticulitis of intestine, part unspecified, without perforation or abscess without bleeding; K75.81 Nonalcoholic steatohepatitis (NASH)
CPT/HCPCS: 36415; 80053; 82728; 85025; 86140; 99212

== ENCOUNTER 2024-04-14 10:55 | Outpatient (AMB) | payer OTHER, SELFPAY ==
--- NOTE | 2024-04-14 11:11 | A.OFFVIS_ITS ---
Vital Signs 04/14/24 11:31 Height 5 ft 2 in Weight 148 lb 2.41 oz BMI 27.1 BP 124/80 Blood Pressure Location Lt brachial Position Sitting Intake Visit Reasons: 6 month follow up breast exam Intake Note: Patient is seen in office for 6 month follow up visit, breast exam. Pt c/o: pt states she feel dizzy, weakness, shortness of breath, burning sensation in the chest anxious , starting last week was on ED due to colitis, had antbx, then had to come back one week later due to infection in the blood and was inpatient for 5 days, with nausea and vomit, abdominal bloating, no issues regarding the breast no issues Compliance Reviewer Required: No Accompanied by: Self / Same As Patient Allergies Penicillins [PENICILLINS] Allergy (Severe, Verified 04/14/24 11:19) SWELLING/VOMITING Iodinated Contrast Media [IV Contrast Dye] Allergy (Intermediate, Verified 04/14/24 11:19) eye/facial swelling metronidazole [Flagyl] Allergy (Intermediate, Verified 04/14/24 11:19) Palpitations paroxetine Adverse Reaction (Intermediate, Verified 04/14/24 11:19) diarrhea HPI Comments Details: 62-year-old female patient, former patient of Dr. Galvan With a previous history of invasive ductal carcinoma of the left breast, ER/ MS positive, HER2 Elbert negative with DCIS present, TNM: pT1a, No (sn), (i-). She underwent lumpectomy on 01/08/2020 which revealed DCIS with microns of the margins. She subsequent underwent a wider excision with sentinel node biopsy on 02/17/2020. This time margins were clear by 2 mm. She underwent whole breast radiation t herapy and is being followed by Dr. Arreola. She is currently on Aromasin. She reports pain in upper outer quadrant and axilla on the left side near the incision but overall feels improved. She denies any new palpable mass, nipple discharge or enlarged lymph nodes. Her most recent mammogram obtained 03/31/2024 revealed no mammographic evidence of malignancy ( BI-RADS 2). Follow-up mammogram in 1 year is recommended. She reports abdominal pain in the left lower quadrant which has persisted for the past several months. She reports a prior history of diverticulitis treated at [facility] as well. The current episode seems to be worsening and she is scheduled for a colonoscopy with Dr. Pelaez on 04/22/2024. [facility] Medical History Graves esophagus Allergies Foot fracture, right Closed left ankle fracture Infiltrating ductal carcinoma of left breast Overweight (BMI 25.0-29.9) GERD without esophagitis Rib pain on right side Insomnia Fibromyalgia Diverticulitis Chronic back pain GERD (gastroesophageal reflux disease) Surgical History History of lumpectomy of left breast History of left breast biopsy (~01/08/20) History of local excision of skin lesion (~03/2018) History of right breast biopsy (~2012) History of cystoscopy History of gastric surgery History of section History of esophagogastroduodenoscopy (EGD) (~02/2013) History of colonoscopy Family History Mother History of hypertension History of pancreatic cancer History of diabetes mellitus Father History of hypertension History of diabetes mellitus Colon cancer Sister History of hypertension Maternal Grandmother History of lung cancer Social History Household Members: None Housing: Apartment Are you a primary assistant child care teacher to a significant other at home: No Do you presently have 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 or other home services: Yes (DAUGHTER IS HER SENIOR CORE JAVA DEVELOPER FOR HOUSEWORK, COOKING. 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 Review of Systems Const All systems reviewed & are unremarkable except as noted in HPI and below GI Reports abdominal pain and Reports constipation Physical Exam Const General: cooperative, comfortable and well developed Nutritional Appearance: well nourished Orientation/consciousness: patient oriented x3 Eyes Sclerae: sclerae normal EOM: EOMs intact bilaterally Neck Neck: Yes normal visual inspection Chest Other: Left breast: No residual radiation change noted, mild tenderness to palpation in the upper outer quadrant, well-healed incision the upper outer quadrant and axilla, no nipple retraction, no nipple discharge, no palpable mass, no enlarged lymph nodes. Right breast: No skin change, no nipple retraction, no nipple discharge, no enlarged lymph nodes, minimal tenderness in the lower outer quadrant Resp Effort & Inspection: normal respiratory effort, no cough, no respiratory distress and no stridor GI Palpation (GI): Soft to palpation, Tenderness to palpation present (GI) in the LLQ, no guarding and not rigid Percussion: Yes normal to percussion Auscultation: normal bowel sounds Rectal Exam - Female: deferred Skin General skin exam: dry skin Rashes: no rashes Neuro Other: Mobility Assessment: 1. 3 meter assessment time (seconds) 5 seconds 2. Gait observations: Normal balance and gait General: patient oriented x3 and no focal motor deficits Extrem General: Yes full ROM and Yes no clubbing, cyanosis or edema Psych Appearance: grossly normal Assessment & Plan Assessment & Plan (1) Invasive ductal carcinoma of left breast: Code(s): C50.912 - Malignant neoplasm of unspecified site of left female breast Category: Medical (2) Diverticulitis: Code(s): K57.92 - Diverticulitis of intestine, part unspecified, without perforation or abscess without bleeding Category: Medical Plan 63-year-old female patient with a previous history of left breast invasive ductal carcinoma with DCIS, status post lumpectomy with sentinel node biopsy on 01/08/2020 followed by radiation therapy. She was started on Aromasin by Dr. Arreola. Most recent mammogram of 03/26/2024 revealed no mammographic evidence of malignancy (BI-RADS 2). Follow-up mammogram in 1 year is recommended. Examination today revealed no suspicious findings in either breast. I recommended follow-up examination in 6 months after her next mammogram. She should call sooner for any new concerns. She is scheduled for colonoscopy with Dr. Pelaez on 04/22/2024. We reviewed the indications for sigmoid colectomy including intractable pain, recurring episodes of infection, perforation or obstruction. I discussed the procedure for hand assisted laparoscopic sigmoid colectomy including the risks and benefits. She wishes to proceed with the surgery and after discussion of the risks and benefits she consents to a hand assisted laparoscopic sigmoid colectomy. We will await the findings of colonoscopy prior to scheduling surgery. She expressed understanding and agrees with the plan. Coding Level of Care Code Est Pt Level 4 (52379) Diagnoses Invasive ductal carcinoma of left breast C50.912 Diverticulitis K57.92
[2024-04-14 11:31] VITALS: BP 124/80; BMI 27.1
== END 2024-04-14 11:35 | disposition home or self-care (01) ==
PROVIDERS: PCP Internal Medicine Geriatric Medicine; Visit Provider Surgery
DX: C50.912 Malignant neoplasm of unspecified site of left female breast (principal); K57.92 Diverticulitis of intestine, part unspecified, without perforation or abscess without bleeding
CPT/HCPCS: 99214

== ENCOUNTER → 2024-04-14 10:55 | Outpatient (BNVA) | payer OTHER, SELFPAY | PROVIDERS: PCP Internal Medicine Geriatric Medicine; Visit Provider Surgery | DX: C50.912 Malignant neoplasm of unspecified site of left female breast (principal); K57.92 Diverticulitis of intestine, part unspecified, without perforation or abscess without bleeding | CPT/HCPCS: 99212 ==

== ENCOUNTER 2024-04-16 12:42 | Outpatient (REF) | payer OTHER, SELFPAY ==
[2024-04-16 14:56] LABS: CDiff Gene PCR NEGATIVE (Negative)
[2024-04-16 15:01] LABS: Adenovirus F 40/41 Not Detected (Not Detect.); Astrovirus Not Detected (Not Detect.); Campylobacter Not Detected (Not Detect.); Cryptosporidium Not Detected (Not Detect.); Cyclospora cayetanensis Not Detected (Not Detect.); E. coli EAEC Not Detected (Not Detect.); E. coli EPEC Not Detected (Not Detect.); E. coli ETEC Not Detected (Not Detect.); E. coli STEC Not Detected (Not Detect.); Entamoeba histolytica Not Detected (Not Detect.); Giardia lamblia Not Detected (Not Detect.); Norovirus GI/GII Not Detected (Not Detect.); Plesiomonas shigelloides Not Detected (Not Detect.); Rotavirus A Not Detected (Not Detect.); Salmonella Not Detected (Not Detect.); Sapovirus Not Detected (Not Detect.); Shigella sp./EIEC Not Detected (Not Detect.); Vibrio Not Detected (Not Detect.); Vibrio Cholerae Not Detected (Not Detect.); Yersinia enterocolitica Not Detected (Not Detect.)
== END 2024-04-16 12:43 | disposition home or self-care (01) ==
LOC: HO.LNP 12:42
PROVIDERS: Visit Provider Internal Medicine Gastroenterology
DX: R19.7 Diarrhea, unspecified (principal); K57.92 Diverticulitis of intestine, part unspecified, without perforation or abscess without bleeding
CPT/HCPCS: 87493; 87507

== ENCOUNTER 2024-04-22 07:58 | Day surgery (SDC) | payer OTHER, SELFPAY ==
[2024-04-20 09:50] VITALS: BMI 26.5
--- NOTE | 2024-04-20 14:45 | HO.ANESPROP2 ---
Documented by User: Graciela Carballo NP 04/20/24 14:48 HPI - Anesthesia Eval Consult details Narrative: 63yo F for Upper Endoscopy and Colonoscopy Cardiac optimized (w/u for CP negative) PMFSH Active Problems Active Problems: All Active Problems Blood bacterial culture positive (Acute) Nausea & vomiting (Acute) Arthritis of knee, right (Acute) Preop cardiovascular exam (Acute) Heart palpitations (Acute) Precordial chest pain (Acute) RUQ abdominal pain (Acute) Graves esophagus (Acute) Allergies (Acute) COVID-19 (Acute) Urine frequency (Acute) Diverticulitis (Acute) History of endoscopy (Acute ~01/2018) Invasive ductal carcinoma of left breast (Acute) Invasive carcinoma of breast (Acute) Breast mass, right (Acute) Epigastric abdominal pain (Acute) Colon cancer high risk (Acute) Closed fracture of left distal fibula (Acute) Nondisplaced fracture of fifth right metatarsal bone (Acute) Infiltrating ductal carcinoma of left breast (Acute) Overweight (BMI 25.0-29.9) (Acute) GERD without esophagitis (Acute) Rib pain on right side (Acute) Insomnia (Acute) History of right breast biopsy (Acute ~2012) History of local excision of skin lesion (Acute ~03/2018) History of left breast biopsy (Acute ~01/08/20) History of gastric surgery (Acute) History of esophagogastroduodenoscopy (EGD) (Acute ~02/2013) History of cystoscopy (Acute) History of colonoscopy (Acute) History of section (Acute) GERD (gastroesophageal reflux disease) (Acute) Fibromyalgia (Acute) Past Medical History Medical History Graves esophagus Allergies Foot fracture, right Closed left ankle fracture Infiltrating ductal carcinoma of left breast Overweight (BMI 25.0-29.9) GERD without esophagitis Rib pain on right side Insomnia Fibromyalgia Diverticulitis Chronic back pain GERD (gastroesophageal reflux disease) Family History Family History Mother History of hypertension History of pancreatic cancer History of diabetes mellitus Father History of hypertension History of diabetes mellitus Colon cancer Sister History of hypertension Maternal Grandmother History of lung cancer Family history of problems with anesthesia: No Surgical History Surgical History History of lumpectomy of left breast History of left breast biopsy (~01/08/20) History of local excision of skin lesion (~03/2018) History of right breast biopsy (~2012) History of cystoscopy History of gastric surgery History of section History of esophagogastroduodenoscopy (EGD) (~02/2013) History of colonoscopy History of Problems with Anesthesia: No Social History Social History Household Members: None Housing: Apartment Are you a primary post anesthesia care unit nurse to a significant other at home: No Do you presently have 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 or other home services: No Alcohol intake: never Patient Tobacco Use Status: Never used Tobacco e-Cigarette/Vaping Use: Never Used Second Hand Smoke Exposure: No Use of substances other than those prescribed or required for medical reasons: No Have you been hit, kicked, punched, or otherwise hurt by someone within the past year? 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 Meds Allergies Allergy/AdvReac Type Severity Reaction Status Date / Time Penicillins [PENICILLINS] Allergy Severe SWELLING/VO Verified 04/22/24 08:46 MITING Iodinated Contrast Media Allergy Intermediate eye/facial Verified 04/22/24 08:46 [IV Contrast Dye] swelling metronidazole [Flagyl] Allergy Intermediate Palpitation Verified 04/22/24 08:46 s paroxetine AdvReac Intermediate diarrhea Verified 04/22/24 08:46 Home Medications ?Medication ?Instructions ?Recorded ?Confirmed ?Last Taken ?Type aspirin 81 mg tablet,delayed 81 mg PO DAILY 02/10/20 02/25/24 02/25/24 History release (Adult Low Dose Aspirin) cholecalciferol (vitamin D3) 50 1 cap PO DAILY 02/15/21 02/25/24 02/25/24 History mcg (2,000 unit) capsule amlodipine 2.5 mg tablet 2.5 mg PO DAILY 10/29/22 02/25/24 02/25/24 History docusate sodium 100 mg capsule 100 mg PO BID 10/29/22 02/25/24 02/25/24 History zolpidem 10 mg tablet 10 mg PO BEDTIME PRN Sleep 10/29/22 02/25/24 Unknown History oxycodone-acetaminophen 5 mg-325 325 tab PO DAILY PRN Pain, Moderate 06/26/23 02/25/24 Unknown History mg tablet magnesium oxide 300 mg PO DAILY 02/25/24 02/25/24 02/24/24 History multivitamin with minerals-folic 1 tab PO DAILY 02/25/24 02/25/24 02/24/24 History acid 200 mcg chewable tablet (Women's Multivitamin Gummies) Exam Height,Weight and Vital Signs: Height 5 ft 2 in Weight 65.771 kg Narrative Narrative: EKG 01/2024 EKG Details: Today, read by me, normal sinus rhythm, low-voltage QRS, QTC 399 milliseconds, rate 71 NM cardiolite stress test 11/2023 Impression: 1. Myocardial perfusion imaging study shows probably normal myocardial perfusion. No definitive evidence of any ischemia or infarction. 2. Gated LVEF is 69% during stress and 62% during rest. 3. Transient ischemic dilatation not present. EKG component of the test reported separately. Holter monitor was done on 10/14/2023 for 3 days showing sinus rhythm with average heart rate 79. An echocardiogram was done 10/14/2023 showing EF 60-65%, impaired relaxation, no valve abnormalities. Assessment and Plan Assessment Anesthesia Assessment: Chart Reviewed Final Anesthetic Review Family History of Problems with Anesthesia: No History of Problems with Anesthesia: No Documented by User: Cayden Andrews MD 04/22/24 09:42 [facility] Past Medical History Medical History Graves esophagus Allergies Foot fracture, right Closed left ankle fracture Infiltrating ductal carcinoma of left breast Overweight (BMI 25.0-29.9) GERD without esophagitis Rib pain on right side Insomnia Fibromyalgia Diverticulitis Chronic back pain GERD (gastroesophageal reflux disease) Family History Family History Mother History of hypertension History of pancreatic cancer History of diabetes mellitus Father History of hypertension History of diabetes mellitus Colon cancer Sister History of hypertension Maternal Grandmother History of lung cancer Surgical History Surgical History History of lumpectomy of left breast History of left breast biopsy (~01/08/20) History of local excision of skin lesion (~03/2018) History of right breast biopsy (~2012) History of cystoscopy History of gastric surgery History of section History of esophagogastroduodenoscopy (EGD) (~02/2013) History of colonoscopy Social History Social History Household Members: None Housing: Apartment Are you a primary post anesthesia care unit nurse to a significant other at home: No Do you presently have 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 or other home services: No Alcohol intake: never Patient Tobacco Use Status: Never used Tobacco e-Cigarette/Vaping Use: Never Used Second Hand Smoke Exposure: No Use of substances other than those prescribed or required for medical reasons: No Have you been hit, kicked, punched, or otherwise hurt by someone within the past year? 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 Meds Allergies Allergy/AdvReac Type Severity Reaction Status Date / Time Penicillins [PENICILLINS] Allergy Severe SWELLING/VO Verified 04/22/24 08:46 MITING Iodinated Contrast Media Allergy Intermediate eye/facial Verified 04/22/24 08:46 [IV Contrast Dye] swelling metronidazole [Flagyl] Allergy Intermediate Palpitation Verified 04/22/24 08:46 s paroxetine AdvReac Intermediate diarrhea Verified 04/22/24 08:46 Home Medications ?Medication ?Instructions ?Recorded ?Confirmed ?Last Taken ?Type aspirin 81 mg tablet,delayed 81 mg PO DAILY 02/10/20 02/25/24 02/25/24 History release (Adult Low Dose Aspirin) cholecalciferol (vitamin D3) 50 1 cap PO DAILY 02/15/21 02/25/24 02/25/24 History mcg (2,000 unit) capsule amlodipine 2.5 mg tablet 2.5 mg PO DAILY 10/29/22 02/25/24 02/25/24 History docusate sodium 100 mg capsule 100 mg PO BID 10/29/22 02/25/24 02/25/24 History zolpidem 10 mg tablet 10 mg PO BEDTIME PRN Sleep 10/29/22 02/25/24 Unknown History oxycodone-acetaminophen 5 mg-325 325 tab PO DAILY PRN Pain, Moderate 06/26/23 02/25/24 Unknown History mg tablet magnesium oxide 300 mg PO DAILY 02/25/24 02/25/24 02/24/24 History multivitamin with minerals-folic 1 tab PO DAILY 02/25/24 02/25/24 02/24/24 History acid 200 mcg chewable tablet (Women's Multivitamin Gummies) Exam Airway Mallampati Class: II TM Dist: <=3cm Neck ROM: Full Loose/Missing/Broken Teeth: No Heart: ok Lungs: ok Assessment and Plan Assessment Anesthesia Assessment: Anesthesia Plan Discussed Final Anesthetic Review NPO: Yes ASA Class: II Final Preanesthetic Review: No Changes in Pt Med Stat, Meds/Allgs Chart Reviewed, Consent Obtained/Reviewed and Anes Risks/Benef Reviewed Patient Risk: Intermediate Procedure Risk: Intermediate Anesthetic Plan Anesthetic Plan: Agree w/ Assess. and Plan and TIVA Disposition: Standard PACU
--- NOTE | 2024-04-22 08:45 | MHC.SHP ---
Pre-Procedural Eval Section A - 24 Hr Update-Section A only Date of Service: 04/22/24 The patient is an INPATIENT: No The patient has been examined within 24 hours of the surgical procedure. The History & Physical has been completed within 30 days and I have reviewed it.: Yes Section B - Complete if H&P > 30 days Chief Complaint: BE, hx of diverticulitis and TVA Allergies: Allergies Allergy/AdvReac Type Severity Reaction Status Date / Time Penicillins [PENICILLINS] Allergy Severe SWELLING/VO Verified 04/14/24 11:19 MITING Iodinated Contrast Media Allergy Intermediate eye/facial Verified 04/14/24 11:19 [IV Contrast Dye] swelling metronidazole [Flagyl] Allergy Intermediate Palpitation Verified 04/14/24 11:19 s paroxetine AdvReac Intermediate diarrhea Verified 04/14/24 11:19 Plan Diagnosis/Plan: Unchanged I have reviewed the history and physical and performed a pertinent physical examination on my patient. No changes have occurred unless specified. Time Spent With Patient Time: Total time managing care of this patient today ____ minutes.
[2024-04-22] MEDS: Lactated Ringers 1,000 ML 100 ML IVCONT (09:05)
[2024-04-22] MEDS: ondansetron HCL 4 MG/2 ML VIAL IVPUSH (09:06)
[2024-04-22 09:08] VITALS: BMI 26.5
[2024-04-22 09:11] VITALS: BP 163/75; PULSE 94; RESP 16; TEMP 37.2; O2SAT 96
[2024-04-22] MEDS: Erythromycin Lactobionate 250 MG in 0.9 % Sodium Chloride 100 ML 100 MG IV (09:31)
--- NOTE | 2024-04-22 10:30 | P.OPN-COLO_ITS ---
Colonoscopy Operative Note Operative Note Date of Service: 04/22/24 Narrative: Procedure: Upper endoscopy and colonoscopy Indication: Graves's esophagus, Hx of diverticulitis, Hx of polyps, unintentional weight loss Endoscopist: Dolores Ibanez MD Anesthesia Provider: Dr Cayden Andrews Anesthesia type: MAC Instrument: [id number]-H190 and [id number]-[id number] EGD Procedure:?? The procedure, indications, preparation and potential complications were reviewed with the patient, who indicated understanding and gave written informed consent to proceed. The endoscope was introduced through the mouth, and advanced to the 2nd part of the duodenum. The mucosa was carefully examined on slow withdrawal of the endoscope. The patient tolerated the procedure well. There were no immediate complications.? EGD Findings:? * Esophagus:? Normal esophageal mucosa was noted. The Z-line was at 30 cm and irregular to <1 cm. There was a medium-size hiatal hernia the diaphragmatic hiatus at 34 cm. Cold forceps biopsies were taken from GE junction for Graves's esophagus surveillance. * Stomach:?Erythema and erosions in the body and antrum with scant heme. Retroflexion was performed in the cardia that showed Hill grade III hiatal hernia. Random cold forceps biopsies were taken from the stomach. * Duodenum:? Ertythema and erosions in the duodenal bulb. Remaining mucosa was normal to the extent examined. Cold forceps biopsies were taken from the duodenal bulb and 2nd portion of the duodenum to rule out celiac sprue. Colonoscopy Procedure:? The patient was then turned for the colonoscopy. A digital rectal exam was performed which was normal.? A distal attachment cap was affixed to the tip of the scope and the colonoscope was then inserted through the anus and advanced through the colon and advanced to the cecum at 75 cm and terminal ileum.? Appendiceal orifice and ileocecal valve were identified. Mucosa was carefully examined under high definition white light as the instrument was slowly withdrawn in a retrograde panoramic fashion. Retroflexion was performed in rectum. The procedure was not difficult. The quality of the prep was BBPS: 2+3+2 = adequate Withdrawal time 12 minutes Limitations: No limitations Findings: Mucosa: Normal colon and terminal ileum mucosa. Protruding lesions: * 1 sessile polyp of size 6 mm in ascending colon. Cold snare polypectomy was performed. The polyp was completely removed and retrieved. * 1 sessile polyp of size 6 mm in transverse colon. Cold snare polypectomy was performed. The polyp was completely removed and retrieved. * Large internal hemorrhoids with stigmata of recent bleeding. Exacavated lesions: * Severe diverticulosis of L side colon. Impression: 1. Irregular Z line line (biopsy) 2. Hiatal hernia 3. Gastritis (biopsy) 4. Peptic duodenitis (biopsy) 5. Normal colon and terminal ileum mucosa 6. Total of 2 polyps removed 7. Diverticulosis 8. Internal hemorrhoids Recommendations:?? * Follow-up path results * Avoid NSAIDs * H Pylori treatment if biopsies + * Repeat colonoscopy for CRC screening in 7-10 years. * No etiology of unintentional weight loss identified on bidirectional endoscopy today. Could consider contrasted pancreas imaging given fam hx and atrophic appearance on non-con imaging.
[2024-04-22 10:38] VITALS: BP 128/79; PULSE 81; RESP 18; TEMP 36.9; O2SAT 97
[2024-04-22 10:53] VITALS: BP 148/79; PULSE 72; RESP 18; TEMP 36.9; O2SAT 99
== END 2024-04-22 11:25 | disposition home or self-care (01) ==
PROVIDERS: PCP Internal Medicine Geriatric Medicine; Visit Provider Internal Medicine
PROC: (CPT 45385; principal; 2024-04-22 09:20)
DX: Z12.11 Encounter for screening for malignant neoplasm of colon (principal); Z86.0101 Personal history of adenomatous and serrated colon polyps; Z80.0 Family history of malignant neoplasm of digestive organs; D12.2 Benign neoplasm of ascending colon; D12.3 Benign neoplasm of transverse colon; K57.30 Diverticulosis of large intestine without perforation or abscess without bleeding; K64.8 Other hemorrhoids; K21.9 Gastro-esophageal reflux disease without esophagitis; K22.719 Barrett's esophagus with dysplasia, unspecified; K22.89 Other specified disease of esophagus; K29.50 Unspecified chronic gastritis without bleeding; K29.80 Duodenitis without bleeding; K31.7 Polyp of stomach and duodenum; K44.9 Diaphragmatic hernia without obstruction or gangrene; R63.4 Abnormal weight loss; Z68.26 Body mass index [BMI] 26.0-26.9, adult; R00.2 Palpitations; R07.2 Precordial pain; Z85.3 Personal history of malignant neoplasm of breast; Z79.82 Long term (current) use of aspirin; Z79.899 Other long term (current) drug therapy; Z99.89 Dependence on other enabling machines and devices; Z88.0 Allergy status to penicillin; Z88.8 Allergy status to other drugs, medicaments and biological substances; Z91.041 Radiographic dye allergy status; Z98.890 Other specified postprocedural states; Z87.19 Personal history of other diseases of the digestive system
CPT/HCPCS: 45385; 43239; 88305; 88313; 88342; J1364; J2003; J2405; J2704

== ENCOUNTER → 2024-04-22 07:58 | Outpatient (BNV) | payer OTHER, SELFPAY | PROVIDERS: PCP Internal Medicine Geriatric Medicine; Visit Provider Internal Medicine | DX: K22.70 Barrett's esophagus without dysplasia (principal); K29.70 Gastritis, unspecified, without bleeding; K29.80 Duodenitis without bleeding; K57.30 Diverticulosis of large intestine without perforation or abscess without bleeding; R63.4 Abnormal weight loss; Z86.0100 Personal history of colon polyps, unspecified; D12.3 Benign neoplasm of transverse colon; K64.8 Other hemorrhoids | CPT/HCPCS: 43239; 45385 ==

== ENCOUNTER 2024-05-05 09:40 | Outpatient (AMB) | payer OTHER, SELFPAY ==
--- NOTE | 2024-05-05 09:42 | A.OFFVIS_ITS ---
Vital Signs 05/05/24 09:52 Height 5 ft 2 in Weight 147 lb 4 oz BMI 26.9 BP 162/69 H Blood Pressure Location Lt brachial Position Sitting Pulse 91 Intake Visit Reasons: Diverticulitis of intestine Intake Note: Patient is seen in office for follow up visit, following diverticulitis. Pt c/o: admits to nausea, vomit , pain with bm, constipation, denies bleeding, straining, had colonoscopy done recently with Dr Pelaez Special Service Officer Required: No Accompanied by: Family/Other Allergies Penicillins [PENICILLINS] Allergy (Severe, Verified 05/05/24 09:42) SWELLING/VOMITING Iodinated Contrast Media [IV Contrast Dye] Allergy (Intermediate, Verified 05/05/24 09:42) eye/facial swelling metronidazole [Flagyl] Allergy (Intermediate, Verified 05/05/24 09:42) Palpitations paroxetine Adverse Reaction (Intermediate, Verified 05/05/24 09:42) diarrhea Medication List - Last Reconciled 05/05/24 by David Hawkins MD amlodipine 2.5 mg PO DAILY aspirin (Adult Low Dose Aspirin) 81 mg PO DAILY cholecalciferol (vitamin D3) 1 cap PO DAILY diphenhydramine HCl (Benadryl) 25 mg PO BID PRN docusate sodium 100 mg PO BID erythromycin 1 g (2 x 500 mg) PO TID esomeprazole magnesium 40 mg PO DAILY exemestane (Aromasin) 25 mg PO DAILY lorazepam 0.5 mg PO BEDTIME PRN magnesium oxide 300 mg PO DAILY multivit with min-folic acid 200 mcg (Women's Multivitamin Gummies) 1 tab PO DAILY neomycin 1 g (2 x 500 mg) PO TID 3 doses oxycodone-acetaminophen 5-325 mg 325 tabs PO DAILY PRN polyethylene glycol 3350 (Miralax) 17 grams PO DAILY walker Rollator walker with seat and breaks zolpidem 10 mg PO BEDTIME PRN HPI Comments Details: 63-year-old female patient returning following her recent endoscopy and colonoscopy to discuss further management of her diverticulitis. She continues to have symptoms in the left lower quadrant and reports a recent episode approximately 2 days ago with increased pain. Her bowels are moving but are loose. She denies any fever or chills. Colonoscopy revealed several benign polyps and diverticular inflammation in the sigmoid colon with no evidence of malignancy. She wishes to proceed with the sigmoid colectomy because of her ongoing symptoms. FOR[facility]LY [facility] Medical History Graves esophagus Allergies Foot fracture, right Closed left ankle fracture Infiltrating ductal carcinoma of left breast Overweight (BMI 25.0-29.9) GERD without esophagitis Rib pain on right side Insomnia Fibromyalgia Diverticulitis Chronic back pain GERD (gastroesophageal reflux disease) Surgical History History of lumpectomy of left breast History of left breast biopsy (~01/08/20) History of local excision of skin lesion (~03/2018) History of right breast biopsy (~2012) History of cystoscopy History of gastric surgery History of section History of esophagogastroduodenoscopy (EGD) (~02/2013) History of colonoscopy Family History Mother History of hypertension History of pancreatic cancer History of diabetes mellitus Father History of hypertension History of diabetes mellitus Colon cancer Sister History of hypertension Maternal Grandmother History of lung cancer Social History Household Members: None Housing: Apartment Are you a primary patient care secretary to a significant other at home: No Do you presently have 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 or other home services: No Alcohol intake: never Patient Tobacco Use Status: Never used Tobacco e-Cigarette/Vaping Use: Never Used Second Hand Smoke Exposure: No service: No Current occupational status: disabled 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 Review of Systems Const All systems reviewed & are unremarkable except as noted in HPI and below GI Reports abdominal pain and Reports constipation Physical Exam Const General: cooperative, comfortable and well developed Nutritional Appearance: well nourished Orientation/consciousness: patient oriented x3 Eyes Sclerae: sclerae normal EOM: EOMs intact bilaterally Neck Neck: Yes normal visual inspection Resp Effort & Inspection: normal respiratory effort, no cough, no respiratory distress and no stridor GI Palpation (GI): Soft to palpation, Tenderness to palpation present (GI) in the LLQ, no guarding and not rigid Percussion: Yes normal to percussion Auscultation: normal bowel sounds Rectal Exam - Female: deferred Skin General skin exam: dry skin Rashes: no rashes Neuro Other: Mobility Assessment: 1. 3 meter assessment time (seconds) 5 seconds 2. Gait observations: Normal balance and gait General: patient oriented x3 and no focal motor deficits Extrem General: Yes full ROM and Yes no clubbing, cyanosis or edema Psych Appearance: grossly normal Assessment & Plan Assessment & Plan (1) Diverticulitis: Code(s): K57.92 - Diverticulitis of intestine, part unspecified, without perforation or abscess without bleeding Category: Medical Plan 63-year-old female patient with ongoing symptoms related to her sigmoid diverticulitis. Options include continued observation with symptomatic management verses sigmoid colectomy. I reviewed the risks and benefits of each option in detail. I reviewed laparoscopic hand assisted sigmoid colectomy, possible open along with the risks and benefits. She wishes to proceed with the surgery and gives her consent for a hand assisted laparoscopic sigmoid colectomy possible open. She will be scheduled as a short-stay admit. I reviewed the bowel prep and preoperative antibiotic management. She would also be a candidate for ERAS. Medications: New polyethylene glycol 3350 (Miralax) Mixed 1/2 bottle polyethylene glycol (MiraLax) with 1 bottles of Gatorade (32 oz). Drink 1 cup every 15 minutes starting at 09:00 day prior to surgery until either completed or when bowels are clear. 17 grams PO DAILY 238 grams 0RF erythromycin administer at 1 PM, 2 PM, and 10 PM the day prior to surgery 1 g (2 x 500 mg) PO TID 6 tabs 0RF neomycin administer at 1 PM, 2 PM, and 11 PM the day prior to surgery 1 g (2 x 500 mg) PO TID 6 tabs 0RF 3 doses Patient Instructions: Half MiraLax Prep for Colon Surgery ? Two Days before your procedure: Stop eating foods like nuts, seeds, whole grains, beans, corn, and raw vegetables.?You should also avoid fiber supplements.? The day before your procedure: 1.? Eat only clear liquids for the entire day 2.? Mix the solution:?Mix one half bottle of MiraLAX powder with 32 ounces of clear liquid, like Gatorade, Pedialyte, Powerade, or Crystal Light. Avoid using red colored drinks.? ?Shake until the powder dissolves.? ? 3.? Beginning at 9:00 AM, Drink the MiraLax solution:?Drink 8 ounces of the solution every 10?15 minutes until the entire bottle is gone. 4.? Drink clear liquids:?Drink 4?6 cups of clear liquids after finishing the MiraLAX solution.? 5.? Antibiotics: ?An antibiotic prescription will be sent to your pharmacy usually for two antibiotics which are to be taken in the afternoon prior to surgery, after the MiraLax solution is completed.? Please take the prescribed antibiotic pills at 1:00 PM, 2:00 PM and 10:00 PM on the night prior to surgery. 6.? Nothing to eat or drink after midnight the day of surgery. Coding Level of Care Code Est Pt Level 4 (00538) Diagnoses Diverticulitis K57.92
[2024-05-05 09:52] VITALS: BP 162/69; PULSE 91; BMI 26.9
== END 2024-05-05 10:05 | disposition home or self-care (01) ==
PROVIDERS: PCP Internal Medicine Geriatric Medicine; Referring Provider Internal Medicine Gastroenterology; Visit Provider Surgery
DX: K57.92 Diverticulitis of intestine, part unspecified, without perforation or abscess without bleeding (principal)
CPT/HCPCS: 99214

== ENCOUNTER → 2024-05-05 09:40 | Outpatient (BNVA) | payer OTHER, SELFPAY | PROVIDERS: PCP Internal Medicine Geriatric Medicine; Referring Provider Internal Medicine Gastroenterology; Visit Provider Surgery | DX: K57.92 Diverticulitis of intestine, part unspecified, without perforation or abscess without bleeding (principal) | CPT/HCPCS: 99212 ==

== ENCOUNTER 2024-05-25 11:34 | Outpatient (AMB) | payer OTHER, SELFPAY ==
[2024-05-25 11:57] VITALS: BP 188/88; PULSE 75; BMI 27.1
--- NOTE | 2024-05-25 11:57 | A.OFFVIS_ITS ---
Vital Signs 05/25/24 11:57 Height 5 ft 2 in Weight 148 lb 2.41 oz BMI 27.1 BP 188/88 H Blood Pressure Location Rt brachial Position Sitting Pulse 75 Intake Visit Reasons: f/u double Intake Note: Corrie presents in follow up s/p EGD and colonoscopy. CC: Patient reports feeling worried about upcoming surgeries with Dr. Shipman and Dr. Pelaez. She also c/o headache, cough, and nausea. Stack Yield Engineer Required: No Stack Yield Engineer Services: Stack Yield Engineer Offered & Declined Accompanied by: Self / Same As Patient Allergies Penicillins [PENICILLINS] Allergy (Severe, Verified 05/25/24 12:06) SWELLING/VOMITING Iodinated Contrast Media [IV Contrast Dye] Allergy (Intermediate, Verified 05/25/24 12:06) eye/facial swelling metronidazole [Flagyl] Allergy (Intermediate, Verified 05/25/24 12:06) Palpitations paroxetine Adverse Reaction (Intermediate, Verified 05/25/24 12:06) diarrhea HPI HPI f/u double: Details: 63 yr old f here for f/u RECAP she had epigastric pain, she was taking omeprazole every other day 40 mg water was making pain worse she had EGD [facility] with gastritis and duodenitis, intestinal metaplasia she had been on ambien for sleep she was not taking any other meds she finds prayer more helpful she went to the ED 10/13/22 with severe lower abdominal pain she was dx with acute diverticulitis on imaging she was given augmentin and it seemed to help but then 3 d ago the pain came back she has noted urine frequency I reordered labs and her CRP was 7, CBC and BMP were nml limits UA was pos for leuk esterase, but culture was neg I gave her cipor and flagyl for 1 week Other data: Mother from pancreas ca, father with CRC aged 75 US 11/2020--nml--hepatic steatosis colonoscopy 2012--diverticulosis, no polyps prior hx of h pylori gastritis treated 2014 EGD/colonoscopy 2020--sotelo's hemorrhoids, diverticulosis, tubulovillous polyp removed EGD/colo 2023: severe diverticulosis few small polyps IEL in duodenum, reflux changes no sotelo seen INTERIM: Shehas on and off LLQ discomfort, fair appetite, occ nausea no rectal bleeding awaiting sigmoid colectomy end of month EXAM: GENERAL: The patient is well developed and nontoxic. VITAL SIGNS:see workflow HEENT: Nonicteric sclerae, PERRLA, EOMI. Oropharynx clear. Moist mucous membranes. Conjunctivae appear well perfused. No thyroid mass. CHEST: Chest wall is nontender. HEART: Regular rate and rhythm without murmurs. LUNGS: Clear to auscultation bilaterally. ABDOMEN: Soft, positive bowel sounds, tender LLQ no organomegaly.no flank tenderness SKIN: No rash, no excessive bruising, petechiae, or purpura. NEUROLOGIC: Cranial nerves II-XII intact without motor/sensory deficit. psych: nml A/P: 1/ Recurrent diverticulitis, inlc with GNR bacteremia at one point 2/ Barretts esophagus with GERD PLAN: 1/ f/u surg 2/ cont with ppi PFSH Medical History Sotelo esophagus Allergies Foot fracture, right Closed left ankle fracture Infiltrating ductal carcinoma of left breast Overweight (BMI 25.0-29.9) GERD without esophagitis Rib pain on right side Insomnia Fibromyalgia Diverticulitis Chronic back pain GERD (gastroesophageal reflux disease) Surgical History History of lumpectomy of left breast History of left breast biopsy (~01/08/20) History of local excision of skin lesion (~03/2018) History of right breast biopsy (~2012) History of cystoscopy History of gastric surgery History of section History of esophagogastroduodenoscopy (EGD) (~02/2013) History of colonoscopy Family History Mother History of hypertension History of pancreatic cancer History of diabetes mellitus Father History of hypertension History of diabetes mellitus Colon cancer Sister History of hypertension Maternal Grandmother History of lung cancer Social History Household Members: None Housing: Apartment Are you a primary transitions rn care coordinator to a significant other at home: No Do you presently have 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 or other home services: No Alcohol intake: never Patient Tobacco Use Status: Never used Tobacco e-Cigarette/Vaping Use: Never Used Second Hand Smoke Exposure: No service: No Current occupational status: disabled 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
== END 2024-05-25 13:11 | disposition home or self-care (01) ==
PROVIDERS: PCP Internal Medicine Geriatric Medicine; Visit Provider Internal Medicine Gastroenterology
DX: K57.92 Diverticulitis of intestine, part unspecified, without perforation or abscess without bleeding (principal)
CPT/HCPCS: 99213

== ENCOUNTER → 2024-05-25 11:34 | Outpatient (BNVA) | payer OTHER, SELFPAY | PROVIDERS: PCP Internal Medicine Geriatric Medicine; Visit Provider Internal Medicine Gastroenterology | DX: K57.92 Diverticulitis of intestine, part unspecified, without perforation or abscess without bleeding (principal) | CPT/HCPCS: 99212 ==

== ENCOUNTER 2024-06-10 06:54 | Inpatient (IN) | payer OTHER, SELFPAY ==
[2024-06-02 12:26] VITALS: BP 177/86; PULSE 78; RESP 16; O2SAT 98; BMI 26.9
--- NOTE | 2024-06-02 12:50 | P.CONAN_ITS ---
Documented by User: Graciela Carballo NP 06/02/24 13:12 HPI - Anesthesia Eval Consult details Narrative: 63yo F for Hand Assisted Sigmoid Colectomy Laparoscopic, possible open, 06/10/24 Cardiac optimized (eval and testing 01/2024 for CP negative) Recent URI resolving, only mild sinus congestion remains No CP./SOB with walking s/p EGD and [place] 04/2024 with TIVA: Divertic Left Breast CA: s/p rad and chemo 2019. On aromatase inhibitor. HTN: Losartan increased to 50mg by PCP yesterday. BP up at [facility]. Reviewed home BP logs and OK. Pt will continue to monitor and bring log DOS PMFSH Active Problems Active Problems: All Active Problems Duodenitis (Acute) Blood bacterial culture positive (Acute) Nausea & vomiting (Acute) Arthritis of knee, right (Acute) Preop cardiovascular exam (Acute) Heart palpitations (Acute) Precordial chest pain (Acute) RUQ abdominal pain (Acute) COVID-19 (Acute) Urine frequency (Acute) Nondisplaced fracture of fifth right metatarsal bone (Acute) Closed fracture of left distal fibula (Acute) Colon cancer high risk (Acute) Epigastric abdominal pain (Acute) Breast mass, right (Acute) Invasive carcinoma of breast (Acute) Invasive ductal carcinoma of left breast (Acute) History of endoscopy (Acute ~01/2018) Graves esophagus (Acute) Allergies (Acute) Diverticulitis (Acute) Infiltrating ductal carcinoma of left breast (Acute) Overweight (BMI 25.0-29.9) (Acute) GERD without esophagitis (Acute) Rib pain on right side (Acute) Insomnia (Acute) History of right breast biopsy (Acute ~2012) History of local excision of skin lesion (Acute ~03/2018) History of left breast biopsy (Acute ~01/08/20) History of gastric surgery (Acute) History of esophagogastroduodenoscopy (EGD) (Acute ~02/2013) History of cystoscopy (Acute) History of colonoscopy (Acute) History of section (Acute) GERD (gastroesophageal reflux disease) (Acute) Fibromyalgia (Acute) Past Medical History Medical History Hx of radiation therapy History of chemotherapy Cough History of headache Constipation Allergic rhinitis Anxiety HTN (hypertension) Graves esophagus Allergies Foot fracture, right Closed left ankle fracture Infiltrating ductal carcinoma of left breast Overweight (BMI 25.0-29.9) GERD without esophagitis Rib pain on right side Insomnia Fibromyalgia Diverticulitis Chronic back pain GERD (gastroesophageal reflux disease) Family History Family History Mother History of hypertension History of pancreatic cancer History of diabetes mellitus Father History of hypertension History of diabetes mellitus Colon cancer Sister History of hypertension Maternal Grandmother History of lung cancer Family history of problems with anesthesia: No Surgical History Surgical History History of lumpectomy of left breast History of left breast biopsy (~01/08/20) History of local excision of skin lesion (~03/2018) History of right breast biopsy (~2012) History of cystoscopy History of gastric surgery History of section History of esophagogastroduodenoscopy (EGD) (~02/2013) History of colonoscopy History of Problems with Anesthesia: No Social History Social History Household Members: None Housing: Apartment Are you a primary adult care provider to a significant other at home: No Do you presently have 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 or 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 Meds Allergies Allergy/AdvReac Type Severity Reaction Status Date / Time Penicillins [PENICILLINS] Allergy Severe SWELLING/VO Verified 05/25/24 12:06 MITING Iodinated Contrast Media Allergy Intermediate eye/facial Verified 05/25/24 12:06 [IV Contrast Dye] swelling metronidazole [Flagyl] Allergy Intermediate Palpitation Verified 05/25/24 12:06 s iopromide Allergy Itching Verified 06/02/24 12:04 paroxetine AdvReac Intermediate diarrhea Verified 05/25/24 12:06 Home Medications ?Medication ?Instructions ?Recorded ?Confirmed ?Last Taken ?Type aspirin 81 mg tablet,delayed 81 mg PO DAILY PRN Pain 02/10/20 06/02/24 06/02/24 History release (Adult Low Dose Aspirin) cholecalciferol (vitamin D3) 50 1 cap PO DAILY 02/15/21 06/02/24 06/02/24 History mcg (2,000 unit) capsule docusate sodium 100 mg capsule 100 mg PO BID PRN Constipation 10/29/22 06/02/24 06/03/24 History zolpidem 10 mg tablet 10 mg PO BEDTIME PRN Sleep 10/29/22 06/02/24 06/09/24 History oxycodone-acetaminophen 5 mg-325 0.5 tab PO DAILY PRN Pain, Moderate 06/26/23 06/02/24 06/07/24 History mg tablet multivitamin with minerals-folic 1 tab PO DAILY 02/25/24 06/02/24 06/03/24 History acid 200 mcg chewable tablet (Women's Multivitamin Gummies) lorazepam 0.5 mg tablet 0.5 mg PO DAILY PRN Anxiety 06/02/24 06/02/24 06/10/24 History losartan 50 mg tablet 50 mg PO DAILY 06/02/24 06/02/24 06/09/24 History Exam Height,Weight and Vital Signs: Height 5 ft 2 in Weight 66.678 kg Last Vital Signs Pulse 78 06/02/24 12:26 Resp 16 06/02/24 12:26 BP 177/86 H 06/02/24 12:26 Pulse Ox 98 06/02/24 12:26 O2 Del Method Room Air 06/02/24 12:26 Pertinent Lab Results Pertinent Lab Results: Laboratory Tests 04/13/24 12:28 WBC 7.7 Hgb 13.5 Hct 39.7 Plt Count 383 D Sodium 139 Potassium 4.6 D Chloride 104 Carbon Dioxide 30 H BUN 18 H Creatinine 0.74 Narrative Narrative: EKG 01/2024 EKG Details: normal sinus rhythm, low-voltage QRS, QTC 399 milliseconds, rate 71 NM cardiolite stress test 11/2023 Impression: 1. Myocardial perfusion imaging study shows probably normal myocardial perfusion. No definitive evidence of any ischemia or infarction. 2. Gated LVEF is 69% during stress and 62% during rest. 3. Transient ischemic dilatation not present. EKG component of the test reported separately. Holter monitor was done on 10/14/2023 for 3 days showing sinus rhythm with average heart rate 79. An echocardiogram was done 10/14/2023 showing EF 60-65%, impaired relaxation, no valve abnormalities. Airway Mallampati Class: II TM Dist: >3cm Neck ROM: Full Loose/Missing/Broken Teeth: Yes (Front top crowns stable, missing molars) Heart: RRR Lungs: CTAB Assessment and Plan Assessment Anesthesia Assessment: Anesthesia Plan Discussed and PAT Visit Final Anesthetic Review Family History of Problems with Anesthesia: No History of Problems with Anesthesia: No Documented by User: Deirdre Ramon MD 06/10/24 07:48 [facility] Past Medical History Medical History Hx of radiation therapy History of chemotherapy Cough History of headache Constipation Allergic rhinitis Anxiety HTN (hypertension) Graves esophagus Allergies Foot fracture, right Closed left ankle fracture Infiltrating ductal carcinoma of left breast Overweight (BMI 25.0-29.9) GERD without esophagitis Rib pain on right side Insomnia Fibromyalgia Diverticulitis Chronic back pain GERD (gastroesophageal reflux disease) Family History Family History Mother History of hypertension History of pancreatic cancer History of diabetes mellitus Father History of hypertension History of diabetes mellitus Colon cancer Sister History of hypertension Maternal Grandmother History of lung cancer Surgical History Surgical History History of lumpectomy of left breast History of left breast biopsy (~01/08/20) History of local excision of skin lesion (~03/2018) History of right breast biopsy (~2012) History of cystoscopy History of gastric surgery History of section History of esophagogastroduodenoscopy (EGD) (~02/2013) History of colonoscopy Social History Social History Household Members: None Housing: Apartment Are you a primary adult care provider to a significant other at home: No Do you presently have 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 or 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 Meds Allergies Allergy/AdvReac Type Severity Reaction Status Date / Time Penicillins [PENICILLINS] Allergy Severe SWELLING/VO Verified 05/25/24 12:06 MITING Iodinated Contrast Media Allergy Intermediate eye/facial Verified 05/25/24 12:06 [IV Contrast Dye] swelling metronidazole [Flagyl] Allergy Intermediate Palpitation Verified 05/25/24 12:06 s iopromide Allergy Itching Verified 06/02/24 12:04 paroxetine AdvReac Intermediate diarrhea Verified 05/25/24 12:06 Home Medications ?Medication ?Instructions ?Recorded ?Confirmed ?Last Taken ?Type aspirin 81 mg tablet,delayed 81 mg PO DAILY PRN Pain 02/10/20 06/02/24 06/02/24 History release (Adult Low Dose Aspirin) cholecalciferol (vitamin D3) 50 1 cap PO DAILY 02/15/21 06/02/24 06/02/24 History mcg (2,000 unit) capsule docusate sodium 100 mg capsule 100 mg PO BID PRN Constipation 10/29/22 06/02/24 06/03/24 History zolpidem 10 mg tablet 10 mg PO BEDTIME PRN Sleep 10/29/22 06/02/24 06/09/24 History oxycodone-acetaminophen 5 mg-325 0.5 tab PO DAILY PRN Pain, Moderate 06/26/23 06/02/24 06/07/24 History mg tablet multivitamin with minerals-folic 1 tab PO DAILY 02/25/24 06/02/24 06/03/24 History acid 200 mcg chewable tablet (Women's Multivitamin Gummies) lorazepam 0.5 mg tablet 0.5 mg PO DAILY PRN Anxiety 06/02/24 06/02/24 06/10/24 History losartan 50 mg tablet 50 mg PO DAILY 06/02/24 06/02/24 06/09/24 History Exam Airway Loose/Missing/Broken Teeth: No Assessment and Plan Final Anesthetic Review NPO: Yes ASA Class: II Final Preanesthetic Review: Meds/Allgs Chart Reviewed, Consent Obtained/Reviewed and Anes Risks/Benef Reviewed Patient Risk: Low Procedure Risk: Intermediate Anesthetic Plan Anesthetic Plan: GA Disposition: Standard PACU
[2024-06-10] VITALS (11 sets, daily range): BP systolic 112–173; BP diastolic 50–86; PULSE 56–87; RESP 12–20; TEMP 36.2–37.2; O2SAT 95–100
[2024-06-10] MEDS: Lactated Ringers 1,000 ML 100 ML IVCONT (07:09)
--- NOTE | 2024-06-10 07:20 | MHC.SHP ---
Pre-Procedural Eval Section A - 24 Hr Update-Section A only Date of Service: 06/10/24 The patient is an INPATIENT: No Changes since office visit: Yes Patient answered all questions; No Cold of Flu in the past 2 weeks, No New Medical Problems and No Changes in Medication The patient has been examined within 24 hours of the surgical procedure. The History & Physical has been completed within 30 days and I have reviewed it.: No Section B - Complete if H&P > 30 days Chief Complaint: sigmoid diverticulitis Details of Present Illness: No change of symptoms since office evaluation Relevant Family History (Specify if Yes): No Relevant Social History: None Present Medications: see Short Stay Collaborative assessment Medical History: No relevant PMH History of Previous Operations: No relevant previous surgery Allergies: Allergies Allergy/AdvReac Type Severity Reaction Status Date / Time Penicillins [PENICILLINS] Allergy Severe SWELLING/VO Verified 05/25/24 12:06 MITING Iodinated Contrast Media Allergy Intermediate eye/facial Verified 05/25/24 12:06 [IV Contrast Dye] swelling metronidazole [Flagyl] Allergy Intermediate Palpitation Verified 05/25/24 12:06 s iopromide Allergy Itching Verified 06/02/24 12:04 paroxetine AdvReac Intermediate diarrhea Verified 05/25/24 12:06 Review of Systems Sugical H&P ROS: Negative: Constitution, Cardiovascular, Respiratory, Gastrointestinal and Genitourinary Exam Surgical H&P Exam: Normal: HEENT, Normal: Heart, Normal: Lungs, Normal: Extremities, Normal: Abdomen and Normal: Skin Plan Diagnosis/Plan: Unchanged I have reviewed the history and physical and performed a pertinent physical examination on my patient. No changes have occurred unless specified. Time Spent With Patient Time: Total time managing care of this patient today ____ minutes.
--- NOTE | 2024-06-10 07:30 | PC.NURSE ---
levaquin changed to cipro shortage of levaquin
--- NOTE | 2024-06-10 09:46 | P.OP_ITS ---
Operative Note Operative Note Date of Service: 06/10/24 Narrative: Preoperative diagnosis: Sigmoid diverticulitis with abscess Postoperative diagnosis: Same Procedure: Hand assisted laparoscopic sigmoid colectomy with colorectal anastomosis Surgeon: David Hawkins MD Special Event Assistant: Liz Chahal PA-C Anesthesia: General endotracheal, tap block rectus sheath block Indications for procedure: 63-year-old female patient presenting with complaints of abdominal pain in the left lower quadrant found to have sigmoid diverticulitis with abscess. She has had several episodes of similar discomfort with similar findings. She presents today for elective sigmoid colectomy to prevent further recurrences of the sigmoid diverticulitis. Operative findings: Short area of the sigmoid colon with obvious chronic inflammation suggestive of multiple episodes of sigmoid diverticulitis. No abscess identified but surrounding phlegmon was identified. Specimen: Sigmoid colon Estimated blood loss: 20 mL Complications: None Procedure details: Patient was brought to the OR placed in a supine position. Patient was placed in lithotomy position and a Danielle catheter inserted. After administering general anesthesia, the abdomen was prepped with ChloraPrep and draped in a sterile fashion. A surgical time-out was called the consent confirmed. Patient received preoperative antibiotics and Venodyne boots were in place. A lower midline incision measuring 7.5 cm was then created and carried out through subcutaneous tissue, through linea alba into the peritoneum. A hand port was then inserted in the abdomen insufflated to a pressure 15 mmHg. Camera was inserted in the abdomen explored. Adhesions were noted to the pelvis from the omentum. A 12 mm port was placed in the right upper quadrant and 2 5 mm trocar was placed in the upper abdomen including of the midline and left upper quadrant. The patient was placed in a Trendelenburg position and rotated to the right. The sigmoid colon and left colon were then mobilized along the white line of Toldt using the LigaSure. This was continued up to the splenic flexure. Splenic flexure was also mobilized. Attention was then directed to the sigmoid colon which was mobilized into the pelvis. Dense adhesions were noted from the prior infections. This was further mobilized using blunt dissection and electrocautery dissection. The distal sigmoid rectal junction was noted to be soft with no evidence of infection. At this point the colon was brought up through the hand port and the proximal end resection decided on the distal descending colon. A right angle clamp was placed below the mesentery and an Endo-BERNICE stapler used to divide the bowel proximal to the area of diverticulitis. LigaSure was then used to dissect the mesentery down below the affected bowel up until the rectosigmoid junction. At this point a curved BERNICE stapler was used to divide the distal bowel. The specimen was removed and sent to pathology for further examination. At this point the descending colon was further mobilized. A pursestring clamp was placed and a Prolene pursestring applied. The bowel was opened and EEA sizers used. It was determined that a 25 mm EEA stapler was needed. The anvil was placed in the descending colon and the pursestring tied. Attention was then directed to the anal rectal region were again a dilation was performed. This was dilated up to 25 and the 25 stapler brought up to the rectosigmoid junction. The staple was brought up through the anterior wall of the rectum and the anvil connected to the spike. The staple was fired at this point. The anastomosis was reinforced using interrupted 3-0 Surgilon sutures. A leak test was performed and no leak could be identified. At this point all trocars were removed in the hand port was removed. Fascia was closed in the midline incision using a running 0 PDS looped suture. Subcutaneous tissue and dermis were reapproximated using interrupted 3-0 Polysorb sutures. Skin was closed using skin ya. Sterile dressings were then applied The patient tolerated the procedure well. Sponge, instrument, and needle counts reported as correct. The patient was transferred to PACU in stable condition.
[2024-06-10] MEDS: ondansetron HCL 4 MG/2 ML VIAL IVPUSH ×2 (10:19→13:37)
[2024-06-10] MEDS: Haloperidol Lactate 5 MG/ML VIAL 1 MG IVPUSH (10:43)
[2024-06-10] MEDS: oxyCODONE HCl Immed Release 5 MG TABLET PO (11:55)
[2024-06-10] MEDS: HYDROmorphone HCl 0.5 MG/0.5 ML SYRINGE IVPUSH ×3 (12:23→22:09)
[2024-06-10] MEDS: Acetaminophen 1,000 MG/100 ML PIGGYBACK 400 MG IV ×2 (12:24→19:44)
[2024-06-10] MEDS: Dextrose 5 % and Lactated Ring 1,000 ML 100 ML IVCONT ×2 (12:29→22:06)
--- NOTE | 2024-06-10 13:08 | PHA.MEDREC ---
Addendum entered by Laurel Koo RPh 06/10/24 13:35: reviewed by formerly [facility]. Original Note: Pharmacy Consult ? Medication Reconciliation Pharmacy has completed the medication reconciliation. Spoke with patient and she confirmed her medications. She confirmed she finished the Erythromycin and Neomycin regimens about a month ago now. She confirmed the Exemestane 25mg tab once daily and confirmed she has not taken it in 2 days. She confirmed the Losartan tablet and confirmed it was just increased from 25mg once daily to 50mg once daily. She confirmed the Oxycodone-Acetaminophen 5-325mg tab and confirmed she is taking 1-2 tabs every 6 hours as needed for sever pain. She confirmed she is getting Miralax after her surgery per her Dr's request. She confirmed she last took her medications 2 days ago.
--- NOTE | 2024-06-10 13:22 | PC.NURSE ---
Pt arrived from PACU with lau in place. Order reason is Charley-operative. Contacted surgical PA. Requests lau to stay in overnight.
[2024-06-10] MEDS: 0.9 % Sodium Chloride Flush 3 ML SYRINGE IVFLUSH (22:11)
[2024-06-11] MEDS: Acetaminophen 1,000 MG/100 ML PIGGYBACK 400 MG IV ×4 (00:47→19:24)
[2024-06-11] MEDS: Zolpidem Tartrate 5 MG TABLET 10 MG PO (00:50)
[2024-06-11 04:00] VITALS: BP 169/77; PULSE 78; RESP 16; TEMP 37.2; O2SAT 98
[2024-06-11] MEDS: HYDROmorphone HCl 0.5 MG/0.5 ML SYRINGE IVPUSH ×5 (04:21→21:32)
[2024-06-11 05:11] VITALS: BP 138/67; PULSE 70; O2SAT 93
[2024-06-11 06:01] LABS: MANUAL DIFF FLAG NO
[2024-06-11 06:11] LABS: Basophils Percent Auto 0.2 % (0-2); Hematocrit 33.7 % (37.0-47.0); Hemoglobin 11.5 g/dl (12.0-16.0); Imm Gran Abs Auto 0.04 X10*3/uL (0.00-0.03); Imm Gran Pct Auto 0.4 % (0.0-0.4); Lymphocytes Absolute Auto 1.3 X10*3/uL (1.2-4.9); Lymphocytes Percent Auto 12.3 % (20-40); Mean Corpuscular HGB Conc 34.1 g/dl (31.0-35.0); Mean Corpuscular Hemoglobin 29.1 pg (27.0-33.0); Mean Corpuscular Volume 85.3 fL (80.0-98.0); Mean Platelet Volume 9.6 fL (9.4-12.3); Monocytes Absolute Auto 0.9 X10*3/uL (0.1-1.2); Monocytes Percent Auto 8.5 % (2-11); Neutrophils Absolute Auto 8.4 x10*3/uL (2.0-8.3); Neutrophils Percent Auto 78.6 % (45-73); Platelet Count 314 X10*3/uL (160-400); Red Blood Count 3.95 X10*6/uL (4.20-5.50); Red Cell Distribution Width 13.6 % (11.0-16.0); White Blood Count 10.6 X10*3/uL (4.8-10.8)
[2024-06-11 06:17] LABS: Anion Gap 12 (12-20); Blood Urea Nitrogen 7 mg/dL (9-16); Calcium 9.1 mg/dL (8.4-10.2); Carbon Dioxide 25 mmol/L (22-29); Chloride 106 mmol/L (96-108); Creatinine Clr Calc Pharmacy 73.9; Estimated Glomerular Filt Rate > 60; Glucose Random 161 mg/dL (60-115); Potassium 3.5 mmol/L (3.3-5.1); Sodium 139 mmol/L (135-145)
--- NOTE | 2024-06-11 06:20 | P.PNGS_ITS ---
Subjective Subjective Date of Service: 06/11/24 <Jeovanny Rene - Last Filed: 06/11/24 07:10> 06/11/24 <David Hawkins MD - Last Filed: 06/11/24 07:50> 06/11/24 <Liz Chahal PA-C - Last Filed: 06/11/24 12:39> Interval history: Patient reports She endorses sharp 9/10 pain near her right-sided incision site which is greatly exacerbated by movement or coughing. She required three doses of dilaudid over the course of last evening which provided some relief. The pain has prevented her from ambulating out of bed or turning without difficulty. Otherwise the pain around other trochar sites is tolerable.She does not have vomiting, decreased PO appetite, right shoulder/chest pain. Patient is actively using incentive spirometer and has no limitation in deep breathing. Patient tolerating broth and lv abe without nausea or GERD. Patient has not had a BM or passed flatus yet and has a moderate degree of bloating. She is urinating without difficulty via lau catheter. She denies any fever, cough, chest pain, dyspnea, dysuria or leg pain/swelling. <Jeovanny Rene - Last Filed: 06/11/24 07:10> Physical Exam 2 Vital Signs: Vital Signs: Last Vital Signs Temp 98.9 F 06/11/24 04:00 Pulse 70 06/11/24 05:11 Resp 16 06/11/24 04:00 BP 138/67 06/11/24 05:11 Pulse Ox 93 06/11/24 05:11 O2 Del Method Room Air 06/11/24 05:11 O2 Flow Rate 2 06/10/24 23:40 BMI result Body Mass Index 26.9 <Jeovanny Rene - Last Filed: 06/11/24 07:10> Const: Other: Comfortable when laying still in bed. Severe discomfort when turning rapidly to left or when asked to cough. <Jeovanny Rene - Last Filed: 06/11/24 07:10> General: No no acute distress <Jeovanny Rene - Last Filed: 06/11/24 07:10> Nutritional Appearance: average body habitus <Jeovanny Rene - Last Filed: 06/11/24 07:10> Orientation/consciousness: patient oriented x3 <Jeovanny Rene Last Filed: 06/11/24 07:10> Resp: Effort & Inspection: normal respiratory effort <Jeovannyalex Lozano Last Filed: 06/11/24 07:10> Auscultation: clear to auscultation bilaterally, no crackles, no rhonchi and no wheezes <Jeovannyalex Lozano Last Filed: 06/11/24 07:10> Cardio: Jugular venous distension: no JVD <Jeovannyalex Bustillos Last Filed: 06/11/24 07:10> Rate: regular rate <Jeovanny Apollo Last Filed: 06/11/24 07:10> Rhythm: regular rhythm <Jeovannyalex Bustillos Last Filed: 06/11/24 07:10> Heart sounds: S1 normal heart sound present, S2 normal heart sound present and normal S1 and S2 <Jeovannyalex Lozano Last Filed: 06/11/24 07:10> GI: Other: No erythema, bleeding or discharge around surgical dressings. Abdomen is significantly distended. Active bowel sounds. Sharp RLQ pain exacerbated by small movement. Otherwise abdomen non-tender in other quadrants. No rigidity or guarding. <Jeovanny Lozano Last Filed: 06/11/24 07:10> : Other: Normal urine in catheter bag. No discomfort over suprapubic abdomen. <Jeovanny Lozano Last Filed: 06/11/24 07:10> Neuro: General: patient oriented x3, tone normal and moves all extremities <Jeovanny Rene Last Filed: 06/11/24 07:10> Psych: Other: Good mood. Euthymic. <Jeovanny Rene Last Filed: 06/11/24 07:10> Objective Data Active Medications Calcium Carbonate (Calcium Carbonate 750 Mg Tab.Chew) 750 mg PO Q4H PRN PRN Reason: Heartburn Enoxaparin Sodium (Enoxaparin Sodium 40 Mg/0.4 Ml Syringe) 40 mg SUBCUT Q24H [facility]IDAN Hydromorphone HCl (Hydromorphone Hcl 0.5 Mg/0.5 Ml Syringe) 0.5 mg IVPUSH Q3H PRN; Protocol PRN Reason: Pain, Severe (Pain Scale 7-10) Last Admin: 06/11/24 04:21 Dose: 0.5 mg Documented By: OSIEL Dextrose/Lactated Ringer's (D5lr) 1,000 mls @ 100 mls/hr IVCONT .Q10H [facility] Last Admin: 06/10/24 22:06 Dose: 100 mls/hr Documented By: OSIEL Acetaminophen (Ofirmev) 1,000 mg in 100 mls @ 400 mls/hr IV Q6H [facility] Last Infusion: 06/11/24 01:02 Dose: Infused Documented By: OSIEL Lorazepam (Lorazepam 0.5 Mg Tablet) 0.5 mg PO DAILY PRN PRN Reason: Anxiety Losartan Potassium (Losartan Potassium 50 Mg Tablet) 50 mg PO DAILY [facility]; Protocol Naloxone HCl (Naloxone Hcl 0.4 Mg/Ml Vial) 0.04 mg IVPUSH Q5M PRN PRN Reason: Excessive sedation or RR < 8 Non-Formulary Medication (Exemestane [Aromasin]) 25 mg PO DAILY [facility] Ondansetron HCl (Ondansetron Hcl 4 Mg/2 Ml Vial) 4 mg IVPUSH QID PRN PRN Reason: Nausea Last Admin: 06/10/24 13:37 Dose: 4 mg Documented By: GEMA Oxycodone HCl (Oxycodone Hcl Immed Release 5 Mg Tablet) 5 mg PO Q6H PRN PRN Reason: Pain, Moderate(Pain Scale 4-6) Last Admin: 06/10/24 11:55 Dose: 5 mg Documented By: LEXIE Sodium Chloride (0.9 % Sodium Chloride Flush 3 Ml Syringe) [address] [facility] Last Admin: 06/10/24 22:11 Dose: 3 ml Documented By: OSIEL Zolpidem Tartrate (Zolpidem Tartrate 5 Mg Tablet) 10 mg PO BEDTIME PRN PRN Reason: Sleep Last Admin: 06/11/24 00:50 Dose: 10 mg Documented By: OSIEL <Jeovanny Rene - Last Filed: 06/11/24 07:10> Labs CBC & Chem 7: 06/11/24 05:26 06/11/24 05:26 <Jeovanny Rene - Last Filed: 06/11/24 07:10> Labs: Laboratory Results - last 24 hr 06/11/24 05:26 MCV 85.3 MCH 29.1 MCHC 34.1 RDW 13.6 Plt Count 314 MPV 9.6 Immature Gran % (Auto) 0.4 Neut % (Auto) 78.6 H Lymph % (Auto) 12.3 L Yates % (Auto) 8.5 Eos % (Auto) 0.0 Baso % (Auto) 0.2 Lymph # (Auto) 1.3 Yates # (Auto) 0.9 Eos # (Auto) 0.0 Baso # (Auto) 0.0 Abs Immat Gran (auto) 0.04 H Absolute Neuts (auto) 8.4 H Absolute Nucleated RBC 0.000 Nucleated RBC % (auto) 0.0 Anion Gap 12 Estim Creat Clear Calc 73.9 Estimated GFR > 60 Random Glucose 161 H Calcium 9.1 D <Jeovanny Rene - Last Filed: 06/11/24 07:10> Procedures Date of Service Date of Service: 06/11/24 <Jeovanny Rene - Last Filed: 06/11/24 07:10> 06/11/24 <David Hawkins MD - Last Filed: 06/11/24 07:50> 06/11/24 <Liz Chahal PA-C - Last Filed: 06/11/24 12:39> Progress Note: A&P Assessment and plan (1) Status post laparoscopic-assisted sigmoidectomy: Status: Acute <Jeovanny Rene - Last Filed: 06/11/24 07:10> (2) Diverticulitis: Status: Acute <Jeovanny Rene - Last Filed: 06/11/24 07:10> Assessment and Plan: 1. Hand assisted laparoscopic sigmoid colectomy with colorectal anastomosis Patient is 1 63 yo female with a history of GERD ..... POD 1 s/p sigmoid colectomy with colorectal anastomosis. Patient has stable vitals, non-toxic appearing, no major abnormalities on morning CBC/BMP (WBC 10.6, HgB 11.5, random BG 161), with partial pain control on IV APAP and dilaudid prn. Plan Patient endorses sharp pain with movement; otherwise non-peritoneal. Continue to monitor response to prn analgesics, repeat abdominal exams and examine dressing POD2. Pain control -- continue IV APAP and dilaudid prn. Can advance to solid food diet. Once able to, encourage OOB/ambulation Continue IS 10x/hour as tolerated Patient still bedbound secondary to pain; can consider transitioning off lau to bedpan today or tomorrow. Good urine output otherwise. <Jeovanny Rene - Last Filed: 06/11/24 07:10> 1. Hand assisted laparoscopic sigmoid colectomy with colorectal anastomosis Patient is 1 63 yo female with a history of GERD ..... POD 1 s/p sigmoid colectomy with colorectal anastomosis. Patient has stable vitals, non-toxic appearing, no major abnormalities on morning CBC/BMP (WBC 10.6, HgB 11.5, random BG 161), with partial pain control on IV APAP and dilaudid prn. Plan Patient endorses sharp pain with movement; otherwise non-peritoneal. Continue to monitor response to prn analgesics, repeat abdominal exams and examine dressing POD2. Pain control -- continue IV APAP and dilaudid prn. Can advance to solid food diet. Once able to, encourage OOB/ambulation Continue IS 10x/hour as tolerated Patient still bedbound secondary to pain; can consider transitioning off lau to bedpan today or tomorrow. Good urine output otherwise. Patient seen and examined independently. I agree with the above assessment and plan. She does have discomfort in the trocar sites with coughing. Dressings are clean, dry and intact. Will d/c lau; start full liquid diet. Encouraged OOB and ambulation; she is doing well with IS. Await return of bowel function. <David Hawkins MD - Last Filed: 06/11/24 07:50> Time Spent With Patient Time: Total time managing care of this patient today ____ minutes. <Jeovanny Rene - Last Filed: 06/11/24 07:10> Quality Stroke Does the patient have a stroke diagnosis?: No <David Hawkins MD - Last Filed: 06/11/24 07:50> VTE Prior VTE?: No <David Hawkins MD - Last Filed: 06/11/24 07:50> VTE Risk Level:: Surgical - moderate <Jeovanny Rene - Last Filed: 06/11/24 07:10> VTE Device Contraindication: N/A - Device Ordered <Jeovanny Rene - Last Filed: 06/11/24 07:10> VTE Drug Contraindication: N/A - Med Ordered <Jeovanny Rene - Last Filed: 06/11/24 07:10>
[2024-06-11 07:10] VITALS: BP 165/73; PULSE 65; RESP 12; TEMP 36.9; O2SAT 93
[2024-06-11] MEDS: Losartan Potassium 50 MG TABLET PO (07:39)
[2024-06-11] MEDS: 0.9 % Sodium Chloride Flush 3 ML SYRINGE IVFLUSH ×2 (07:41→15:34)
--- NOTE | 2024-06-11 08:38 | HO.POSTANES ---
Post Anesthesia Evaluation Post Anesthesia Evaluation Date of Service: 06/11/24 Vital Signs: Vital Signs Temp Pulse Resp BP Pulse Ox O2 Del Method O2 Flow Rate 06/11/24 07:10 98.4 F 65 12 165/73 H 93 Room Air 06/11/24 05:11 70 138/67 93 Room Air 06/11/24 04:00 98.9 F 78 16 169/77 H 98 Room Air 06/10/24 23:40 98.5 F 70 16 145/67 H 98 Nasal Cannula 2 Anesthesia: Regional and General Endotracheal-GETA Mental Status: Awake Pain Control: Satisfactory Nausea/Vomiting: None Hydration: Adequate Anesthesia-Related Issues: No Anes. Related Issues
[2024-06-11] MEDS: Dextrose 5 % and Lactated Ring 1,000 ML 100 ML IVCONT (09:14)
[2024-06-11] MEDS: Enoxaparin Sodium 40 MG/0.4 ML SYRINGE SUBCUT (10:17)
[2024-06-11] MEDS: LORazepam 0.5 MG TABLET PO (10:24)
[2024-06-11] MEDS: oxyCODONE HCl Immed Release 5 MG TABLET PO (10:24)
[2024-06-11] MEDS: ondansetron HCL 4 MG/2 ML VIAL IVPUSH ×2 (10:46→15:33)
--- NOTE | 2024-06-11 11:45 | MHC.CM.PN ---
IMM 06/11/24 Lives with spouse. HCP on file. Pt requires assist with ADLs. She receives assitance from [facility]. She reports SN visits 2x a week. A referral has been sent to [facility] with a request to increase hours. DME shower bench, walker and scooter. DP Home with resumption of [facility] + SN Patients spouse will provide transportation home.
[2024-06-11 12:11] VITALS: BP 173/65; PULSE 68; RESP 18; TEMP 37.1; O2SAT 95
[2024-06-11 15:16] VITALS: BP 166/81; PULSE 66; RESP 20; TEMP 36.9; O2SAT 97
[2024-06-11] MEDS: EXEMESTANE 25 MG 1 EACH PO (16:09)
[2024-06-11] MEDS: Omeprazole 20 MG CAPSULE.DR PO (16:09)
[2024-06-11 19:31] VITALS: BP 154/72; PULSE 65; RESP 20; TEMP 37; O2SAT 94
[2024-06-11] MEDS: Dextrose 5 % and Lactated Ring 1,000 ML 80 ML IVCONT (21:04)
[2024-06-12] VITALS (8 sets, daily range): BP systolic 145–189; BP diastolic 67–90; PULSE 65–93; RESP 16–18; TEMP 36.9–37.3; O2SAT 93–95
[2024-06-12] MEDS: Acetaminophen 1,000 MG/100 ML PIGGYBACK 400 MG IV ×2 (00:39→07:32)
[2024-06-12] MEDS: HYDROmorphone HCl 0.5 MG/0.5 ML SYRINGE IVPUSH ×5 (00:39→23:56)
[2024-06-12] MEDS: Zolpidem Tartrate 5 MG TABLET 10 MG PO (02:20)
[2024-06-12] MEDS: ESOMEPRAZOLE MAGNESIUM 40 MG 40 EACH PO (05:55)
--- NOTE | 2024-06-12 06:30 | P.PNGS_ITS ---
Subjective Subjective Date of Service: 06/12/24 <Jeovanny Rene - Last Filed: 06/12/24 07:01> 06/12/24 <Liz Chahal PA-C - Last Filed: 06/12/24 07:40> 06/12/24 <David Hawkins MD - Last Filed: 06/12/24 09:41> Interval history: Patient reports that she is doing slightly better compared to yesterday. She is tolerating full liquid diet and pass large armound of flats; no BMs yet. Urinating without difficulty off lau catheter. She is able to frequently ambulate out of bed and use incentive spirometry on an hourly basis. She continues to endorse 9/10 pain localized to his right-sided trocar site which; patient recieved three prn dilaudid. She reports waking up diaphoretic this morning which she attributes to the room being cold. She denies fever, myalgias, cough, headache, chest pain, nausea, vomiting or leg swelling/pain. <Jeovanny Rene - Last Filed: 06/12/24 07:01> Physical Exam 2 Vital Signs: Vital Signs: Last Vital Signs Temp 98.4 F 06/12/24 02:28 Pulse 65 06/12/24 02:28 Resp 18 06/12/24 02:28 BP 156/76 H 06/12/24 02:28 Pulse Ox 94 06/12/24 02:28 O2 Del Method Room Air 06/12/24 02:28 O2 Flow Rate 2 06/10/24 23:40 BMI result Body Mass Index 26.9 <Jeovanny Rene - Last Filed: 06/12/24 07:01> Const: General: no acute distress, diaphoretic and tired appearing; No ill appearing <Jeovanny Rene - Last Filed: 06/12/24 07:01> Orientation/consciousness: patient oriented x3 <Jeovanny Rene - Last Filed: 06/12/24 07:01> Resp: Other: Bronchial breath sounds heard bilaterally. No wheezes, crackles or rhonchi. <Jeovanny Rene - Last Filed: 06/12/24 07:01> Effort & Inspection: normal respiratory effort and no audible wheezes <Jeovanny Rene - Last Filed: 06/12/24 07:01> Cardio: Rate: regular rate <Jeovannyalex Rene Last Filed: 06/12/24 07:01> Rhythm: regular rhythm <Jeovanny Rene Last Filed: 06/12/24 07:01> Heart sounds: S1 normal heart sound present, S2 normal heart sound present and normal S1 and S2 <Jeovannyalex Rene - Last Filed: 06/12/24 07:01> GI: Other: Dressings are clean, dry and intact. Abdomen is soft and non-distended. Active bowel sounds in all four quadrants. Sharp RLQ pain in trochar site. Otherwise abdomen is non-tender without rigidty or guarding. <Jeovanny Rene Last Filed: 06/12/24 07:01> Neuro: General: patient oriented x3, tone normal and moves all extremities <Jeovanny Rene - Last Filed: 06/12/24 07:01> Extrem: Other: No leg edema or calf tenderness. <Jeovanny Rene Last Filed: 06/12/24 07:01> Psych: Other: Good mood. Euthmyic. <Jeovanny Rene Last Filed: 06/12/24 07:01> Objective Data Active Medications Calcium Carbonate (Calcium Carbonate 750 Mg Tab.Chew) 750 mg PO Q4H PRN PRN Reason: Heartburn Enoxaparin Sodium (Enoxaparin Sodium 40 Mg/0.4 Ml Syringe) 40 mg SUBCUT Q24H [facility] Last Admin: 06/11/24 10:17 Dose: 40 mg Documented By: ANGIE Hydromorphone HCl (Hydromorphone Hcl 0.5 Mg/0.5 Ml Syringe) 0.5 mg IVPUSH Q3H PRN; Protocol PRN Reason: Pain, Severe (Pain Scale 7-10) Last Admin: 06/12/24 00:39 Dose: 0.5 mg Documented By: OSIEL Dextrose/Lactated Ringer's (D5lr) 1,000 mls @ 80 mls/hr IVCONT .[id number] [facility] Last Admin: 06/12/24 05:59 Dose: Not Given Documented By: OSIEL Non-Admin Reason: IV Running Acetaminophen (Ofirmev) 1,000 mg in 100 mls @ 400 mls/hr IV Q6H [facility] Last Infusion: 06/12/24 01:00 Dose: Infused Documented By: OSIEL Lorazepam (Lorazepam 0.5 Mg Tablet) 0.5 mg PO DAILY PRN PRN Reason: Anxiety Last Admin: 06/11/24 10:24 Dose: 0.5 mg Documented By: ANGIE Losartan Potassium (Losartan Potassium 50 Mg Tablet) 50 mg PO DAILY [facility]; Protocol Last Admin: 06/11/24 07:39 Dose: 50 mg Documented By: ANGIE Pt Own (Esomeprazole Magnesium 40 Mg Capsule,Delayed Release(Dr/Ec)) 40 mg PO DAILY@0630 [facility] Last Admin: 06/12/24 05:55 Dose: 40 mg Documented By: OSIEL Patient Own Medication Exemestane 25 Mg 1 each PO DAILY@1600 [facility] Last Admin: 06/11/24 16:09 Dose: 1 each Documented By: OSIEL Ondansetron HCl (Ondansetron Hcl 4 Mg/2 Ml Vial) 4 mg IVPUSH QID PRN PRN Reason: Nausea Last Admin: 06/11/24 15:33 Dose: 4 mg Documented By: OSIEL Oxycodone HCl (Oxycodone Hcl Immed Release 5 Mg Tablet) 5 mg PO Q6H PRN PRN Reason: Pain, Moderate(Pain Scale 4-6) Last Admin: 06/11/24 10:24 Dose: 5 mg Documented By: ANGIE Sodium Chloride (0.9 % Sodium Chloride Flush 3 Ml Syringe) 3 ml IVFLUSH QSHIFT [facility] Last Admin: 06/11/24 21:10 Dose: Not Given Documented By: OSIEL Non-Admin Reason: IV Running Zolpidem Tartrate (Zolpidem Tartrate 5 Mg Tablet) 10 mg PO BEDTIME PRN PRN Reason: Sleep Last Admin: 06/12/24 02:20 Dose: 10 mg Documented By: OSIEL <Jeovanny Rene - Last Filed: 06/12/24 07:01> Labs CBC & Chem 7: 06/11/24 05:26 06/11/24 05:26 <Jeovanny Rene - Last Filed: 06/12/24 07:01> Procedures Date of Service Date of Service: 06/12/24 <Jeovanny Rene - Last Filed: 06/12/24 07:01> 06/12/24 <Liz Chahal PA-C - Last Filed: 06/12/24 07:40> 06/12/24 <David Hawkins MD - Last Filed: 06/12/24 09:41> Progress Note: A&P Assessment and plan (1) Status post laparoscopic-assisted sigmoidectomy: Status: Acute <Jeovanny Josemarcia - Last Filed: 06/12/24 07:01> Assessment and Plan: (1) Status post laparoscopic-assisted sigmoidectomy: (2) Diverticulitis: Assessment and Plan: 1. Hand assisted laparoscopic sigmoid colectomy with colorectal anastomosis Patient is 1 63 yo female with a history of GERD POD 2 s/p sigmoid colectomy with colorectal anastomosis. Patient still has right trochar site pain; will continue with pain control protocol. Full solid diet orders have been placed; continue to monitor for full return of bowel function. Can remove dressings today. Tolerating PO intake with good urine output. Continue to encourage OOB ambulation and incentive spirometry. <Jeovanny Rene - Last Filed: 06/12/24 07:01> (1) Status post laparoscopic-assisted sigmoidectomy: (2) Diverticulitis: Assessment and Plan: 1. Hand assisted laparoscopic sigmoid colectomy with colorectal anastomosis Patient is 1 63 yo female with a history of GERD POD 2 s/p sigmoid colectomy with colorectal anastomosis. Patient still has right trochar site pain; will continue with pain control protocol. Full solid diet orders have been placed; continue to monitor for full return of bowel function. Can remove dressings today. Tolerating PO intake with good urine output. Continue to encourage OOB ambulation and incentive spirometry. Agree with above assessment and plan. Patient has passed flatus, OOB and ambulating without difficulty. Tolerating diet without nausea vomiting and feels hungry. Continues to c/o right sided pain. Abd benign, dressings intact. Will remove later today. advance to solid diet, dc IVF. Cont ambulation. Transition to oral analgesics in preparation for discharge. Patient comfortable with plan. <Liz Chahal PA-C - Last Filed: 06/12/24 07:40> Time Spent With Patient Time: Total time managing care of this patient today ____ minutes. <Jeovanny Rene - Last Filed: 06/12/24 07:01> Quality Stroke Does the patient have a stroke diagnosis?: No <Jeovanny Rene - Last Filed: 06/12/24 07:01> VTE Prior VTE?: No <Jeovanny Rene - Last Filed: 06/12/24 07:01> VTE Risk Level:: Surgical - moderate <Jeovanny Rene Last Filed: 06/12/24 07:01> VTE Device Contraindication: N/A - Device Ordered <Jeovanny Rene - Last Filed: 06/12/24 07:01> VTE Drug Contraindication: N/A - Med Ordered <Jeovanny Rene Last Filed: 06/12/24 07:01>
[2024-06-12] MEDS: 0.9 % Sodium Chloride Flush 3 ML SYRINGE IVFLUSH ×3 (07:33→19:45)
[2024-06-12] MEDS: Losartan Potassium 50 MG TABLET PO (07:33)
[2024-06-12] MEDS: oxyCODONE HCl Immed Release 5 MG TABLET PO ×2 (08:36→22:13)
[2024-06-12] MEDS: Enoxaparin Sodium 40 MG/0.4 ML SYRINGE SUBCUT (08:36)
[2024-06-12] MEDS: LORazepam 0.5 MG TABLET PO (08:36)
--- NOTE | 2024-06-12 12:23 | MHC.CM.PN ---
[facility]
[2024-06-12] MEDS: EXEMESTANE 25 MG 1 EACH PO (16:22)
[2024-06-13] VITALS (11 sets, daily range): BP systolic 131–164; BP diastolic 68–80; PULSE 80–92; RESP 16–20; TEMP 36.8–37.7; O2SAT 94–98
[2024-06-13] MEDS: HYDROmorphone HCl 0.5 MG/0.5 ML SYRINGE IVPUSH ×6 (03:00→21:41)
[2024-06-13] MEDS: ESOMEPRAZOLE MAGNESIUM 40 MG 40 EACH PO (06:10)
[2024-06-13] MEDS: 0.9 % Sodium Chloride Flush 3 ML SYRINGE IVFLUSH ×3 (08:13→21:42)
[2024-06-13] MEDS: ondansetron HCL 4 MG/2 ML VIAL IVPUSH (08:13)
--- NOTE | 2024-06-13 08:15 | P.PNGS_ITS ---
Subjective Subjective Date of Service: 06/13/24 Interval history: Patient reports having a small bowel movement last night and nonbloody urine. This morning she is not passing as much flatus and does report some nausea. She continues to report the abdominal pain in the right lower quadrant. Physical Exam 2 Vital Signs: Vital Signs: Last Vital Signs Temp 98.4 F 06/13/24 08:00 Pulse 80 06/13/24 08:00 Resp 18 06/13/24 08:00 BP 137/75 06/13/24 02:46 Pulse Ox 98 06/13/24 08:00 O2 Del Method Room Air 06/13/24 08:00 O2 Flow Rate 2 06/10/24 23:40 BMI result Body Mass Index 26.9 Const: General: no acute distress Nutritional Appearance: well nourished Orientation/consciousness: patient oriented x3 Resp: Effort & Inspection: normal respiratory effort GI: Other: Abdominal incisions are clean, dry, without redness or discharge. Skin: Other: Warm and dry, no rash Neuro: General: patient oriented x3 Objective Data Active Medications Acetaminophen (Acetaminophen 325 Mg Tablet) 650 mg PO QID PRN PRN Reason: headache, temp > 101 Calcium Carbonate (Calcium Carbonate 750 Mg Tab.Chew) 750 mg PO Q4H PRN PRN Reason: Heartburn Docusate Sodium (Docusate Sodium 100 Mg Capsule) 100 mg PO BID PRN PRN Reason: Constipation Enoxaparin Sodium (Enoxaparin Sodium 40 Mg/0.4 Ml Syringe) 40 mg SUBCUT Q24H [facility] Last Admin: 06/12/24 08:36 Dose: 40 mg Documented By: OSMIN Hydromorphone HCl (Hydromorphone Hcl 0.5 Mg/0.5 Ml Syringe) 0.5 mg IVPUSH Q3H PRN; Protocol PRN Reason: Pain, Severe (Pain Scale 7-10) Last Admin: 06/13/24 06:13 Dose: 0.5 mg Documented By: LY Lorazepam (Lorazepam 0.5 Mg Tablet) 0.5 mg PO DAILY PRN PRN Reason: Anxiety Last Admin: 06/12/24 08:36 Dose: 0.5 mg Documented By: OSMIN Losartan Potassium (Losartan Potassium 50 Mg Tablet) 50 mg PO DAILY [facility]; Protocol Last Admin: 06/12/24 07:33 Dose: 50 mg Documented By: OSMIN Pt Own (Esomeprazole Magnesium 40 Mg Capsule,Delayed Release(Dr/Ec)) 40 mg PO DAILY@0630 [facility] Last Admin: 06/13/24 06:10 Dose: 40 mg Documented By: LY Patient Own Medication Exemestane 25 Mg 1 each PO DAILY@1600 [facility] Last Admin: 06/12/24 16:22 Dose: 1 each Documented By: OSMIN Ondansetron HCl (Ondansetron Hcl 4 Mg/2 Ml Vial) 4 mg IVPUSH QID PRN PRN Reason: Nausea Last Admin: 06/11/24 15:33 Dose: 4 mg Documented By: OSIEL Oxycodone HCl (Oxycodone Hcl Immed Release 5 Mg Tablet) 5 mg PO Q6H PRN PRN Reason: Pain, Moderate(Pain Scale 4-6) Last Admin: 06/12/24 22:13 Dose: 5 mg Documented By: LY Sodium Chloride (0.9 % Sodium Chloride Flush 3 Ml Syringe) [facility] Last Admin: 06/12/24 19:45 Dose: 3 ml Documented By: DANE Zolpidem Tartrate (Zolpidem Tartrate 5 Mg Tablet) 10 mg PO BEDTIME PRN PRN Reason: Sleep Last Admin: 06/12/24 02:20 Dose: 10 mg Documented By: OSIEL Labs 06/11/24 05:26 06/11/24 05:26 Procedures Date of Service Date of Service: 06/13/24 Progress Note: A&P Assessment and plan (1) Diverticulitis: Status: Acute (2) Status post laparoscopic-assisted sigmoidectomy: Status: Acute Plan Pod 3 following hand assisted laparoscopic sigmoid colectomy. Patient is having bowel movement and tolerating diet but still having some nausea. She feels the narcotic may make her nauseous. We will continue to monitor her pain and nausea. Encouraged out of bed and ambulation. Possible discharge later today or early tomorrow if she feels improved. Time Spent With Patient Time: Total time managing care of this patient today ____ minutes. Quality Stroke Does the patient have a stroke diagnosis?: No VTE Prior VTE?: No VTE Risk Level:: Surgical - moderate VTE Device Contraindication: N/A - Device Ordered VTE Drug Contraindication: N/A - Med Ordered
[2024-06-13] MEDS: Enoxaparin Sodium 40 MG/0.4 ML SYRINGE SUBCUT (09:34)
[2024-06-13] MEDS: Losartan Potassium 50 MG TABLET PO (09:34)
[2024-06-13] MEDS: LORazepam 0.5 MG TABLET PO (13:14)
[2024-06-13] MEDS: EXEMESTANE 25 MG 1 EACH PO (16:25)
[2024-06-14] VITALS (7 sets, daily range): BP systolic 134–163; BP diastolic 61–82; PULSE 78–95; RESP 16–20; TEMP 36.7–37.2; O2SAT 92–96
[2024-06-14] MEDS: HYDROmorphone HCl 0.5 MG/0.5 ML SYRINGE IVPUSH ×3 (00:43→07:39)
[2024-06-14] MEDS: oxyCODONE HCl Immed Release 5 MG TABLET PO ×2 (02:40→11:22)
--- NOTE | 2024-06-14 02:46 | PC.NURSE ---
Patient reporting urge/ trouble peeing despite voiding odorless cyu in adequate amounts in the bathroom overnight. 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 PVR assessment x2 showing zero. Of note, this site was tender to pelvic palpation prior to these complaints due to infra-umbilical surgical incision that has remained c/d/i without edema, redness, or drainage. Site remains normothermic to touch as well. Covering Dr. Weiss made aware. No new orders at this time.
[2024-06-14] MEDS: ESOMEPRAZOLE MAGNESIUM 40 MG 40 EACH PO (05:33)
[2024-06-14] MEDS: 0.9 % Sodium Chloride Flush 3 ML SYRINGE IVFLUSH (07:40)
--- NOTE | 2024-06-14 08:34 | PM.PNGS ---
Subjective Subjective Date of Service: 06/14/24 Interval history: Reports passing more flatus today. She is concerned about urinary infection given her previous history of urinary infections. Tolerated regular diet yesterday. Would like to go home. Physical Exam Vital Signs: Vital Signs: Last Vital Signs Temp 98.9 F 06/14/24 08:00 Pulse 78 06/14/24 08:00 Resp 18 06/14/24 08:00 BP 145/80 H 06/14/24 08:00 Pulse Ox 95 06/14/24 08:00 O2 Del Method Room Air 06/14/24 08:00 O2 Flow Rate 2 06/10/24 23:40 BMI result Body Mass Index 26.9 Const: General: comfortable Nutritional Appearance: well nourished Orientation/consciousness: patient oriented x3 Limitations: no limitations Resp: Effort & Inspection: normal respiratory effort GI: Other: Incisions are clean, dry, and intact without redness or discharge. Skin: Other: Warm, dry, no rash Neuro: General: patient oriented x3 Extrem: Other: No pedal edema Objective Data Active Medications Acetaminophen (Acetaminophen 325 Mg Tablet) 650 mg PO QID PRN PRN Reason: Pain, Mild 1-3,fever,headache Calcium Carbonate (Calcium Carbonate 750 Mg Tab.Chew) 750 mg PO Q4H PRN PRN Reason: Heartburn Docusate Sodium (Docusate Sodium 100 Mg Capsule) 100 mg PO BID PRN PRN Reason: Constipation Enoxaparin Sodium (Enoxaparin Sodium 40 Mg/0.4 Ml Syringe) 40 mg SUBCUT Q24H [facility] Last Admin: 06/13/24 09:34 Dose: 40 mg Documented By: MELIDA Hydromorphone HCl (Hydromorphone Hcl 0.5 Mg/0.5 Ml Syringe) 0.5 mg IVPUSH Q3H PRN; Protocol PRN Reason: Pain, Severe (Pain Scale 7-10) Last Admin: 06/14/24 07:39 Dose: 0.5 mg Documented By: MELIDA Lorazepam (Lorazepam 0.5 Mg Tablet) 0.5 mg PO DAILY PRN PRN Reason: Anxiety Last Admin: 06/13/24 13:14 Dose: 0.5 mg Documented By: MELIDA Losartan Potassium (Losartan Potassium 50 Mg Tablet) 50 mg PO DAILY [facility]; Protocol Last Admin: 06/13/24 09:34 Dose: 50 mg Documented By: MELIDA Pt Own (Esomeprazole Magnesium 40 Mg Capsule,Delayed Release(Dr/Ec)) 40 mg PO DAILY@0630 [facility] Last Admin: 06/14/24 05:33 Dose: 40 mg Documented By: LY Patient Own Medication Exemestane 25 Mg 1 each PO DAILY@1600 [facility] Last Admin: 06/13/24 16:25 Dose: 1 each Documented By: MELIDA Ondansetron HCl (Ondansetron Hcl 4 Mg/2 Ml Vial) 4 mg IVPUSH QID PRN PRN Reason: Nausea Last Admin: 06/13/24 08:13 Dose: 4 mg Documented By: MELIDA Oxycodone HCl (Oxycodone Hcl Immed Release 5 Mg Tablet) 5 mg PO Q6H PRN PRN Reason: Pain, Moderate(Pain Scale 4-6) Last Admin: 06/14/24 02:40 Dose: 5 mg Documented By: LY Sodium Chloride (0.9 % Sodium Chloride Flush 3 Ml Syringe) [facility] Last Admin: 06/14/24 07:40 Dose: 3 ml Documented By: MELIDA Zolpidem Tartrate (Zolpidem Tartrate 5 Mg Tablet) 10 mg PO BEDTIME PRN PRN Reason: Sleep Last Admin: 06/12/24 02:20 Dose: 10 mg Documented By: MAJORQC Labs 06/11/24 05:26 06/11/24 05:26 Procedures Date of Service Date of Service: 06/14/24 Progress Note: A&P Assessment and plan (1) Status post laparoscopic-assisted sigmoidectomy: Status: Acute Plan Pod 4 following hand assisted laparoscopic sigmoid colectomy for sigmoid diverticulitis. She is passing flatus and had several small bowel movements. She is tolerating her diet without nausea or vomiting. She is concerned about a urinary infection. We will check a urine today and discharge to home. Follow up in the office in 1 week. Time Spent With Patient Time: Total time managing care of this patient today ____ minutes. Quality Stroke Does the patient have a stroke diagnosis?: No VTE Prior VTE?: No VTE Risk Level:: Surgical - moderate VTE Device Contraindication: N/A - Device Ordered VTE Drug Contraindication: N/A - Med Ordered
[2024-06-14] MEDS: Enoxaparin Sodium 40 MG/0.4 ML SYRINGE SUBCUT (08:36)
[2024-06-14] MEDS: LORazepam 0.5 MG TABLET PO (08:36)
[2024-06-14] MEDS: Losartan Potassium 50 MG TABLET PO (08:36)
--- NOTE | 2024-06-14 09:00 | MHC.CM.PN ---
Patient has been medically cleared for dc to home today, self care. CM met with Patient at bedside and addressed IMM with her (original was given to Patient and a copy has been placed on the chart. Patient's will transport to home.
[2024-06-14 09:20] LABS: Bacteria Urine None Seen (None Seen); RBC Urine >20 /HPF (0-2)
[2024-06-14 09:22] LABS: Appearance Urine Clear; Color Urine Orange; Glucose Urine UA Negative (Negative); Specific Gravity - Urine 1.025 (1.005-1.025); Urine Blood Large (3+) (Negative)
[2024-06-14 09:23] LABS: Leukocyte Esterase Urine Small (1+) (Negative); Nitrite Urine Negative (Negative); UACC Culture Trigger YES; UMIC TRIGGER UACC YES; Urine Ketones 40 mg/dL (Negative); Urine Protein 30 (1+) mg/dL (Neg-Trace)
--- NOTE | 2024-06-14 09:36 | PM.DS ---
DS: Providers Provider Date of Service: 06/14/24 Date of admission: 06/10/24 06:54 Date of discharge: 06/14/24 Primary care physician: Bradly Sanders MD Attending physician on admission: David Hawkins Attending physician on discharge: David Hawkins DS: Diagnosis Discharge Diagnosis (1) Status post laparoscopic-assisted sigmoidectomy: Status: Acute DS: Summary Hospital Course Hospital Course: HPI AT ADMISSION: 63-year-old female patient presenting with complaints of abdominal pain in the left lower quadrant found to have sigmoid diverticulitis with abscess. She has had several episodes of similar discomfort with similar findings. She presents today for elective sigmoid colectomy to prevent further recurrences of the sigmoid diverticulitis. HOSPITAL COURSE: On 06/10/24, hand assisted laparoscopic sigmoid colectomy with colorectal anastomosis was performed by Dr. Hawkins without complication. The patient tolerated the procedure well without complications. She had an uneventful recovery course. Her lau was removed on POD #1. Her activity was increased. Her diet was advanced slowly as tolerated. She began to pass flatus and move her bowels. She remained inpatient until POD #4 for pain control. She had some dysuria and UA was performed and was consistent with UTI. She was started on bactrim. On the day of discharge, she was tolerating a solid diet without nausea or vomiting, had good pain control, had good GI function, was ambulating without difficulty. She was hemodynamically stable with a benign abd and clean incisions. She felt ready for discharge. She was discharged to home on 06/14/24 in stable condition on a course of Bactrim. She is to follow up in the office in 1 week. Time Attestation Discharge Coordination Time (in mins): 40 Quality: Safe Use of Opioids Does Pt have an Active Cancer Diagnosis on the Problem List?: No Quality: Stroke Does the patient have a stroke diagnosis?: No Physical Exam Vital Signs: Vital Signs: Last Vital Signs Temp 98.2 F 06/14/24 12:15 Pulse 95 06/14/24 12:15 Resp 20 06/14/24 12:15 BP 134/61 06/14/24 12:15 Pulse Ox 92 06/14/24 12:15 O2 Del Method Room Air 06/14/24 12:15 O2 Flow Rate 2 06/10/24 23:40 BMI result Body Mass Index 26.9 Const: General: comfortable, no acute distress and alert Orientation/consciousness: patient oriented x3 Resp: Effort & Inspection: normal respiratory effort GI: Inspection: Yes incision (dry, clean ) Neuro: General: patient oriented x3 DS: Data Data Completed and Pending Completed studies during hospitalization [Text1]: 06/10/24 09:30 Surgical [PTH] Routine A. Colon, sigmoid, segmental resection: -Acute on chronic diverticulitis with intramural abscess formation, and mesenteric and serosal inflammation and fibrosis. -Spastic diverticulosis. B. Colon, EEA rings/donuts, excision: -Two annular portions of benign bowel mucosa and wall, consistent with anastomotic rings. Discharge Plan Discharge Anticipated Discharge Date/Time: 06/13/24 11:18 Patient Disposition: Home, Self-Care Discharge Diagnosis: s/p YANIV sigmoid resection Referrals: David Hawkisn MD [Physician] - 1 Week Name,MD Bradly [Primary Care Provider] - 1 Week Discharge Medications: New sulfamethoxazole-trimethoprim [Bactrim DS] 800-160 mg tablet 1 tab PO BID Qty: 20 0RF docusate sodium [Colace] 100 mg capsule 100 mg PO DAILY Qty: 30 0RF Continued exemestane [Aromasin] 25 mg Tablet 25 mg PO DAILY Qty: 90 3RF Rx Instructions: must administer after a meal cholecalciferol (vitamin D3) 50 mcg (2,000 unit) capsule 1 cap PO DAILY multivit with min-folic acid [Women's Multivitamin Gummies] 200 mcg Tablet,Chewable 1 tab PO DAILY lorazepam 0.5 mg tablet 0.5 mg PO DAILY PRN (Reason: Anxiety) losartan 50 mg Tablet 50 mg PO DAILY acetaminophen 500 mg tablet 500 mg PO Q6H PRN (Reason: mild pain) esomeprazole magnesium 40 mg capsule,delayed release(DR/EC) 40 mg PO DAILY@0630 aspirin [Adult Low Dose Aspirin] 81 mg tablet,delayed release (DR/EC) 81 mg PO DAILY (DME) walker [facility] See Rx Instructions .MEDSUPPLY Qty: 1 0RF Rx Instructions: Rollator walker with seat and breaks docusate sodium 100 mg capsule 100 mg PO BID PRN (Reason: Constipation) zolpidem 10 mg tablet 10 mg PO BEDTIME PRN (Reason: Sleep) Discharge Orders: Discharge Order (Routine); Ordered 06/14/24 Ordered By: David Hawkins Diet: Advance to usual diet Activity on Discharge: No heavy lifting Stand Alone Forms: Patient Portal Discharge page Print Language: Korean Activity Restrictions/Additional Instructions: If the incision area is tender, you may apply an ice pack for short intervals (No more than 20 minutes on, followed by at least 20 minutes off). Do not apply heat. Do not use creams, lotions, or topical antibiotics. These can cause infection or allergic reaction. Ok to shower. You have ya closing your incision and these will be removed approximately 10-14 days after surgery. NO HEAVY LIFTING (>10lbs) or strenuous activity. Follow up in office. ([phone]) Call Your Doctor If: -Your temperature exceeds 101.5? F -You experience excessive pain or swelling -You have an unexpected reaction to medication -You have excessive bleeding -You experience continued vomiting/nausea -Your incision begins to separate -Your incision shows signs of infection such as increased redness, swelling, excessive pain, drainage (light blood or clear fluid is normal) or heat Care Plan Goals: Return to baseline health and resume normal activities following recovery period. Health Concerns: sigmoid diverticulitis Plan of Treatment: s/p YANIV sigmoid resection f/u in office in 1 week Assessment: Doing well post op. Patient Instructions: Bowel Resection (DC) Discharge Date/Time: 06/14/24 12:27
== END 2024-06-14 12:27 | disposition home or self-care (01) | DRG 331 ==
LOC: HO.SSSA 07:03 → HO.S3 10:07
PROVIDERS: Admitting Provider Surgery; PCP Internal Medicine Geriatric Medicine; Visit Provider Surgery
PROC: 0DTE4ZZ Resection of Large Intestine, Percutaneous Endoscopic Approach (ICD-10-PCS; principal; 2024-06-10 07:30)
DX: K57.20 Diverticulitis of large intestine with perforation and abscess without bleeding (principal); G89.18 Other acute postprocedural pain; Z79.82 Long term (current) use of aspirin; Z79.899 Other long term (current) drug therapy
CPT/HCPCS: 36415; 80048; 81001; 85025; 86850; 86900; 86901; 87086; 88305; 88307; C1758; J0131; J0665; J0744; J1100; J1171; J1630; J1650; J2003; J2405; J2704; J2795; J3010

== ENCOUNTER → 2024-06-10 06:54 | Outpatient (BNV) | payer OTHER, SELFPAY | PROVIDERS: Admitting Provider Surgery; PCP Internal Medicine Geriatric Medicine; Visit Provider Surgery | DX: Z90.49 Acquired absence of other specified parts of digestive tract (principal); K57.92 Diverticulitis of intestine, part unspecified, without perforation or abscess without bleeding | CPT/HCPCS: 44204; 44213; 99024 ==

== ENCOUNTER 2024-06-23 11:22 | Outpatient (AMB) | payer OTHER, SELFPAY ==
--- NOTE | 2024-06-23 11:29 | MHC.OFFVIS ---
Vital Signs 06/23/24 11:47 Height 5 ft 2 in Weight 145 lb 8.081 oz BMI 26.6 Respiration 18 Intake Visit Reasons: S/P CLARK, laparoscopic sigmoid colectomy poss. open Intake Note: Patient is seen in office for post op assessment post laparoscopic-assisted sigmoidectomy. Pt c/o: states area is very painful , on called due to a rash on inner thighs was instructed to discontinue antbx and started on Benadryl with no relief, area still gets ithcy and dry surgery:06/10/24 Buggy Man Required: No Accompanied by: Family/Other Allergies Penicillins [PENICILLINS] Allergy (Severe, Verified 06/23/24 11:30) SWELLING/VOMITING Iodinated Contrast Media [IV Contrast Dye] Allergy (Intermediate, Verified 06/23/24 11:30) eye/facial swelling metronidazole [Flagyl] Allergy (Intermediate, Verified 06/23/24 11:30) Palpitations iopromide Allergy (Verified 06/23/24 11:30) Itching paroxetine Adverse Reaction (Intermediate, Verified 06/23/24 11:30) diarrhea HPI Comments Details: 63-year-old female patient returning following a hand assisted laparoscopic sigmoid colectomy performed on 06/10/2024 for sigmoid diverticulitis. Pathology confirmed sigmoid diverticulitis. She was subsequently discharged to home on 06/14/2024 having tolerated regular diet and passed a bowel movement. She returns today for postop wound check. She developed a rash in the groin buttocks were seems to have started after starting antibiotics for urinary tract infection. The antibiotics were stopped and she was started on Benadryl which seems to be helping although she still notices the dry skin. She is eating small meals but does get full easily. Her bowels are moving as well. [facility] Medical History Hx of radiation therapy History of chemotherapy Cough History of headache Constipation Allergic rhinitis Anxiety HTN (hypertension) Graves esophagus Allergies Foot fracture, right Closed left ankle fracture Infiltrating ductal carcinoma of left breast Overweight (BMI 25.0-29.9) GERD without esophagitis Rib pain on right side Insomnia Fibromyalgia Diverticulitis Chronic back pain GERD (gastroesophageal reflux disease) Surgical History Status post laparoscopic-assisted sigmoidectomy (06/10/24) History of lumpectomy of left breast History of left breast biopsy (~01/08/20) History of local excision of skin lesion (~03/2018) History of right breast biopsy (~2012) History of cystoscopy History of gastric surgery History of section History of esophagogastroduodenoscopy (EGD) (~02/2013) History of colonoscopy Family History Mother History of hypertension History of pancreatic cancer History of diabetes mellitus Father History of hypertension History of diabetes mellitus Colon cancer Sister History of hypertension Maternal Grandmother History of lung cancer Social History Household Members: None Housing: House Are you a primary body care manager to a significant other at home: No Do you presently have 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 or other home services: Yes (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) Alcohol intake: never Comment: pt continues to refuse high falls alarms and assistance Patient Tobacco Use Status: Never used Tobacco e-Cigarette/Vaping Use: Never Used Second Hand Smoke Exposure: No service: No Current occupational status: disabled 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 Elton removed and the wounds found to be well healed. There was no evidence of infection or hernia. Neuro General: patient oriented x3 Assessment & Plan Assessment & Plan (1) Diverticulitis of sigmoid colon: Code(s): K57.32 - Diverticulitis of large intestine without perforation or abscess without bleeding Category: Medical Plan Patient returns 1 week following discharge from the hospital after a hand assisted laparoscopic sigmoid colectomy. Her wounds are healing nicely. She did develop a rash after starting antibiotics which is now improved. She should gradually increase her p.o. intake and follow-up in 1 month for wound examination. She should call sooner for any new concerns. Coding Level of Care Code Global (33033) Diagnoses Diverticulitis of sigmoid colon K57.32
[2024-06-23 11:47] VITALS: RESP 18; BMI 26.6
== END 2024-06-23 11:51 | disposition home or self-care (01) ==
PROVIDERS: PCP Internal Medicine Geriatric Medicine; Visit Provider Surgery
DX: K57.32 Diverticulitis of large intestine without perforation or abscess without bleeding (principal)
CPT/HCPCS: 99024

== ENCOUNTER → 2024-06-23 11:22 | Outpatient (BNVA) | payer OTHER, SELFPAY | PROVIDERS: PCP Internal Medicine Geriatric Medicine; Visit Provider Surgery | DX: K57.32 Diverticulitis of large intestine without perforation or abscess without bleeding (principal) | CPT/HCPCS: 99212 ==

== ENCOUNTER 2024-07-21 13:38 | Outpatient (AMB) | payer OTHER, SELFPAY ==
--- NOTE | 2024-07-21 13:40 | A.OFFVIS_ITS ---
Vital Signs 07/21/24 13:55 Height 5 ft 2 in Weight 146 lb 6 oz BMI 26.8 BP 177/79 H Blood Pressure Location Lt brachial Position Sitting Pulse 70 Intake Visit Reasons: 1m S/P CLARK, lap sigmoid colectomy poss. open Intake Note: Patient is seen in office for one month follow up visit, post laparoscopic sigmoid coectomy. Pt c/o: continued pain, less pain compare to last visit, comes and goes, at times constipation Marketing Director Assisted Living Required: No Accompanied by: Family/Other Allergies Penicillins [PENICILLINS] Allergy (Severe, Verified 07/21/24 13:41) SWELLING/VOMITING Iodinated Contrast Media [IV Contrast Dye] Allergy (Intermediate, Verified 07/21/24 13:41) eye/facial swelling metronidazole [Flagyl] Allergy (Intermediate, Verified 07/21/24 13:41) Palpitations iopromide Allergy (Verified 07/21/24 13:41) Itching paroxetine Adverse Reaction (Intermediate, Verified 07/21/24 13:41) diarrhea Medication List - Last Reconciled 07/21/24 by David Hawkins MD acetaminophen 500 mg PO Q6H PRN aspirin (Adult Low Dose Aspirin) 81 mg PO DAILY cholecalciferol (vitamin D3) 1 cap PO DAILY diphenhydramine HCl 25 mg PO Q4H PRN docusate sodium (Colace) 100 mg PO DAILY esomeprazole magnesium 40 mg PO DAILY@0630 exemestane (Aromasin) 25 mg PO DAILY lorazepam 0.5 mg PO DAILY PRN losartan 50 mg PO DAILY multivit with min-folic acid 200 mcg (Women's Multivitamin Gummies) 1 tab PO DAILY sulfamethoxazole-trimethoprim 800-160 mg (Bactrim DS) 1 tab PO BID walker Rollator walker with seat and breaks zolpidem 10 mg PO BEDTIME PRN HPI Comments Details: 63-year-old female patient returning following a hand assisted laparoscopic sigmoid colectomy performed on 06/10/2024 for sigmoid diverticulitis. Pathology confirmed sigmoid diverticulitis. She was subsequently discharged to home on 06/14/2024 having tolerated regular diet and passed a bowel movement. She returns today for postop wound check. She feels well and is eating well. She does have occasional discomfort in the right lower quadrant associated with constipation. She continues to take the stool softener on a daily basis. She denies any bleeding per rectum. [facility] Medical History Hx of radiation therapy History of chemotherapy Cough History of headache Constipation Allergic rhinitis Anxiety HTN (hypertension) Graves esophagus Allergies Foot fracture, right Closed left ankle fracture Infiltrating ductal carcinoma of left breast Overweight (BMI 25.0-29.9) GERD without esophagitis Rib pain on right side Insomnia Fibromyalgia Diverticulitis Chronic back pain GERD (gastroesophageal reflux disease) Surgical History Status post laparoscopic-assisted sigmoidectomy (06/10/24) History of lumpectomy of left breast History of left breast biopsy (~01/08/20) History of local excision of skin lesion (~03/2018) History of right breast biopsy (~2012) History of cystoscopy History of gastric surgery History of section History of esophagogastroduodenoscopy (EGD) (~02/2013) History of colonoscopy Family History Mother History of hypertension History of pancreatic cancer History of diabetes mellitus Father History of hypertension History of diabetes mellitus Colon cancer Sister History of hypertension Maternal Grandmother History of lung cancer Social History Household Members: None Housing: House Are you a primary health care attorney to a significant other at home: No Do you presently have 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 or other home services: 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) Alcohol intake: never Comment: pt continues to refuse high falls alarms and assistance Patient Tobacco Use Status: Never used Tobacco e-Cigarette/Vaping Use: Never Used Second Hand Smoke Exposure: No service: No Current occupational status: disabled 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 Physical Exam Vital Signs: Last Vital Signs Pulse 70 07/21/24 13:55 BP 177/79 H 07/21/24 13:55 BMI result Body Mass Index 26.8 Last Vital Signs Temp 98.2 F 06/14/24 12:15 Pulse 95 06/14/24 12:15 Resp 20 06/14/24 12:15 BP 134/61 06/14/24 12:15 Pulse Ox 92 06/14/24 12:15 O2 Del Method Room Air 06/14/24 12:15 O2 Flow Rate 2 06/10/24 23:40 BMI result Body Mass Index 26.9 Const General: comfortable, no acute distress and alert Orientation/consciousness: patient oriented x3 Resp Effort & Inspection: normal respiratory effort GI Other: Trocar incisions and lower midline incision is clean, dry, and intact. No hernia or infection is identified. Neuro General: patient oriented x3 Assessment & Plan Assessment & Plan (1) Diverticulitis of sigmoid colon: Code(s): K57.32 - Diverticulitis of large intestine without perforation or abscess without bleeding Category: Medical Plan Patient returns 1 month following discharge from the hospital after a hand assisted laparoscopic sigmoid colectomy. She denies any new problems and reports daily or every other day bowel movements. Examination reveals a well- healed incision without redness or discharge, no hernia. She may resume normal activity without restriction and should follow up for her normally scheduled breast examination. Medications: Refilled docusate sodium (Colace) 100 mg PO DAILY 90 caps 3RF Coding Level of Care Code Global (41235) Diagnoses Diverticulitis of sigmoid colon K57.32
[2024-07-21 13:55] VITALS: BP 177/79; PULSE 70; BMI 26.8
--- OUTSIDE RECORDS SUMMARY | 2024-07-21 16:35 | XMS_ITS | Data Portability ---
Author Organization [employer] [place] Address [address] [place] [address] Care Team Providers Care Manager Erp Name Role Phone [facility] Primary Care Provider Assessment Encounter Date Assessment Date Assessment LastModified by Organization Details LastModified Time 01/22/2023 01/22/2023 I have reviewed and agree with the Assessment and Plan as documented by the Overseamer. I provided real-time medical direction via phone for this encounter, and was available for additional phone based assistance as needed. 62-year-old female with a history of cancer is seen for fever cough and chest tightness shortness of breath found to have Covid 19. Mildly tachycardic and febrile though normotensive saturating at 94% on room air. Would prefer home management if possible. Offered to patient who was agreeable to treatment with Paxlovid. Sent prescription to her pharmacy. Reviewed red flags for presentation to the hospital. Advised close follow-up with care team. pallfather Not available 01/23/2023 18:44:51 01/30/2023 01/30/2023 62 YOF diagnosed with COVID now with n/v and loose stool. Chem with Na 144, K 3.4, Cr wnls Pt given IVF, 4mg IV zofran, and ODT zofran sent to pharmacy. (of note iSTAT lactate values have been off and I don't feel the patient has a lactate of 7) Discussed red flag sympotoms [email or web address] Not available 01/30/2023 13:52:44 Plan of Treatment Reminders Order Date Submit Date Provider Last Modified By Organization Details Last Modified Time Details Appointments None recorded. Lab None recorded. Referral None recorded. Procedures None recorded. Surgeries None recorded. Imaging None recorded. Medication Orders ondansetron 4 mg disintegrat ing tablet 2022 023 [email or web address] [id number], [address] [place], [address], 3 18:08:34 ondansetron HCl (PF) 4 mg/2 mL injection solution 2022 [email or web address] [id number], [address] [place], [address], 3 18:08:15 ondansetron 4 mg disintegrat ing tablet 2022 023 [facility] #[id number], [address] [place], [place], [id number], 3 13:55:19 Patient TargetsNo targets recorded. Patient InstructionsNo instructions recorded. Reason for Referral None Reported. Medical Equipment None Reported. Allergies Allergen ID Allergen Name Allergen Category Reaction Reaction Severity Criticality Documentation Date Start Date Code Code System Note Provider Name and Address Organization Details Recorded Time 8330 Product containin g penicilli n (product) medicatio n Not available Not available Not available 03/10/2024 34163 8001 SNOMED Not Available [facility] - production 4 03:43:34 Medications Name Sig Start Date Stop Date Status Note LastModified by Organization Details LastModified Time buspirone 5 mg tablet active Not Available Not Available No t Available tolterodine ER 4 mg capsule,exten ded release 24 hr TAKE 1 CAPSULE BY MOUTH EVERY MORNING active Not Available Not Available No t Available amlodipine 2.5 mg tablet TAKE 1 TABLET BY MOUTH EVERY DAY active Not Available Not Available No t Available metronidazole 500 mg tablet TAKE 1 TABLET BY MOUTH EVERY 8 HOURS FOR 1 WEEK active Not Available Not Available No t Available ciprofloxacin 500 mg tablet TAKE 1 TABLET BY MOUTH TWICE DAILY active Not Available Not Available No t Available oxycodone-nguyen taminophen 5 mg-325 mg tablet TAKE 1 TO 2 TABLETS BY MOUTH EVERY 6 HOURS NEEDED FOR SEVERE PAIN. MAY FILL FEWER active Not Available Not Available N ot Available lorazepam 0.5 mg tablet TAKE 1 TABLET BY MOUTH TWICE DAILY NEEDED FOR ANXIETY active Not Available Not Available No t Available exemestane 25 mg tablet TAKE 1 TABLET BY MOUTH DAILY AFTER A MEAL active Not Available Not Available No t Available pantoprazole 40 mg tablet,delaye d release TAKE 1 TABLET BY MOUTH DAILY active Not Available Not Available No t Available diphenhydrami ne 25 mg tablet TAKE 2 TABLET BY MOUTH ONCE ONE HOUR PRIOR TO CONTRAST DYE INJECTION. active Not Available Not Available N ot Available lisinopril 10 mg tablet TAKE 1 TABLET BY MOUTH EVERY DAY active Not Available Not Available No t Available prednisone 50 mg tablet active Not Available Not Available No t Available diclofenac potassium 50 mg tablet TAKE 1 TABLET BY MOUTH THREE TIMES DAILY NEEDED FOR PAIN active Not Available Not Available No t Available docusate sodium 100 mg capsule TAKE 1 CAPSULE BY MOUTH 2 TIMES A DAY active Not Available Not Available No t Available letrozole 2.5 mg tablet TAKE 1 TABLET BY MOUTH DAILY active Not Available Not Available No t Available zolpidem 10 mg tablet TAKE 1 TABLET BY MOUTH EVERY DAY AT BEDTIME FOR SLEEP active Not Available Not Available No t Available ondansetron 4 mg disintegratin g tablet DISSOLVE 1 TABLET ON THE TONGUE EVERY 8 HOURS NEEDED active Not Available Not Available No t Available ipratropium bromide 21 mcg (0.03 %) nasal spray USE 2 SPRAYS IN EACH NOSTRIL EVERY 12 HOURS active Not Available Not Available No t Available amoxicillin 875 mg-potassium clavulanate 125 mg tablet TAKE 1 TABLET BY MOUTH THREE TIMES DAILY. TAKE NEXT DOSE AT BEDTIME TODAY active Not Available Not Available No t Available Essential Woman 50 Plus 0.4 mg-250 mcg tablet TAKE 1 TABLET BY MOUTH EVERY DAY active Not Available Not Available No t Available ondansetron HCl (PF) 4 mg/2 mL injection solution Take 2 mL by injection route. 2022 active Not Available Not Available Not Geeai lable blood pressure test kit-large cuff USE TO CHECK BLOOD PRESSURE EVERY DAY active Not Available Not Available No t Available naloxone 4 mg/actuation nasal spray CALL 911. SPR CONTENTS OF ONE SPRAYER (0.1ML) INTO ONE NOSTRIL. REPEAT IN 2-3 MIN IF SYMPTOMS OF OPIOID EMERGENCY PERSIST, ALTERNATE NOSTRILS active Not Available Not Available No t Available [employer] At-Home COVID-19 Test kit TEST DIRECTED TODAY active Not Available Not Available No t Available Vitals Date Recorded Heart rate Oxygen saturation Oxygen saturation in Arterial blood by Pulse oximetry Body temperature Respiratory rate Body weight Body height Systolic blood pressure Diastolic blood pressure Provider Name and Address Organization Details Last Updated DateTime 3 108 /min 94 % 94 % 101.2 [degF] 16 /min 35232.1 68 g 157.48 cm 153 mm[Hg] 88 mm[Hg] Not Available [facility] production 3 19:30:11 Date Recorded Oxygen saturation Oxygen saturation in Arterial blood by Pulse oximetry Body temperature Respiratory rate Heart rate Systolic blood pressure Diastolic blood pressure Provider Name and Address Organization Details Last Updated DateTime 3 96 % 96 % 97.1 [degF] 18 /min 88 /min 168 mm[Hg] 83 mm[Hg] Not Available [facility] production 3 13:27:55 Social History None recorded. Functional Status None recorded. Mental Status None recorded. Family History Nothing Reported. Medical History No medical history recorded. Gynecological HistoryNo gynecological history recorded. Obstetrics History GPAL:G 0 P 0 0 0 0 Past Encounters Encounter ID Performer Location Encounter Start Date Encounter Closed Date Diagnosis/Indication Diagnosis SNOMED-CT Code Diagnosis ICD10 Code Diagnosis Note [id number] Mark Tiwari MD [facility] [address] [place] [address] [phone] 01/22/2023 19:29:52 01/24/2023 10:01:11 COVID-19 [id number] U07.1 [id number] Dominic Montgomery MD [facility] [address] [place] [address] [phone] 01/30/2023 13:25:55 01/30/2023 23:23:53 COVID-19 [id number] U07.1 Health Concerns Section Related Observation LastModified by Organization Detai ls LastModified Time None Recorded Concern Status LastModified by Organization Details LastModified Time None Recorded Advance Directives Directive None Recorded Payers Encounter Date Sequence Insurance Name Policy Number Policy Hill Covered Member ID Hill Member ID Guarantor Name 01/22/2023 1 [facility] - DOS ON OR AFTER 2022 - DUAL ELIGIBLE - FDC OPTIONS AND ONE CARE (MEDICARE REPLACEMENT/ADV ANTAGE - HMO) Corrie Judgees [id number] Corrie Turner 01/30/2023 1 [facility] - DOS ON OR AFTER 2022 - DUAL ELIGIBLE - FDC OPTIONS AND ONE CARE (MEDICARE REPLACEMENT/ADV ANTAGE - HMO) Corrie Turner [id number] Corrie Turner Notes Date Note Type Note Provider Name and Address Organization Details Recorded Time 01/22/2023 text/html [facility] Nursing Assessment: Reason For Request: URI Chief Complaints: URI PMH: Hypertension, Cancer Allergies: Unknown Comments: Verified address / identity Member went to the ER for chest pain , completed a work up , found to be anxiety. Member today has a CLARK / eye pain, member takes HTN medication. Feels that her BP is high. Member c/o having a fever and nausea . Member is on chemo PO , breast CA .................. .................. .................. .................. .................. .................. .................. ............... Overseamer Note From Jamar Galdamez: Pt reports dry cough, headache and chest tightness since 01/16 and n/v since last night. Pt was seen in [place] ED for cardiac work up on 01/16 and all tests were normal. Pt denies SOB, ZAVALA, diarrhea. Pt is alert, NAD. VSS. Temp 101.2. Neuro exam and gait normal. Lungs CTA. Benign ABD exam. No LLE. Rapid flu and strep negative. Rapid covid positive. Pt treated with normal saline 1 L IV, ketorolac 15 mg IVP, APAP 500 mg PO. Pt advised to quarantine for 10 days. Pt instructed to seek emergent medical care for new or worsening sx, which are reviewed with her. .................. .................. .................. .................. .................. .................. .................. ............... Disposition: Fulfilled Mark Tiwari MD [address] [facility],[address], [place], [address], [facility] 01/23/2023 18:45:31 01/30/2023 text/html CRC Nursing Assessment: Reason For Request: [facility] Since last Saturday pt states loss of appetite, nausea/vomiting, dehydration>report ing fever chills last night, 99.1. Patient Reports: Nausea with or without vomiting; Inability to tolerate foods, fluids or daily medications Denies: Vague abdominal pain greater than 24 hours Constipation Diarrhea ? no blood in stool Chief Complaints: Nausea/Vomiting, Dehydration, Weakness/Lethargy, Fever/Chills PMH: Hypertension, Cancer Allergies: Penicillin Comments: Verified identity / address Member was found to be COVID +. Member has been taking tylenol and water for symptoms. Member is unable to even eat soup . Member is unable to eat and drink and feels dehydration Dominic Montgomery MD [address] [facility],[address], [place], [address], [facility] 01/30/2023 13:55:31 OBGyn Episode No OBEpisode recorded.
--- OUTSIDE RECORDS SUMMARY | 2024-07-21 16:35 | XMS_ITS | Encounter Summary ---
Author Organization [employer] Address [address] [place] [address] [address] [place] [address] Care Team Providers Care Child Care Counselor Name Role Phone Name, Bradly VERA Primary Care Provider [phone] Reason for Visit * Reason Onset Date Comments Med Refill 07/06/2024 Encounter Details Date Type Department Care Team (Late st Contact Info) Description 07/06/2024 Telephone [facility] MEDICINE [address] [place], [place] [phone] Yareli Duggan [place] Med Refill Social History Tobacco Use Types Packs/Day Years Used Date Smoking Tobacco: Never Smokeless Tobacco: Never Alcohol Use Standard Drinks/Week Comments Never 0 (1 standard drink = 0.6 oz pur e alcohol) Alcohol Answer Date Recorded Frequency of Alcohol Consumption Not on file 11/12/2023 Average Number of Drinks Not on file Frequency of Binge Drinking Not on file 06/2023 Score 0 11/12/2023 Depression Answer Date Recorded Patient Health Questionnaire-9 Score 13 05/18/2024 Patient Health Questionnaire-9 Score 13 05/18/2024 Last PHQ-9: Questionnaire Data Not on file 0 05/18/2024 Housing Stability Answer Date Recorded What is your housing situation today? I have joe ortiz 08/22/[address] you li ve. Do you have problems with any of the following? None of the above 08/22/2023 Food Insecurity Answer Date Recorded Within the past 12 months, y ou worried that your food would run out before you got money to buy more: Never True 08/22/2023 Within the past 12 months,th e food you bought just didn't last and you didn't have enough money to get more: Never True 03/2024 Transportation Answer Date Recorded In the past 12 months, has l ack of transportation kept you from medical appts, meetings, work or from getting things needed for daily living? No 08/22/2023 Utilities Answer Date Recorded In the past 12 months, has t he electric, gas, oil or water company threatened to shut off services in your home? No 08/22/2023 Depression Answer Date Recorded Patient Health Questionnaire-2 Score 5 05/18/2024 Comments Unknown Sex and Gender Information Value Date Recorded Sex Assigned at Female 03/12/2022 10:17 AM EDT Legal Sex Female 10:17 AM EDT Gender Identity Female 03/12/2022 10:17 AM EDT Sexual Orientation Straight 03/12/2022 10 :17 AM EDT documented as of this encounter Miscellaneous Notes * Telephone Encounter - RESHMA [place] - 07/06/2024 1:16 PM EST She is scheduled with me today for an early appointment, I will see her to discuss meds and refill today. * Telephone Encounter - Yareli Duggan MA - 07/06/2024 11:15 AM EST Pt is requesting refill on Zolpidem 10mg , pt states she called yesterday but there is no refill , and she asking for refill , please contact pt with more information. documented in this encounter Plan of Treatment Upcoming Encounters Date Type Department Care Team (Late st Contact Info) Description 10/06/2024 10:00 AM EDT Office Visit [facility] MEDICINE [address] [place] [address] Name, MD Bradly [address] [place] [address] documented as of this encounter Visit Diagnoses Not on filedocumented in this encounter Additional Health Concerns Assessment Noted Time PHQ-9 Depression Total Score: 13 025 3:00 PM EST documented as of this encounter Care Teams Child Care Counselor Relationship Specialty Start Date End Date Name, MD Bradly [address] [place] [address] PCP - General Family Medicine 03/06/22 documented as of this encounter
--- OUTSIDE RECORDS SUMMARY | 2024-07-21 16:35 | XMS_ITS | Encounter Summary ---
Author Organization [employer] Address [address] [place] [address] [address] [place] [address] Care Team Providers Care Tube Sorter Name Role Phone Name, Bradly VERA Primary Care Provider [phone] Reason for Visit * Reason Onset Date Comments Med Refill 12/12/2023 Encounter Details Date Type Department Care Team ([facility] st Contact Info) Description 12/12/2023 Telephone [facility] MEDICINE [address] [place], [place] [phone] Name, MD Bradly [address] [place], [place] [phone] Med Refill Social History Tobacco Use Types Packs/Day Years Used Date Smoking Tobacco: Never Smokeless Tobacco: Never Alcohol Use Standard Drinks/Week Comments Never 0 (1 standard drink = 0.6 oz pur e alcohol) Alcohol Answer Date Recorded Frequency of Alcohol Consumption Not on file 11/12/2023 Average Number of Drinks Not on file 024 Frequency of Binge Drinking Not on file 06/2023 Score 0 11/12/2023 Depression Answer Date Recorded Patient Health Questionnaire-9 Score 0 05/24/2023 Patient Health Questionnaire-9 Score 0 05/24/2023 Last PHQ-9: Questionnaire Data Not on file 0 05/24/2023 Housing Stability Answer Date Recorded What is [...] Answer Date Recorded Patient Health Questionnaire-2 Score 0 05/24/2023 Comments Unknown Sex and Gender Information Value Date Recorded Sex Assigned at Female 03/12/2022 10:17 AM EDT Legal Sex Female 10:17 AM EDT Gender Identity Female 03/12/2022 10:17 AM EDT Sexual Orientation Straight 03/12/2022 10 :17 AM EDT documented as of this encounter Miscellaneous Notes * Telephone Encounter - Yumiko Ayala LPN - 12/12/2023 12:48 PM EDT Medication pended to PCP. * Telephone Encounter - Reuben Jacobs - 12/12/2023 12:35 PM EDT Tc from pt requesting med refill on zolpidem (Ambien) 10 MG tablet Please sent to [facility] documented in this encounter Plan of Treatment Upcoming Encounters Date Type Department Care Team (Late st Contact Info) Description 10/06/2024 10:00 AM EDT Office Visit [facility] MEDICINE [address] [place] [address] Name, MD Bradly [address] [place] [address] documented as of this encounter Visit Diagnoses Not on filedocumented in this encounter Additional Health Concerns Assessment Noted Time PHQ-9 Depression Total Score: 0 05/24/19 24 10:41 AM EST documented as of this encounter Care Teams Tube Sorter Relationship Specialty Start Date End Date Name, MD Bradly [address] [place] [address] PCP - General Family Medicine 03/06/22 documented as of this encounter
--- OUTSIDE RECORDS SUMMARY | 2024-07-21 16:35 | XMS_ITS | Encounter Summary ---
Author Organization [employer] Address [address] [place] [address] [address] [place] [address] Care Team Providers Care Arc Welder Apprentice Name Role Phone Name, Bradly VERA Primary Care Provider [phone] Encounter Details Date Type Department Care Team (Late st Contact Info) Description 03/02/2024 Telephone [facility] MEDICINE [address] [place], [place] [phone] Name, MD Bradly [address] [place] [address] Social History Tobacco Use Types Packs/Day Years [...] AM EDT documented as of this encounter Plan of Treatment Upcoming Encounters Date Type Department Care Team (Late st Contact Info) Description 10/06/2024 10:00 AM EDT Office Visit [facility] MEDICINE [address] [place] [phone] Name, MD Bradly [address] [place] [phone] documented as of this encounter Visit Diagnoses Not on filedocumented in this encounter Additional Health Concerns Assessment Noted Time PHQ-9 Depression Total Score: 0 05/24/19 24 10:41 AM EST documented as of this encounter Care Teams Arc Welder Apprentice Relationship Specialty Start Date End Date NameBradly MD [address] [place] [phone] PCP - General Family Medicine 03/06/22 documented as of this encounter
--- OUTSIDE RECORDS SUMMARY | 2024-07-21 16:35 | XMS_ITS | Encounter Summary ---
Author Organization [facility] Address [address] [place] [address] [address] [place] [address] Care Team Providers Care Supervising Appraiser Name Role Phone Name, Bradly VERA Primary Care Provider [phone] Encounter Details Date Type Department Care Team ([facility] Contact Info) Description 10/04/2022 Abstract [facility] MEDICINE [address] [place] [phone] NameBradly MD [address] [place] [phone] Social History Tobacco Use Types Packs/Day Years Used Date Smoking Tobacco: Never Smokeless Tobacco: Never Alcohol Use Standard Drinks/Week Comments Never 0 (1 standard drink = 0.6 oz pur e alcohol) Depression Answer Date Recorded Patient Health Questionnaire-2 Score 0 05/16/2022 Comments Unknown Sex and Gender Information Value [...] Description 10/06/2024 10:00 AM EDT Office Visit [facility] MEDICINE [address] [place] [phone] NameBradly MD [address] [place] [address] [phone] documented as of this encounter Procedures Procedure Name Priority Date/Time Associated Diagnosis Comments HM COLONOSCOPY Routine 02/22/2021 1:02 PM EDT documented in this encounter Results * Hm Colonoscopy (02/22/2021 1:02 PM EDT) Colonoscopy Normal Normal Narrative Scarlett Trujillo - 02/22/2021 1:02 PM EDT Recommended 5 year follow up us Historical Provider HEALTH MAINTENANCE Final Result documented in this encounter Visit Diagnoses Not on filedocumented in this encounter Care Teams Supervising Appraiser Relationship Specialty Start Date End Date Name, MD Bradly [address] [place] [address] PCP - General Family Medicine 03/06/22 documented as of this encounter
--- OUTSIDE RECORDS SUMMARY | 2024-07-21 16:35 | XMS_ITS | Encounter Summary ---
Author Organization [employer] Address [address] [place] [address] [address] [place] [phone] Care Team Providers Care Gemologist Name Role Phone Name, Bradly VERA Primary Care Provider [phone] Reason for Visit * Reason Comments Med Refill Encounter Details Date Type Department Care Team ([facility] st Contact Info) Description 07/12/2023 Refill [facility] MEDICINE [address] [place], [place] [phone] Name, MD Bradly [address] [place] [address] Insomnia, unspecified type Social History Tobacco Use Types Packs/Day Years Used Date Smoking Tobacco: Never Smokeless Tobacco: Never Alcohol Use Standard Drinks/Week Comments Never 0 (1 standard drink = 0.6 oz pur e alcohol) Depression Answer Date Recorded Patient Health Questionnaire-9 Score 0 05/24/2023 Patient Health Questionnaire-9 Score 0 05/24/2023 Last PHQ-9: Questionnaire Data Not on file 0 05/24/2023 Housing Stability Answer Date Recorded What is your housing situation today? I have housing today, but I am worried about losing housing in the future 02/19/[address] you li ve. Do you have problems with any of the following? Mold 02/19/2023 Food Insecurity Answer Date Recorded Within the past 12 months, y ou worried that your food would run out before you got money to buy more: Sometimes True 2022 Within the past 12 months,th e food you bought just didn't last and you didn't have enough money to get more: Sometimes True 03/13/2023 Transportation Answer Date Recorded In the past 12 months, has l ack of transportation kept you from medical appts, meetings, work or from getting things needed for daily living? No 03/13/2023 Utilities Answer Date Recorded In the past 12 months, has t he electric, gas, oil or water company threatened to shut off services in your home? No 03/13/2023 Depression Answer Date Recorded Patient Health Questionnaire-2 [...] Description 10/06/2024 10:00 AM EDT Office Visit [facility] MEDICINE [address] [place] [phone] Name, MD Bradly [address] [place] [phone] documented as of this encounter Visit Diagnoses Diagnosis Insomnia, unspecified type documented in this encounter Additional Health Concerns Assessment Noted Time PHQ-9 Depression Total Score: 0 05/24/19 24 10:41 AM EST documented as of this encounter Care Teams Gemologist Relationship Specialty Start Date End Date Name, MD Bradly [address] [place] [address] PCP - General Family Medicine 03/06/22 documented as of this encounter
--- OUTSIDE RECORDS SUMMARY | 2024-07-21 16:35 | XMS_ITS | Clinical Summary ---
Author Organization [employer] Address [address] [place] [address] 7 [place] [address] Care Team Providers Care Solid Waste Technician Name Role Phone Name, Bradly VERA Primary Care Provider [phone] Allergies Active Allergy Reactions Criticality Noted Date Comments Iopromide 04/26/2016 Other reaction(s): SOB, face itchy & rash Paroxetine 04/28/2010 Other reaction(s): CLARK, diarrhea Penicillin V 04/28/2010 Other reaction(s): unspecified Medications * This document contains information received from the source organization and may not represent a complete record from that organization. Blood Pressure Monitoring (Omron 3 Series BP Monitor) device USE TO CHECK BLOOD PRESSURE EVERY DAY 01/25/20 22 Active clotrimazole-be tamethasone (Lotrisone) cream APPLY TOPICALLY TO THE AFFECTED AREA TWICE DAILY 05/16/19 22 Active diclofenac (Cataflam) 50 MG tablet Take 1 tablet by mouth three times daily as needed for pain 05/01/20 22 Active Stool Softener 100 MG capsule Take 1 capsule by mouth 2 times daily. 12/06/19 22 Active pantoprazole (ProtoNix) 40 MG EC tablet Take 1 tablet by mouth in the morning. 01/10/20 22 Active naloxone (Narcan) 4 mg/0.1 mL nasal spray spray 0.1 milliliter by intranasal route in 1 nostril may repeat dose every 2-3 minutes as needed alternating nostrils with each dose 09/14/19 21 Active tolterodine LA (Detrol LA) 4 MG 24 hr capsule Take 1 capsule by mouth in the morning. 02/13/20 22 Active exemestane (Aromasin) 25 MG chemo tablet Take 25 mg by mouth in the morning. Take after a meal. Try to take at the same time each day. Active ipratropium (Atrovent) 0.03 % nasal sprayIndication s:Generalized body aches,FPC (current) use of aromatase inhibitors,Sinu s pressure USE 2 SPRAYS IN EACH NOSTRIL EVERY 12 HOURS 30 mL 12 07/22/19 24 Active SUMAtriptan (Imitrex) 25 MG tablet Take 1 tablet (25 mg) by mouth 1 (one) time if needed for migraine for up to 1 dose. May repeat dose once in 2 hours if no relief. Do not exceed 2 doses in 24 hours. 9 tablet 11/12/19 24 Active Multiple Vitamins-Minera ls (Multi For Her 50+) tablet Take 1 tablet by mouth Once per day. 90 tablet 3 03/02/20 24 Active celecoxib (CeleBREX) 200 MG capsule Take 1 capsule by mouth 2 times daily. 02/18/20 24 Active famotidine (Pepcid) 40 MG tablet Take 1 tablet by mouth Once per day. 09/02/19 24 Active lansoprazole (Prevacid) [address] capsule Take 1 capsule by mouth 2 times daily. 06/28/19 24 Active oxyCODONE-aceta minophen (Percocet) 5-325 MG tablet TAKE 1 TO 2 TABLETS BY MOUTH EVERY 6 HOURS NEEDED FOR SEVERE PAIN. MAY FILL FEWER 03/05/20 Active losartan (Cozaar) 50 MG tabletIndicatio ns:Essential hypertension Take 1 tablet (50 mg) by mouth Once per day. 30 tablet 11 06/01/192025 Active acetaminophen (Tylenol Extra Strength) 500 MG tabletIndicatio ns:Abdominal pain, unspecified abdominal location Take 1 tablet (500 mg) by mouth every 8 (eight) hours if needed for moderate pain. 90 tablet 2 07/06/192024 Active LORazepam (Ativan) 0.5 MG tabletIndicatio ns:Anxiety Take 1 tablet (0.5 mg) by mouth if needed each day for anxiety. 20 tablet 07/06/19 25 2024 Active zolpidem (Ambien) 10 MG tabletIndicatio ns:Insomnia, unspecified type TAKE 1 TABLET BY MOUTH AT BEDTIME NEEDED FOR SLEEP 30 tablet 07/06/19 Active zolpidem (Ambien) 10 MG tabletIndicatio ns:Insomnia, unspecified type TAKE 1 TABLET BY MOUTH AT BEDTIME NEEDED FOR SLEEP 30 tablet 06/04/19 25 2024 Discontinued(R eorder (will not trigger notification to Pharmacy)) LORazepam (Ativan) 0.5 MG tabletIndicatio ns:Anxiety Take 1 tablet (0.5 mg) by mouth if needed each day for anxiety. 30 tablet 06/04/19 25 2024 Discontinued(R eorder (will not trigger notification to Pharmacy)) Active Problems Problem Noted Date Diagnosed Date Recurrent major depressive disorder 05/16/2024 Assessment & Plan (05/16/2024 9:15 AM EST): Counseled pt on pharmacological options for treating anxiety/depression Pt has tried SSRIs in the past and didn't tolerate it, therefore would not like to try anything else at this time. Pt agreeable to trying therapy/counseling, referral to placed today. Migraine without aura and wi thout status migrainosus, not intractable 05/16/2024 Assessment & Plan (05/16/2024 9:16 AM EST): No CLARK red flags, no hx of fall with headstrike or LOC Will send rx for tylenol, pt unable to take NSAIDs d/t GI hx. Fibromyalgia 03/13/2023 Infiltrating ductal carcinoma 05/10/2022 Fatigue 05/10/2022 Essential hypertension 05/10/2022 Assessment & Plan (05/16/2024 9:11 AM EST): Pt BP still not consistently at goal of <140/90 Will discontinue amlodipine and switch to losartan 25 mg Pt plans to continue to check home Bps and keep log for next two weeks Pt will RTC in 2 weeks for RN BP check at this time patient will also complete bloodwork to monitor renal function Dry cough 05/10/2022 Prediabetes 08/04/2021 Hyperlipidemia 08/04/2021 Intraductal carcinoma in situ of breast 01/21/20 Allergic rhinitis 02/25/2015 Anxiety 02/25/2015 Constipation 02/25/2015 Insomnia 02/25/2015 Gastroesophageal reflux disease 02/25/2015 Lumbago with sciatica 02/25/2015 Menopausal problem 02/25/2015 Encounters * This document contains information received from the source organization and may not represent a complete record from that organization. Date Type Department Care Team Description 07/06/2024 11:15 AM EST Telemedicine [address] [address] Bradly Sanders MD Abdominal pain, unspecified abdominal location (Primary Dx); H/O partial resection of colon 07/06/[address] [address] Yareli Duggan MA Med Refill 07/03/[address] [address] Bradly Sanders MD Anxiety 06/18/[address] [phone] Calista Gage RN 06/17/2024 11:00 AM EST Telemedicine [address] [address] Calista Gage, HARLEEN Essential hypertension [I10] 06/17/[address] [address] Calista Gage RN 06/16/[address] [phone] Bradly Sanders MD Durable Medical Equipment (Walker, commode and alcohol swabs) 06/02/2024 Telephone [facility] [address] [place] [address] Calista Gage RN Error (VOID this visit) 06/02/[address] [address] Juany Zimmerman RN Error (VOID this visit) 06/02/[address] [address] Juany Zimmerman, HARLEEN 05/29/2024 11:00 AM EST Clinical Support [address] [phone] Calista Gage RN Essential hypertension 05/15/2024 3:00 PM EST Office Visit [address] [address] Zenon Duron CNP Essential hypertension (Primary Dx); Migraine without aura and without status migrainosus, not intractable; Depression with anxiety 05/15/2024 Travel 05/14/[address] [facility] [address] [place] [address] Bradly Sanders MD Insomnia, unspecified type 05/12/2024 Telephone [facility] [address] [place], [place] [phone] Bradly Sanders MD Medication Question 05/07/2024 Telephone [facility] [address] [place], [place] [phone] Yareli Duggan MA feb recalls 04/24/[address] [address] Bradly Sanders MD 04/22/2024 Orders Only GENERIC EXTERNAL DATA DEPARTMENT Provider, Generic External Data from Last 3 Months Immunizations Name Administration Dates Next Due TD (adult), 2 Lf tetanus tox oid, preservative free, adsorbed 07/05/2006 Family History Medical History Relation Name Comments Diabetes Father Lung cancer Maternal Grandmother Diabetes Mother Hypertension Mother Pancreatic cancer Mother Asthma Sister Relation Name Status Comments Father Maternal Grandmother Mother Sister Social History Tobacco Use Types Packs/Day Years Used Date Smoking Tobacco: Never Smokeless Tobacco: Never Tobacco Cessation:Counseling Given: Not Answered Alcohol Use Standard Drinks/Week Comments Never 0 [...] Orientation Straight 03/12/2022 10 :17 AM EDT Last Filed Vital Signs Vital Sign Reading Time Taken Comments Blood Pressure 132/90 05/29/2024 11:13 AM EST Pulse 77 05/29/2024 11:13 AM EST Temperature 37.2 ??C (99 ??F) 05/29/2024 11:13 AM EST Respiratory Rate 18 05/15/2024 3:02 PM EST Oxygen Saturation 96% 05/29/2024 11:13 AM EST Inhaled Oxygen Concentration - - Weight 67 kg (147 lb 9.6 oz) 05/29/2024 11:13 AM EST Height 151.9 cm (4' 11.8 ) 02/18/2024 9:52 AM ED T Body Mass Index 29.02 02/18/2024 9:52 AM EDT Plan of Treatment Upcoming Encounters Date Type Department Care Team (Late st Contact Info) Description 10/06/2024 10:00 AM EDT Office Visit [facility] [address] [place] [address] Name, MD Bradly [address] [place] [address] Health Maintenance Due Date Last Done Comments CT Colonography 1960 FIT DNA/Cologuard 1960 FIT 1960 FOBT 1960 Sigmoidoscopy 1960 Hepatitis C Screening 1976 DTaP/Tdap/Td Vaccines (1 - Tdap) 07/06/2006 07/05/2006 Pneumococcal Vaccine: 50+ Years (1 of 1 - PCV) 2008 Zoster Vaccines (1 of 2) 2008 Diabetes: Hemoglobin A1C 07/31/2023 023, 06/20/2021 COVID-19 Vaccine (3 - 2023-2 5 season) 2024 08/30/2020, 08/02/2020 Influenza Vaccine (#1) 2024 SDOH Screening 08/21/2024 08/22/2023 Alcohol/Substance Use Screening 11/11/2024 11/12/2023 Depression Monitoring (PHQ-9) 11/15/2024, 05/18/2024 Mammogram 03/31/2025 03/31/2024, 03/26/2023, 03/26/2023 Depression Screening 05/18/2025 05/18/2024, 05/18/2024 Tobacco Screening 07/06/2025 07/06/2024 Lipid Panel 06/20/2026 06/20/2021 Cervical Cancer Screening 05/03/2027 HPV/Cotest 05/03/2027 05/03/2022 Pap Smear 05/03/2027 05/03/2022 RSV Patients and Patients Aged 60 years or older (1 - 1-dose 75+ series) 2033 Colonoscopy 04/22/2034 04/22/2024, 02/22/2021 Colorectal Cancer Screening 04/22/2034 HIB Vaccines Aged Out No longer eligi ble based on patient's age to complete this topic HPV Vaccines Aged Out No longer eligi ble based on patient's age to complete this topic Hepatitis A Vaccines Aged Out No long er eligible based on patient's age to complete this topic Hepatitis B Vaccines Aged Out No long er eligible based on patient's age to complete this topic IPV Vaccines Aged Out No longer eligi ble based on patient's age to complete this topic Meningococcal Vaccine Aged Out No robb nicola eligible based on patient's age to complete this topic RSV under 20 months Aged Out No longe r eligible based on patient's age to complete this topic Rotavirus Vaccines Aged Out No longer eligible based on patient's age to complete this topic Procedures Procedure Name Priority Date/Time Associated Diagnosis Comments HEMATOXYLIN AND EOSIN STAIN Routine 04/22/2024 10:02 AM EST HM COLONOSCOPY Routine 04/22/2024 BI MAMMOGRAM SCREENING TOMOSYNTHESIS BILATERAL Routine 03/31/2024 11:15 AM EST POCT GLYCATED HEMOGLOBIN, TOTAL Routine 07/30/2022 11:47 AM EDT Prediabetes THINPREP PAP AND HPV MRNA E6/E7 Routine 05/03/2022 12:08 PM EST LIPID PANEL, STANDARD Routine 06/20/2021 11:48 AM EST from Last 3 Months or Most Recently Relevant to Health Maintenance Results * Hematoxylin and Eosin Stain (04/22/2024 10:02 AM EST) 04/22/2024 10:0 2 AM EST 04/22/2024 10:53 AM EST [facility] - 04/24/2024 4:06 PM EST ----- ------- Name: Corrie Turner ? Age/Sex: 63/F ? : 1960 Unit#: [id number] ?? Attend Dr: Dolores Ibanez MD ?Re04/22/24 ?Status: DEP SDC ? Location: HO.SSS ?Disch: ? ----- ------- SPEC : [id number] ? RECD: 04/22/24-1053 ? STATUS: ??SOUT ? REQ NUM: [id number] ? LEX: 04/22/24-1002 ? SUBM DR: Dolores Ibanez MD ? ENTERED: ??04/22/24-1114 ?SP TYPE: Surgical ? OTHR DR: Bradly Sanders MD ? ORDERED: ??HE Stain/15, Gross Micro L4/5, IHC, Special st. 2/2, H. pylori, AB/PAS/2 ? Diagnosis ?? A. ??Duodenum, biopsy: ??Duodenal mucosa with mildly increased intraepithelial lymphocytes ?? and preserved villous architecture. ??See comment. ? B. ??Stomach, random, biopsy: ??Antral-type and oxyntic mucosa with moderate chronic ?? inactive inflammation and focal intestinal metaplasia in the antrum; negative for ?? dysplasia; no Helicobacter organisms seen. ? C. ??GE junction, biopsy: ?- Cardiac-type mucosa with moderate chronic inactive inflammation and focal ?? multilayered epithelium; no fully developed intestinal metaplasia seen. ?- Squamous mucosa within normal limits. ? D. ??Colon, ascending, polypectomy: ??Fragments of tubular adenoma; negative for high-grade ?? dysplasia or carcinoma. ? E. ??Colon, transverse, polypectomy: ??Fragments of tubular adenoma; negative for high- ?? grade dysplasia or carcinoma. ? COMMENT: The findings in the duodenum are non-specific. ??The differential diagnosis is ?? broad and includes infection (e.g. viral or H. pylori), medication/drugs (e.g. NSAIDs), ?? gluten sensitivity/celiac disease, bacterial overgrowth, tropical sprue, immunodeficiency ?? syndromes (e.g. IgA deficiency, CVID), autoimmune enteropathy, Crohns and collagen ?? vascular disease, among others. ??Please correlate with clinical and other laboratory ?? findings. ?Clinical History Pre-Op Dx: ??Graves's esophagus, hx diverticulosis and polyps, weight loss Post-Op Dx: Gastritis, duodenitis, gastric polyp, colon polyps ?Microscopic Description A-E. ??Microscopic sections examined. ??No fully-developed metaplastic changes are seen, supported by AB/PAS stains (A and C); no Helicobacter organisms are seen, supported by H. pylori immunostain (B). ? Material Received ?? A. Duodenum ?? B. Random gastric ?? C. GE junction ?? D. Ascending colon polyp ? CONTINUED ON NEXT PAGE ----- ------- Name: Corrie Turner ? Age/Sex: 63/F ? : 1960 Unit#: [id number] ?? Attend Dr: Dolores Ibanez MD ?Re04/22/24 ?Status: DEP SDC ? Location: HO.SSS ?Disch: ? ----- ------- SPEC : [id number] ? RECD: 04/22/24-3 ? STATUS: ??SOUT ? REQ NUM: [id number] ? LEX: 04/22/24-1001 ? SUBM DR: Dolores Ibanez MD ? ENTERED: ??04/22/24-1114 ?SP TYPE: Surgical ? OTHR DR: Bradly Sanders MD ? ORDERED: ??HE Stain/15, Gross Micro L4/5, IHC, Special st. 2/2, H. pylori, AB/PAS/2 ? Material Received ?(Continued) ?? E. Transverse colon polyp ? Gross Description Received in five parts. Part A: ??Received in formalin labeled ?duodenum? are 2 maya-pink irregular tissue fragments each measuring 0.35 cm, submitted in toto in a cassette labeled A. Part B: ??Received in formalin labeled ?random gastric? are 2 pale maya-pink irregular tissue fragments each measuring 0.25 cm, submitted in toto in a cassette labeled B. Part C: ??Received in formalin labeled ?GE junction? are 4 maya-pink irregular tissue fragments ranging from 0.1-0.25 cm, submitted in toto in a cassette labeled C. Part D: ??Received in formalin labeled ?ascending colon polyp? are 5 maya irregular and papular tissue fragments ranging from 0.1-0.3 cm, submitted in toto in a cassette labeled D. Part E: ??Received in formalin labeled ?transverse colon polyp? are 6 maya and congested and hemorrhagic pink-red irregular tissue fragments ranging 0.1-0.3 cm, submitted in toto in a cassette labeled E. ??CEDS This case was reviewed intradepartmentally (A). Special studies ordered and performed: Immunostain for H. pylori on B; AB/PAS stains on A and C Copies To: ?? Name,Bradly VERA ?? [address] ?? [place] [address] ?? [phone] ?? Dolores Ibanez MD ?? [facility] ?? [address] ?? [place] [address] ?? [phone] ?? [email or web address] (app) ? CONTINUED ON NEXT PAGE ----- ------- Name: Corrie Turner ? Age/Sex: 63/F ? : 1960 Unit#: [id number] ?? Attend Dr: Dolores Ibanez MD ?Re04/22/24 ?Status: DEP SDC ? Location: HO.SSS ?Disch: ? ----- ------- SPEC : [id number] ? RECD: 04/22/24-1053 ? STATUS: ??SOUT ? REQ NUM: [id number] ? LEX: 04/22/24-1001 ? SUBM DR: Dolores Ibanez MD ? ENTERED: ??04/22/24-1114 ?SP TYPE: Surgical ? OTHR DR: Bradly Sanders MD ? ORDERED: ??HE Stain/15, Gross Micro L4/5, IHC, Special st. 2/2, H. pylori, AB/PAS/2 ? ----- ------- Signed (signature on file) Merritt Lopez MD 04/24/24 1606 ? ----- ------- ? END OF REPORT ? us Generic External Data Provider LAB BLOOD ORDERAB LES Final Result [facility] [address] [place] [phone] * Hm Colonoscopy (04/22/2024) Colonoscopy Normal Normal us Bradly Sanders MD HEALTH MAINTENANCE Final Result * BI Mammogram Screening Tomosynthesis Bilateral (03/31/2024 11:15 AM EST) Anatomical Region Laterality Modality Breast Bilateral Mammography 03/31/2024 11:1 5 AM EST Narrative 03/31/2024 12:53 PM EST ? [facility] ? [address] [facility] ?[place] [address] ? Mammography Report ? Signed ? Patient: Turner,Corrie M ?MR#: [id number] ?? [id number] ? : 1960 ?Acct:[id number] ? Age/Sex: 63 / F ?ADM Date: 11/19/24 ? Loc: HO.MAMMO ? Attending Dr: Bradly Sanders MD ? Ordering Physician: Bradly Sanders MD ?Results: 2Benign Fi ?? ndings ? Date of Service: 03/31/24 ?Follow Up: 1 Year From Orig ?? inal Mammogram ? Procedure(s): MM tomosynthesis screening BI ?? Accession Number(s): [id number] ? cc: Marilyn,Bradly VERA ? EXAMINATION: ?? MM SCREENING DIGITAL BREAST TOMOSYNTHESIS, BILATERAL ? CLINICAL INFORMATION: ? Screening. Asymptomatic. ??History of left breast cancer in 2020 status ?? post lumpectomy. ? COMPARISON: ?? Mammography: Comparison is made with available priors ? TECHNIQUE: ?? Digital breast mammography with tomosynthesis is performed in both the ?? craniocaudal and mediolateral oblique views along with computer-aided ?? detection (CAD). ? FINDINGS: ?? There are scattered areas of fibroglandular density (ACR BI-RADS breast ?? composition Category b). ?? Post lumpectomy changes to the left breast are stable. Marker clip in ?? the upper central right breast from previous needle core biopsy. ?? There are no significant masses, abnormal calcifications, or other ?? abnormalities. ? MM/MM tomosynthesis screening BI ?? IMPRESSION: ?? No mammographic evidence of malignancy. ? ASSESSMENT: ? BI-RADS BI-RADS 2 - Benign Findings ? RECOMMENDATION: ?? Routine annual mammography screening. ? 1 year F/U ? This examination should not preclude the clinical evaluation of a ?? suspicious palpable abnormality. ? This patient's information was entered into a reminder system with a ?? target due date for their next mammogram. ? Electronically signed by: ??Tiffany Livingston DO ??03/31/2024 12:50 PM EST ?? RP ? Dictated By: ?Tiffany Livingston DO ? Signed By: ?<Electronically signed by Tiffany Livingston, DO in OV> ? 03/31/24 1250 ? DD/ 1115 ? TD/TT: 03/31/24 1132 ? Sewage Plant Operator: ? Procedure Note Donotuseinterpreter, Image - 03/31/2024 [facility] [address] [place], [place] [address] Mammography Report Signed Patient: Corrie Turner MMR#: [id number] : 9Acct:[id number] Age/Sex: 63 / FADM Date: 03/31/24 Loc: HO.MAMMO Attending Dr: Bradly Sanders MD Ordering Physician: Bradly Sanders MDResults: 2Benign Fi ndings Date of Service: 03/31/24Follow Up: 1 Year From Orig inal Mammogram Procedure(s): MM tomosynthesis screening BI Accession Number(s): [id number] cc: Bradly Sanders MD EXAMINATION: MM SCREENING DIGITAL BREAST TOMOSYNTHESIS, BILATERAL CLINICAL INFORMATION: Screening. Asymptomatic. History of left breast cancer in 2020 status post lumpectomy. COMPARISON: Mammography: Comparison is made with available priors TECHNIQUE: Digital breast mammography with tomosynthesis is performed in both the craniocaudal and mediolateral oblique views along with computer-aided detection (CAD). FINDINGS: There are scattered areas of fibroglandular density (ACR BI-RADS breast composition Category b). Post lumpectomy changes to the left breast are stable. Marker clip in the upper central right breast from previous needle core biopsy. There are no significant masses, abnormal calcifications, or other abnormalities. MM/MM tomosynthesis screening BI IMPRESSION: No mammographic evidence of malignancy. ASSESSMENT: BI-RADS BI-RADS 2 - Benign Findings RECOMMENDATION: Routine annual mammography screening. 1 year F/U This examination should not preclude the clinical evaluation of a suspicious palpable abnormality. This patient's information was entered into a reminder system with a target due date for their next mammogram. Electronically signed by: Tiffany Livingston DO 03/31/2024 12:50 PM EST RP Dictated By: Tiffany Livingston DO Signed By: <Electronically signed by Tiffany Livingston DO in OV> 03/31/24 1250 DD/ 1115 TD/TT: 03/31/24 1132 Sewage Plant Operator: us Bradly Sanders MD IMG BI PROCEDURES Final Result * (ABNORMAL) POCT A1C (07/30/2022 11:47 AM EDT) Hemoglobin A1C 6.1(A) 4.0 - 6.0 % Blood 07/30/2022 11:4 7 AM EDT us Bradly Sanders MD POINT OF CARE TEST ENTER/EDIT OR DERABLES Final Result * Thinprep PAP and HPV nRNA E6/E7 (05/03/2022 12:08 PM EST) Clinical Information: None given Schedule Savvyt LMP: NONE GIVEN Schedule [facility] Prev. PAP: NONE GIVEN Schedule [facility] Prev. BX: NONE GIVEN [employer] SOURCE: None given Schedule Sav[facility] Statement Of Adequacy: SATISFACTORY FOR EVALUATION Schedule [facility]vyt Interpretation/Re sult: Schedule Savvyt Comment: Negative for intraepithelial lesion or malignancy. Atrophic pattern; predominantly parabasal cells Manufacturing Development Engineer: Qu [place] Sunglasst Comment: CMG, CT(ASCP) CT screening location: [address] ??[address] (Always Message) Que [facility] [place] ([facility]CTAS: [place])t Comment: EXPLANATORY NOTE: The Pap is a screening test for cervical cancer. It is not a diagnostic test and is subject to false negative and false positive results. It is most reliable when a satisfactory sample, regularly obtained, is submitted with relevant clinical findings and history, and when the Pap result is evaluated along with historic and current clinical information. HPV nRNA E6/E7 Not Detected Not Detected [employer] Comment: Methodology: Building Architectural Designer-Mediated Amplification This assay detects E6/E7 viral messenger RNA (mRNA) from 14 high-risk HPV types (16,18,31,33,35,39,45,51,52,56,58,59,66,68). Cervical sources are required for HPV testing. If a vaginal source from a patient who has had a total hysterectomy with removal of cervix was submitted, please contact the testing laboratory for alternative testing options. For additional information, please refer to http://education.Recroup/faq/INY789g9 (This link if provided for information/ educational purposes only.) 05/03/2022 12:0 8 PM EST 05/08/2022 8:06 AM EST Narrative [facility] - 05/11/2022 9:53 AM EST FASTING: UNKNOWN Lisa Anderson [facility] LAB PATHOLOGY ORDERABLES Final Result [facility] [address], [place] [address] [place] [employer] [address] [facility], ([address]) [place] [address] * (ABNORMAL) LIPID PANEL, STANDARD (06/20/2021 11:48 AM EST) Chol/HDLC Ratio 3.7 <5.0 (calc) [facility] Cholesterol, Total 241(H) <200 mg/dL [facility] HDL Cholesterol 65 > OR = 50 mg/dL [facility] LDL Cholesterol 157(H) mg/dL (calc) [facility] Comment: Reference range: <100 ?? Desirable range <100 mg/dL for primary prevention; ?? <70 mg/dL for patients with CHD or diabetic patients ?? with > or = 2 CHD risk factors. ?? LDL-C is now calculated using the Shekhar-Wilson ?? calculation, which is a validated novel method providing ?? better accuracy than the Friedewald equation in the ?? estimation of LDL-C. ?? Shekhar SS et al. DONVOAN. 2013;310(19): 5776-9083 ?? (http://education.[employer]/faq/JRO988) Non-HDL Cholesterol 176(H) <130 mg/dL (calc) [facility] Comment: For patients with diabetes plus 1 major ASCVD risk ?? factor, treating to a non-HDL-C goal of <100 mg/dL ?? (LDL-C of <70 mg/dL) is considered a therapeutic ?? option. Triglycerides 83 <150 mg/dL [facility] 06/20/2021 11:4 8 AM EST us Judy Lugo NP LAB BLOOD ORDERABLES Final Res ult [facility] [address] from Last 3 Months or Most Recently Relevant [place] [id number] [facility] [address] [place] [address] Care Teams Solid Waste Technician Relationship Specialty Start Date End Date Name, MD Bradly [address] [place] [address] PCP - General Family Medicine 03/06/22
--- OUTSIDE RECORDS SUMMARY | 2024-07-21 16:35 | XMS_ITS | Encounter Summary ---
Author Organization [facility] Address [address] [place] [address] 7 [place] [address] Care Team Providers Care Tennis Ball Coverer Hand Name Role Phone Name, Bradly VERA Primary Care Provider [phone] Encounter Details Date Type Department Care Team (Late st Contact Info) Description 05/16/2022 Abstract [facility] [address] [place] [address] [phone] Name, MD Bradly [address] [place] [address] [phone] Social History Tobacco Use Types Packs/Day Years [...] Orientation Straight 03/12/2022 10 :17 AM EDT COVID-19 Exposure Response Date Recorded In the last 10 days, have yo u been in contact with someone who was confirmed or suspected to have Coronavirus/COVID-19? No / Unsure 05/16/2022 9:42 AM EST documented as of this encounter Plan of Treatment Upcoming Encounters Date Type Department Care Team (Late Contact Info) Description 10/06/2024 10:00 AM EDT Office Visit [facility] [address] [place] [address] [phone] Name, MD Bradly [address] [place] [address] [phone] documented as of this encounter Visit Diagnoses Not on filedocumented in this encounter Care Teams Tennis Ball Coverer Hand Relationship Specialty Start Date End Date Name, MD Bradly [address] [place] [address] PCP - General Family Medicine 03/06/22 documented as of this encounter
--- OUTSIDE RECORDS SUMMARY | 2024-07-21 16:35 | XMS_ITS | Encounter Summary ---
Author Organization [facility] [employer] Address [address] [place] [address] 7 [place] [address] Care Team Providers Care Sales Attendant Building Materials Name Role Phone Name, Bradly VERA Primary Care Provider [phone] Reason for Visit * Reason Onset Date Comments Durable Medical Equipment 08/29/2022 Encounter Details Date Type Department Care Team ([facility] st Contact Info) Description 08/29/2022 Telephone [facility]INE [address] [place], [place] [phone] Name, MD Bradly [address] [place] [address] Durable Medical Equipment Social History Tobacco Use Types Packs/Day Years [...] suspected to have Coronavirus/COVID-19? No / Unsure 07/30/2022 11:19 AM EDT documented as of this encounter Miscellaneous Notes * Telephone Encounter - Corrie Ingram - 08/29/2022 4:05 PM EDT TC to patient regarding message below. [facility] I explained topatient script was going to be generated for providers signature and will be faxed to [facility] and they will submit to insurance and see if insurance will cover a new one since cane was only a year old. Patient understood and agreed with plan. * Telephone Encounter - Heri Ken - 08/29/2022 2:53 PM EDT Tc from pt requesting a new script for a cane,. Please contact pt at [phone] documented in this encounter Plan of Treatment Upcoming Encounters Date Type Department Care Team (Late st Contact Info) Description 10/06/2024 10:00 AM EDT Office Visit [facility] MEDICINE [address] [place] [phone] Name, MD Bradly [address] [place] [address] documented as of this encounter Visit Diagnoses Not on filedocumented in this encounter Care Teams Sales Attendant Building Materials Relationship Specialty Start Date End Date Name, MD Bradly [address] [place] [address] PCP - General Family Medicine 03/06/22 documented as of this encounter
--- OUTSIDE RECORDS SUMMARY | 2024-07-21 16:35 | XMS_ITS | Encounter Summary ---
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; Sinus pressure Social History Tobacco Use Types Packs/Day Years [...] Description 10/06/2024 10:00 AM EDT Office Visit [facility]INE [address] [place] [phone] Name, MD Bradly [address] [place] [phone] documented as of this encounter Visit Diagnoses Diagnosis Generalized body aches 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
--- OUTSIDE RECORDS SUMMARY | 2024-07-21 16:35 | XMS_ITS | Encounter Summary ---
Author Organization [employer] Address [address] [place] [address] 7t [place] [address] Care Team Providers Care Neon Sign Maker Name Role Phone Name, Bradly VERA Primary Care Provider [phone] Reason for Visit * Reason Onset Date Comments Med Refill 07/03/2024 Encounter Details Date Type Department Care Team ([facility] st Contact Info) Description 07/03/2024 Refill [facility] [address] [place], [place] [phone] Name, MD Bradly [address] [place] [address] Anxiety Social History Tobacco Use Types Packs/Day Years [...] Telephone Encounter - RESHMA Medellin - 07/06/2024 11:36 AM EST Sydney, can you reschedule this pt for today, maybe after the 3 pm f/u? * Telephone Encounter - RESHMA [place] - 07/06/2024 11:31 AM EST Yes, this is a prn medication. * Telephone Encounter - RESHMA [place] - 07/06/2024 11:23 AM EST This is a controlled substance I need to see the pt before sending the benzodiazepine, her appointment is on 07/09/24. * Telephone Encounter - Princess Ingram - 07/03/2024 10:03 AM EST TC from pt requesting medication refill. Medications needing refill : LORazepam (Ativan) 0.5 MG tablet To be sent to:[id number] - [place] - [address] [facility] documented in this encounter Plan of Treatment Upcoming Encounters Date Type Department Care Team (Late st Contact Info) Description 10/06/2024 10:00 AM EDT Office Visit [facility] MED[facility]INE [address] [place] [address] Name, MD Bradly [address] [place] [address] documented as of this encounter Visit Diagnoses Diagnosis Anxiety Anxiety state, unspecified documented in this encounter Additional Health Concerns Assessment Noted Time PHQ-9 Depression Total Score: 13 025 3:00 PM EST documented as of this encounter Care Teams Neon Sign Maker Relationship Specialty Start Date End Date Name, MD Bradly [address] [place] [address] PCP - General Family Medicine 03/06/22 documented as of this encounter
--- OUTSIDE RECORDS SUMMARY | 2024-07-21 16:35 | XMS_ITS | Encounter Summary ---
Author Organization [facility] Address [address] [place] [address] 7 [place] [address] Care Team Providers Care Agent Contract Clerk Name Role Phone NameBradly MD Primary Care Provider [phone] Reason for Visit * Reason Comments Med Refill Encounter Details Date Type Department Care Team (Late st Contact Info) Description 07/12/2022 Refill [facility] MEDICINE [address] [place] [address] [phone] Bradly Sanders MD [address] [place] [address] [phone] Insomnia, unspecified type Social History Tobacco Use [...] Description 10/06/2024 10:00 AM EDT Office Visit [facility]INE [address] [place] [address] [phone] Bradly Sanders MD [address] [place] [address] [phone] documented as of this encounter Visit Diagnoses Diagnosis Insomnia, unspecified type documented in this encounter Care Teams Agent Contract Clerk Relationship Specialty Start Date End Date NameBradly MD [address] [place] [address] [place] [address] PCP - General Family Medicine 03/06/22 documented as of this encounter
--- OUTSIDE RECORDS SUMMARY | 2024-07-21 16:35 | XMS_ITS | Encounter Summary ---
Author Organization [employer] Address [address] [place] [address] 7t [place] [address] Care Team Providers Care Process Operator Name Role Phone Name, Bradly VERA Primary Care Provider [phone] Encounter Details Date Type Department Care Team (Late st Contact Info) Description 05/16/2023 Abstract [facility] MEDICINE [address] [place], [place] [phone] Name, MD Bradly [address] [place] [address] Social History Tobacco Use Types Packs/Day Years Used Date Smoking Tobacco: Never Smokeless Tobacco: Never Alcohol Use Standard Drinks/Week Comments Never 0 (1 standard drink = 0.6 oz pur e alcohol) Housing Stability Answer Date Recorded What is [...] Description 10/06/2024 10:00 AM EDT Office Visit [facility] [address] [place] [phone] Name, MD Bradly [address] [place] [address] documented as of this encounter Visit Diagnoses Not on filedocumented in this encounter Care Teams Process Operator Relationship Specialty Start Date End Date Bradly Sanders MD [address] [place] [phone] PCP - General Family Medicine 03/06/22 documented as of this encounter
--- OUTSIDE RECORDS SUMMARY | 2024-07-21 16:35 | XMS_ITS | Encounter Summary ---
Author Organization [employer] Address [address] [place] [address] 7t [place] [address] Care Team Providers Care Top Ironer Name Role Phone Name, Bradly VERA Primary Care Provider [phone] Reason for Visit * Reason Onset Date Comments Hospital Follow-up 03/02/2024 Encounter Details Date Type Department Care Team ([facility] st Contact Info) Description 03/02/2024 Telephone [facility]INE [address] [place], [place] [phone] Name, MD Bradly [address] [place] [address] Hospital Follow-up Social History Tobacco Use Types Packs/Day Years [...] encounter Miscellaneous Notes * Telephone Encounter - Shabbir Bullard - 03/02/2024 9:26 AM EDT Tc from pt requesting a HDF appt. [place] [facility] Discharge date: 02/27 Diagnosed: Diverticulitis *hospital discharge summary on charge documented in this encounter Plan of Treatment Upcoming Encounters Date Type Department Care Team (Late st Contact Info) Description 10/06/2024 10:00 AM EDT Office Visit [facility] [address] [place] [phone] Name, MD Bradly [address] [place] [address] documented as of this encounter Visit Diagnoses Not on filedocumented in this encounter Additional Health Concerns Assessment Noted Time PHQ-9 Depression Total Score: 0 05/24/19 24 10:41 AM EST documented as of this encounter Care Teams Top Ironer Relationship Specialty Start Date End Date NameBradly MD [address] [place] [phone] PCP - General Family Medicine 03/06/22 documented as of this encounter
--- OUTSIDE RECORDS SUMMARY | 2024-07-21 16:35 | XMS_ITS | Encounter Summary ---
Author Organization [employer] Address [address] [place] [address] 7 h Floor [place] [phone] Care Team Providers Care Mdm Developer Name Role Phone Name, Bradly VERA Primary Care Provider [phone] Reason for Visit * Reason Onset Date Comments Med Refill 06/10/2023 Encounter Details Date Type Department Care Team ([facility] st Contact Info) Description 06/10/2023 Telephone [facility] [address] [place], [place] [phone] Name, MD Bradly [address] [place], [place] [phone] Med Refill Social History Tobacco Use Types [...] Telephone Encounter - Yumiko Ayala LPN - 06/10/2023 9:38 AM EST TELEPHONE REPAIRER checked 06/10/23 last filled on 05/18/23 to soon for refill. * Telephone Encounter - Caitlin Whitmore - 06/10/2023 9:25 AM EST TC from pt requesting medication refill. Medications needing refill : zolpidem (Ambien) 10 MG tablet To be sent to: [id number] [place] - [address] [facility] documented in this encounter Plan of Treatment Upcoming Encounters Date Type Department Care Team (Late st Contact Info) Description 10/06/2024 10:00 AM EDT Office Visit [facility] [address] [place] [address] Name, MD Bradly [address] [place] [address] documented as of this encounter Visit Diagnoses Not on filedocumented in this encounter Additional Health Concerns Assessment Noted Time PHQ-9 Depression Total Score: 0 05/24/19 10:41 AM EST documented as of this encounter Care Teams Mdm Developer Relationship Specialty Start Date End Date Name, MD Bradly [address] [place] [address] PCP - General Family Medicine 03/06/22 documented as of this encounter
--- OUTSIDE RECORDS SUMMARY | 2024-07-21 16:35 | XMS_ITS | Encounter Summary ---
Author Organization [employer] Address [address] [place] [address] 7t [place] [address] Care Team Providers Care Ground Host/Hostess Name Role Phone Name, Bradly VERA Primary Care Provider [phone] Reason for Visit * Reason Comments Follow-up Encounter Details Date Type Department Care Team ([facility] st Contact Info) Description 07/06/2024 11:15 AM EST Telemedicine [facility] MEDICINE 230 [place], [place] [phone] Name, MD Bradly [address] [place] [address] Abdominal pain, unspecified abdominal location (Primary Dx); H/O partial resection of colon Social History Tobacco Use Types Packs/Day Years [...] your housing situation today? I have joe sing 08/22/[address] you li [...] AM EDT documented as of this encounter Progress Notes * Bradly Sanders MD - 07/06/2024 11:15 AM EST Subjective Patient ID: Corrie Turner is a 63 y.o. female who presents for Follow-up. I called the patient to see how she is doing. She had sigmoid colectomy last month at [facility] for treatment of recurrent diverticulitis. The patient tells me that she is recovering slowly. She is passinggas and moving her bowels. She had follow-up with her surgeon. Her wounds are healing well. She hasrequested regular Tylenol for pain control. 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 HENT: Negative for sore throat. Respiratory: Negative for cough, shortness of breath and wheezing. Cardiovascular: Negative for chest pain, palpitations and leg swelling. Gastrointestinal: Positive for abdominal pain. Negative for blood in stool and diarrhea. Objective Physical Exam Vitals reviewed: Televisit audio only. Assessment/Plan Diagnoses and all orders for this visit: Abdominal pain, unspecified abdominal location Comments: I prescribed regular Tylenol for the pain as she requested. I explained to her that we already sentthe request for a letter she requested to medical records. She is encouraged to keep her appointment with her surgeon for next month. She is encouraged to try to walk daily. Increase her diet as tolerated. Orders: - acetaminophen (Tylenol Extra Strength) 500 MG tablet; Take 1 tablet (500 mg) by mouth every 8 (eight) hours if needed for moderate pain. H/O partial resection of colon Comments: 06/10/24, hand assisted laparoscopic sigmoid colectomy with colorectal anastomosis was performed by Dr. Hawkins without complication documented in this encounter Plan of Treatment Upcoming Encounters Date Type Department Care Team (Late st Contact Info) Description 10/06/2024 10:00 AM EDT Office Visit [facility] [address] [place] [phone] Bradly Sanders MD [address] [place] [phone] documented as of this encounter Visit Diagnoses Diagnosis Abdominal pain, unspecified abdominal location- Primary H/O partial resection of colon documented in this encounter Additional Health Concerns Assessment Noted Time PHQ-9 Depression Total Score: 13 05/18/ 025 3:00 PM EST documented as of this encounter Care Teams Ground Host/Hostess Relationship Specialty Start Date End Date Bradly Sanders MD [address] [place] [phone] PCP - General Family Medicine 03/06/22 documented as of this encounter
--- OUTSIDE RECORDS SUMMARY | 2024-07-21 16:35 | XMS_ITS | Encounter Summary ---
Author Organization [employer] [facility] Address [address] [place] [address] 7 [place] [address] Care Team Providers Care Build Master Name Role Phone Name, Bradly VERA Primary Care Provider [phone] Reason for Visit * Reason Comments Med Refill Encounter Details Date Type Department Care Team (Late st Contact Info) Description 06/12/2022 Refill [facility] MEDICINE [address] [place] [address] [phone] Name, MD Bradly [address] [place] [address] [phone] Insomnia, unspecified type (Primary Dx); Essential hypertension Social History Tobacco Use Types Packs/Day Years [...] Office Visit [facility] MEDICINE [address] [place] [address] [phone] Name, MD Bradly [address] [place] [address] [phone] documented as of this encounter Visit Diagnoses Diagnosis Insomnia, unspecified type- Primary Essential hypertension Unspecified essential hypertension documented in this encounter Care Teams Build Master Relationship Specialty Start Date End Date Name, MD Bradly [address] [place] [address] PCP - General Family Medicine 03/06/22 documented as of this encounter
== END 2024-07-21 14:12 | disposition home or self-care (01) ==
LOC: HO.HGS 13:38
PROVIDERS: PCP Internal Medicine Geriatric Medicine; Visit Provider Surgery
DX: K57.32 Diverticulitis of large intestine without perforation or abscess without bleeding (principal)
CPT/HCPCS: 99024

== ENCOUNTER → 2024-07-21 13:38 | Outpatient (BNVA) | payer OTHER, SELFPAY | PROVIDERS: PCP Internal Medicine Geriatric Medicine; Visit Provider Surgery | DX: K57.32 Diverticulitis of large intestine without perforation or abscess without bleeding (principal) | CPT/HCPCS: 99212 ==

== ENCOUNTER 2024-09-28 10:37 | Emergency (ER) | payer OTHER, SELFPAY ==
--- NOTE | ~2024-09-28 | CT_ITS ---
EXAMINATION: CT ABDOMEN PELVIS WITHOUT IV CONTRAST HISTORY: abd pain, concern for obstruction COMPARISON: Comparison is made with the prior examination dated 02/25/2024. TECHNIQUE: CT scan of the abdomen and pelvis was performed without contrast using standard departmental protocol. Coronal and sagittal reformatted images were generated and reviewed. The patient received oral contrast material. This CT exam was performed with one or more of the following dose reduction techniques: automated exposure control, adjustment of the mA and/or kV according to patient size, use of iterative reconstruction technique. DLP: 687 mGy-cm FINDINGS: LOWER CHEST: The visualized lung bases are clear. There is no pleural effusion. CARDIOVASCULATURE: The heart is normal in size. There is no pericardial effusion. LIVER: The liver is normal in size and contour. The liver has an unremarkable unenhanced appearance. GALLBLADDER / BILE DUCTS: The gallbladder is unremarkable. There is no intra or extrahepatic biliary ductal dilatation. SPLEEN: The spleen is normal in size and has an unremarkable unenhanced appearance. PANCREAS: The pancreas has an unremarkable unenhanced appearance. ADRENAL GLANDS: Unremarkable. KIDNEYS/RETROPERITONEUM: No renal calculi are identified. There is no hydronephrosis. LYMPH NODES: No retroperitoneal lymphadenopathy is identified in the abdomen or pelvis. VASCULATURE: The abdominal aorta demonstrates atherosclerotic calcification, but is normal in caliber. MESENTERY/PERITONEUM: No free fluid. No masses. There is no free intraperitoneal gas. STOMACH: There is a small hiatal hernia. The remainder of the stomach is unremarkable in appearance. SMALL BOWEL: The small bowel is normal in caliber. COLON: There is diverticulosis of the descending and sigmoid colon. A sigmoid anastomosis is noted. There is wall thickening and mild pericolonic inflammatory stranding about the sigmoid colon just proximal to the anastomosis, compatible with diverticulitis. There is no adjacent extraluminal gas or loculated fluid collection. APPENDIX: Normal. URINARY BLADDER/PELVIC ORGANS: The urinary bladder is collapsed, limiting evaluation. There is a calcification of the uterus which likely represents a fibroid. BONES / SOFT TISSUES: There is degenerative disc disease of the spine. CT/CT abdomen pelvis wo IV con IMPRESSION: Findings compatible with diverticulitis of the sigmoid colon just proximal to an anastomosis. Electronically signed by: Mars Stfaford MD 09/28/2024 04:03 PM EDT RP
[2024-09-28 11:03] VITALS: BP 176/81; PULSE 84; RESP 16; TEMP 36.7; O2SAT 97; BMI 27.3
[2024-09-28 11:31] LABS: MANUAL DIFF FLAG NO
[2024-09-28 11:33] LABS: Basophils Absolute Auto 0.1 X10*3/uL (0.0-0.2); Basophils Percent Auto 0.6 % (0-2); Eosinophils Percent Auto 0.4 % (0-4); Hematocrit 39.6 % (37.0-47.0); Hemoglobin 13.3 g/dl (12.0-16.0); Imm Gran Abs Auto 0.04 X10*3/uL (0.00-0.03); Imm Gran Pct Auto 0.4 % (0.0-0.4); Lymphocytes Absolute Auto 0.7 X10*3/uL (1.2-4.9); Lymphocytes Percent Auto 7.6 % (20-40); Mean Corpuscular HGB Conc 33.6 g/dl (31.0-35.0); Mean Corpuscular Hemoglobin 29.7 pg (27.0-33.0); Mean Corpuscular Volume 88.4 fL (80.0-98.0); Mean Platelet Volume 9.2 fL (9.4-12.3); Monocytes Absolute Auto 0.3 X10*3/uL (0.1-1.2); Monocytes Percent Auto 2.7 % (2-11); Neutrophils Absolute Auto 8.2 x10*3/uL (2.0-8.3); Neutrophils Percent Auto 88.3 % (45-73); Platelet Count 398 X10*3/uL (160-400); Red Blood Count 4.48 X10*6/uL (4.20-5.50); White Blood Count 9.3 X10*3/uL (4.8-10.8)
[2024-09-28 11:37] LABS: Appearance Urine Clear; Color Urine Yellow; Glucose Urine UA Negative (Negative); Leukocyte Esterase Urine Trace (Negative); Nitrite Urine Negative (Negative); PH 6.5 (5.0-9.0); Specific Gravity - Urine 1.015 (1.005-1.025); UMIC TRIGGER UACC YES; Urine Blood Trace (Negative); Urine Ketones Negative (Negative); Urine Protein Negative (Neg-Trace)
[2024-09-28 11:39] LABS: Bacteria Urine None Seen (None Seen); Hyaline Casts Urine 0-2 /LPF (0-2); RBC Urine 0-2 /HPF (0-2); Squamous Epithelial Cell Urine 0-2 /HPF (0-2); WBC Urine 0-5 /HPF (0-5)
[2024-09-28 11:54] LABS: Alanine Aminotransferase 13 U/L (0-31); Albumin Level 4.5 g/dL (3.5-5.0); Alkaline Phosphatase 127 U/L (39-117); Anion Gap 12 (12-20); Aspartate Amino Transferase 19 U/L (5-31); Bilirubin Total 0.7 mg/dL (0.0-1.0); Blood Urea Nitrogen 16 mg/dL (9-16); Calcium 9.8 mg/dL (8.4-10.2); Carbon Dioxide 26 mmol/L (22-29); Chloride 104 mmol/L (96-108); Creatinine Clr Calc Pharmacy 69.3; Estimated Glomerular Filt Rate > 60; Glucose Random 133 mg/dL (60-115); Lipase 11 U/L (8-78); Magnesium 1.9 mg/dL (1.6-2.6); Potassium 3.8 mmol/L (3.3-5.1); Sodium 138 mmol/L (135-145); Total Protein 7.9 g/dL (6.5-8.0)
--- NOTE | 2024-09-28 12:57 | ED.GENADULT ---
HPI - General Adult General Chief complaint: Abdominal Pain Stated complaint: obstruction sent by md Time Seen by Provider: 09/28/24 13:07 History of Present Illness ED Provider: Dr. Valenzuela HPI narrative: 63 y/o F patient; PMH hx diverticulitis s/p sigmoid colectomy with colorectal anastamosis (Dr. Hawkins) approx 2 months ago, hx breast cancer (s/p lumpectomy and radiation, currently on chemotherapy), GERD; presents from home on recommendation of her general surgeon for 2 days of LLQ abdominal pain associated with decreased bowel movements, nausea, and lightheadedness. She states she has not been passing gas. She otherwise denies: fever or chills, urinary symptoms, chest pain, SOB, cough/congestion. Related Data Home Medications ?Medication ?Instructions ?Recorded ?Confirmed aspirin 81 mg tablet,delayed 81 mg PO DAILY 02/10/20 08/06/24 release (Adult Low Dose Aspirin) cholecalciferol (vitamin D3) 50 1 cap PO DAILY 02/15/21 08/06/24 mcg (2,000 unit) capsule zolpidem 10 mg tablet 10 mg PO BEDTIME PRN Sleep 10/29/22 08/06/24 multivitamin with minerals-folic 1 tab PO DAILY 02/25/24 08/06/24 acid 200 mcg chewable tablet (Women's Multivitamin Gummies) lorazepam 0.5 mg tablet 0.5 mg PO DAILY PRN Anxiety 06/02/24 08/06/24 losartan 50 mg tablet 50 mg PO DAILY 06/02/24 08/06/24 acetaminophen 500 mg tablet 500 mg PO Q6H PRN mild pain 06/10/24 08/06/24 Previous Rx's ?Medication ?Instructions ?Recorded walker #1 ea 11/03/21 exemestane 25 mg tablet (Aromasin) 25 mg PO DAILY #90 tabs 02/07/24 sulfamethoxazole 800 1 tab PO BID #20 tabs 06/14/24 mg-trimethoprim 160 mg tablet (Bactrim DS) diphenhydramine HCl 25 mg tablet 25 mg PO Q4H PRN rash #20 tabs 06/19/24 docusate sodium 100 mg capsule 100 mg PO DAILY #90 caps 07/21/24 (Colace) esomeprazole magnesium 40 mg 40 mg PO DAILY #90 caps 09/16/24 capsule,delayed release levofloxacin 750 mg tablet 750 mg PO DAILY 10 days #10 tabs 09/28/24 metronidazole 500 mg tablet 500 mg PO BID 10 days #20 tabs 09/28/24 Allergies Allergy/AdvReac Type Severity Reaction Status Date / Time Penicillins [PENICILLINS] Allergy Severe SWELLING/VO Verified 09/28/24 11:03 MITING Iodinated Contrast Media Allergy Intermediate eye/facial Verified 09/28/24 11:03 [IV Contrast Dye] swelling metronidazole [Flagyl] Allergy Intermediate Palpitation Verified 09/28/24 11:03 s iopromide Allergy Itching Verified 09/28/24 11:03 paroxetine AdvReac Intermediate diarrhea Verified 09/28/24 11:03 Review of Systems Review of Systems: Yes all other systems are reviewed and are negative PMFSH Past Medical History Attestation statement: The following information was validated with the patient. Source: old records reviewed Medical History Hx of radiation therapy History of chemotherapy Cough History of headache Constipation Allergic rhinitis Anxiety HTN (hypertension) Graves esophagus Allergies Foot fracture, right Closed left ankle fracture Infiltrating ductal carcinoma of left breast Overweight (BMI 25.0-29.9) GERD without esophagitis Rib pain on right side Insomnia Fibromyalgia Diverticulitis Chronic back pain GERD (gastroesophageal reflux disease) Surgical History Status post laparoscopic-assisted sigmoidectomy (06/10/24) History of lumpectomy of left breast History of left breast biopsy (~01/08/20) History of local excision of skin lesion (~03/2018) History of right breast biopsy (~2012) History of cystoscopy History of gastric surgery History of section History of esophagogastroduodenoscopy (EGD) (~02/2013) History of colonoscopy Family History Family History Mother History of hypertension History of pancreatic cancer History of diabetes mellitus Father History of hypertension History of diabetes mellitus Colon cancer Sister History of hypertension Maternal Grandmother History of lung cancer Social History Social History Household Members: None Housing: House Are you a primary physician assistant primary care to a significant other at home: No Do you presently have 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 or other home services: Yes (nurse manager daily) Alcohol intake: never Comment: pt continues to refuse high falls alarms and assistance Patient Tobacco Use Status: Never used Tobacco Smoked in Last 30 Days: No e-Cigarette/Vaping Use: Never Used Second Hand Smoke Exposure: No Use of substances other than those prescribed or required for medical reasons: No Advance Directives: No Advance Directives Information Provided: Yes Do you have a plan to hurt others: No Plan service: No Current occupational status: disabled 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 Physical Exam ED Vital Signs: Vital Signs - 24 hr 09/28/24 11:03 Temperature 98.1 F Pulse Rate 84 Respiratory Rate 16 Blood Pressure 176/81 H Pulse Oximetry 97 Oxygen Delivery Method Room Air BMI result Body Mass Index 27.3 Patient is afebrile and hemodynamically stable Const General: cooperative Orientation/consciousness: patient oriented x3 HENMT Head: Yes normal to inspection and Yes atraumatic Eyes General: appearance normal, both eyes and all related structures Pupils: Equal, round and reactive pupils present EOM: EOMs intact bilaterally Neck Neck: Yes normal visual inspection, Yes full ROM, Yes supple and No tender Chest Chest palpation & inspection: normal inspection of the chest and normal palpation of entire chest wall Resp Effort & Inspection: normal respiratory effort, able to speak in complete sentences, no cough and no respiratory distress Auscultation: clear to auscultation bilaterally Cardio Rate: regular rate Rhythm: regular rhythm Peripheral pulses: Peripheral pulses 2+ throughout GI Inspection: Yes normal to inspection, No Abdominal wall edema and No distended Palpation (GI): Soft to palpation, not firm, nontender, no guarding and not rigid Auscultation: normal bowel sounds Back/Spine/Pelvis Back: No back tenderness Neuro General: patient oriented x3 Cranial nerves: Yes Equal, round and reactive pupils present Course Course Course Narrative: RME performed by Teena Springer PA-C. Patient is a 63 year old assigned female at presenting to the emergency department with abdominal pain. Patient states she had a recent bowel ressection and is now having pain with no bowel movements. Patient states that she was sent by Dr. Hawkins. Detailed physical exam and review of systems are deferred to the team primary care physician. Labs and imaging ordered. Patient placed back in the waiting room pending room availability and results. Reevaluation(s) Reevaluation #1: Patient is afebrile and hemodynamically stable. Reviewed triage ordered laboratory studies. Pending CT Abdomen/Pelvis. Labs reviewed. No leukocytosis. UA unremarkable. CT Abdomen/Pelvis notable for sigmoid diverticulitis proximal adjacent to the anastamosis. Patient informed of results and quite upset. Recommended a course of antibiotics and follow up with her GI/surgeon. Patient declines antibiotics in the hospital as she would like to go home and eat first. Will send prescription to the pharmacy. Explained to the patient the importance of taking the prescription. Plan: Discharge to home with surgery and GI follow up Return precautions given Medications Administered Discontinued Medications Generic Name Dose Route Start Last Admin Trade Name Freq PRN Reason Stop Dose Admin Ondansetron HCl 4 mg 09/28/24 13:42 09/28/24 13:46 Ondansetron Odt 4 Mg Tab.Rapdis TRANSLINGU 09/28/24 13:43 4 mg ONCE ONE Administration Medical Decision Making Lab Data 09/28/24 11:14 09/28/24 11:14 Labs: Lab Results 09/28/24 Range/Units 11:14 WBC 9.3 (4.8-10.8) X10*3/uL RBC 4.48 (4.20-5.50) X10*6/uL Hgb 13.3 (12.0-16.0) g/dl Hct 39.6 (37.0-47.0) % MCV 88.4 (80.0-98.0) fL MCH 29.7 (27.0-33.0) pg MCHC 33.6 (31.0-35.0) g/dl RDW 13.0 (11.0-16.0) % Plt Count 398 (160-400) X10*3/uL MPV 9.2 L (9.4-12.3) fL Immature Gran % (Auto) 0.4 (0.0-0.4) % Neut % (Auto) 88.3 H (45-73) % Lymph % (Auto) 7.6 L (20-40) % [place] % (Auto) 2.7 (2-11) % Eos % (Auto) 0.4 (0-4) % Baso % (Auto) 0.6 (0-2) % Lymph # (Auto) 0.7 L (1.2-4.9) X10*3/uL [place] # (Auto) 0.3 (0.1-1.2) X10*3/uL Eos # (Auto) 0.0 (0.0-0.4) X10*3/uL Baso # (Auto) 0.1 (0.0-0.2) X10*3/uL Abs Immat Gran (auto) 0.04 H (0.00-0.03) X10*3/uL Absolute Neuts (auto) 8.2 (2.0-8.3) x10*3/uL Absolute Nucleated RBC 0.000 (0.0-0.012) X10*3/uL Nucleated RBC % (auto) 0.0 (0.0-0.2) /100WBC Sodium 138 (135-145) mmol/L Potassium 3.8 D (3.3-5.1) mmol/L Chloride 104 (96-108) mmol/L Carbon Dioxide 26 (22-29) mmol/L Anion Gap 12 (12-20) BUN 16 (9-16) mg/dL Creatinine 0.73 (0.5-1.4) mg/dL Estim Creat Clear Calc 69.3 Estimated GFR > 60 Random Glucose 133 H (60-115) mg/dL Calcium 9.8 (8.4-10.2) mg/dL Magnesium 1.9 (1.6-2.6) mg/dL Total Bilirubin 0.7 (0.0-1.0) mg/dL AST 19 (5-31) U/L ALT 13 (0-31) U/L Alkaline Phosphatase 127 H (39-117) U/L Total Protein 7.9 (6.5-8.0) g/dL Albumin 4.5 (3.5-5.0) g/dL Lipase 11 (8-78) U/L Urine Color Yellow Urine Appearance Clear Urine pH 6.5 (5.0-9.0) Ur Specific Lynn 1.015 (1.005-1.025) Urine Protein Negative (Neg-Trace) mg/dL Urine Glucose (UA) Negative (Negative) mg/dL Urine Ketones Negative (Negative) mg/dL Urine Blood Trace H (Negative) Urine Nitrite Negative (Negative) Ur Leukocyte Esterase Trace H (Negative) Urine RBC 0-2 (0-2) /HPF Urine WBC 0-5 (0-5) /HPF Ur Squamous Epith Cells 0-2 (0-2) /HPF Urine Bacteria None Seen (None Seen) Hyaline Casts 0-2 (0-2) /LPF Radiology Impression Discussion of test interpretation with radiology: I have reviewed the radiologist's reading. Radiologist Impression: Report Number: [id number]: Total DLP = 687.00 mGy-cm EXAMINATION: CT ABDOMEN PELVIS WITHOUT IV CONTRAST HISTORY: abd pain, concern for obstruction COMPARISON: Comparison is made with the prior examination dated 02/25/2024. TECHNIQUE: CT scan of the abdomen and pelvis was performed without contrast using standard departmental protocol. Coronal and sagittal reformatted images were generated and reviewed. The patient received oral contrast material. This CT exam was performed with one or more of the following dose reduction techniques: automated exposure control, adjustment of the mA and/or kV according to patient size, use of iterative reconstruction technique. DLP: 687 mGy-cm FINDINGS: LOWER CHEST: The visualized lung bases are clear. There is no pleural effusion. CARDIOVASCULATURE: The heart is normal in size. There is no pericardial effusion. LIVER: The liver is normal in size and contour. The liver has an unremarkable unenhanced appearance. GALLBLADDER / BILE DUCTS: The gallbladder is unremarkable. There is no intra or extrahepatic biliary ductal dilatation. SPLEEN: The spleen is normal in size and has an unremarkable unenhanced appearance. PANCREAS: The pancreas has an unremarkable unenhanced appearance. ADRENAL GLANDS: Unremarkable. KIDNEYS/RETROPERITONEUM: No renal calculi are identified. There is no hydronephrosis. LYMPH NODES: No retroperitoneal lymphadenopathy is identified in the abdomen or pelvis. VASCULATURE: The abdominal aorta demonstrates atherosclerotic calcification, but is normal in caliber. MESENTERY/PERITONEUM: No free fluid. No masses. There is no free intraperitoneal gas. STOMACH: There is a small hiatal hernia. The remainder of the stomach is unremarkable in appearance. SMALL BOWEL: The small bowel is normal in caliber. COLON: There is diverticulosis of the descending and sigmoid colon. A sigmoid anastomosis is noted. There is wall thickening and mild pericolonic inflammatory stranding about the sigmoid colon just proximal to the anastomosis, compatible with diverticulitis. There is no adjacent extraluminal gas or loculated fluid collection. APPENDIX: Normal. URINARY BLADDER/PELVIC ORGANS: The urinary bladder is collapsed, limiting evaluation. There is a calcification of the uterus which likely represents a fibroid. BONES / SOFT TISSUES: There is degenerative disc disease of the spine. CT/CT abdomen pelvis wo IV con IMPRESSION: Findings compatible with diverticulitis of the sigmoid colon just proximal to an anastomosis. Discharge Plan Discharge Clinical Impression: Diverticulitis Patient Disposition: Home, Self-Care Instructions: Diverticulitis (DC) Additional Instructions: Your CT scan shows acute uncomplicated diverticulitis in the area next to where you had your surgery. I recommend you call your surgeon and GI doctor to discuss these results. I have sent a prescription for 10 days of antibiotics - take the flagyl twice a day for 10 days and the levofloxacin once a day for 10 days. Return to the emergency department with any concerns! Prescriptions: New metronidazole 500 mg tablet 500 mg PO BID 10 Days Qty: 20 0RF levofloxacin 750 mg tablet 750 mg PO DAILY 10 Days Qty: 10 0RF No Action diphenhydramine HCl 25 mg tablet 25 mg PO Q4H PRN (Reason: rash) Qty: 20 0RF Rx Instructions: as needed for rash/itching esomeprazole magnesium 40 mg capsule,delayed release(DR/EC) 40 mg PO DAILY Qty: 90 0RF exemestane [Aromasin] 25 mg Tablet 25 mg PO DAILY Qty: 90 3RF Rx Instructions: must administer after a meal cholecalciferol (vitamin D3) 50 mcg (2,000 unit) capsule 1 cap PO DAILY multivit with min-folic acid [Women's Multivitamin Gummies] 200 mcg Tablet,Chewable 1 tab PO DAILY lorazepam 0.5 mg tablet 0.5 mg PO DAILY PRN (Reason: Anxiety) losartan 50 mg Tablet 50 mg PO DAILY acetaminophen 500 mg tablet 500 mg PO Q6H PRN (Reason: mild pain) sulfamethoxazole-trimethoprim [Bactrim DS] 800-160 mg tablet 1 tab PO BID Qty: 20 0RF aspirin [Adult Low Dose Aspirin] 81 mg tablet,delayed release (DR/EC) 81 mg PO DAILY (DME) [facility] [place] See Rx Instructions .MEDSUPPLY Qty: 1 0RF Rx Instructions: Rollator walker with seat and breaks zolpidem 10 mg tablet 10 mg PO BEDTIME PRN (Reason: Sleep) docusate sodium [Colace] 100 mg capsule 100 mg PO DAILY Qty: 90 3RF Print Language: Austrian
--- OUTSIDE RECORDS SUMMARY | 2024-09-28 13:30 | XMS_ITS | Data Portability ---
Author Organization [employer] Address [address] [place] [address] Care Team Providers Care Bulk Plant Supervisor Name Role Phone [facility] Primary Care Provider Assessment Encounter Date Assessment Date Assessment LastModified by Organization Details LastModified Time 01/22/2023 01/22/2023 I have reviewed and agree with the Assessment and Plan as documented by the Barrel Drainer. I provided real-time medical direction via phone [...] ing tablet 2022 023 [email or web address] [facility] [id number], [address] [place], [address], 3 18:08:34 ondansetron HCl (PF) 4 mg/2 mL injection solution 2022 023 arun mcconnell [facility] [id number], [address] [place], [address], 3 18:08:15 ondansetron 4 mg disintegrat ing tablet 2022 023 [id number], [address] [place], [place], [phone], 3 13:55:19 Patient TargetsNo targets recorded. Patient InstructionsNo instructions recorded. Reason for Referral None Reported. Medical Equipment None Reported. Allergies Allergen ID Allergen Name Allergen Category Reaction Reaction Severity Criticality Documentation Date Start Date Code Code System Note Provider Name and Address Organization Details Recorded Time 8330 Product containin g penicilli n (product) medicatio n Not available Not available Not available 03/10/2024 [id number] SNOMED Not Available [facility] - production [...] % 94 % 101.2 [degF] 16 /min 46169.1 68 g 157.48 cm 153 mm[Hg] 88 [...] SNOMED-CT Code Diagnosis ICD10 Code Diagnosis Note [id number] Mark Tiwari MD [facility] [address] [place] [address] [phone] 01/22/2023 19:29:52 01/24/2023 10:01:11 COVID-19 [id number] U07.1 [id number] Dominic Montgomery MD [facility] - [facility] [address] [place] [address] [phone] 01/30/2023 13:25:55 01/30/2023 23:23:53 COVID-19 [id number] U07.1 Health Concerns Section Related Observation LastModified by Organization Detai ls LastModified Time None Recorded Concern Status LastModified by Organization Details LastModified Time None Recorded Advance Directives Directive None Recorded Payers Insurance Date Sequence Insurance Name Policy Number Policy Hill Covered Member ID Hill Member ID Guarantor Name 01/30/2023 1 [facility] - DOS ON OR AFTER 2022 - DUAL ELIGIBLE - [employer] OPTIONS AND ONE CARE (MEDICARE REPLACEMENT/ADV ANTAGE - HMO) Corrie Turner [id number] Corrie Turner Notes Date Note Type Note [...] .................. .................. .................. .................. .................. .................. ............... Barrel Drainer Note From Jamar Galdamez: Pt reports dry cough, headache and chest tightness since 01/16 and n/v since last night. Pt was seen [facility] for cardiac work up on 01/16 [...] ............... Disposition: Fulfilled Mark Tiwari MD [address] [facility],[address], [place], [address], [employer] 01/23/2023 18:45:31 01/30/2023 text/html CRC Nursing Assessment: Reason For Request: Pt was seen in the last week with [facility] and was diagnosed with COVID19 Since last [...] and feels dehydration Dominic Montgomery MD [address] [facility],[address], [place], [phone], [employer] 01/30/2023 13:55:31 OBGyn Episode No OBEpisode recorded.
[2024-09-28] MEDS: Ondansetron ODT 4 MG TAB.RAPDIS TRANSLINGU (13:46)
[2024-09-28 16:34] VITALS: BP 167/89; PULSE 90; RESP 18; TEMP 36.2; O2SAT 99
== END 2024-09-28 17:19 | disposition home or self-care (01) ==
PROVIDERS: Emergency Provider Emergency Medicine; PCP Internal Medicine Geriatric Medicine
DX: K57.32 Diverticulitis of large intestine without perforation or abscess without bleeding (principal); K63.89 Other specified diseases of intestine; I10 Essential (primary) hypertension; Z79.899 Other long term (current) drug therapy
CPT/HCPCS: 36415; 74176; 80053; 81001; 83690; 83735; 85025; 99284

== ENCOUNTER → 2024-09-28 13:02 | Outpatient (BNV) | payer OTHER, SELFPAY | PROVIDERS: Emergency Provider Emergency Medicine; PCP Internal Medicine Geriatric Medicine; Visit Provider Radiology Diagnostic Radiology | DX: R10.32 Left lower quadrant pain (principal) | CPT/HCPCS: 74176 ==

== ENCOUNTER 2024-10-13 10:47 | Outpatient (AMB) | payer OTHER, SELFPAY ==
--- NOTE | 2024-10-13 10:55 | A.OFFVIS_ITS ---
Vital Signs 10/13/24 11:10 Height 5 ft 2 in Weight 149 lb 8 oz BMI 27.3 BP 189/79 H Blood Pressure Location Lt brachial Position Sitting Pulse 71 Intake Visit Reasons: 6 month follow up breast exam Intake Note: Patient is seen in office for 6 month follow up visit, breast exam. Pt c/o: pt denies any concern regarding the breast, will like to discuss her most recent visit to the ED due to diverticulitis, was placed on antibiotics, is currently having abdominal pain, constipation, bm every other day, wants to know why is this coming back if her colon was removed mm:03/31/24 Healthcare Business Analyst Required: No Airport Maintenance Chief: Airport Maintenance Chief Present Accompanied by: Family/Other Allergies Penicillins [PENICILLINS] Allergy (Severe, Verified 10/13/24 11:06) SWELLING/VOMITING Iodinated Contrast Media [IV Contrast Dye] Allergy (Intermediate, Verified 10/13/24 11:06) eye/facial swelling metronidazole [Flagyl] Allergy (Intermediate, Verified 10/13/24 11:06) Palpitations iopromide Allergy (Verified 10/13/24 11:06) Itching paroxetine Adverse Reaction (Intermediate, Verified 10/13/24 11:06) diarrhea Medication List - Last Reconciled 10/13/24 by David Hawkins MD acetaminophen 500 mg PO Q6H PRN aspirin (Adult Low Dose Aspirin) 81 mg PO DAILY cholecalciferol (vitamin D3) 1 cap PO DAILY diphenhydramine HCl 25 mg PO Q4H PRN docusate sodium (Colace) 100 mg PO DAILY esomeprazole magnesium 40 mg PO DAILY exemestane (Aromasin) 25 mg PO DAILY levofloxacin 750 mg PO DAILY 10 days lorazepam 0.5 mg PO DAILY PRN losartan 50 mg PO DAILY metronidazole 500 mg PO BID 10 days multivit with min-folic acid 200 mcg (Women's Multivitamin Gummies) 1 tab PO DAILY sulfamethoxazole-trimethoprim 800-160 mg (Bactrim DS) 1 tab PO BID walker Rollator walker with seat and breaks zolpidem 10 mg PO BEDTIME PRN HPI Comments Details: 63-year-old female patient, former patient of Dr. Galvan With a previous history of invasive ductal carcinoma of the left breast, ER/ [place] positive, HER2 Elbert negative with DCIS present, TNM: pT1a, No (sn), (i-). She underwent lumpectomy on 01/08/2020 which revealed DCIS with microns of the margins. She subsequent underwent a wider excision with sentinel node biopsy on 02/17/2020. This time margins were clear by 2 mm. She underwent whole breast radiation th erapy and is being followed by Dr. Arreola. She is currently on Aromasin. She reports pain in upper outer quadrant and axilla on the left side near the incision but overall feels improved. She denies any new palpable mass, nipple discharge or enlarged lymph nodes. Her most recent mammogram obtained 03/31/2024 revealed no mammographic evidence of malignancy ( BI-RADS 2). She is also status post hand assisted laparoscopic sigmoid colectomy on 06/10/2024. She reported some increased abdominal pain and was evaluated in the emergency department on 09/28/2024. A CT abdomen and pelvis indicated possible recurrent diverticulitis and she was subsequently placed on Flagyl p.o.. She reports having GI upset related to the antibiotics but completed the dose. I reviewed the CT abdomen and pelvis and see evidence of postoperative change at the anastomosis with no evidence of an abscess. She feels improved today. [facility] Medical History Hx of radiation therapy History of chemotherapy Cough History of headache Constipation Allergic rhinitis Anxiety HTN (hypertension) Graves esophagus Allergies Foot fracture, right Closed left ankle fracture Infiltrating ductal carcinoma of left breast Overweight (BMI 25.0-29.9) GERD without esophagitis Rib pain on right side Insomnia Fibromyalgia Diverticulitis Chronic back pain GERD (gastroesophageal reflux disease) Surgical History Status post laparoscopic-assisted sigmoidectomy (06/10/24) History of lumpectomy of left breast History of left breast biopsy (~01/08/20) History of local excision of skin lesion (~03/2018) History of right breast biopsy (~2012) History of cystoscopy History of gastric surgery History of section History of esophagogastroduodenoscopy (EGD) (~02/2013) History of colonoscopy Family History Mother History of hypertension History of pancreatic cancer History of diabetes mellitus Father History of hypertension History of diabetes mellitus Colon cancer Sister History of hypertension Maternal Grandmother History of lung cancer Social History Household Members: None Housing: House Are you a primary primary care coordinator to a significant other at home: No Do you presently have 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 or other home services: Yes (stencil inspector daily) Alcohol intake: never Comment: pt continues to refuse high falls alarms and assistance Patient Tobacco Use Status: Never used Tobacco e-Cigarette/Vaping Use: Never Used Second Hand Smoke Exposure: No service: No Current occupational status: disabled 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 Right breast: No skin change, no nipple retraction, no nipple discharge, no palpable mass, no enlarged lymph nodes Resp Effort & Inspection: normal respiratory effort, no audible wheezes, no cough and no respiratory distress GI Other: Abdomen is soft and nondistended with a well-healed abdominal incision. No rebound, guarding or rigidity. No abdominal wall hernias. Neuro General: patient oriented x3 Extrem Other: No edema Assessment & Plan Assessment & Plan (1) Infiltrating ductal carcinoma of left breast: Code(s): C50.912 - Malignant neoplasm of unspecified site of left female breast Category: Medical (2) Diverticulitis: Code(s): K57.92 - Diverticulitis of intestine, part unspecified, without perforation or abscess without bleeding Category: Medical Plan Patient returns approximately 4.5 years following left breast lumpectomy for infiltrating ductal carcinoma with DCIS of the left breast on 01/08/2020 and 5 months following hand assisted laparoscopic sigmoid colectomy. She had a slight increasing abdominal pain and was seen in the emergency department told she had diverticulitis. Review of the CT abdomen and pelvis does reveal some postoperative changes which may be normal following surgery. I recommended she avoid antibiotics at this time. She should continue the stool softeners and fiber therapy. Breast examination today reveals no evidence of recurrent disease. She is scheduled for a follow-up mammogram on 04/07/2025. I recommended follow-up breast examination in approximately 6 months. She is welcome to call sooner for any new concerns. Coding Level of Care Code Est Pt Level 3 (75550) Complex EM visit Add On G2211 Diagnoses Infiltrating ductal carcinoma of left breast C50.912 Diverticulitis K57.92
[2024-10-13 11:10] VITALS: BP 189/79; PULSE 71; BMI 27.3
--- OUTSIDE RECORDS SUMMARY | 2024-10-13 12:25 | XMS_ITS | Data Portability ---
Author Organization [facility] [place] [facility] [employer] Address [address] [place] [address] Care Team Providers Care Quality Lab Technician Name Role Phone [facility] Primary Care Provider [phone] Assessment Encounter Date Assessment Date Assessment LastModified by Organization Details LastModified Time 01/22/2023 01/22/2023 I have reviewed and agree with the Assessment and Plan as documented by the Writer Producer. I provided real-time medical direction via phone [...] ing tablet 2022 023 [email or web address] [id number], [address] [place], [address], 3 18:08:34 ondansetron HCl (PF) 4 mg/2 mL injection solution 2022 023 arun mcconnell [id number], [address] [place], [address], 3 18:08:15 ondansetron 4 mg disintegrat ing tablet 2022 023 [id number], [address], [place], [id number], 3 13:55:19 Patient TargetsNo targets recorded. Patient InstructionsNo instructions recorded. Reason for Referral None Reported. Medical Equipment None Reported. Allergies Allergen ID Allergen Name Allergen Category Reaction Reaction Severity Criticality Documentation Date Start Date Code Code System Note Provider Name and Address Organization Details Recorded Time 8330 Product containin g penicilli n (product) medicatio n Not available Not available Not available 03/10/2024 42072 8001 SNOMED Not Available [facility] - production [...] % 94 % 101.2 [degF] 16 /min 60236.1 68 g 157.48 cm 153 mm[Hg] 88 [...] SNOMED-CT Code Diagnosis ICD10 Code Diagnosis Note [id number] Mark Tiwari MD [facility] [address] [place] [address] [phone] [id number] 01/22/2023 19:29:52 01/24/2023 10:01:11 COVID-19 [id number] U07.1 [id number] Dominic Montgomery MD [facility] - [facility] [address] [place] [address] [phone] 01/30/2023 13:25:55 01/30/2023 23:23:53 COVID-19 [id number] U07.1 Health Concerns Section Related Observation LastModified by Organization Detai ls LastModified Time None Recorded Concern Status LastModified by Organization Details LastModified Time None Recorded Advance Directives Directive None Recorded Payers Insurance Date Sequence Insurance Name Policy Number Policy Hill Covered Member ID Hill Member ID Guarantor Name 01/30/2023 1 [facility] - DOS ON OR AFTER 2022 - DUAL ELIGIBLE - HALFWAY OPTIONS AND ONE CARE (MEDICARE REPLACEMENT/ADV ANTAGE - HMO) Corrie Turner [id number] Corrie Turner Notes Date Note Type Note [...] .................. .................. .................. .................. .................. .................. ............... Writer Producer Note From Jamar Galdamez: Pt reports dry cough, headache and chest tightness since 01/16 and n/v since last night. Pt was seen in [place] ED for cardiac work up on 01/16 [...] ............... Disposition: Fulfilled Mark Tiwari MD [address] [facility],[address], [place], [address], [facility] 01/23/2023 18:45:31 01/30/2023 text/html CRC Nursing Assessment: [...] and feels dehydration Dominic Montgomery MD [address] [facility],[address], [place], [address], [facility] 01/30/2023 13:55:31 OBGyn Episode No OBEpisode recorded.
== END 2024-10-13 11:22 | disposition home or self-care (01) ==
LOC: HO.HGS 10:48
PROVIDERS: PCP Internal Medicine Geriatric Medicine; Visit Provider Surgery
DX: C50.912 Malignant neoplasm of unspecified site of left female breast (principal); K57.92 Diverticulitis of intestine, part unspecified, without perforation or abscess without bleeding
CPT/HCPCS: 99213; G2211

== ENCOUNTER → 2024-10-13 10:47 | Outpatient (BNVA) | payer OTHER, SELFPAY | PROVIDERS: PCP Internal Medicine Geriatric Medicine; Visit Provider Surgery | DX: C50.912 Malignant neoplasm of unspecified site of left female breast (principal); K57.92 Diverticulitis of intestine, part unspecified, without perforation or abscess without bleeding | CPT/HCPCS: 99212 ==

== ENCOUNTER 2024-10-17 12:23 | Emergency (ER) | payer OTHER, SELFPAY ==
--- NOTE | 2024-10-17 12:29 | ED_ITS ---
HPI - Abdominal Pain General Chief Complaint: Abdominal Pain Stated Complaint: abd pain Related Data Home Medications ?Medication ?Instructions ?Recorded ?Confirmed aspirin 81 mg tablet,delayed 81 mg PO DAILY 02/10/20 0 10/13/24 release (Adult Low Dose Aspirin) cholecalciferol (vitamin D3) 50 1 cap PO DAILY 1 10/13/24 mcg (2,000 unit) capsule zolpidem 10 mg tablet 10 mg PO BEDTIME PRN Sleep 0 10/29/22 10/13/24 multivitamin with minerals-folic 1 tab PO DAILY 10/13/24 acid 200 mcg chewable tablet (Women's Multivitamin Gummies) lorazepam 0.5 mg tablet 0.5 mg PO DAILY PRN Anxiety 06/02/24 10/13/24 losartan 50 mg tablet 50 mg PO DAILY 06/02/2408/04 acetaminophen 500 mg tablet 500 mg PO Q6H PRN mild siria n 06/10/24 10/13/24 diclofenac potassium 50 mg tablet 50 mg PO TID PRN siria n 11/23/24 oxycodone-acetaminophen 5 mg-325 1 - 2 tab PO Q6H PRN severe pain 11/23/24 mg tablet Previous Rx's ?Medication ?Instructions ?Recorded walker #1 ea 11/03/21 exemestane 25 mg tablet (Aromasin) 25 mg PO DAILY #90 tabs 02/07/24 diphenhydramine HCl 25 mg tablet 25 mg PO Q4H PRN rash #20 tabs 06/19/24 docusate sodium 100 mg capsule 100 mg PO DAILY #90 cap s 07/21/24 (Colace) esomeprazole magnesium 40 mg 40 mg PO DAILY #90 caps 0 09/16/24 capsule,delayed release amitriptyline 10 mg tablet 10 mg PO BEDTIME #30 tabs 0 11/23/24 rifaximin 550 mg tablet 550 mg PO TID 2 weeks #42 ta bs 12/01/24 Allergies Allergy/AdvReac Type Severity Reaction Status Date / Time Penicillins (PENICILLINS) Allergy Severe SWELLING/VO Verified 10/17/24 12:53 MITING Iodinated Contrast Media (IV Allergy Intermediate eye/facial Verified 10/17/24 12:53 Contrast Dye) swelling metronidazole (Flagyl) Allergy Intermediate Palpitation Verified 10/17/24 12:53 s iopromide Allergy Itching Verified 10/17/24 12:53 paroxetine AdvReac Intermediate diarrhea Verified 10/17/24 12:53 [facility] Past Medical History Medical History (Updated 12/02/24 @ 11:45 by JANELLE Chambers) Hx of radiation therapy History of chemotherapy Cough History of headache Constipation Allergic rhinitis Anxiety HTN (hypertension) Graves esophagus Allergies Foot fracture, right Closed left ankle fracture Infiltrating ductal carcinoma of left breast Overweight (BMI 25.0-29.9) GERD without esophagitis Rib pain on right side Insomnia Fibromyalgia Diverticulitis Chronic back pain GERD (gastroesophageal reflux disease) Surgical History (Updated 11/23/24 @ 13:19 by FRANKY Biggs) Hx of colectomy Status post laparoscopic-assisted sigmoidectomy (06/10/24) History of lumpectomy of left breast History of left breast biopsy (~01/08/20) History of local excision of skin lesion (~03/2018) History of right breast biopsy (~2012) History of cystoscopy History of gastric surgery History of section History of esophagogastroduodenoscopy (EGD) (~02/2013) History of colonoscopy Family History Family History Mother History of hypertension History of pancreatic cancer History of diabetes mellitus Father History of hypertension History of diabetes mellitus Colon cancer Sister History of hypertension Maternal Grandmother History of lung cancer Social History Social History Household Members: None Housing: House Are you a primary respiratory care assistant to a significant other at home: No Do you presently have 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 or other home services: Yes (aperture mask etcher daily) Alcohol intake: never Comment: pt continues to refuse high falls alarms and assistance Patient Tobacco Use Status: Never used Tobacco e-Cigarette/Vaping Use: Never Used Second Hand Smoke Exposure: No service: No Current occupational status: disabled 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 Full HPI, ROS and PE to be performed by primary ED provider. 63 yo F w/pmhx fibromyalgia, HTN, GERD, anxiety, diverticulitis s/p laparoscopic sigmoid colectomy on 06/10/[address] Hawkins presenting to the ED c/o dizziness, nausea, vomiting, abdominal pain & weakness. Last BM today PE: emesis bag in hand, dry heaving, abd soft w/LLQ ttp Plan: labs, UA Medical Decision Making Lab Data 10/17/24 13:30 10/17/24 13:30 Labs: Lab Results 10/17/24 10/17/24 Range/Units 13:30 13:33 WBC 11.3 H (4.8-10.8) X10*3/uL RBC 4.40 (4.20-5.50) X10*6/uL Hgb 13.0 (12.0-16.0) g/dl Hct 38.6 (37.0-47.0) % MCV 87.7 (80.0-98.0) fL MCH 29.5 (27.0-33.0) pg MCHC 33.7 (31.0-35.0) g/dl RDW 13.2 (11.0-16.0) % Plt Count 394 (160-400) X10*3/uL MPV 9.0 L (9.4-12.3) fL Immature Gran % (Auto) 0.4 (0.0-0.4) % Neut % (Auto) 88.9 H (45-73) % Lymph % (Auto) 7.0 L (20-40) % [place] % (Auto) 3.2 (2-11) % Eos % (Auto) 0.1 (0-4) % Baso % (Auto) 0.4 (0-2) % Lymph # (Auto) 0.8 L (1.2-4.9) X10*3/uL [place] # (Auto) 0.4 (0.1-1.2) X10*3/uL Eos # (Auto) 0.0 (0.0-0.4) X10*3/uL Baso # (Auto) 0.0 (0.0-0.2) X10*3/uL Abs Immat Gran (auto) 0.05 H (0.00-0.03) X10*3/uL Absolute Neuts (auto) 10.1 H (2.0-8.3) x10*3/uL Absolute Nucleated RBC 0.000 (0.0-0.012) X10*3/uL Nucleated RBC % (auto) 0.0 (0.0-0.2) /100WBC Sodium 139 (135-145) mmol/L Potassium 4.5 (3.3-5.1) mmol/L Chloride 104 (96-108) mmol/L Carbon Dioxide 28 (22-29) mmol/L Anion Gap 12 (12-20) BUN 21 H (9-16) mg/dL Creatinine 0.63 (0.5-1.4) mg/dL Estim Creat Clear Calc 79.9 Estimated GFR > 60 Random Glucose 125 H (60-115) mg/dL Calcium 9.7 (8.4-10.2) mg/dL Magnesium 2.0 (1.6-2.6) mg/dL Total Bilirubin 0.8 (0.0-1.0) mg/dL Direct Bilirubin 0.3 (0.0-0.5) mg/dL AST 21 (5-31) U/L ALT 9 (0-31) U/L Alkaline Phosphatase 99 (39-117) U/L Total Protein 7.3 (6.5-8.0) g/dL Albumin 4.4 (3.5-5.0) g/dL Lipase 11 (8-78) U/L Urine Color Yellow Urine Appearance Clear Urine pH 7.0 (5.0-9.0) Ur Specific [place] 1.025 (1.005-1.025) Urine Protein Trace (Neg-Trace) mg/dL Urine Glucose (UA) Negative (Negative) mg/dL Urine Ketones Trace (Negative) mg/dL Urine Blood Negative (Negative) Urine Nitrite Negative (Negative) Ur Leukocyte Esterase Trace H (Negative) Urine RBC 0-2 (0-2) /HPF Urine WBC 0-5 (0-5) /HPF Ur Squamous Epith Cells 0-2 (0-2) /HPF Urine Bacteria None Seen (None Seen) Hyaline Casts 0-2 (0-2) /LPF Medications Administered Discontinued Medications Generic Name Dose Route Start Last Admin Trade Name Freq PRN Reason Stop Dose Admin Ondansetron HCl 4 mg 10/17/24 12:54 10/17/24 12:56 Ondansetron Odt 4 Mg Tab.Rapdis TRANSLINGU 10/17/24 12:55 4 mg ONCE ONE Administration Discharge Plan Discharge Clinical Impression: Abdominal pain Patient Disposition: Left W/O Completing Treatment Prescriptions: No Action diphenhydramine HCl 25 mg tablet 25 mg PO Q4H PRN (Reason: rash) Qty: 20 0RF Rx Instructions: as needed for rash/itching esomeprazole magnesium 40 mg capsule,delayed release(DR/EC) 40 mg PO DAILY Qty: 90 0RF rifaximin 550 mg tablet 550 mg PO TID 14 Days Qty: 42 0RF exemestane [Aromasin] 25 mg Tablet 25 mg PO DAILY Qty: 90 3RF Rx Instructions: must administer after a meal cholecalciferol (vitamin D3) 50 mcg (2,000 unit) capsule 1 cap PO DAILY multivit with min-folic acid [Women's Multivitamin Gummies] 200 mcg Tablet,Chewable 1 tab PO DAILY lorazepam 0.5 mg tablet 0.5 mg PO DAILY PRN (Reason: Anxiety) losartan 50 mg Tablet 50 mg PO DAILY acetaminophen 500 mg tablet 500 mg PO Q6H PRN (Reason: mild pain) aspirin [Adult Low Dose Aspirin] 81 mg tablet,delayed release (DR/EC) 81 mg PO DAILY (DME) walker [facility] See Rx Instructions .MEDSUPPLY Qty: 1 0RF Rx Instructions: Rollator walker with seat and breaks oxycodone-acetaminophen 5-325 mg tablet 1 - 2 tab PO Q6H PRN (Reason: severe pain) diclofenac potassium 50 mg tablet 50 mg PO TID PRN (Reason: pain) amitriptyline 10 mg tablet 10 mg PO BEDTIME Qty: 30 2RF zolpidem 10 mg tablet 10 mg PO BEDTIME PRN (Reason: Sleep) docusate sodium [Colace] 100 mg capsule 100 mg PO DAILY Qty: 90 3RF Discharge Date/Time: 10/17/24 18:41
[2024-10-17 12:51] VITALS: BP 161/64; PULSE 75; RESP 18; TEMP 36.5; O2SAT 99; BMI 27.0
[2024-10-17] MEDS: Ondansetron ODT 4 MG TAB.RAPDIS TRANSLINGU (12:56)
[2024-10-17 13:40] LABS: MANUAL DIFF FLAG NO
[2024-10-17 13:41] LABS: Basophils Percent Auto 0.4 % (0-2); Eosinophils Percent Auto 0.1 % (0-4); Hematocrit 38.6 % (37.0-47.0); Imm Gran Abs Auto 0.05 X10*3/uL (0.00-0.03); Imm Gran Pct Auto 0.4 % (0.0-0.4); Lymphocytes Absolute Auto 0.8 X10*3/uL (1.2-4.9); Mean Corpuscular HGB Conc 33.7 g/dl (31.0-35.0); Mean Corpuscular Hemoglobin 29.5 pg (27.0-33.0); Mean Corpuscular Volume 87.7 fL (80.0-98.0); Monocytes Absolute Auto 0.4 X10*3/uL (0.1-1.2); Monocytes Percent Auto 3.2 % (2-11); Neutrophils Absolute Auto 10.1 x10*3/uL (2.0-8.3); Neutrophils Percent Auto 88.9 % (45-73); Platelet Count 394 X10*3/uL (160-400); Red Cell Distribution Width 13.2 % (11.0-16.0); White Blood Count 11.3 X10*3/uL (4.8-10.8)
[2024-10-17 13:43] LABS: Appearance Urine Clear; Color Urine Yellow; Glucose Urine UA Negative (Negative); Leukocyte Esterase Urine Trace (Negative); Nitrite Urine Negative (Negative); Specific Gravity - Urine 1.025 (1.005-1.025); UMIC TRIGGER UACC YES; Urine Blood Negative (Negative); Urine Ketones Trace mg/dL (Negative); Urine Protein Trace mg/dL (Neg-Trace)
[2024-10-17 13:51] LABS: Bacteria Urine None Seen (None Seen); Hyaline Casts Urine 0-2 /LPF (0-2); RBC Urine 0-2 /HPF (0-2); Squamous Epithelial Cell Urine 0-2 /HPF (0-2); WBC Urine 0-5 /HPF (0-5)
[2024-10-17 14:06] LABS: Alanine Aminotransferase 9 U/L (0-31); Albumin Level 4.4 g/dL (3.5-5.0); Anion Gap 12 (12-20); Aspartate Amino Transferase 21 U/L (5-31); Bilirubin Direct 0.3 mg/dL (0.0-0.5); Bilirubin Total 0.8 mg/dL (0.0-1.0); Blood Urea Nitrogen 21 mg/dL (9-16); Calcium 9.7 mg/dL (8.4-10.2); Carbon Dioxide 28 mmol/L (22-29); Chloride 104 mmol/L (96-108); Creatinine Clr Calc Pharmacy 79.9; Estimated Glomerular Filt Rate > 60; Glucose Random 125 mg/dL (60-115); Lipase 11 U/L (8-78); Potassium 4.5 mmol/L (3.3-5.1); Sodium 139 mmol/L (135-145); Total Protein 7.3 g/dL (6.5-8.0)
[2024-10-17 18:47] LABS: Alkaline Phosphatase 99 U/L (39-117)
== END 2024-10-17 18:41 | disposition left against medical advice (07) ==
PROVIDERS: Physician Assistant; Emergency Provider Emergency Medicine; PCP Internal Medicine Geriatric Medicine
DX: R10.9 Unspecified abdominal pain (principal); I10 Essential (primary) hypertension; Z53.21 Procedure and treatment not carried out due to patient leaving prior to being seen by health care provider
CPT/HCPCS: 36415; 80048; 80076; 81001; 83690; 83735; 85025; 99281; 99282; 99283

== ENCOUNTER 2024-11-23 12:38 | Outpatient (AMB) | payer OTHER, SELFPAY ==
--- NOTE | 2024-11-23 13:12 | MHC.OFFVIS ---
Vital Signs 11/23/24 13:18 Height 5 ft 2 in Weight 149 lb 14.629 oz BMI 27.4 BP 149/61 H Blood Pressure Location Lt brachial Position Sitting Pulse 73 Intake Visit Reasons: f/u Intake Note: Corrie presents in the office as a follow up CC: Allergies Penicillins (PENICILLINS) Allergy (Severe, Verified 10/17/24 12:53) SWELLING/VOMITING Iodinated Contrast Media (IV Contrast Dye) Allergy (Intermediate, Verified 10/17/24 12:53) eye/facial swelling metronidazole (Flagyl) Allergy (Intermediate, Verified 10/17/24 12:53) Palpitations iopromide Allergy (Verified 10/17/24 12:53) Itching paroxetine Adverse Reaction (Intermediate, Verified 10/17/24 12:53) diarrhea HPI HPI f/u: Details: 63 yr old f here for f/u RECAP she had epigastric pain, she was taking omeprazole every other day 40 mg water was making pain worse she had EGD at [facility] with gastritis and duodenitis, intestinal metaplasia she had been on ambien for sleep she was not taking any other meds she finds prayer more helpful she went to the ED 10/13/22 with severe lower abdominal pain she was dx with acute diverticulitis on imaging she was given augmentin and it seemed to help but then 3 d ago the pain came back she has noted urine frequency I reordered labs and her CRP was 7, CBC and BMP were nml limits UA was pos for leuk esterase, but culture was neg I gave her cipor and flagyl for 1 week Other data: Mother from pancreas ca, father with CRC aged 75 US 11/2020--nml--hepatic steatosis colonoscopy 2012--diverticulosis, no polyps prior hx of h pylori gastritis treated 2014 EGD/colonoscopy 2020--sotelo's hemorrhoids, diverticulosis, tubulovillous polyp removed EGD/colo 2023: severe diverticulosis few small polyps IEL in duodenum, reflux changes no sotelo seen She has sigmoid colectomy 06/06 INTERIM: not recovered well from surgery she has been having back pain toilet is good, with mag citrate she has sharp ripping, burning pain RLQ and some discomfort LLQ she has blaoting makes pain worse EXAM: GENERAL: The patient is well developed and nontoxic. VITAL SIGNS:see workflow HEENT: Nonicteric sclerae, PERRLA, EOMI. Oropharynx clear. Moist mucous membranes. Conjunctivae appear well perfused. No thyroid mass. CHEST: Chest wall is nontender. HEART: Regular rate and rhythm without murmurs. LUNGS: Clear to auscultation bilaterally. ABDOMEN: Soft, positive bowel sounds, tender over sca on the right no organomegaly.no flank tenderness--lap scar noted SKIN: No rash, no excessive bruising, petechiae, or purpura. NEUROLOGIC: Cranial nerves II-XII intact without motor/sensory deficit. psych: nml A/P: 1/ Recurrent diverticulitis, s/p colectomy possible myofascial pain with SIBO 2/ Barretts esophagus with GERD in past PLAN: 1/ rifaximin and trial of TCA< if no better then pain referral [facility] Medical History (Updated 11/23/24 @ 14:21 by Joanie Pelaez MD) Hx of radiation therapy History of chemotherapy Cough History of headache Constipation Allergic rhinitis Anxiety HTN (hypertension) Sotelo esophagus Allergies Foot fracture, right Closed left ankle fracture Infiltrating ductal carcinoma of left breast Overweight (BMI 25.0-29.9) GERD without esophagitis Rib pain on right side Insomnia Fibromyalgia Diverticulitis Chronic back pain GERD (gastroesophageal reflux disease) Surgical History (Updated 11/23/24 @ 13:19 by FRANKY Biggs) Hx of colectomy Status post laparoscopic-assisted sigmoidectomy (06/10/24) History of lumpectomy of left breast History of left breast biopsy (~01/08/20) History of local excision of skin lesion (~03/2018) History of right breast biopsy (~2012) History of cystoscopy History of gastric surgery History of section History of esophagogastroduodenoscopy (EGD) (~02/2013) History of colonoscopy Family History Mother History of hypertension History of pancreatic cancer History of diabetes mellitus Father History of hypertension History of diabetes mellitus Colon cancer Sister History of hypertension Maternal Grandmother History of lung cancer Social History Household Members: None Housing: House Are you a primary wound care technician to a significant other at home: No Do you presently have 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 or other home services: Yes (procurement consultant daily) Alcohol intake: never Comment: pt continues to refuse high falls alarms and assistance Patient Tobacco Use Status: Never used Tobacco e-Cigarette/Vaping Use: Never Used Second Hand Smoke Exposure: No service: No Current occupational status: disabled 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
[2024-11-23 13:18] VITALS: BP 149/61; PULSE 73; BMI 27.4
--- OUTSIDE RECORDS SUMMARY | 2024-11-23 13:31 | XMS_ITS | Data Portability ---
Author Organization [employer] Address [address] [place] [address] Care Team Providers Care Sheet Pile Driver Operator Name Role Phone [facility] Primary Care Provider Assessment Encounter Date Assessment Date Assessment LastModified by Organization Details LastModified Time 01/22/2023 01/22/2023 I have reviewed and agree with the Assessment and Plan as documented by the Charhouse Worker. I provided real-time medical direction via phone [...] ing tablet 2022 023 [email or web address] [facility] [id number], [address] [place], [address], 3 18:08:34 ondansetron HCl (PF) 4 mg/2 mL injection solution 2022 023 arun [email or web address] [facility] [id number], [address] [place], [address], 3 18:08:15 ondansetron 4 mg disintegrat ing tablet 2022 023 [id number], [address] [place], [place], [id number], 3 13:55:19 Patient TargetsNo targets recorded. Patient InstructionsNo instructions recorded. Reason for Referral None Reported. Medical Equipment None Reported. Allergies Allergen ID Allergen Name Allergen Category Reaction Reaction Severity Criticality Documentation Date Start Date Code Code System Note Provider Name and Address Organization Details Recorded Time 8330 Product containin g penicilli n (product) medicatio n Not available Not available Not available 03/10/2024 [id number] SNOMED Not Available [employer] - production [...] 2022 active Not Available Not Available Not Diana lable blood pressure test kit-large cuff USE [...] Respiratory rate Body weight Body height Systolic And Diastolic Provider Name and Address Organization Details Last Updated DateTime 3 108 /min 94 % 94 % 101.2 [degF] 16 /min 39801.1 68 g 157.48 cm 153/88 mm[Hg] Not Available [employer] production 19:30:11 Date Recorded Oxygen saturation Oxygen saturation in Arterial blood by Pulse oximetry Body temperature Respiratory rate Heart rate Systolic And Diastolic Provider Name and Address Organization Details Last Updated DateTime 3 96 % 96 % 97.1 [degF] 18 /min 88 /min 168/83 mm[Hg] Not Available [employer] - production 13:27:55 Social History None recorded. Functional Status None recorded. Mental Status None recorded. Family History Nothing Reported. Medical History No medical history recorded. Gynecological HistoryNo gynecological history recorded. Obstetrics History GPAL:G 0 P 0 0 0 0 Past Encounters Encounter ID Performer Location Encounter Start Date Encounter Closed Date Diagnosis/Indication Diagnosis SNOMED-CT Code Diagnosis ICD10 Code Diagnosis Note [id number] Mark Tiwari MD [facility] [address] [place] [address] [phone] 01/22/2023 19:29:52 01/24/2023 10:01:11 COVID-19 525839544 U07.1 [id number] Dominic Montgomery MD [facility] [address] [place] [address] [phone] 01/30/2023 13:25:55 01/30/2023 23:23:53 COVID-19 [id number] U07.1 Health Concerns Section Related Observation LastModified by Organization Detai ls LastModified Time None Recorded Concern Status LastModified by Organization Details LastModified Time None Recorded Advance Directives Directive None Recorded Payers Insurance Date Sequence Insurance Name Policy Number Policy Hill Covered Member ID Hill Member ID Guarantor Name 01/30/2023 1 [facility] - DOS ON OR AFTER 2022 - DUAL ELIGIBLE - CORRECTION OPTIONS AND ONE CARE (MEDICARE REPLACEMENT/ADV ANTAGE - HMO) Corrie Turner [id number] Corrie Turner Notes Date Note Type Note [...] .................. .................. .................. .................. .................. .................. ............... Charhouse Worker Note From Jamar Galdamez: Pt reports dry cough, headache and chest tightness since 01/16 and n/v since last night. Pt was seen in [place] ED for cardiac work up on 01/16 [...] ............... Disposition: Fulfilled Mark Tiwari MD [address] [facility],[address], [place], [address], [employer] 01/23/2023 18:45:31 01/30/2023 text/html CRC Nursing Assessment: Reason For Request: Pt was seen in the last week with [facility] and was diagnosed with COVID19 Since last Saturday pt states loss of appetite, nausea/vomiting, dehydration>report ing fever chills last night, 99.1. Patient Reports: Nausea with or without vomiting; Inability to tolerate foods, fluids or daily medications Denies: Vague abdominal pain greater than 24 hours Constipation Diarrhea no blood in stool Chief Complaints: Nausea/Vomiting, Dehydration, Weakness/Lethargy, Fever/Chills PMH: Hypertension, Cancer Allergies: Penicillin Comments: Verified identity / address Member was found to be COVID +. Member has been taking tylenol and water for symptoms. Member is unable to even eat soup . Member is unable to eat and drink and feels dehydration Dominic Montgomery MD [address] [facility],[address], [place], [address], [employer] 01/30/2023 13:55:31 OBGyn Episode No OBEpisode recorded.
--- OUTSIDE RECORDS SUMMARY | 2024-11-23 13:31 | XMS_ITS | Encounter Summary ---
Author Organization Formerly [facility] Address [address] [place] [address] [address] [place] [phone] Care Team Providers Care Fire Tower Keeper Name Role Phone Name, Bradly VERA Primary Care Provider Encounter Details Date Type Department Care Team (Late st Contact Info) Description 10/04/2022 Abstract [facility] MEDICINE [address] [place] [address] [phone] Name, MD Bradly [address] [place] [phone] Social History Tobacco Use Types Packs/Day Years [...] Care Team (Late st Contact Info) Description 01/08/2025 11:00 AM EDT Telemedicine [facility]INE [address] [place] [address] [phone] Tigist Hannon RN 01/27/2025 11:15 AM EDT Office Visit [facility] [address] [place] [address] [phone] Bradly Sanders MD [address] [place] [phone] documented as of this encounter Procedures Procedure [...] on filedocumented in this encounter Care Teams Fire Tower Keeper Relationship Specialty Start Date End Date Name, MD Bradly [address] [place] [address] PCP - General Family Medicine 03/06/22 documented as of this encounter
== END 2024-11-23 14:20 | disposition home or self-care (01) ==
LOC: HO.HGI 12:39
PROVIDERS: PCP Internal Medicine Geriatric Medicine; Visit Provider Internal Medicine Gastroenterology
DX: R10.31 Right lower quadrant pain (principal)
CPT/HCPCS: 99214

== ENCOUNTER → 2024-11-23 12:38 | Outpatient (BNVA) | payer OTHER, SELFPAY | PROVIDERS: PCP Internal Medicine Geriatric Medicine; Visit Provider Internal Medicine Gastroenterology | DX: R10.31 Right lower quadrant pain (principal) | CPT/HCPCS: 99212 ==

== ENCOUNTER 2025-01-02 11:28 | Emergency (ER) | payer OTHER, SELFPAY ==
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
[2025-01-02 11:36] VITALS: BP 150/90; BP 161/71; PULSE 111; PULSE 86; RESP 18; TEMP 36.6; O2SAT 95; O2SAT 97; BMI 26.5
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
[2025-01-02 14:49] VITALS: BP 148/72; PULSE 84; RESP 16; O2SAT 98
[2025-01-02 15:15] VITALS: BP 148/72; PULSE 84; RESP 16; TEMP 36.6; O2SAT 98
== END 2025-01-02 15:16 | disposition home or self-care (01) ==
PROVIDERS: Emergency Provider Emergency Medicine; PCP Internal Medicine Geriatric Medicine
DX: S70.02XA Contusion of left hip, initial encounter (principal); S13.4XXA Sprain of ligaments of cervical spine, initial encounter; M25.572 Pain in left ankle and joints of left foot; M25.512 Pain in left shoulder; R51.9 Headache, unspecified; M54.2 Cervicalgia; R10.2 Pelvic and perineal pain; V43.52XA Car driver injured in collision with other type car in traffic accident, initial encounter; Y92.410 Unspecified street and highway as the place of occurrence of the external cause; Y93.9 Activity, unspecified; Y99.8 Other external cause status; Z79.899 Other long term (current) drug therapy
CPT/HCPCS: 70450; 72125; 73030; 73502; 73610; 99284

== ENCOUNTER → 2025-01-02 12:24 | Outpatient (BNV) | payer OTHER, SELFPAY | PROVIDERS: Emergency Provider Emergency Medicine; PCP Internal Medicine Geriatric Medicine; Visit Provider Radiology Diagnostic Radiology | DX: M54.2 Cervicalgia (principal); R51.9 Headache, unspecified; M25.552 Pain in left hip; M25.512 Pain in left shoulder; M25.572 Pain in left ankle and joints of left foot; V89.2XXA Person injured in unspecified motor-vehicle accident, traffic, initial encounter | CPT/HCPCS: 70450; 72125; 73030; 73502; 73610 ==

== ENCOUNTER 2025-01-06 14:17 | Outpatient (REF) | payer OTHER, SELFPAY ==
--- NOTE | ~2025-01-06 | CT_ITS ---
EXAMINATION: CT ABDOMEN AND PELVIS WITHOUT CONTRAST CLINICAL INFORMATION: Z87.19 - Personal history of other diseases of the digestive system , prior sigmoid diverticulitis COMPARISON: September 28, 2024 TECHNIQUE: Multidetector volumetric imaging was performed from the superior aspect of the liver through the pubic symphysis. Sagittal and coronal reformatted images were obtained on the technologist's workstation. This CT examination was performed using dose optimization techniques as appropriate, variously including the following: *Automated exposure control *Adjustment of mA and/or kV according to patient size (this includes techniques or standardized protocols for targeted exams where dose is matched to indication/reason for exam; i.e. extremities or head) *Use of iterative reconstruction technique DLP: 530 mGY*cm FINDINGS: LUNG BASES: The visualized lung bases are unremarkable. LIVER, GALLBLADDER, AND BILIARY TREE: The liver is normal in size, shape, and attenuation. No focal hepatic lesion or biliary ductal dilatation is present. The gallbladder is unremarkable with no evidence of radiopaque gallstones, gallbladder wall thickening, or obvious pericholecystic inflammatory changes. PANCREAS: Unremarkable. SPLEEN: Unremarkable. ADRENAL GLANDS: Unremarkable. KIDNEYS AND URETERS: The kidneys are normal in size, shape, and attenuation. No hydronephrosis, hydroureter, or calculi seen. No perinephric stranding. BLADDER: Unremarkable. GASTROINTESTINAL TRACT: Again seen is an end to end surgical anastomosis at the rectosigmoid junction. Bowel wall thickening and mesenteric inflammation in the distal sigmoid colon just cephalad to the anastomosis has resolved. Multiple scattered pseudodiverticula are again recognized in the descending and sigmoid colon. A normal appendix is evident. Very small sliding hiatal hernia involves a gastric cardia. ABDOMINAL WALL: No significant hernia is appreciated. LYMPH NODES: Normal. VASCULAR: Moderate desiccation is present in the abdominal aorta PELVIC VISCERA: Unremarkable. OSSEOUS STRUCTURES: Degenerative disc disease and facet arthropathy is noted in the lower lumbar spine and focal lumbar junction. CT/CT abdomen pelvis wo IV con IMPRESSION: Interval resolution of sigmoid diverticulitis. End to end surgical anastomosis of the rectosigmoid junction is intact. There is a very small sliding hiatal hernia involving gastric cardia. Fleischner guidelines were followed. Electronically signed by: Sid Aden MD 01/06/2025 02:59 PM EDT
== END 2025-01-06 14:18 | disposition home or self-care (01) ==
LOC: HO.CT 14:17
PROVIDERS: PCP Internal Medicine Geriatric Medicine; Visit Provider Internal Medicine
DX: Z87.19 Personal history of other diseases of the digestive system (principal)
CPT/HCPCS: 74176

== ENCOUNTER → 2025-01-06 14:19 | Outpatient (BNV) | payer OTHER, SELFPAY | PROVIDERS: PCP Internal Medicine Geriatric Medicine; Visit Provider Radiology Diagnostic Radiology | DX: K44.9 Diaphragmatic hernia without obstruction or gangrene (principal) | CPT/HCPCS: 74176 ==

== ENCOUNTER 2025-04-07 10:40 | Outpatient (REF) | payer OTHER, SELFPAY ==
--- NOTE | ~2025-04-07 | MM_ITS ---
EXAMINATION: MM SCREENING DIGITAL BREAST TOMOSYNTHESIS, BILATERAL CLINICAL INFORMATION: Screening. Asymptomatic. History of left breast cancer, status post lumpectomy in 2020. 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 COMPARISON: Comparison made to multiple prior, most recent March 31, 2024, and most remote December 17, 2019. TECHNIQUE: Digital breast tomosynthesis is performed in mediolateral oblique and craniocaudal views along with computer-aided detection (CAD). Synthesized 2D images are generated from the tomosynthesis. FINDINGS: BREAST COMPOSITION: There are scattered areas of fibroglandular density. RIGHT BREAST: Tissue marker from previous needle core biopsy. No significant masses, suspicious calcifications or other abnormalities are seen. LEFT BREAST: Post lumpectomy changes. No significant masses, suspicious calcifications or other abnormalities are seen. MM/MM tomosynthesis screening BI IMPRESSION: BILATERAL BREASTS: Benign, no mammographic evidence of malignancy. Normal interval follow-up is recommended in 12 months. ASSESSMENT: BI-RADS: Category 2: Benign RECOMMENDATION: Routine annual mammography screening. FOLLOW-UP: 1 year F/U This examination should not preclude the clinical evaluation of a suspicious palpable abnormality. This patient's information was entered into a reminder system with a target due date for their next mammogram. Electronically signed by: Lily Kemp MD 04/09/2025 04:08 PM [facility]
--- NOTE | ~2025-04-07 | MM_ITS ---
EXAMINATION: DXA BONE DENSITY AXIAL HISTORY: Osteopenia. On an AI. TECHNIQUE: Favery Dual energy absorptiometry (DEXA) of the lumbar spine, total left hip, and femoral neck was performed. COMPARISON: There are no prior studies for comparison. FINDINGS: The bone mineral density of the lumbar spine is 1.101 g/cm2, corresponding to a T-score of -0.7, and a Z-score of 0.9. This is indicative of normal bone mineral density. The bone mineral density of the left total hip is 0.893 g/cm2, corresponding to a T-score of -0.9, and a Z-score of 0.3. This is indicative of normal bone mineral density. The bone mineral density of the left femoral neck is 0.797 g/cm2, corresponding to a T-score of -1.7, and a Z-score of -0.2. This is indicative of osteopenia. FRACTURE RISK: The FRAX index suggests a risk of major osteoporotic fracture of 9.3%, and of hip fracture 1.2%. MM/XR DEXA axial skeleton IMPRESSION: Based on bone mineral density, and according to World Health Organization (WHO) criteria, the diagnosis is consistent with osteopenia. Statistically, 68% of repeat scans fall within 1 SD (+/- 0.010 g/cm2 for AP spine L1-L4) and 1 SD (+/- 0.012 g/cm2 for femur total) FRAX is a trademark of the [employer]'s [employer] Metabolic Bone Disease, a World Health Organization (WHO) Collaborating Center. Electronically signed by: Mars Stafford MD 04/07/2025 01:13 PM [facility]
--- OUTSIDE RECORDS SUMMARY | 2025-04-07 12:53 | XMS_ITS | Encounter Summary ---
Author Organization [employer] Address [address] [facility] [address] [place] [address] Care Team Providers Care Training And Documentation Specialist Name Role Phone Name, Bradly VERA Primary Care Provider [phone] Encounter Details Date Type Department Care Team (Late st Contact Info) Description 05/16/2022 Abstract [facility] MEDICINE [address] [place], [place] [phone] Name, MD Bradly [address] [place] [address] Social History Tobacco Use Types Packs/Day Years [...] AM EST documented as of this encounter Functional Status * Over the past 2 weeks, how often have you been bothered by any of the following problems? Question Answer Date of Assessment Author Little interest or pleasure in doing things Not at all 05/16/2022 10:02 AM Zita Johnson MA Feeling down, depressed, or hopeless Not at all 05/16/2022 10:02 AM Zita Johnson MA Patient Health Questionnaire -2 Score 0 05/16/2022 10:02 AM EST Zita Otto MA documented as of this encounter Plan of Treatment Upcoming Encounters Date Type Department Care Team (Late st Contact Info) Description 04/22/2025 1:30 PM EST Office Visit [facility] ADULT DENTAL [address] [place] [address] Correia-FeldmanBrittany roberts, DDS [address] [place] [address] 04/30/2025 10:30 AM EST Telemedicine [facility] MEDICINE [address] [place] [address] Tigist Hannon, RN 05/05/2025 10:30 AM EST Medication Management [facility] MED[facility]INE [address] [place] [id number] Hanna Bowman, PharmD [address] [place] [address] 06/07/2025 12:45 PM EST Office Visit [facility] ADULT DENTAL [address] [place] [address] Migdalia Uribe 09/27/2025 10:00 AM EDT Office Visit [facility] OPTOMETRY [address] [place] [address] Carolina Landa, OD [address] [place] [address] documented as of this encounter Visit Diagnoses Not on filedocumented in this encounter Care Teams Training And Documentation Specialist Relationship Specialty Start Date End Date Name, MD Bradly [address] [place] [address] PCP - General Family Medicine 03/06/22 documented as of this encounter
--- OUTSIDE RECORDS SUMMARY | 2025-04-07 12:53 | XMS_ITS | Encounter Summary ---
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; Sinus pressure [...] Description 04/22/2025 1:30 PM EST Office Visit [facility] ADULT DENTAL [address] [place] [address] Brittany Michael DDS [address] [place] [address] 04/30/2025 10:30 AM EST Telemedicine [facility] MEDICINE [address] [place] [address] Tigist Hannon, RN 05/05/2025 10:30 AM EST Medication Management [facility] MEDICINE [address] [place] [address] Hanna Bowman, PharmD [address] [place] [address] 06/07/2025 12:45 PM EST Office Visit [facility] ADULT DENTAL [address] [place] [address] Migdalia Uribe 09/27/2025 10:00 AM EDT Office Visit [facility] OPTOMETRY [address] [place] [address] Carolina Landa, OD [address] [place] [address] documented as of this encounter Visit Diagnoses Diagnosis Generalized body aches 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
--- OUTSIDE RECORDS SUMMARY | 2025-04-07 12:53 | XMS_ITS | Clinical Summary ---
Author Organization [employer] Address [address] [facility] [address] [place] [address] Care Team Providers Care Surface Water Technician Name Role Phone Name, Bradly VERA Primary Care Provider [phone] Allergies Active Allergy Reactions Criticality Noted Date Comments Codeine Rash Low 11/27/2022 Iodinated Contrast Media Hives,Itching High 11/28/19 23 Other Reaction(s): eye/facial swelling Iopromide 04/26/2016 Other reaction(s): SOB, face itchy & rash Metronidazole Palpitations High 02/23/2024 Side Effects Paroxetine Diarrhea High 04/28/2010 Other reaction(s): CLARK, diarrhea Penicillin V 04/28/2010 Other reaction(s): unspecified Penicillins High 02/23/2024 Other Reaction(s): SWELLING/VOMITING Medications * This document contains information received from the source organization and may not represent a complete record from that organization. Blood Pressure Monitoring (Omron 3 Series BP Monitor) device 01/25/20 22 Active clotrimazole-be tamethasone (Lotrisone) cream 05/16/19 22 Active diclofenac (Cataflam) 50 MG tablet Take 1 tablet by mouth three times daily as needed for pain 05/01/20 22 Active Stool Softener 100 MG capsule Take 1 capsule by mouth in the morning and 1 capsule in the evening. 12/06/19 22 Active pantoprazole (ProtoNix) 40 MG EC tablet Take 1 tablet by mouth Once per day. 01/10/20 22 Active tolterodine LA (Detrol LA) 4 MG 24 hr capsule Take 1 capsule by mouth in the morning. 02/13/20 22 Active exemestane (Aromasin) 25 MG chemo tablet Take 25 mg by mouth Once per day. Take after a meal. Try to take at the same time each day. Active ipratropium (Atrovent) 0.03 % nasal sprayIndication s:Generalized body aches,FPC (current) use of aromatase inhibitors,Sinu s pressure USE 2 SPRAYS IN EACH NOSTRIL EVERY 12 HOURS 30 mL 12 07/22/19 24 Active Additional Information Patient not taking.Reported on 03/31/2025 SUMAtriptan (Imitrex) 25 MG tablet Take 1 tablet (25 mg) by mouth 1 (one) time if needed for migraine for up to 1 dose. May repeat dose once in 2 hours if no relief. Do not exceed 2 doses in 24 hours. 9 tablet 11/12/19 Active Additional Information Patient not taking.Reported on 03/31/2025 Multiple Vitamins-Minera ls (Multi For Her 50+) tablet Take 1 tablet by mouth Once per day. 90 tablet 3 03/02/20 Active Additional Information Patient not taking.Reported on 03/31/2025 celecoxib (CeleBREX) 200 MG capsule Take 1 capsule by mouth in the morning and 1 capsule in the evening. 02/18/20 24 Active famotidine (Pepcid) 40 MG tablet Take 1 tablet by mouth Once per day. 09/02/19 24 Active lansoprazole (Prevacid) [address] capsule Take 1 capsule by mouth in the morning and 1 capsule in the evening. 06/28/19 24 Active losartan (Cozaar) 50 MG tabletIndicatio ns:Essential hypertension Take 1 tablet (50 mg) by mouth Once per day. 30 tablet 11 06/01/192025 Active levoFLOXacin (Levaquin) 750 MG tablet Take 1 tablet by mouth Once per day. 09/29/19 25 Active metroNIDAZOLE (Flagyl) 500 MG tablet Take 1 tablet by mouth 2 times daily. 09/29/19 25 Active acetaminophen (Tylenol 8 Hour) 650 MG ER tabletIndicatio ns:Dental caries extending into pulp Take 1 tablet (650 mg) by mouth every 8 (eight) hours if needed for mild pain. Do not crush, chew, or split. 30 tablet 01/08/20 25 Active chlorhexidine (Peridex) 0.12 % solutionIndicat ions:Dental caries extending into pulp Swish 15 mL morning and night for 1 minute. Spit, do not swallow. Do not eat or drink for 30 minutes following use. 473 mL 01/08/20 Active Additional Information Patient not taking.Reported on 03/31/2025 naloxone (Narcan) 4 mg/0.1 mL nasal sprayIndication s:Anxiety Administer 1 spray (4 mg) into affected nostril(s) if needed for opioid reversal. May repeat every 2-3 minutes if needed, alternating nostrils, until medical assistance becomes available. 2 each 2 01/30/20 Active Additional Information Patient not taking.Reported on 03/31/2025 amLODIPine (Norvasc) 2.5 MG tabletIndicatio ns:Essential hypertension Take 1 tablet (2.5 mg) by mouth Once per day. 30 tablet 11 03/17/20 25 2025 Active carboxymethylce llulose (Refresh Tears) 0.5 % ophthalmic solutionIndicat ions:Subconjunc tival hematoma, right Administer 2 drops into the left eye if needed in the morning, at noon, and at bedtime for dry eyes. 15 mL 1 03/17/20 Active zolpidem (Ambien) 10 MG tabletIndicatio ns:Insomnia, unspecified type TAKE 1 TABLET BY MOUTH AT BEDTIME NEEDED FOR SLEEP 30 tablet 03/19/20 Active Additional Information Patient not taking.Reported on 03/31/2025 LORazepam (Ativan) 0.5 MG tabletIndicatio ns:Anxiety Take 1 tablet (0.5 mg) by mouth every 12 (twelve) hours if needed for anxiety. Do not start before April 07, 2025. 56 tablet 04/07/20 25 2024 Active zolpidem (Ambien) 10 MG tabletIndicatio ns:Insomnia, unspecified type TAKE 1 TABLET BY MOUTH AT BEDTIME NEEDED FOR SLEEP 30 tablet 01/02/20 25 2024 Discontinued(R eorder (will not trigger notification to Pharmacy)) LORazepam (Ativan) 0.5 MG tabletIndicatio ns:Anxiety Take 1 tablet (0.5 mg) by mouth if needed each day for anxiety for up to 28 days. Do not start before March 17, 2025. 20 tablet 03/17/20 25 2024 Discontinued(R eorder (will not trigger notification to Pharmacy)) Active Problems Problem Noted Date Diagnosed Date Missing teeth, acquired 03/31/2025 Dental plaque 03/31/2025 Allergies 02/24/2025 Overview (02/24/2025): rash Anxiety and depression 02/24/2025 Arthritis of knee, right 02/24/2025 Graves esophagus 02/24/2025 Breast mass, right 02/24/2025 Chest pain 02/24/2025 Chest pain 02/24/2025 Closed fracture of left distal fibula 02/24/2025 Closed nondisplaced fracture of fifth right meta tarsal bone 02/24/2025 Colon cancer high risk 02/24/2025 Contusion of ankle, left 02/24/2025 Contusion of face 02/24/2025 Contusion of hip, left 02/24/2025 Contusion of left shoulder 02/24/2025 Diverticulitis 02/24/2025 Diverticulitis of sigmoid colon 02/24/2025 Duodenitis 02/24/2025 RUQ abdominal pain 02/24/2025 Heart palpitations 02/24/2025 History of section 02/24/2025 History of colonoscopy 02/24/2025 Overview (02/24/2025): 2012-Dr Finch History of diverticulitis 02/24/2025 Infiltrating ductal carcinoma of left breast (CM S/HCC) 02/24/2025 Invasive carcinoma of breast (CMS/HCC) Overview (02/24/2025): Left Left fibular fracture 02/24/2025 Overweight (BMI 25.0-29.9) 02/24/2025 Long-term current use of benzodiazepine 01/09/20 25 Dental caries 01/07/2025 Assessment & Plan (01/07/2025 1:59 PM EDT): Status post laparoscopic-assisted sigmoidectomy 06/10/2024 Overview (02/24/2025): David Hawkins MD Recurrent major depressive disorder 05/16/2024 Assessment & [...] unable to take NSAIDs d/t GI hx. Chronic back pain 03/13/2023 Overview (02/24/2025): Opioid Infiltrating ductal carcinoma (CMS/HCC) 05/10/20 22 Essential hypertension 05/10/2022 Assessment & Plan (03/17/2025 3:07 PM EST): BP is high here and at home. She rerptos seh is under a lot of stress. I am concerned her BP may have contributed to her subconjunctival hemorrhage. Pt is hesitant to change medications without the approval of her PCP Dr. Sanders. -agrees to add amlodipine 2.5mg dialy to her losartan 50mg daily. -She agrees to Collaborative Drug Therapy Managment Program with our PharmD, ALLYES with Dr. Hanna Bowman. I explained she works with Dr. Sanders. Referral placed 03/17/25. Orders: Referral to Pharmacy CDTM amLODIPine (Norvasc) 2.5 MG tablet; Take 1 tablet (2.5 mg) by mouth Once per day. Assessment & Plan (05/16/2024 9:11 AM EST): Pt BP still not consistently at goal of <140/90 Will discontinue amlodipine and switch to losartan 25 mg Pt plans to continue to check home Bps and keep log for next two weeks Pt will RTC in 2 weeks for RN BP check at this time patient will also complete bloodwork to monitor renal function Prediabetes 08/04/2021 Hyperlipidemia 08/04/2021 Intraductal carcinoma in situ of breast 01/21/20 20 Allergic rhinitis 02/25/2015 Anxiety 02/25/2015 Constipation 02/25/2015 Insomnia 02/25/2015 GERD without esophagitis 02/25/2015 Lumbago with sciatica 02/25/2015 Menopausal problem 02/25/2015 Resolved Problems Problem Noted Date Diagnosed Date Resolved Date Acute dehydration 02/24/2025 03/10/2025 Blood bacterial culture positive 02/24/2025 03/10/2025 Cervical strain, acute 02/24/202503/10 COVID-19 02/24/2025 03/10/2025 Nausea & vomiting 02/24/2025 03/10/2025 Rib pain on right side 02/24/202503/10 Preop cardiovascular exam 02/24/2025 Syncope 02/24/2025 03/10/2025 Tremulousness 02/24/2025 03/10/2025 Urine frequency 02/24/2025 03/10/2025 Fatigue 05/10/2022 03/10/2025 Dry cough 05/10/2022 03/10/2025 Encounters Date Type Department Care Team Description 04/02/2025 Refill [facility] [address] [place] [phone] Bradly Sanders MD Anxiety 03/31/2025 1:30 PM EST Office Visit [facility] [address] [place] [phone] Grey Yanes, JERMAINE Dental caries (Primary Dx); Missing teeth, acquired; Dental plaque 03/24/2025 Telephone [facility] [address] [place] [phone] Bradly Sanders MD CDTM (Called pt to book CDTM appointment no answer left voicemail to call back to book appointment/) 03/18/2025 Refill [facility] [address] [place] [phone] Bradly Sanders MD Insomnia, unspecified type 03/17/2025 3:20 PM EST Office Visit [facility] [address] [place] [phone] Karlee Lara MD Subconjunctival hematoma, right (Primary Dx); Essential hypertension 03/17/2025 Telephone [facility] [address] [place] [phone] Karlee Lara MD 03/17/2025 Travel 03/17/[address] [phone] Bradly Sanders MD Nurse Triage 03/09/[address] [phone] Bradly Sanders MD 03/08/[address] [phone] Bradly Sanders MD Anxiety 02/24/2025 9:00 AM EDT Office Visit [facility] [address] [place] [phone] Grey Yanes DDS Dental caries extending into pulp (Primary Dx) 01/29/2025 11:00 AM EDT Telemedicine [address] [address] Tigist Hannon, HARLEEN Long-term current use of benzodiazepine 01/29/[address] [address] Tigist Hannon, RN Anxiety; Low back pain with sciatica, sciatica laterality unspecified, unspecified back pain laterality, unspecified chronicity; computer terminal operator (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) use of opiate analgesic 01/29/2025 Travel 01/27/2025 11:15 AM EDT Office Visit [address] [phone] Bradly Sanders MD Generalized abdominal pain (Primary Dx); Screening for cholesterol level; Screening for diabetes mellitus; Vaccination refused by patient 01/27/2025 Travel 01/26/[address] [phone] Yareli Duggan MA chart prep 01/20/[address] [address] Bradly Sanders MD Appointment Request 01/20/2025 Travel 01/08/[address] [address] Tigist Hannon, HARLEEN [facility] Tele HUMAN RESOURCES COORDINATOR Initial appt 01/07/2025 1:00 PM EDT Office Visit [facility] [address] [place] [address] Grey Yanes DDS Dental caries extending into pulp (Primary Dx) from Last 3 Months Immunizations Immunization Administration Dates Next Due TD (adult), 2 [...] pur e alcohol) Alcohol Answer Date Recorded How often do you have a drink containing alcohol ? 0 03/31/2025 Average Number of Drinks Not on file 025 How often do you have six or more drinks on one occasion? 0 03/31/2025 Depression Answer Date Recorded Patient Health Questionnaire-9 Score 13 05/18/2024 Patient Health Questionnaire-9 Score 13 05/18/2024 Last PHQ-9: Questionnaire Data Not on file 0 05/18/2024 Housing Stability Answer Date Recorded What is your housing situation today? I have joe ortiz 10/06/[address] you li ve. Do you have problems with any of the following? Pests such as bugs, ants, or mice;Mold 10/06/2024 Food Insecurity Answer Date Recorded Within the past 12 months, y ou worried that your food would run out before you got money to buy more: Often true 10/06/2024 Within the past 12 months,th e food you bought just didn't last and you didn't have enough money to get more: Often true Transportation Answer Date Recorded In the past 12 months, has l ack of transportation kept you from medical appts, meetings, work or from getting things needed for daily living? No 10/06/2024 Utilities Answer Date Recorded In the past 12 months, has t he electric, gas, oil or water company threatened to shut off services in your home? Yes 10/06/2024 Depression Answer Date Recorded Patient Health Questionnaire-2 Score 5 05/18/2024 Internet Access Answer Date Recorded Internet Access Q1 No 10/06/2024 Internet Access Q2 I cannot afford it 10/06/2024 Comments Unknown Sex and Gender Information Value Date Recorded Sex Assigned at Female 03/12/2022 10:17 AM EDT Legal Sex Female 10:17 AM EDT Gender Identity Female 03/12/2022 10:17 AM EDT Sexual Orientation Straight 03/12/2022 10 :17 AM EDT Last Filed Vital Signs Vital Sign Reading Time Taken Comments Blood Pressure 162/78 03/17/2025 2:21 PM EST Pulse 85 03/17/2025 2:21 PM EST Temperature 37.2 C (98.9 F) 03/17/2025 2:21 PM EST Respiratory Rate 20 03/17/2025 2:21 PM EST Oxygen Saturation 98% 03/17/2025 2:21 PM EST Inhaled Oxygen Concentration - - Weight 67 kg (147 lb 9.6 oz) 03/17/2025 2:21 PM EST Height 157.5 cm (5' 2 ) 01/27/2025 11:20 AM EDT Body Mass Index 27 01/27/2025 11:20 AM EDT Plan of Treatment Upcoming Encounters Date Type Department Care Team (Late st Contact Info) Description 04/22/2025 1:30 PM EST Office Visit [facility] [address] [place] [phone] Brittany Michael, DDS [address] [place] [address] 04/30/2025 10:30 AM EST Telemedicine [facility] [address] [place] [phone] Tigist Hannon, RN 05/05/2025 10:30 AM EST Medication Management [facility] [address] [place] [phone] Hanna Bowman, JoseD [address] [place] [phone] 06/07/2025 12:45 PM EST Office Visit [facility] [address] [place] [phone] UribeMigdalia martinez 09/27/2025 10:00 AM EDT Office Visit [facility] [address] [place] [address] Carolina Landa, OD [address] [place] [address] Health Maintenance Due Date Last Done Comments CT Colonography 1960 FIT DNA/Cologuard 1960 FIT 1960 FOBT 1960 Sigmoidoscopy 1960 Hepatitis C Screening 1976 DTaP/Tdap/Td Vaccines (1 - Tdap) 07/06/2006 07/05/2006 Pneumococcal Vaccine: 50+ Years (1 of 1 - PCV) 2008 Zoster Vaccines (1 of 2) 2008 Dental Prophylaxis 01/27/2016 07/26/2015, 0 10/25/2014, 12/31/2013 Diabetes: Hemoglobin A1C 07/31/2023 07/30/2022, 02/0 12/2021 Depression Monitoring 11/15/2024 05/18/2024, 025 COVID-19 Vaccine ( season) 2025 08/30/2020, 08/02/2020 Influenza Vaccine (#1) 2025 Mammogram 03/31/2025 03/31/2024, 03/13, 03/26/2023 Dental Oral Exam 09/29/2025 03/31/2025, 07/2016, 11/10/2015, Additional history exists SDOH Screening 10/06/2025 10/06/2024 Alcohol/Substance Use Screening 03/31/2026 03/31/2025 Tobacco Screening 03/31/2026 03/31/2025 Dental X-Ray: Bitewings 04/01/2026 03/31/20 25, 07/13/2016, 11/10/2015, Additional history exists Lipid Panel 06/20/2026 06/20/2021 HPV/Cotest 05/03/2027 05/03/2022 Pap Smear 05/03/2027 05/03/2022 Dental X-Ray: Full Mouth 04/01/2028 025, 01/07/2025, 11/10/2015 RSV Patients and Patients Aged 60 years [...] patient's age to complete this topic Meningococcal B Vaccine Aged Out No l onger eligible based on patient's age to complete [...] Procedure Name Priority Date/Time Associated Diagnosis Comments CASE PRESENTATION, DETAILED AND EXTENSIVE TREATMENT PLANNING Routine 03/31/2025 1:30 PM EST INTRAORAL - COMPLETE SERIES OF RADIOGRAPHIC IMAGES Routine 03/31/2025 1:30 PM EST PERIODIC ORAL EVALUATION - ESTABLISHED PATIENT Routine 03/31/2025 1:30 PM EST 6 ROOT CANAL Routine 03/31/2025 12:00 AM EST 20 CROWN - PORCELAIN/CERAMIC Routine 03/31/2025 12:00 AM EST 29 CROWN - PORCELAIN/CERAMIC Routine 03/31/2025 12:00 AM EST 29 PREFABRICATED POST AND CORE IN ADDITION TO CROWN Routine 03/31/2025 12:00 AM EST 20 PREFABRICATED POST AND CORE IN ADDITION TO CROWN Routine 03/31/2025 12:00 AM EST 12 ROOT CANAL Routine 03/31/2025 12:00 AM EST 12 CROWN - PORCELAIN/CERAMIC Routine 03/31/2025 12:00 AM EST 10 CROWN - PORCELAIN/CERAMIC Routine 03/31/2025 12:00 AM EST 7 CROWN - PORCELAIN/CERAMIC Routine 03/31/2025 12:00 AM EST 8 CROWN - PORCELAIN/CERAMIC Routine 03/31/2025 12:00 AM EST 9 CROWN - PORCELAIN/CERAMIC Routine 03/31/2025 12:00 AM EST 10 ROOT CANAL Routine 03/31/2025 12:00 AM EST 9 ROOT CANAL Routine 03/31/2025 12:00 AM EST 8 ROOT CANAL Routine 03/31/2025 12:00 AM EST 7 ROOT CANAL Routine 03/31/2025 12:00 AM EST CASE PRESENTATION, DETAILED AND EXTENSIVE TREATMENT PLANNING Routine 02/24/2025 9:00 AM EDT 15 EXTRACTION, ERUPTED TOOTH REQ REMOVAL OF BONE AND/OR SECTIONING OF TOOTH Routine 02/24/2025 9:00 AM EDT PANORAMIC RADIOGRAPHIC IMAGE Routine 01/07/2025 1:00 PM EDT CASE PRESENTATION, DETAILED AND EXTENSIVE TREATMENT PLANNING Routine 01/07/2025 1:00 PM EDT LIMITED ORAL EVALUATION - PROBLEM FOCUSED Routine 01/07/2025 1:[address] ABDOMEN PELVIS WO CONTRAST Routine 01/06/2025 2:26 PM EDT HM COLONOSCOPY Routine 04/22/2024 BI MAMMOGRAM SCREENING TOMOSYNTHESIS BILATERAL Routine 03/31/2024 11:15 AM EST POCT GLYCATED HEMOGLOBIN, TOTAL Routine 07/30/2022 11:47 AM EDT Prediabetes THINPREP PAP AND HPV MRNA E6/E7 Routine 05/03/2022 12:08 PM EST LIPID PANEL, STANDARD Routine 06/20/2021 11:48 AM EST PROPHYLAXIS - ADULT Routine 07/26/2015 1 2:00 AM EDT from Last 3 Months or Most Recently Relevant to Health Maintenance Results * CT Abdomen Pelvis w/o Contrast (01/06/2025 2:26 PM EDT) Anatomical Region Laterality Modality Body, Pelvis, Abdomen Computed T omography 01/06/2025 2:26 PM EDT Narrative 01/06/2025 3:02 PM EDT [address] [place] [address] CT Scan Report Signed Patient: Corrie Turner MR#: [id number] : 1960 Acct:[id number] Age/Sex: 64 / F ADM Date: 01/06/25 Loc: HO.CT Attending Dr: Dolores Ibanez MD Ordering Physician: Dolores Ibanez MD Date of Service: 01/06/25 Procedure(s): CT abdomen pelvis wo IV con Accession Number(s): [id number] cc: Name,Bradly VERA; Dolores Ibanez MD Report Number: [id number]: Total DLP = 530.00 mGy-cm EXAMINATION: CT ABDOMEN AND PELVIS WITHOUT CONTRAST CLINICAL INFORMATION: Z87.19 - Personal history of other diseases of the digestive system , prior sigmoid diverticulitis COMPARISON: September 28, 2024 TECHNIQUE: Multidetector volumetric imaging was performed from the superior aspect of the liver through the pubic symphysis. Sagittal and coronal reformatted images were obtained on the technologist's workstation. This CT examination was performed using dose optimization techniques as appropriate, variously including the following: *Automated exposure control *Adjustment of mA and/or kV according to patient size (this includes techniques or standardized protocols for targeted exams where dose is matched to indication/reason for exam; i.e. extremities or head) *Use of iterative reconstruction technique DLP: 530 mGY*cm FINDINGS: LUNG BASES: The visualized lung bases are unremarkable. LIVER, GALLBLADDER, AND BILIARY TREE: The liver is normal in size, shape, and attenuation. No focal hepatic lesion or biliary ductal dilatation is present. The gallbladder is unremarkable with no evidence of radiopaque gallstones, gallbladder wall thickening, or obvious pericholecystic inflammatory changes. PANCREAS: Unremarkable. SPLEEN: Unremarkable. ADRENAL GLANDS: Unremarkable. KIDNEYS AND URETERS: The kidneys are normal in size, shape, and attenuation. No hydronephrosis, hydroureter, or calculi seen. No perinephric stranding. BLADDER: Unremarkable. GASTROINTESTINAL TRACT: Again seen is an end to end surgical anastomosis at the rectosigmoid junction. Bowel wall thickening and mesenteric inflammation in the distal sigmoid colon just cephalad to the anastomosis has resolved. Multiple scattered pseudodiverticula are again recognized in the descending and sigmoid colon. A normal appendix is evident. Very small sliding hiatal hernia involves a gastric cardia. ABDOMINAL WALL: No significant hernia is appreciated. LYMPH NODES: Normal. VASCULAR: Moderate desiccation is present in the abdominal aorta PELVIC VISCERA: Unremarkable. OSSEOUS STRUCTURES: Degenerative disc disease and facet arthropathy is noted in the lower lumbar spine and focal lumbar junction. CT/CT abdomen pelvis wo IV con IMPRESSION: Interval resolution of sigmoid diverticulitis. End to end surgical anastomosis of the rectosigmoid junction is intact. There is a very small sliding hiatal hernia involving gastric cardia. Fleischner guidelines were followed. Electronically signed by: Sid Aden MD 01/06/2025 02:59 PM EDT RP Dictated By: Sid Aden MD Signed By: <Electronically signed by Sid Aden MD in OV> 01/06/25 1459 DD/ 1426 TD/TT: 01/06/25 1445 Squadron Worker: Procedure Note Donotuseinterpreter, Image - 01/06/[address] [place] [address] [address] Scan Report Signed Patient: Corrie Turner MMR#: [id number] : 1960cct:[id number] Age/Sex: 64 / FADM Date: 01/06/25 Loc: HO.CT Attending Dr: Dolores Ibanez MD Ordering Physician: Dolores Ibanez MD Date of Service: 01/06/25 Procedure(s): CT abdomen pelvis wo IV con Accession Number(s): [id number] cc: Bradly Sanders MD; Dolores Ibanez MD Report Number: [id number]: Total DLP = 530.00 mGy-cm EXAMINATION: CT ABDOMEN AND PELVIS WITHOUT CONTRAST CLINICAL INFORMATION: Z87.19 - Personal history of other diseases of the digestive system , prior sigmoid diverticulitis COMPARISON: September 28, 2024 TECHNIQUE: Multidetector volumetric imaging was performed from the superior aspect of the liver through the pubic symphysis. Sagittal and coronal reformatted images were obtained on the technologist's workstation. This CT examination was performed using dose optimization techniques as appropriate, variously including the following: *Automated exposure control *Adjustment of mA and/or kV according to patient size (this includes techniques or standardized protocols for targeted exams where dose is matched to indication/reason for exam; i.e. extremities or head) *Use of iterative reconstruction technique DLP: 530 mGY*cm FINDINGS: LUNG BASES: The visualized lung bases are unremarkable. LIVER, GALLBLADDER, AND BILIARY TREE: The liver is normal in size, shape, and attenuation. No focal hepatic lesion or biliary ductal dilatation is present. The gallbladder is unremarkable with no evidence of radiopaque gallstones, gallbladder wall thickening, or obvious pericholecystic inflammatory changes. PANCREAS: Unremarkable. SPLEEN: Unremarkable. ADRENAL GLANDS: Unremarkable. KIDNEYS AND URETERS: The kidneys are normal in size, shape, and attenuation. No hydronephrosis, hydroureter, or calculi seen. No perinephric stranding. BLADDER: Unremarkable. GASTROINTESTINAL TRACT: Again seen is an end to end surgical anastomosis at the rectosigmoid junction. Bowel wall thickening and mesenteric inflammation in the distal sigmoid colon just cephalad to the anastomosis has resolved. Multiple scattered pseudodiverticula are again recognized in the descending and sigmoid colon. A normal appendix is evident. Very small sliding hiatal hernia involves a gastric cardia. ABDOMINAL WALL: No significant hernia is appreciated. LYMPH NODES: Normal. VASCULAR: Moderate desiccation is present in the abdominal aorta PELVIC VISCERA: Unremarkable. OSSEOUS STRUCTURES: Degenerative disc disease and facet arthropathy is noted in the lower lumbar spine and focal lumbar junction. CT/CT abdomen pelvis wo IV con IMPRESSION: Interval resolution of sigmoid diverticulitis. End to end surgical anastomosis of the rectosigmoid junction is intact. There is a very small sliding hiatal hernia involving gastric cardia. Fleischner guidelines were followed. Electronically signed by: Sid Aden MD 01/06/2025 02:59 PM EDT Dictated By: Sid Aden MD Signed By: <Electronically signed by Sid Aden MD in OV> 01/06/25 1459 DD/ 1426 TD/TT: 01/06/25 1445 Squadron Worker: [facility] External Provider IM CT PROCEDURES Final Result * Hm Colonoscopy (04/22/2024) Colonoscopy Normal Normal Bradly Sanders MD HEALTH MAINTENANCE Final Result * BI Mammogram Screening Tomosynthesis Bilateral (03/31/2024 11:15 AM EST) Anatomical Region Laterality Modality Breast Bilateral Mammography 03/31/2024 11:1 5 AM EST Narrative 03/31/2024 12:53 PM EST [place] [facility] [address] [place], [place] [address] Mammography Report Signed Patient: Corrie Turner MR#: [id number] : 1960 Acct:[id number] Age/Sex: 63 / F ADM Date: 03/31/24 Loc: HO.MAMMO Attending Dr: Bradly Sanders MD Ordering Physician: Bradly Sanders MD Results: 2Benign Fi ndings Date of Service: 03/31/24 Follow Up: 1 Year From Orig inal Mammogram Procedure(s): MM tomosynthesis screening BI Accession Number(s): [id number] cc: Bradly Sanders MD EXAMINATION: MM SCREENING [...] Tiffany Livingston DO 03/31/2024 12:50 PM EST Dictated By: Tiffany Livingston DO Signed By: <Electronically signed by Tiffany Livingston DO in OV> 03/31/24 1250 DD/ 1115 TD/TT: 03/31/24 1132 Squadron Worker: Procedure Note Donotuseinterpreter, Image - 03/31/2024 [facility] [address] [place], [place] [address] Mammography Report Signed Patient: Corrie Turner MMR#: [id number] : 9Acct:[id number] Age/Sex: 63 / FADM Date: 03/31/24 Loc: MAMMO Attending Dr: Bradly Sanders MD Ordering Physician: Bradly Sanders MDResults: 2Benign Fi ndings Date of Service: 03/31/24Follow Up: 1 Year From Orig inal Mammogram Procedure(s): MM tomosynthesis screening BI Accession Number(s): [id number] cc: Bradly Sanders MD EXAMINATION: MM SCREENING [...] 03/31/24 1250 DD/ 1115 TD/TT: 03/31/24 1132 Squadron Worker: us Bradly Sanders MD IMG BI PROCEDURES Final Result * (ABNORMAL) POCT A1C (07/30/2022 11:47 AM EDT) Hemoglobin A1C 6.1(A) 4.0 - 6.0 % Blood 07/30/2022 11:4 7 AM EDT us Bradly Sanders MD POINT OF CARE TEST ENTER/EDIT OR DERABLES Final Result * Thinprep PAP and HPV nRNA E6/E7 (05/03/2022 12:08 PM EST) Clinical Information: None given Ininalt LMP: NONE GIVEN [place] Prev. PAP: NONE GIVEN [place] Prev. BX: NONE GIVEN LessThan3 Diagnost SOURCE: None given Ininalt Statement Of Adequacy: SATISFACTORY FOR EVALUATION Qalendra Interpretation/Re sult: Ininalt Comment: Negative for intraepithelial lesion or malignancy. Atrophic pattern; predominantly parabasal cells Lumber Carrier Operator: Tobi [employer] Comment: CMG, CT(ASCP) CT screening location: [place] [address] (Always Message) [facility] Sh[employer]yout Comment: EXPLANATORY NOTE: The Pap is a [...] HPV nRNA E6/E7 Not Detected Not Detected [facility] Comment: Methodology: Tap Dancer-Mediated Amplification This assay detects E6/E7 viral messenger RNA (mRNA) from 14 high-risk HPV types (16,18,31,33,35,39,45,51,52,56,58,59,66,68). Cervical sources are required for HPV testing. If a vaginal source from a patient who has had a total hysterectomy with removal of cervix was submitted, please contact the testing laboratory for alternative testing options. For additional information, please refer to http://education.Airpost.io/faq/DQS308c6 (This link if provided for information/ educational purposes only.) 05/03/2022 12:0 8 PM EST 05/08/2022 8:06 AM EST Narrative [facility] - 05/11/2022 9:53 AM EST FASTING: UNKNOWN Lisa Anderson [facility] LAB PATHOLOGY ORDERABLES Final Result [facility] [address], [place] [address] [employer] [place] [employer] [address] [facility], (Nl2) [place] [address] * (ABNORMAL) LIPID PANEL, STANDARD (06/20/2021 11:48 AM EST) Chol/HDLC Ratio 3.7 <5.0 (calc) [facility] Cholesterol, Total 241(H) <200 mg/dL [facility] HDL Cholesterol 65 > OR = 50 mg/dL [facility] LDL Cholesterol 157(H) mg/dL (calc) [facility] Comment: Reference range: <100 Desirable range <100 mg/dL for primary prevention; <70 mg/dL for patients with CHD or diabetic patients with > or = 2 CHD risk factors. LDL-C is now calculated using the Lisa calculation, which is a validated novel method providing better accuracy than the Friedewald equation in the estimation of LDL-C. Shekhar CASE et al. DONOVAN. 2013;310(19): 0238-6916 (http://education.QuinStreet.GENE[employer] Systems Inc./faq/PQU698) Non-HDL Cholesterol 176(H) <130 mg/dL (calc) [facility] Comment: For patients with diabetes plus 1 major ASCVD risk factor, treating to a non-HDL-C goal of <100 mg/dL (LDL-C of <70 mg/dL) is considered a therapeutic option. Triglycerides 83 <150 mg/dL [facility] 06/20/2021 11:4 8 AM EST us Judy Lugo NP LAB BLOOD ORDERABLES Final Res ult [facility] [address] [place] [address], from Last 3 Months or Most Recently Relevant to Health Maintenance Insurance [facility] [address] [facility] Care Teams Surface Water Technician Relationship Specialty Start Date End Date Name, MD Bradly [address] [place] [address] PCP - General Family Medicine 03/06/22
--- OUTSIDE RECORDS SUMMARY | 2025-04-07 12:53 | XMS_ITS | Encounter Summary ---
Author Organization [employer] Address 75 [facility] 7t [place] [address] Care Team Providers Care Cloth Measurer Name Role Phone Name, Bradly VERA Primary Care Provider [phone] Reason for Visit * Reason Onset Date Comments Med Refill 04/02/2025 Medication Question 04/02/2025 Encounter Details Date Type Department Care Team ([facility] st Contact Info) Description 04/02/[address] [facility] MEDICINE [address] [place], [place] [phone] Name, MD Bradly [address] [place], [place] [phone] Anxiety Social History Tobacco Use Types Packs/Day [...] your housing situation today? I have joe angel 10/06/[address] you li [...] encounter Miscellaneous Notes * Telephone Encounter - Tigist Hannon RN - 04/06/2025 2:01 PM EST Received message from PCP I would director stage the med twice a day (56) . * Telephone Encounter - Charles Almanzar - 04/06/2025 1:37 PM EST Tc from pt requesting a call back regarding script as she is almost out of med . But pt is taking 2a day and states 20 is not enough Contact pt at [phone] * Telephone Encounter - Tigist Hannon RN - 04/02/2025 2:09 PM EST Per [facility], patient last picked up Lorazepam 0.5mg #20 for a 28 day supply on 03/18/25. Refill due 04/15/25. Will forward to PCP on 04/13/25. * Telephone Encounter - Marjorie Pascal - 04/02/2025 2:02 PM EST TC from pt requesting medication refill. Medications needing refill : LORazepam (Ativan) 0.5 MG tablet To be sent to: [id number] [place], [place] - [address] [facility] documented in this encounter Plan of Treatment Upcoming Encounters Date Type Department Care Team (Late st Contact Info) Description 04/22/2025 1:30 PM EST Office Visit [facility] ADULT DENTAL [address] [place] [address] Brittany Michael DDS [address] [place] [address] 04/30/2025 10:30 AM EST Telemedicine [facility] MEDICINE [address] [place] [address] Tigist Hannon, RN 05/05/2025 10:30 AM EST Medication Management [facility] MEDICINE [address] [place] [address] Hanna Bowman, PharmD [address] [place] [address] 06/07/2025 12:45 PM EST Office Visit [facility] ADULT DENTAL [address] [place] [address] Migdalia Uribe 09/27/2025 10:00 AM EDT Office Visit [facility] OPTOMETRY [address] [place] [address] Carolina Landa, OD [address] [place] [address] documented as of this encounter Visit Diagnoses Diagnosis Anxiety Anxiety state, unspecified documented in this encounter Additional Health Concerns Assessment Noted Time PHQ-9 Depression Total Score: 13 025 3:00 PM EST documented as of this encounter Care Teams Cloth Measurer Relationship Specialty Start Date End Date Name, MD Bradly [address] [place] [address] PCP - General Family Medicine 03/06/22 documented as of this encounter
--- OUTSIDE RECORDS SUMMARY | 2025-04-07 12:53 | XMS_ITS | Encounter Summary ---
Author Organization [employer] Address 75 [facility] 7t [place] [address] Care Team Providers Care Traffic Control Supervisor Name Role Phone Name, Bradly VERA Primary Care Provider [phone] Encounter Details Date Type Department Care Team (Late st Contact Info) Description 05/16/2023 Abstract [facility] MEDICINE [address] [place], [place] [phone] Name, MD Bradly [address] [place], [place] [phone] Social History Tobacco Use Types Packs/Day Years [...] Description 04/22/2025 1:30 PM EST Office Visit [facility] ADULT DENTAL [address] [place] [address] Correia-FeldmanMgBrittany, DDS [address] [place] [address] 04/30/2025 10:30 AM EST Telemedicine [facility] MEDICINE [address] [place] [address] Tigist Hannon, HARLEEN 05/05/2025 10:30 AM EST Medication Management [facility] MEDICINE [address] [place] [address] PuiaHanna, PharmD [address] [place] [address] 06/07/2025 12:45 PM EST Office Visit [facility] ADULT DENTAL [address] [place] [address] Migdalia Uribe 09/27/2025 10:00 AM EDT Office Visit [facility] OPTOMETRY [address] [place] [address] CordellCarolina gill, OD [address] [place] [address] documented as of this encounter Visit Diagnoses Not on filedocumented in this encounter Care Teams Traffic Control Supervisor Relationship Specialty Start Date End Date Name, MD Bradly [address] [place] [address] PCP - General Family Medicine 03/06/22 documented as of this encounter
--- OUTSIDE RECORDS SUMMARY | 2025-04-07 12:53 | XMS_ITS | Encounter Summary ---
Author Organization [employer] Address 75 [facility] 7t [place] [address] Care Team Providers Care Liquefied Petroleum Gasfitter Name Role Phone Name, Bradly VERA Primary Care Provider [phone] Reason for Visit * Reason Comments Med Refill Encounter Details Date Type Department Care Team ([facility] st Contact Info) Description 07/12/2023 Refill [facility] MEDICINE [address] [place], [place] [phone] Name, MD Bradly [address] [place], [place] [phone] Insomnia, unspecified type Social History Tobacco Use [...] Description 04/22/2025 1:30 PM EST Office Visit [facility] ADULT DENTAL [address] [place] [address] Brittany Michael DDS [address] [place] [address] 04/30/2025 10:30 AM EST Telemedicine [facility] MEDICINE [address] [place] [address] Tigist Hannon, HARLEEN 05/05/2025 10:30 AM EST Medication Management [facility] MEDICINE [address] [place] [address] Hanna Bowman, PharmD [address] [place] [address] 06/07/2025 12:45 PM EST Office Visit [facility] ADULT DENTAL [address] [place] [address] Migdalia Uribe 09/27/2025 10:00 AM EDT Office Visit [facility] OPTOMETRY [address] [place] [address] Carolina Landa, OD [address] [place] [address] documented as of this encounter Visit Diagnoses Diagnosis Insomnia, unspecified type documented in this encounter Additional Health Concerns Assessment Noted Time PHQ-9 Depression Total Score: 0 05/24/19 10:41 AM EST documented as of this encounter Care Teams Liquefied Petroleum Gasfitter Relationship Specialty Start Date End Date Name, MD Bradly [address] [place] [address] PCP - General Family Medicine 03/06/22 documented as of this encounter
--- OUTSIDE RECORDS SUMMARY | 2025-04-07 12:53 | XMS_ITS | Encounter Summary ---
Author Organization [employer] Address [address] [facility] 7t [place] [address] Care Team Providers Care Mica Splitter Name Role Phone Name, Bradly VERA Primary Care Provider [phone] Reason for Visit * Reason Onset Date Comments Med Refill 12/12/2023 Encounter Details Date Type Department Care Team ([facility] st Contact Info) Description 12/12/2023 Telephone [facility] MEDICINE [address] [place], [place] [phone] Name, MD Bradly [address] [place], [place] [phone] Med Refill Social History Tobacco Use Types [...] (Ambien) 10 MG tablet Please sent to [facility] documented in this encounter Plan of Treatment Upcoming Encounters Date Type Department Care Team (Late st Contact Info) Description 04/22/2025 1:30 PM EST Office Visit [facility] ADULT DENTAL [address] [place] [address] Brittany Michael DDS [address] [place] [address] 04/30/2025 10:30 AM EST Telemedicine [address] [address] Tigist Hannon RN 05/05/2025 10:30 AM EST Medication Management [facility] MEDICINE [address] [place] [address] Hanna Bowman, PharmD [address] [place] [address] 06/07/2025 12:45 PM EST Office Visit [facility] ADULT DENTAL [address] [place], [place] [phone] Migdalia Uribe 09/27/2025 10:00 AM EDT Office Visit [facility] OPTOMETRY [address] [place], [place] [phone] Cordell, Carolina, OD [address] [place] [address] documented as of this encounter Visit Diagnoses Not on filedocumented in this encounter Additional Health Concerns Assessment Noted Time PHQ-9 Depression Total Score: 0 05/24/19 24 10:41 AM EST documented as of this encounter Care Teams Mica Splitter Relationship Specialty Start Date End Date Name, MD Bradly [address] [place], [place] [phone] PCP - General Family Medicine 03/06/22 documented as of this encounter
--- OUTSIDE RECORDS SUMMARY | 2025-04-07 12:53 | XMS_ITS | Encounter Summary ---
Author Organization [employer] Address 75 [facility] 7t [place] [address] Care Team Providers Care Rib Puller Name Role Phone Name, Bradly VERA Primary Care Provider [phone] Reason for Visit * Reason Comments Med Refill Encounter Details Date Type Department Care Team (Late st Contact Info) Description 06/12/2022 Refill [facility] MEDICINE [address] [place], [place] [phone] Name, MD Bradly [address] [place], [place] [phone] Insomnia, unspecified type (Primary Dx); Essential hypertension [...] Description 04/22/2025 1:30 PM EST Office Visit [facility] ADULT DENTAL [address] [place], [place] [phone] Brittany Michael DDS [address] [place] [address] 04/30/2025 10:30 AM EST Telemedicine [facility] MEDICINE [address] [place] [address] Tigist Hannon, RN 05/05/2025 10:30 AM EST Medication Management [facility] MEDICINE [address] [place] [address] Hanna Bowman PharmD [address] [place] [address] 06/07/2025 12:45 PM EST Office Visit [facility] ADULT DENTAL [address] [place] [address] Migdalia Uribe 09/27/2025 10:00 AM EDT Office Visit [facility] OPTOMETRY [address] [place] [address] Carolina Landa, OD [address] [place] [address] documented as of this encounter Visit Diagnoses Diagnosis Insomnia, unspecified type- Primary Essential hypertension Unspecified essential hypertension documented in this encounter Care Teams Rib Puller Relationship Specialty Start Date End Date Name, MD Bradly [address] [place] [address] PCP - General Family Medicine 03/06/22 documented as of this encounter
--- OUTSIDE RECORDS SUMMARY | 2025-04-07 12:53 | XMS_ITS | Encounter Summary ---
Author Organization [employer] Address 75 [facility] 7 [place] [address] Care Team Providers Care Conference Specialist Name Role Phone Name, Bradly VERA Primary Care Provider [phone] Encounter Details Date Type Department Care Team (Late st Contact Info) Description 10/04/2022 Abstract [facility] MEDICINE [address] [place] [address] [phone] Name, MD Bradly [address] [place] [address] Social History Tobacco Use Types Packs/Day Years [...] Description 04/22/2025 1:30 PM EST Office Visit [facility] ADULT DENTAL [address] [place] [address] Brittany Michael DDS [address] [place] [address] 04/30/2025 10:30 AM EST Telemedicine [facility] MEDICINE [address] [place] [address] Tigist Hannon RN 05/05/2025 10:30 AM EST Medication Management [facility] MEDICINE [address] [place] [address] Hanna Bowman, PharmD [address] [place] [address] 06/07/2025 12:45 PM EST Office Visit [facility] ADULT DENTAL [address] [place] [address] Migdalia Uribe 09/27/2025 10:00 AM EDT Office Visit [facility] OPTOMETRY [address] [place] [address] Cordell, Carolina, OD [address] [place] [address] documented as of this encounter Procedures Procedure Name Priority Date/Time Associated Diagnosis Comments HM COLONOSCOPY Routine 02/22/2021 1:02 PM EDT documented in this encounter Results * Hm Colonoscopy (02/22/2021 1:02 PM EDT) Colonoscopy Normal Normal Narrative Scarlett Trujillo - 02/22/2021 1:02 PM EDT Recommended 5 year follow up Historical Provider HEALTH MAINTENANCE Final Result documented in this encounter Visit Diagnoses Not on filedocumented in this encounter Care Teams Conference Specialist Relationship Specialty Start Date End Date Name, MD Bradly [address] [place] [address] PCP - General Family Medicine 03/06/22 documented as of this encounter
--- OUTSIDE RECORDS SUMMARY | 2025-04-07 12:53 | XMS_ITS | Encounter Summary ---
Author Organization [employer] Address 75 [facility] 7t [place] [address] Care Team Providers Care Vat House Supervisor Name Role Phone Name, Bradly VERA Primary Care Provider [phone] Reason for Visit * Reason Onset Date Comments Med Refill 06/10/2023 Encounter Details Date Type Department Care Team ([facility] st Contact Info) Description 06/10/2023 Telephone [facility] MEDICINE [address] [place], [place] [phone] Name, MD Bradly [address] [place], [place] [phone] Med Refill Social History Tobacco Use Types [...] Ayala LPN - 06/10/2023 9:38 AM EST WINCH STRIPPER checked 06/10/23 last filled on 05/18/23 to soon for refill. * Telephone Encounter - Caitlin Whitmore - 06/10/2023 9:25 AM EST TC from pt requesting medication refill. Medications needing refill : zolpidem (Ambien) 10 MG tablet To be sent to: [id number] [place] [facility] [address] [facility] documented in this encounter Plan of Treatment Upcoming Encounters Date Type Department Care Team (Late st Contact Info) Description 04/22/2025 1:30 PM EST Office Visit [facility] ADULT DENTAL [address] [place] [address] Brittany Michael, DDS [address] [place] [address] 04/30/2025 10:30 AM EST Telemedicine [facility] MEDICINE [address] [place] [address] Tigist Hannon RN 05/05/2025 10:30 AM EST Medication Management [facility] MEDICINE [address] [place] [address] Hanna Bowman, PharmD [address] [place] [address] 06/07/2025 12:45 PM EST Office Visit [facility] ADULT DENTAL [address] [place] [address] Migdalia Uribe 09/27/2025 10:00 AM EDT Office Visit [facility] OPTOMETRY [address] [place], [place] [phone] Cordell, Carolina, OD [address] [place] [address] documented as of this encounter Visit Diagnoses Not on filedocumented in this encounter Additional Health Concerns Assessment Noted Time PHQ-9 Depression Total Score: 0 05/24/19 24 10:41 AM EST documented as of this encounter Care Teams Vat House Supervisor Relationship Specialty Start Date End Date Name, MD Bradly [address] [place] [address] PCP - General Family Medicine 03/06/22 documented as of this encounter
--- OUTSIDE RECORDS SUMMARY | 2025-04-07 12:53 | XMS_ITS | Encounter Summary ---
Author Organization [employer] Address 75 [facility] 7t [place] [address] Care Team Providers Care Med Spa Manager Name Role Phone Name, Bradly VERA Primary Care Provider [phone] Reason for Visit * Reason Onset Date Comments Med Refill 07/03/2024 Encounter Details Date Type Department Care Team ([facility] st Contact Info) Description 07/03/2024 Refill [facility] MEDICINE [address] [place], [place] [phone] Name, MD Bradly [address] [place], [place] [phone] Anxiety Social History Tobacco Use Types Packs/Day [...] is your housing situation today? I have joemelodie ortiz 08/22/[address] you [...] (Ativan) 0.5 MG tablet To be sent to:[id number] - [place], [place] - [address] [facility] documented in this encounter Plan of Treatment Upcoming Encounters Date Type Department Care Team (Late st Contact Info) Description 04/22/2025 1:30 PM EST Office Visit [facility] ADULT DENTAL [address] [place] [address] Brittany Michael, DDS [address] [place] [address] 04/30/2025 10:30 AM EST Telemedicine [facility] MEDICINE [address] [place] [address] Tigist Hannon, HARLEEN 05/05/2025 10:30 AM EST Medication Management [facility] MEDICINE [address] [place] [address] Hanna Bowman, PharmD [address] [place] [address] 06/07/2025 12:45 PM EST Office Visit [facility] ADULT DENTAL [address] [place] [address] Migdalia Uribe 09/27/2025 10:00 AM EDT Office Visit [facility] OPTOMETRY [address] [place] [address] Carolina Landa, OD [address] [place] [address] documented as of this encounter Visit Diagnoses Diagnosis Anxiety Anxiety state, unspecified documented in this encounter Additional Health Concerns Assessment Noted Time PHQ-9 Depression Total Score: 13 05/18/ 025 3:00 PM EST documented as of this encounter Care Teams Med Spa Manager Relationship Specialty Start Date End Date Name, MD Bradly [address] [place] [address] PCP - General Family Medicine 03/06/22 documented as of this encounter
--- OUTSIDE RECORDS SUMMARY | 2025-04-07 12:53 | XMS_ITS | Encounter Summary ---
Author Organization [employer] Address [address] [facility] 7t [place] [address] Care Team Providers Care Multiple Needle Stitcher Name Role Phone Name, Bradly VERA Primary Care Provider [phone] Reason for Visit * Reason Onset Date Comments Durable Medical Equipment 08/29/2022 Encounter Details Date Type Department Care Team ([facility] st Contact Info) Description 08/29/[address] [facility] MEDICINE [address] [place], [place] [phone] Name, MD Bradly [address] [place], [place] [phone] Durable Medical Equipment Social History Tobacco Use [...] below. Patient stated she misplaced cane at [facility]. I explained topatient script was going to be generated for providers signature and will be faxed to [facility] and they will submit to insurance and see if insurance will cover a new one since cane was only a year old. Patient understood and agreed with plan. * Telephone Encounter - Heri Rogers - 08/29/2022 2:53 PM EDT Tc from pt requesting a new script for a cane,. Please contact pt at [phone] documented in this encounter Plan of Treatment Upcoming Encounters Date Type Department Care Team (Late st Contact Info) Description 04/22/2025 1:30 PM EST Office Visit [facility] ADULT DENTAL [address] [place] [address] Brittany Michael, DDS [address] [place] [address] 04/30/2025 10:30 AM EST Telemedicine [facility] MEDICINE [address] [place] [address] Tigist Hannon, RN 05/05/2025 10:30 AM EST Medication Management [facility] MEDICINE [address] [place] [address] Hanna Bowman, PharmD [address] [place] [address] 06/07/2025 12:45 PM EST Office Visit [facility] ADULT DENTAL [address] [place] [address] Migdalia Uribe 09/27/2025 10:00 AM EDT Office Visit [facility] OPTOMETRY [address] [place] [address] Carolina Landa, OD [address] [place] [address] documented as of this encounter Visit Diagnoses Not on filedocumented in this encounter Care Teams Multiple Needle Stitcher Relationship Specialty Start Date End Date Name, MD Bradly [address] [place] [address] PCP - General Family Medicine 03/06/22 documented as of this encounter
--- OUTSIDE RECORDS SUMMARY | 2025-04-07 12:53 | XMS_ITS | Encounter Summary ---
Author Organization [employer] Address 75 [facility] 7 [place] [address] Care Team Providers Care Chiropractic Teacher Name Role Phone Name, Bradly VERA Primary Care Provider [phone] Reason for Visit * Reason Comments Med Refill Encounter Details Date Type Department Care Team (Late st Contact Info) Description 07/12/2022 Refill [facility] [address] [place] [address] [phone] Name, MD Bradly [address] [place] [address] [phone] Insomnia, unspecified type Social History Tobacco Use [...] 1:30 PM EST Office Visit [facility] [address] [place], [place] [phone] Brittany Michael DDS [address] [place] [address] 04/30/2025 10:30 AM EST Telemedicine [facility] [address] [place] [address] [phone] Tigist Hannon, RN 05/05/2025 10:30 AM EST Medication Management [facility] [address] [place] [address] Hanna Bowman PharmD [address] [place] [address] 06/07/2025 12:45 PM EST Office Visit [facility] [address] [place] [address] Migdalia Uribe 09/27/2025 10:00 AM EDT Office Visit [facility] [address] [place] [address] Carolina Landa, RINA 230 [place] [address] documented as of this encounter Visit Diagnoses Diagnosis Insomnia, unspecified type documented in this encounter Care Teams Chiropractic Teacher Relationship Specialty Start Date End Date Name, MD Bradly 230 [place] [address] PCP - General Family Medicine 03/06/22 documented as of this encounter
== END 2025-04-07 10:41 | disposition home or self-care (01) ==
LOC: HO.MAMMO 10:40
PROVIDERS: PCP Internal Medicine Geriatric Medicine; Visit Provider Internal Medicine Geriatric Medicine
DX: Z12.31 Encounter for screening mammogram for malignant neoplasm of breast (principal); M85.852 Other specified disorders of bone density and structure, left thigh; Z85.3 Personal history of malignant neoplasm of breast; Z90.12 Acquired absence of left breast and nipple
CPT/HCPCS: 77063; 77067; 77080

== ENCOUNTER → 2025-04-07 11:30 | Outpatient (BNV) | payer OTHER, SELFPAY | PROVIDERS: PCP Internal Medicine Geriatric Medicine; Visit Provider Radiology Diagnostic Radiology | DX: Z12.31 Encounter for screening mammogram for malignant neoplasm of breast (principal) | CPT/HCPCS: 77063; 77067; 77080 ==

== ENCOUNTER 2025-04-13 10:38 | Outpatient (AMB) | payer OTHER, SELFPAY ==
--- NOTE | 2025-04-13 10:56 | MHC.OFFVIS ---
Vital Signs 04/13/25 10:57 Height 5 ft 2 in Weight 147 lb 11.355 oz BMI 27.0 Respiration 18 Pulse 68 Intake Visit Reasons: 6 month follow up breast exam Intake Note: Patient is seen in office for 6 month follow up visit, breast exam. Pt c/o: admits to continued left breast pain/sore mm:04/07/25 Multimedia Manager Required: No Open Winder: Open Winder Present Accompanied by: Self / Same As Patient Allergies Penicillins (PENICILLINS) Allergy (Severe, Verified 04/13/25 10:57) SWELLING/VOMITING Iodinated Contrast Media (IV Contrast Dye) Allergy (Intermediate, Verified 04/13/25 10:57) eye/facial swelling metronidazole (Flagyl) Allergy (Intermediate, Verified 04/13/25 10:57) Palpitations iopromide Allergy (Verified 04/13/25 10:57) Itching paroxetine Adverse Reaction (Intermediate, Verified 04/13/25 10:57) diarrhea Medication List - Last Reconciled 04/13/25 by David Hawkins MD acetaminophen 500 mg PO Q6H PRN amitriptyline 10 mg PO BEDTIME aspirin (Adult Low Dose Aspirin) 81 mg PO DAILY cholecalciferol (vitamin D3) 1 cap PO DAILY ciprofloxacin HCl 500 mg PO BID 5 days diclofenac potassium 50 mg PO TID PRN diphenhydramine HCl 25 mg PO Q4H PRN docusate sodium (Colace) 100 mg PO DAILY esomeprazole magnesium 40 mg PO DAILY exemestane (Aromasin) 25 mg PO DAILY lorazepam 0.5 mg PO DAILY PRN losartan 50 mg PO DAILY metronidazole 500 mg PO TID 5 days multivit with min-folic acid 200 mcg (Women's Multivitamin Gummies) 1 tab PO DAILY oxycodone-acetaminophen 5-325 mg 1 - 2 tabs PO Q6H PRN rifaximin 550 mg PO TID 2 weeks walker Rollator walker with seat and breaks zolpidem 10 mg PO BEDTIME PRN HPI Comments Details: 64-year-old female patient, former patient of Dr. 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 She underwent lumpectomy on 01/08/2020 which revealed DCIS with microns of the margins. She subsequent underwent a wider excision with sentinel node biopsy on 02/17/2020. This time margins were clear by 2 mm. She underwent whole breast radiation therapy and is being followed by Dr. Arreola. She is currently on Aromasin. She reports pain in upper outer quadrant and axilla on the left side near the incision but overall feels improved. She denies any new palpable mass, nipple discharge or enlarged lymph nodes. Her most recent mammogram obtained 04/07/2025 revealed no mammographic evidence of malignancy (BI-RADS 2). She is also status post hand assisted laparoscopic sigmoid colectomy on 06/10/2024. She reports some pain in the left breast at the site of surgery but denies any new symptoms. [facility] Medical History Hx of radiation therapy History of chemotherapy Cough History of headache Constipation Allergic rhinitis Anxiety HTN (hypertension) Graves esophagus Allergies Foot fracture, right Closed left ankle fracture Infiltrating ductal carcinoma of left breast Overweight (BMI 25.0-29.9) GERD without esophagitis Rib pain on right side Insomnia Fibromyalgia Diverticulitis Chronic back pain GERD (gastroesophageal reflux disease) Surgical History Hx of colectomy Status post laparoscopic-assisted sigmoidectomy (06/10/24) History of lumpectomy of left breast History of left breast biopsy (~01/08/20) History of local excision of skin lesion (~03/2018) History of right breast biopsy (~2012) History of cystoscopy History of gastric surgery History of section History of esophagogastroduodenoscopy (EGD) (~02/2013) History of colonoscopy Family History Mother History of hypertension History of pancreatic cancer History of diabetes mellitus Father History of hypertension History of diabetes mellitus Colon cancer Sister History of hypertension Maternal Grandmother History of lung cancer Social History Household Members: None Housing: House Are you a primary healthcare applications analyst to a significant other at home: No Do you presently have 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 or other home services: Yes (drivers license examiner daily) Alcohol intake: never Comment: pt continues to refuse high falls alarms and assistance Patient Tobacco Use Status: Never used Tobacco e-Cigarette/Vaping Use: Never Used Second Hand Smoke Exposure: No service: No Current occupational status: disabled 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 Right breast: No skin change, no nipple retraction, no nipple discharge, no palpable mass, no enlarged lymph nodes Resp Effort & Inspection: normal respiratory effort, no audible wheezes, no cough and no respiratory distress GI Other: Abdomen is soft and nondistended with a well-healed abdominal incision. No rebound, guarding or rigidity. No abdominal wall hernias. Neuro General: patient oriented x3 Extrem Other: No edema Assessment & Plan Assessment & Plan (1) Infiltrating ductal carcinoma of left breast: Code(s): C50.912 - Malignant neoplasm of unspecified site of left female breast Category: Medical (2) Diverticulitis: Code(s): K57.92 - Diverticulitis of intestine, part unspecified, without perforation or abscess without bleeding Category: Medical Plan Patient returns approximately 5 years following left breast lumpectomy for infiltrating ductal carcinoma with DCIS of the left breast on 01/08/2020. Examination today revealed no suspicious findings in either breast with some mild tenderness located in the lower quadrants of the left breast. Her most recent mammogram of 04/07/2025 revealed no mammographic evidence of malignancy (BI-RADS 2). Follow-up mammogram in 1 year is recommended. I recommended follow-up examination in 1 year as well. She is welcome to call sooner for any new concerns. Coding Level of Care Code Est Pt Level 3 (67688) Complex visit Add On G2211 Diagnoses Infiltrating ductal carcinoma of left breast C50.912 Diverticulitis K57.92
[2025-04-13 10:57] VITALS: PULSE 68; RESP 18; BMI 27.0
--- OUTSIDE RECORDS SUMMARY | 2025-04-13 12:23 | XMS_ITS | Encounter Summary ---
Author Organization [employer] Address 75 [facility] 7t [place] [address] Care Team Providers Care Boat Hoist Operator Name Role Phone Name, Bradly VERA Primary Care Provider [phone] Encounter Details Date Type Department Care Team (Late st Contact Info) Description 05/16/2023 Abstract [facility] [address] [place], [place] [phone] Name, MD Bradly [address] [place], [place] [phone] Social History Tobacco Use Types Packs/Day Years [...] Description 04/22/2025 1:30 PM EST Office Visit [facility] [address] [place] [address] Correia-FeldmanMgBrittany, DDS [address] [place] [address] 04/30/2025 10:30 AM EST Telemedicine [facility] [address] [place] [address] Tigist Hannon, HARLEEN 05/05/2025 10:30 AM EST Medication Management [facility] [address] [place] [address] PuiaHanna, PharmD [address] [place] [address] 06/07/2025 12:45 PM EST Office Visit [facility] [address] [place] [address] Migdalia Uribe 09/27/2025 10:00 AM EDT Office Visit [facility] [address] [place] [address] CordellCarolina gill, OD [address] [place] [address] documented as of this encounter Visit Diagnoses Not on filedocumented in this encounter Care Teams Boat Hoist Operator Relationship Specialty Start Date End Date Name, MD Bradly [address] [place] [address] PCP - General Family Medicine 03/06/22 documented as of this encounter
--- OUTSIDE RECORDS SUMMARY | 2025-04-13 12:23 | XMS_ITS | Encounter Summary ---
Author Organization [employer] Address 75 [facility] 7t [place] [address] Care Team Providers Care University President Name Role Phone Name, Bradly VERA Primary Care Provider [phone] Reason for Visit * Reason Comments Med Refill Encounter Details Date Type Department Care Team (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) use of aromatase inhibitors; Sinus pressure [...] 1:30 PM EST Office Visit [facility]ULT [facility] [address] [place] [address] Brittany Michael DDS [address] [place] [address] 04/30/2025 10:30 AM EST Telemedicine [facility] [address] [place] [address] Tigist Hannon, RN 05/05/2025 10:30 AM EST Medication Management [facility] [address] [place] [address] Hanna Bowman, PharmD [address] [place] [address] 06/07/2025 12:45 PM EST Office Visit [facility] [address] [place] [address] Migdalia Uribe 09/27/2025 10:00 AM EDT Office Visit [facility] [address] [place] [address] Carolina Landa, OD [address] [place] [address] documented as of this encounter Visit Diagnoses Diagnosis Generalized body aches assisted (current) use of aromatase inhibitors Sinus pressure Other diseases of nasal cavity and sinuses documented in this encounter Additional Health Concerns Assessment Noted Time PHQ-9 Depression Total Score: 0 05/24/19 24 10:41 AM EST documented as of this encounter Care Teams University President Relationship Specialty Start Date End Date Name, MD Bradly [address] [place] [address] PCP - General Family Medicine 03/06/22 documented as of this encounter
--- OUTSIDE RECORDS SUMMARY | 2025-04-13 12:23 | XMS_ITS | Encounter Summary ---
Author Organization [employer] Address 75 [facility] 7t [place] [address] Care Team Providers Care Broadcast Checker Name Role Phone Name, Bradly VERA Primary Care Provider [phone] Reason for Visit * Reason Onset Date Comments Med Refill 12/12/2023 Encounter Details Date Type Department Care Team ([facility] st Contact Info) Description 12/12/2023 Telephone [facility] [address] [place], [place] [phone] Name, MD Bradly [address] [place], [place] [phone] Med Refill Social History Tobacco Use Types [...] your housing situation today? I have joe otriz 08/22/[address] you li [...] (Ambien) 10 MG tablet Please sent to [facility] documented in this encounter Plan of Treatment Upcoming Encounters Date Type Department Care Team (Late st Contact Info) Description 04/22/2025 1:30 PM EST Office Visit [facility] [address] [place] [address] Brittany Michael DDS [address] [place] [address] 04/30/2025 10:30 AM EST Telemedicine [address] [address] Tigist Hannon RN 05/05/2025 10:30 AM EST Medication Management [facility] [address] [place] [address] Hanna Bowman, PharmD [address] [place] [address] 06/07/2025 12:45 PM EST Office Visit [facility] [address] [place], [place] [phone] Migdalia Uribe 09/27/2025 10:00 AM EDT Office Visit [facility] [address] [place], [place] [phone] Cordell, Carolina, OD [address] [place] [address] documented as of this encounter Visit Diagnoses Not on filedocumented in this encounter Additional Health Concerns Assessment Noted Time PHQ-9 Depression Total Score: 0 05/24/19 24 10:41 AM EST documented as of this encounter Care Teams Broadcast Checker Relationship Specialty Start Date End Date Name, MD Bradly [address] [place], [place] [phone] PCP - General Family Medicine 03/06/22 documented as of this encounter
--- OUTSIDE RECORDS SUMMARY | 2025-04-13 12:23 | XMS_ITS | Encounter Summary ---
Author Organization [employer] Address 75 [facility] 7t [place] [address] Care Team Providers Care Manifold Operator Name Role Phone Name, Bradly VREA Primary Care Provider [phone] Reason for Visit * Reason Comments Med Refill Encounter Details Date Type Department Care Team (Late st Contact Info) Description 06/12/[address] [facility] [address] [place], [place] [phone] Name, MD Bradly [address] [place], [place] [phone] Insomnia, unspecified type (Primary Dx); Essential hypertension [...] Description 04/22/2025 1:30 PM EST Office Visit [facility] [address] [place], [place] [phone] Brittany Michael DDS [address] [place] [address] 04/30/2025 10:[address] [facility] [address] [place] [address] Tigist Hannon, RN 05/05/2025 10:30 AM EST Medication Management [facility] [address] [place] [address] Hanna Bowman PharmD [address] [place] [address] 06/07/2025 12:45 PM EST Office Visit [facility] [address] [place] [address] Migdalia Uribe 09/27/2025 10:00 AM EDT Office Visit [facility] [address] [place] [address] Carolina Landa, OD [address] [place] [address] documented as of this encounter Visit Diagnoses Diagnosis Insomnia, unspecified type- Primary Essential hypertension Unspecified essential hypertension documented in this encounter Care Teams Manifold Operator Relationship Specialty Start Date End Date Name, MD Bradly [address] [place] [address] PCP - General Family Medicine 03/06/22 documented as of this encounter
--- OUTSIDE RECORDS SUMMARY | 2025-04-13 12:23 | XMS_ITS | Encounter Summary ---
Author Organization [employer] Address 75 [facility] 7t [place] [address] Care Team Providers Care Microstrategy Architect Name Role Phone Name, Bradly VERA Primary Care Provider [phone] Reason for Visit * Reason Onset Date Comments Med Refill 06/10/2023 Encounter Details Date Type Department Care Team ([facility] st Contact Info) Description 06/10/2023 Telephone [facility] [address] [place], [place] [phone] Name, MD Bradly 230 [place], [place] [phone] Med Refill Social History Tobacco Use Types [...] Ayala LPN - 06/10/2023 9:38 AM EST GENERAL FARM MANAGER checked 06/10/23 last filled on 05/18/23 to soon for refill. * Telephone Encounter - Caitlin Whitmore - 06/10/2023 9:25 AM EST TC from pt requesting medication refill. Medications needing refill : zolpidem (Ambien) 10 MG tablet To be sent to: [id number] [id number] [facility] documented in this encounter Plan of Treatment Upcoming Encounters Date Type Department Care Team (Late st Contact Info) Description 04/22/2025 1:30 PM EST Office Visit [facility] [address] [place] [address] Brittany Michael, DDS [address] [place] [address] 04/30/2025 10:30 AM EST Telemedicine [facility] [address] [place] [address] Tigist Hannon RN 05/05/2025 10:30 AM EST Medication Management [facility] [address] [place] [address] Hanna Bowman, PharmD [address] [place] [address] 06/07/2025 12:45 PM EST Office Visit [facility] [address] [place] [address] Migdalia Uribe 09/27/2025 10:00 AM EDT Office Visit [facility] [address] [place], [place] [phone] Cordell, Carolina, OD [address] [place] [address] documented as of this encounter Visit Diagnoses Not on filedocumented in this encounter Additional Health Concerns Assessment Noted Time PHQ-9 Depression Total Score: 0 05/24/19 24 10:41 AM EST documented as of this encounter Care Teams Microstrategy Architect Relationship Specialty Start Date End Date Name, MD Bradly [address] [place] [address] PCP - General Family Medicine 03/06/22 documented as of this encounter
--- OUTSIDE RECORDS SUMMARY | 2025-04-13 12:23 | XMS_ITS | Encounter Summary ---
Author Organization [employer] Address [address] [facility] 7t [place] [address] Care Team Providers Care Foxer Name Role Phone Name, Bradly VERA Primary Care Provider [phone] Reason for Visit * Reason Onset Date Comments Med Refill 07/03/2024 Encounter Details Date Type Department Care Team ([facility] st Contact Info) Description 07/03/2024 Refill [facility] [address] [place], [place] [phone] Name, MD Bradly [address] [place], [place] [phone] Anxiety Social History Tobacco Use Types Packs/Day [...] (Ativan) 0.5 MG tablet To be sent to:[id number] - [place], [place] - [address] [facility] documented in this encounter Plan of Treatment Upcoming Encounters Date Type Department Care Team (Late st Contact Info) Description 04/22/2025 1:30 PM EST Office Visit [facility] ADULT DENT[facility] [address] [place] [address] Brittany Michael, DDS [address] [place] [address] 04/30/2025 10:30 AM EST Telemedicine [facility] [address] [place] [address] Tigist Hannon, HARLEEN 05/05/2025 10:30 AM EST Medication Management [facility] [address] [place] [address] Hanna Bowman, PharmD [address] [place] [address] 06/07/2025 12:45 PM EST Office Visit [facility] [address] [place] [address] Migdalia Uribe 09/27/2025 10:00 AM EDT Office Visit [facility] [address] [place] [address] Carolina Landa, OD [address] [place] [address] documented as of this encounter Visit Diagnoses Diagnosis Anxiety Anxiety state, unspecified documented in this encounter Additional Health Concerns Assessment Noted Time PHQ-9 Depression Total Score: 13 05/18/ 025 3:00 PM EST documented as of this encounter Care Teams Foxer Relationship Specialty Start Date End Date Name, MD Bradly 230 [place] [address] PCP - General Family Medicine 03/06/22 documented as of this encounter
--- OUTSIDE RECORDS SUMMARY | 2025-04-13 12:23 | XMS_ITS | Clinical Summary ---
Author Organization [employer] Address [address] [facility] 7t [place] [address] Care Team Providers Care Manager Winter Name Role Phone Name, Bradly VERA Primary Care Provider [phone] Allergies Active Allergy Reactions Criticality Noted Date [...] (Atrovent) 0.03 % nasal sprayIndication s:Generalized body aches,FDC (current) use of aromatase inhibitors,Sinu s pressure [...] Encounters Date Type Department Care Team Description 04/07/2025 Orders Only [facility] External Provider, [facility] 04/02/2025 Refill [facility] MEDICINE [address] [place] [address] Bradly Sanders MD Anxiety 03/31/2025 1:30 PM EST Office Visit [facility] ADULT DENTAL [address] [place] [phone] Grey Yanes DDS Dental caries (Primary Dx); Missing teeth, acquired; Dental plaque 03/24/2025 Telephone [facility] [address] [place] [address] Bradly Sanders MD CDTM (Called pt to book CDTM appointment no answer left voicemail to call back to book appointment/) 03/18/2025 Refill [facility] [address] [place] [address] Bradly Sanders MD Insomnia, unspecified type 03/17/2025 3:20 PM EST Office Visit [facility] [address] [place] [address] Karlee Lara MD Subconjunctival hematoma, right (Primary Dx); Essential hypertension 03/17/[address] [address] Karlee Lara MD 03/17/2025 Travel 03/17/[address] [address] Bradly Sanders MD Nurse Triage 03/09/[address] [address] Bradly Sanders MD 03/08/[address] [address] Bradly Sanders MD Anxiety 02/24/2025 9:00 AM EDT Office Visit [facility] ADULT DENTAL [address] [place] [phone] Grey Yanes DDS Dental caries extending into pulp (Primary Dx) 01/29/2025 11:00 AM EDT Telemedicine [address] [address] Tigist Hannon, RN Long-term current use of benzodiazepine 01/29/[address] [address] Tigist Hannon, RN Anxiety; Low back pain with sciatica, sciatica laterality unspecified, unspecified back pain laterality, unspecified chronicity; FDC (current) use of opiate analgesic 01/29/2025 Travel 01/27/2025 11:15 AM EDT Office Visit [address] [address] Bradly Sanders MD Generalized abdominal pain (Primary Dx); Screening for cholesterol level; Screening for diabetes mellitus; Vaccination refused by patient 01/27/2025 Travel 01/26/[address] [address] Yareli Duggan [place] chart prep 01/20/[address] [address] Bradly Sanders MD Appointment Request 01/20/2025 Travel from Last 3 Months Immunizations Immunization Administration [...] Description 04/22/2025 1:30 PM EST Office Visit [facility] ADULT DENTAL [address] [place] [address] Brittany Michael, DDS [address] [place] [address] 04/30/2025 10:30 AM EST Telemedicine [facility] MED[facility] [address] [place] [address] Tigist Hannon, HARLEEN 05/05/2025 10:30 AM EST Medication Management [facility] [address] [place] [address] Hanna Bowman, PharmD [address] [place] [address] 06/07/2025 12:45 PM EST Office Visit [facility] ADULT DENTAL [address] [place] [address] Migdalia Uribe 09/27/2025 10:00 AM EDT Office Visit [facility] OPTOMETRY [address] [place] [address] Carolina Landa, OD [address] [place] [address] Health Maintenance Due Date Last Done Comments CT Colonography 1960 FIT DNA/Cologuard 1960 FIT 1960 FOBT 1960 Sigmoidoscopy 1960 Hepatitis C Screening 1976 DTaP/Tdap/Td Vaccines (1 - Tdap) 07/06/2006 07/05/2006 Pneumococcal Vaccine: 50+ Years (1 of 1 - PCV) 2008 Zoster Vaccines (1 of 2) 2008 Dental Prophylaxis 01/27/2016 07/26/2015, 0 10/25/2014, 12/31/2013 Diabetes: Hemoglobin A1C 07/31/2023 07/30/2022, 02/12/2021 Depression Monitoring 11/15/2024 05/18/2024, 025 COVID-19 Vaccine ( season) 2025 08/30/2020, 08/02/2020 Influenza Vaccine (#1) 2025 Dental Oral Exam 09/29/2025 03/31/2025, 07/2016, 11/10/2015, Additional history exists SDOH Screening 10/06/2025 10/06/2024 Alcohol/Substance Use Screening 03/31/2026 03/31/2025 Tobacco Screening 03/31/2026 03/31/2025 Dental X-Ray: Bitewings 04/01/2026 03/31/20 25, 07/13/2016, 11/10/2015, Additional history exists Mammogram 04/07/2026 04/07/2025, 03/13, 03/26/2023, Additional history exists Lipid Panel 06/20/2026 06/20/2021 [...] Procedure Name Priority Date/Time Associated Diagnosis Comments BD DEXA AXIAL Routine 04/07/2025 12:30 PM EST BI MAMMOGRAM SCREENING TOMOSYNTHESIS BILATERAL Routine 04/07/2025 10:55 AM EST CASE PRESENTATION, DETAILED AND EXTENSIVE [...] OF TOOTH Routine 02/24/2025 9:00 AM EDT HM COLONOSCOPY Routine 04/22/2024 POCT GLYCATED HEMOGLOBIN, TOTAL Routine 07/30/2022 11:47 AM EDT Prediabetes THINPREP PAP AND HPV MRNA E6/E7 Routine 05/03/2022 12:08 PM EST LIPID PANEL, STANDARD Routine 06/20/2021 11:48 AM EST PROPHYLAXIS - ADULT Routine 07/26/2015 1 2:00 AM EDT from Last 3 Months or Most Recently Relevant to Health Maintenance Results * BD DEXA Axial (04/07/2025 12:30 PM EST) Anatomical Region Laterality Modality Body Radiographic Yana ging 04/07/2025 12:3 0 PM EST Narrative 04/07/2025 1:17 PM EST [facility] [address] [place] [address] Mammography Report Signed Patient: Corrie Turner MR#: [id number] : 1960 Acct:[id number] Age/Sex: 64 / F ADM Date: 04/07/25 Loc: HO.MAMMO Attending Dr: Bradly Sanders MD Ordering Physician: Lois Arreola MD Results: Date of Service: 04/07/25 Follow Up: Procedure(s): XR DEXA axial skeleton Accession Number(s): [id number] cc: Lois Arreola MD; Name,Bradly VERA Reason For Exam: Osteopenia. On an AI. EXAMINATION: DXA BONE DENSITY AXIAL HISTORY: Osteopenia. On an AI. TECHNIQUE: [employer] Dual energy absorptiometry (DEXA) of the lumbar spine, total left hip, and femoral neck was performed. COMPARISON: There are no prior studies for comparison. FINDINGS: The bone mineral density of the lumbar spine is 1.101 g/cm2, corresponding to a T-score of -0.7, and a Z-score of 0.9. This is indicative of normal bone mineral density. The bone mineral density of the left total hip is 0.893 g/cm2, corresponding to a T-score of -0.9, and a Z-score of 0.3. This is indicative of normal bone mineral density. The bone mineral density of the left femoral neck is 0.797 g/cm2, corresponding to a T-score of -1.7, and a Z-score of -0.2. This is indicative of osteopenia. FRACTURE RISK: The FRAX index suggests a risk of major osteoporotic fracture of 9.3%, and of hip fracture 1.2%. MM/XR DEXA axial skeleton IMPRESSION: Based on bone mineral density, and according to World Health Organization (WHO) criteria, the diagnosis is consistent with osteopenia. Statistically, 68% of repeat scans fall within 1 SD (+/- 0.010 g/cm2 for AP spine L1-L4) and 1 SD (+/- 0.012 g/cm2 for femur total) FRAX is a trademark of the [employer]'s [employer] Metabolic Bone Disease, a World Health Organization (WHO) Collaborating Center. Electronically signed by: Mars Stafford MD 04/07/2025 01:13 PM [facility] Dictated By: Mars Stafford MD Signed By: <Electronically signed by Mars Stafford MD in OV> 04/07/25 1313 DD/ 1230 TD/TT: 04/07/25 1250 Gym Attendant: Procedure Note Donotuseinterpreter, Image - 04/07/2025 [facility] [address] [place], [place] [address] Mammography Report Signed Patient: Corrie Turner MMR#: [id number] : 9Acct:[id number] Age/Sex: 64 / FADM Date: 04/07/25 Loc: HO.MAMMO Attending Dr: Bradly Sanders MD Ordering Physician: Lois Arreolaesults: Date of Service: 04/07/25Follow Up: Procedure(s): XR DEXA axial skeleton Accession Number(s): [id number] cc: Lois Arreola MD; Name,Bradly VERA Reason For Exam: Osteopenia. On an AI. EXAMINATION: DXA BONE DENSITY AXIAL HISTORY: Osteopenia. On an AI. TECHNIQUE: [employer] Dual energy absorptiometry (DEXA) of the lumbar spine, total left hip, and femoral neck was performed. COMPARISON: There are no prior studies for comparison. FINDINGS: The bone mineral density of the lumbar spine is 1.101 g/cm2, corresponding to a T-score of -0.7, and a Z-score of 0.9. This is indicative of normal bone mineral density. The bone mineral density of the left total hip is 0.893 g/cm2, corresponding to a T-score of -0.9, and a Z-score of 0.3. This is indicative of normal bone mineral density. The bone mineral density of the left femoral neck is 0.797 g/cm2, corresponding to a T-score of -1.7, and a Z-score of -0.2. This is indicative of osteopenia. FRACTURE RISK: The FRAX index suggests a risk of major osteoporotic fracture of 9.3%, and of hip fracture 1.2%. MM/XR DEXA axial skeleton IMPRESSION: Based on bone mineral density, and according to World Health Organization (WHO) criteria, the diagnosis is consistent with osteopenia. Statistically, 68% of repeat scans fall within 1 SD (+/- 0.010 g/cm2 for AP spine L1-L4) and 1 SD (+/- 0.012 g/cm2 for femur total) FRAX is a trademark of the [employer] Metabolic Bone Disease, a World Health Organization (WHO) Collaborating Center. Electronically signed by: Mars Stafford MD 04/07/2025 01:13 PM EST RP Dictated By: Mars Stafford MD Signed By: <Electronically signed by Mars Stafford MD in OV> 04/07/25 1313 DD/ 1230 TD/TT: 04/07/25 1250 Gym Attendant: [facility] External Provider IMG DXA PROCEDURES Final Result * BI Mammogram Screening Tomosynthesis Bilateral (04/07/2025 10:55 AM EST) Anatomical Region Laterality Modality Breast Bilateral Mammography 04/07/2025 10:5 5 AM EST Narrative 04/09/2025 4:12 PM EST [address] [place] [address] Mammography Report Signed Patient: Corrie Turner MR#: [id number] : 1960 Acct:[id number] Age/Sex: 64 / F ADM Date: 04/07/25 Loc: HO.MAMMO Attending Dr: Bradly Sanders MD Ordering Physician: Bradly Sanders MD Results: 2Benign Date of Service: 04/07/25 Follow Up: 1 Year From [facility] ina Mammogram Procedure(s): MM tomosynthesis screening BI Accession Number(s): [id number] cc: Bradly Sanders MD Reason For Exam: SCREENING EXAMINATION: MM SCREENING DIGITAL BREAST TOMOSYNTHESIS, BILATERAL CLINICAL INFORMATION: Screening. Asymptomatic. History of left breast cancer, status post lumpectomy in 2019. 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 COMPARISON: Comparison made to multiple prior, most recent March 31, 2024, and most remote December 17, 2019. TECHNIQUE: Digital breast tomosynthesis is performed in mediolateral oblique and craniocaudal views along with computer-aided detection (CAD). Synthesized 2D images are generated from the tomosynthesis. FINDINGS: BREAST COMPOSITION: There are scattered areas of fibroglandular density. RIGHT BREAST: Tissue marker from previous needle core biopsy. No significant masses, suspicious calcifications or other abnormalities are seen. LEFT BREAST: Post lumpectomy changes. No significant masses, suspicious calcifications or other abnormalities are seen. MM/MM tomosynthesis screening BI IMPRESSION: BILATERAL BREASTS: Benign, no mammographic evidence of malignancy. Normal interval follow-up is recommended in 12 months. ASSESSMENT: BI-RADS: Category 2: Benign RECOMMENDATION: Routine annual mammography screening. FOLLOW-UP: 1 year F/U This examination should not preclude the clinical evaluation of a suspicious palpable abnormality. This patient's information was entered into a reminder system with a target due date for their next mammogram. Electronically signed by: Lily Kemp MD 04/09/2025 04:08 PM [facility] Dictated By: Lily Kemp MD Signed By: <Electronically signed by Lily Kemp MD in OV> 04/09/25 1608 DD/ 1055 TD/TT: 04/07/25 1103 Gym Attendant: Procedure Note Donotuseinterpreter, Image - 04/09/2025 [facility] [address] [place], [place] [address] Mammography Report Signed Patient: Corrie Turner [facility]#: [id number] : 9Acct:[id number] Age/Sex: 64 / FADM Date: 04/07/25 Loc: [place] [place] Attending Dr: Bradly Sanders MD Ordering Physician: Bradly Sandersesults: 2Benign Date of Service: 04/07/25Follow Up: 1 Year From Orig inal Mammogram Procedure(s): MM tomosynthesis screening BI Accession Number(s): [id number] cc: Bradly Sanders MD Reason For Exam: SCREENING EXAMINATION: MM SCREENING DIGITAL BREAST TOMOSYNTHESIS, BILATERAL CLINICAL INFORMATION: Screening. Asymptomatic. History of left breast cancer, status post lumpectomy in 2020. 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 COMPARISON: Comparison made to multiple prior, most recent March 31, 2024, and most remote December 17, 2019. TECHNIQUE: Digital breast tomosynthesis is performed in mediolateral oblique and craniocaudal views along with computer-aided detection (CAD). Synthesized 2D images are generated from the tomosynthesis. FINDINGS: BREAST COMPOSITION: There are scattered areas of fibroglandular density. RIGHT BREAST: Tissue marker from previous needle core biopsy. No significant masses, suspicious calcifications or other abnormalities are seen. LEFT BREAST: Post lumpectomy changes. No significant masses, suspicious calcifications or other abnormalities are seen. MM/MM tomosynthesis screening BI IMPRESSION: BILATERAL BREASTS: Benign, no mammographic evidence of malignancy. Normal interval follow-up is recommended in 12 months. ASSESSMENT: BI-RADS: Category 2: Benign RECOMMENDATION: Routine annual mammography screening. FOLLOW-UP: 1 year F/U This examination should not preclude the clinical evaluation of a suspicious palpable abnormality. This patient's information was entered into a reminder system with a target due date for their next mammogram. Electronically signed by: Lily Kemp MD 04/09/2025 04:08 PM [facility] Dictated By: Lily Kemp MD Signed By: <Electronically signed by Lily Kemp MD in OV> 04/09/25 1608 DD/ 1055 TD/TT: 04/07/25 1103 Gym Attendant: us Bradly Sanders MD IMG BI PROCEDURES Final Result * Hm Colonoscopy (04/22/2024) Colonoscopy Normal Normal us Bradly Sanders MD HEALTH MAINTENANCE Final Result * (ABNORMAL) POCT A1C (07/30/2022 11:47 AM EDT) Hemoglobin A1C 6.1(A) 4.0 - 6.0 % Blood 07/30/2022 11:4 7 AM EDT us Bradly Sanders MD POINT OF CARE TEST ENTER/EDIT OR DERABLES Final Result * Thinprep PAP and HPV nRNA E6/E7 (05/03/2022 12:08 PM EST) Clinical Information: None given [facility] LMP: NONE GIVEN [employer] [facility] Prev. PAP: NONE GIVEN [facility] Prev. BX: NONE GIVEN [facility] SOURCE: None given [employer] Statement Of Adequacy: SATISFACTORY FOR EVALUATION [facility] Interpretation/Re sult: [facility] Comment: Negative for intraepithelial lesion or malignancy. Atrophic pattern; predominantly parabasal cells Medical I D Sales: [employer] Comment: CMG, CT(ASCP) CT screening location: [place] [address] (Always Message) [facility] Comment: EXPLANATORY NOTE: The Pap is a [...] HPV nRNA E6/E7 Not Detected Not Detected [facility] Comment: Methodology: Elevated Motorman-Mediated Amplification This assay detects E6/E7 viral messenger RNA (mRNA) from 14 high-risk HPV types (16,18,31,33,35,39,45,51,52,56,58,59,66,68). Cervical sources are required for HPV testing. If a vaginal source from a patient who has had a total hysterectomy with removal of cervix was submitted, please contact the testing laboratory for alternative testing options. For additional information, please refer to http://education.Accipiter Radar/faq/OBJ425m3 (This link if provided for information/ educational purposes only.) 05/03/2022 12:0 8 PM EST 05/08/2022 8:06 AM EST Narrative [facility] - 05/11/2022 9:53 AM EST FASTING: UNKNOWN us Lisa Anderson CNM LAB PATHOLOGY ORDERABLES Final Result [facility] [address] [facility], 3rd Fl, [place] [address] [facility] [address] , ([address]) [place] [address] * (ABNORMAL) LIPID PANEL, STANDARD (06/20/2021 11:48 [...] factors. LDL-C is now calculated using the Shekhar-Wilson calculation, which is a validated novel method providing better accuracy than the Friedewald equation in the estimation of LDL-C. Shekhar SS et al. DONOVAN. 2013;310(19): 6213-9631 (http://education.GoChime.Style [employer] H[employer]/faq/XSS004) Non-HDL Cholesterol 176(H) <130 mg/dL (calc) [facility] Comment: For patients with diabetes plus 1 major ASCVD risk factor, treating to a non-HDL-C goal of <100 mg/dL (LDL-C of <70 mg/dL) is considered a therapeutic option. Triglycerides 83 <150 mg/dL [facility] 06/20/2021 11:4 8 AM EST us Judy Lugo NP LAB BLOOD ORDERABLES Final Res ult [facility] [address] from Last 3 Months or Most Recently Relevant to Health Maintenance Insurance [facility] ONE CARE < 65 DENTAL - [facility] Care Teams Manager Winter Relationship Specialty Start Date End Date Name, MD Bradly [address] [place] [address] PCP - General Family Medicine 03/06/22
--- OUTSIDE RECORDS SUMMARY | 2025-04-13 12:23 | XMS_ITS | Encounter Summary ---
Author Organization [employer] Address 75 [facility] 7t [place] [address] Care Team Providers Care Hearing Dog Trainer Name Role Phone Name, Bradly VERA Primary Care Provider [phone] Encounter Details Date Type Department Care Team (Late st Contact Info) Description 10/04/2022 Abstract [facility] MEDICINE [address] [place] [address] [phone] Name, MD Bradly [address] [place] [phone] Social History Tobacco Use Types Packs/Day Years [...] 1:30 PM EST Office Visit [facility] ADULT DENTAL [address] [place] [address] Brittany Michael DDS [address] [place] [address] 04/30/2025 10:30 AM EST Telemedicine [facility] MEDICINE [address] [place] [address] Tigist Hannon RN 05/05/2025 10:30 AM EST Medication Management [facility] MEDICINE [address] [place] [address] Hanna Bowman, PharmD [address] [place] [address] 06/07/2025 12:45 PM EST Office Visit [facility] ADULT DENTAL [address] [place] [address] Migdalia Uribe 09/27/2025 10:00 AM EDT Office Visit [facility] OPTOMETRY [address] [place] [address] Cordell, Carolina, OD [address] [place] [address] documented as of this encounter Procedures Procedure [...] on filedocumented in this encounter Care Teams Hearing Dog Trainer Relationship Specialty Start Date End Date Name, MD Bradly [address] [place] [address] PCP - General Family Medicine 03/06/22 documented as of this encounter
--- OUTSIDE RECORDS SUMMARY | 2025-04-13 12:23 | XMS_ITS | Encounter Summary ---
Author Organization [employer] Address [address] [facility] 7t [place] [address] Care Team Providers Care Sustainability Purchasing Agent Name Role Phone Name, Bradly VERA Primary Care Provider [phone] Reason for Visit * Reason Comments Med Refill Encounter Details Date Type Department Care Team ([facility] st Contact Info) Description 07/12/2023 Refill [facility] MEDICINE [address] [place], [place] [phone] Name, MD Bradly [address] [place], [place] [phone] Insomnia, unspecified type Social History Tobacco Use [...] Description 04/22/2025 1:30 PM EST Office Visit [facility] ADULT DENTAL [address] [place] [address] Brittany Michael DDS [address] [place] [address] 04/30/2025 10:30 AM EST Telemedicine [facility] MEDICINE [address] [place] [address] Tigist Hannon, HARLEEN 05/05/2025 10:30 AM EST Medication Management [facility] MEDICINE [address] [place] [address] Hanna Bowman, PharmD [address] [place] [address] 06/07/2025 12:45 PM EST Office Visit [facility] ADULT DENTAL [address] [place] [address] Migdalia Uribe 09/27/2025 10:00 AM EDT Office Visit [facility] OPTOMETRY [address] [place] [address] Carolina Landa, OD [address] [place] [address] documented as of this encounter Visit Diagnoses Diagnosis Insomnia, unspecified type documented in this encounter Additional Health Concerns Assessment Noted Time PHQ-9 Depression Total Score: 0 05/24/19 10:41 AM EST documented as of this encounter Care Teams Sustainability Purchasing Agent Relationship Specialty Start Date End Date Name, MD Bradly [address] [place] [address] PCP - General Family Medicine 03/06/22 documented as of this encounter
--- OUTSIDE RECORDS SUMMARY | 2025-04-13 12:23 | XMS_ITS | Encounter Summary ---
Author Organization [employer] Address [address] [facility] 7t [place] [address] Care Team Providers Care Inspector Clip On Sunglasses Name Role Phone Name, Bradly VERA Primary Care Provider [phone] Encounter Details Date Type Department Care Team (Late st Contact Info) Description 05/16/2022 Abstract [facility] MEDICINE [address] [place], [place] [phone] Name, MD Bradly [address] [place] [address] Social History Tobacco Use Types Packs/Day Years [...] Description 04/22/2025 1:30 PM EST Office Visit [facility] ADULT DENTAL [address] [place] [address] Correia-FeldmanBrittany roberts, DDS [address] [place] [address] 04/30/2025 10:30 AM EST Telemedicine [facility] MEDICINE [address] [place] [address] Tigist Hannon, RN 05/05/2025 10:30 AM EST Medication Management [facility] MEDICINE [address] [place] [address] Hanna Bowman, PharmD [address] [place] [address] 06/07/2025 12:45 PM EST Office Visit [facility] ADULT DENTAL [address] [place] [address] Migdalia Uribe 09/27/2025 10:00 AM EDT Office Visit [facility] OPTOMETRY [address] [place] [address] Carolina Landa, OD [address] [place] [address] documented as of this encounter Visit Diagnoses Not on filedocumented in this encounter Care Teams Inspector Clip On Sunglasses Relationship Specialty Start Date End Date Name, MD Bradly [address] [place] [address] PCP - General Family Medicine 03/06/22 documented as of this encounter
--- OUTSIDE RECORDS SUMMARY | 2025-04-13 12:23 | XMS_ITS | Encounter Summary ---
Author Organization [employer] Address [address] [facility] [address] [place] [address] Care Team Providers Care Game Master Name Role Phone Name, Bradly VERA Primary Care Provider [phone] Reason for Visit * Reason Onset Date Comments Durable Medical Equipment 08/29/2022 Encounter Details Date Type Department Care Team ([facility] st Contact Info) Description 08/29/2022 Telephone [facility] [address] [place], [place] [phone] Name, MD Bradly [address] [place], [place] [phone] Durable Medical Equipment Social History Tobacco Use [...] below. Patient stated she misplaced cane at [facility]. I explained topatient script was going [...] for a cane,. Please contact pt at [phone] documented in this encounter Plan of Treatment Upcoming Encounters Date Type Department Care Team (Late st Contact Info) Description 04/22/2025 1:30 PM EST Office Visit [facility] [address] [place] [address] Brittany Michael, DDS [address] [place] [address] 04/30/2025 10:30 AM EST Telemedicine [facility] [address] [place] [address] Tigist Hannon, RN 05/05/2025 10:30 AM EST Medication Management [facility] [address] [place] [address] Hanna Bowamn, PharmD [address] [place] [address] 06/07/2025 12:45 PM EST Office Visit [facility] [address] [place] [address] Migdalia Uribe 09/27/2025 10:00 AM EDT Office Visit [facility] [address] [place] [address] Carolina Landa, OD [address] [place] [address] documented as of this encounter Visit Diagnoses Not on filedocumented in this encounter Care Teams Game Master Relationship Specialty Start Date End Date Name, MD Bradly [address] [place] [address] PCP - General Family Medicine 03/06/22 documented as of this encounter
--- OUTSIDE RECORDS SUMMARY | 2025-04-13 12:23 | XMS_ITS | Encounter Summary ---
Author Organization [employer] Address [address] [facility] 7 [place] [address] Care Team Providers Care Aerial Erector Name Role Phone Name, Bradly VERA Primary Care Provider [phone] Reason for Visit * Reason Comments Med Refill Encounter Details Date Type Department Care Team (Late st Contact Info) Description 07/12/2022 Refill [facility] [address] [place] [address] [phone] Name, MD Bradly [address] [place] [address] [phone] Insomnia, unspecified type Social History Tobacco Use [...] Description 04/22/2025 1:30 PM EST Office Visit [facility] [address] [place], [place] [phone] Brittany Michael DDS [address] [place] [address] 04/30/2025 10:30 AM EST Telemedicine [facility] [address] [place] [address] [phone] Tigist Hannon, RN 05/05/2025 10:30 AM EST Medication Management [facility] [address] [place] [address] Hanna Bowman PharmD [address] [place] [address] 06/07/2025 12:45 PM EST Office Visit [facility] [address] [place] [address] iMgdalia Uribe 09/27/2025 10:00 AM EDT Office Visit [facility] [address] [place] [address] Carolina Landa, RINA [address] [place] [address] documented as of this encounter Visit Diagnoses Diagnosis Insomnia, unspecified type documented in this encounter Care Teams Aerial Erector Relationship Specialty Start Date End Date Name, MD Bradly [address] [place] [address] PCP - General Family Medicine 03/06/22 documented as of this encounter
== END 2025-04-13 10:59 | disposition home or self-care (01) ==
LOC: HO.HGS 10:39
PROVIDERS: PCP Internal Medicine Geriatric Medicine; Visit Provider Surgery
DX: C50.912 Malignant neoplasm of unspecified site of left female breast (principal); K57.92 Diverticulitis of intestine, part unspecified, without perforation or abscess without bleeding
CPT/HCPCS: 99213; G2211

== ENCOUNTER → 2025-04-13 10:38 | Outpatient (BNVA) | payer OTHER, SELFPAY | PROVIDERS: PCP Internal Medicine Geriatric Medicine; Visit Provider Surgery | DX: C50.912 Malignant neoplasm of unspecified site of left female breast (principal); K57.92 Diverticulitis of intestine, part unspecified, without perforation or abscess without bleeding | CPT/HCPCS: 99212 ==

== ENCOUNTER 2025-04-19 11:53 | Outpatient (AMB) | payer OTHER, SELFPAY ==
--- NOTE | 2025-04-19 11:54 | A.OFFVIS_ITS ---
Intake Visit Reasons: 4m Intake Note: Corrie presents as a telehealth for a 4 month follow up. CC: States that she is having pains in the stomach and reflux even when she takes nexium! Social Media Intern Required: No Allergies Penicillins (PENICILLINS) Allergy (Severe, Verified 04/13/25 10:57) SWELLING/VOMITING Iodinated Contrast Media (IV Contrast Dye) Allergy (Intermediate, Verified 04/13/25 10:57) eye/facial swelling metronidazole (Flagyl) Allergy (Intermediate, Verified 04/13/25 10:57) Palpitations iopromide Allergy (Verified 04/13/25 10:57) Itching paroxetine Adverse Reaction (Intermediate, Verified 04/13/25 10:57) diarrhea HPI HPI 4m: Details: 64 yr old f called for f/u RECAP she had epigastric pain, she was taking omeprazole every other day 40 mg water was making pain worse she had EGD at [facility] with gastritis and duodenitis, intestinal metaplasia she had been on ambien for sleep she was not taking any other meds she finds prayer more helpful she went to the ED 10/13/22 with severe lower abdominal pain she was dx with acute diverticulitis on imaging she was given augmentin and it seemed to help but then 3 d ago the pain came back she has noted urine frequency I reordered labs and her CRP was 7, CBC and BMP were nml limits UA was pos for leuk esterase, but culture was neg I gave her cipor and flagyl for 1 week Other data: Mother from pancreas ca, father with CRC aged 75 US 11/2020--nml--hepatic steatosis colonoscopy 2012--diverticulosis, no polyps prior hx of h pylori gastritis treated 2014 EGD/colonoscopy 2020--sotelo's hemorrhoids, diverticulosis, tubulovillous polyp removed EGD/colo 2023: severe diverticulosis few small polyps IEL in duodenum, reflux changes no sotelo seen She had sigmoid colectomy 06/06 INTERIM: she has been getting chemo for breast cancer --in remission she is taking mag for constipation which seems to help her, she is happy with it pain is improved sometimes she has pressure sensation in her rectum she is taking colace and water not taking fiber supplement A/P: 1/ Recurrent diverticulitis, s/p colectomy - constipation 2/ Barretts esophagus with GERD in past PLAN: 1/ Advised on high fiber diet, discussed sigmoidoscopy to r/o stricture or lesion but she declines right now, not ready to have one, will send metamucil --will call me if things get worse [facility] Medical History Hx of radiation therapy History of chemotherapy Cough History of headache Constipation Allergic rhinitis Anxiety HTN (hypertension) Sotelo esophagus Allergies Foot fracture, right Closed left ankle fracture Infiltrating ductal carcinoma of left breast Overweight (BMI 25.0-29.9) GERD without esophagitis Rib pain on right side Insomnia Fibromyalgia Diverticulitis Chronic back pain GERD (gastroesophageal reflux disease) Surgical History Hx of colectomy Status post laparoscopic-assisted sigmoidectomy (06/10/24) History of lumpectomy of left breast History of left breast biopsy (~01/08/20) History of local excision of skin lesion (~03/2018) History of right breast biopsy (~2012) History of cystoscopy History of gastric surgery History of section History of esophagogastroduodenoscopy (EGD) (~02/2013) History of colonoscopy Family History Mother History of hypertension History of pancreatic cancer History of diabetes mellitus Father History of hypertension History of diabetes mellitus Colon cancer Sister History of hypertension Maternal Grandmother History of lung cancer Social History Household Members: None Housing: House Are you a primary healthcare social worker to a significant other at home: No Do you presently have 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 or other home services: Yes (track patrol daily) Alcohol intake: never Comment: pt continues to refuse high falls alarms and assistance Patient Tobacco Use Status: Never used Tobacco e-Cigarette/Vaping Use: Never Used Second Hand Smoke Exposure: No service: No Current occupational status: disabled 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 Telehealth Telehealth Telehealth Platform: Telephone Location of provider rendering services: practice address Location of patient: address on file Patient Identification confirmed using: Name, : Yes Telehealth method: voice only Patient verbally consented to treatment: Yes Patient verbally consented to billing insurance company: Yes Patient informed of any privacy concerns related to visit: Yes Minutes spent on Phone/Video with Pt.: 5 Assessment & Plan Assessment & Plan (1) History of diverticulitis: Code(s): Z87.19 - Personal history of other diseases of the digestive system Category: Medical Plan: as above Medications: New psyllium husk (with sugar) 3 gram/7 gram (Metamucil (with sugar)) 1 tbsp PO DAILY 822 grams 2RF Coding Level of Care Code Tele Est Pt Level 3 (47190) Diagnoses History of diverticulitis Z87.19
== END 2025-04-19 18:18 | disposition home or self-care (01) ==
LOC: HO.HGI 11:53
PROVIDERS: PCP Internal Medicine Geriatric Medicine; Visit Provider Internal Medicine Gastroenterology
DX: Z87.19 Personal history of other diseases of the digestive system (principal)
CPT/HCPCS: 99213